=== PATIENT | female | born 1945 | race Caucasian/White ===

== ENCOUNTER 2019-02-08 19:50 | Emergency (ER) | payer OTHER ==
--- OUTSIDE RECORDS SUMMARY | 2019-02-08 19:53 | XMS REPORT | Clinical Summary ---
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 1 Active 1 MG tablet 8 tretinoin SHANAE EXT TO FACE 0 Active (ALTRALIN) 0.05 % QHS 8 gel amlodipine-benazepr Take 1 capsule 0 Active il (LOTREL) 10-40 by mouth daily. mg per capsule buPROPion XL Take 300 mg by 0 Active (WELLBUTRIN XL) 300 mouth daily. MG 24 hr tablet furosemide (LASIX) Take 20 mg by 0 Active 20 mg tablet mouth daily. metoprolol tartrate Take 100 mg by 0 Active (LOPRESSOR) 100 mg mouth 2 (two) tablet times a day. topiramate Take 25 mg by 0 Active (TOPAMAX) 25 MG mouth 2 (two) tablet times a day. esomeprazole Take 40 mg by 0 Active (NexIUM) 40 MG mouth daily capsule before breakfast. atorvastatin Take 40 mg by 0 Active (LIPITOR) 40 MG mouth daily. tablet aspirin (ECOTRIN) Take 81 mg by 0 Active 81 MG enteric mouth daily. coated tablet nitrofurantoin, Take 100 mg by 0 Active macrocrystal-monohy mouth 2 (two) drate, (MACROBID) times a day. 100 MG capsule folic Take by mouth. 0 Active acid/multivit-min/l utein (CENTRUM SILVER ORAL) cranberry fruit Take by mouth. 0 Active extract (THERACRAN ORAL) docusate sodium Take by mouth. 0 Active (STOOL SOFTENER ORAL) Lactobacillus Take by mouth. 0 Active acidophilus (PROBIOTIC ORAL) biotin 5 mg capsule Take 5 mg by 0 Active mouth daily. conjugated Insert into the 0 Active estrogens vagina daily. (PREMARIN) 0.625 mg/gram vaginal cream promethazine HCl Take by mouth. 0 Active (PROMETHAZINE ORAL) gabapentin Take 1 capsule 270 capsule 0 05/22/20 Active (NEURONTIN) 300 mg (300 mg total) 8 19 capsule by mouth 3 (three) times a day. meloxicam (MOBIC) TK 1 T PO QD 0 03/28/20 Discontinued 15 mg tablet 8 18 metoclopramide TK 3 TS PO UTD 0 03/28/20 Discontinued (REGLAN) 10 MG PER YOUR 8 18 tablet COLONOSCOPY PREP PACKET Active Problems Problem Noted Date Cervicalgia 07/18/2018 Fixation hardware in spine 05/20/2018 S/P cervical spinal fusion 04/17/2018 Spondylolisthesis of cervical region 03/28/2018 Resolved Problems Problem Noted Date Resolved Date Ankylosing hyperostosis (forestier), cervical region 03/28/2018 07/18/2018 Cervical radiculopathy at C6 03/28/2018 05/20/2018 Encounters Date Type Specialty Care Team Description 07/18/2018 Office Visit Neurosurgery Michael Muller S/P cervical spinal fusion (Primary Dx); MD Eliel Fixation hardware in spine; Cervicalgia 07/18/2018 Hospital Encounter Radiology Michael Muller Cervical radiculopathy MD Eliel 07/18/2018 Orders Only Neurosurgery Michael Muller Cervical radiculoabida Julian MD (Primary Dx) 06/19/2018 Telephone Neurosurgery Swati Fonseca LVN 05/22/2018 Orders Only Neurosurgery Swati Fonseca MAINTENANCE SERVICE SUPERVISOR 05/21/2018 Telephone Neurosurgery FonsecaSwati, MAINTENANCE SERVICE SUPERVISOR 05/20/2018 Office Visit Neurosurgery Michael Muller Ankylosing hyperostosis ( forestier), cervical region (Primary Dx); MD Eliel Spondylolisthesis of cervical region; S/P cervical spinal fusion; Fixation hardware in spine 05/20/2018 Hospital Encounter Radiology Michael Muller Cervical vertebral MD Eliel fusion 05/08/2018 Orders Only Neurosurgery Swati Fonseca, Cervical vertebral MAINTENANCE SERVICE SUPERVISOR fusion (Primary Dx) 04/26/2018 Telephone Neurosurgery Fonseca Swati, MAINTENANCE SERVICE SUPERVISOR 04/17/2018 [facility] [place] OUTSOLE PARA[facility] 04/17/2018 Surgery General Surgery Michael Muller ANTERIOR CERVICAL MD Eliel DISCECTOMY WITH FUSION C4-C7 04/17/2018 Hospital Encounter General Internal Michael Muller S/P cervical spinal fusion; - Medicine MD Eliel Spondylolisthesis of cervical region; 04/18/2018 Ankylosing hyperostosis (foresthiwot), cervical region; Cervical radiculopathy 04/05/2018 Hospital Encounter Radiology Michael Muller Disorder of bone ; MD Eliel Radiculopathy of cervical spine 04/05/2018 Hospital Encounter Radiology Michael Muller Disorder of bone ; MD Eliel Radiculopathy of cervical spine 04/05/2018 Orders Only Cardiology Jayy Navarrete MD 04/02/2018 Orders Only Neurosurgery Swati Fonseca, Radiculopathy of cervical spine (Primary Dx); MAINTENANCE SERVICE SUPERVISOR Disorder of bone 03/28/2018 Hospital Encounter Michael Celaya MD 03/28/2018 Hospital Encounter Radiology Michael Muller MD 03/28/2018 Pre-Admit Testing Pre-Admission Michael Muller Preoperative testing Appointment Testing MD Eliel (Primary Dx) 03/28/2018 Office Visit Neurosurgery Michael Muller Ankylosing hyperostosis ( forestier), cervical region (Primary Dx); MD Eliel Cervical radiculopathy at C6; Spondylolisthesis of cervical region 03/28/2018 Hospital Encounter Michael Celaya Cervical radiculopathy MD Eliel 03/28/2018 Hospital Encounter Radiology Michael Muller Cervical radiculopathy MD Eliel 03/27/2018 Abstract Neurosurgery Raymundo SwatiJOSHUA 03/12/2018 Orders Only Neurosurgery Rossy Richard Cervical radiculopathy (Primary Dx) after 02/07/2018 Family History Medical History Relation Name Comments Cancer Mother Relation Name Status Comments Mother Social History Tobacco Use Types Packs/Day Years Used Date Former Smoker Cigarettes 1 Quit: 1991 Smokeless Tobacco: Never Used Alcohol Use Drinks/Week oz/Week Comments Yes 1-2 drinks /week Sex Assigned at Date Recorded Not on file Job Start Date Occupation Industry Not on file Not on file Not on file Travel History Travel Start Travel End No recent travel history available. Last Filed Vital Signs Vital Sign Reading Time Taken Blood Pressure 111/56 04/18/2018 7:43 AM CDT Pulse 74 04/18/2018 7:43 AM CDT Temperature 36.8 C (98.3 F) 04/18/2018 7:43 AM CDT Respiratory Rate 17 04/18/2018 7:43 AM CDT Oxygen Saturation 95% 04/18/2018 7:43 AM CDT Inhaled Oxygen Concentration - - Weight 67.1 kg (148 lb) 04/17/2018 8:57 AM CDT Height 162.6 cm (5' 4") 04/17/2018 8:57 AM CDT Body Mass Index 25.4 04/17/2018 8:57 AM CDT Plan of Treatment Health Maintenance Due Date Last Done Comments BREAST CANCER SCREENING 01/12/1996 COLON CANCER SCREENING 01/12/1996 SHINGLES VACCINES (#1) 01/12/1996 65+ PNEUMOCOCCAL VACCINE (1 of 2 - PCV13) 2011 PNEUMOCOCCAL POLYSACCHARIDE VACCINE AGE 65 AND OVER 2011 INFLUENZA VACCINE 05/22/2019 Implants Implanted Type Area Awning Maker Device Shelf Model / Identifier Expiration Serial / Date Lot Karina [employer] Mastergraft 3cc - [id number] Human N/A: [employer] 2020 [id number] / Implanted: Qty: 1 on 04/17/2018 by Michael Muller MD Tissue N/A SPINAL AND / Implants BIOLOGICS [id number] Cage [id number] Anatomic Ptc [id number] - [id number] IMPLANT N/A: [employer] 01/15/2026 [id number] / Implanted: 04/17/2018 (Quantity not on file) DEVICES N/A SOFAMOR DANEK / 62FD Cage [id number] Anatomic Ptc [id number] - [id number] IMPLANT N/A: [employer] 01/15/2026 [id number] / Implanted: 04/17/2018 (Quantity not on file) DEVICES N/A SOFAMOR DANEK / 90GA Cage [id number] Anatomic Ptc [id number] - [id number] [id number] IMPLANT N/A: [employer] 01/15/2026 [id number] / Implanted: 04/17/2018 (Quantity not on file) DEVICES N/A SOFAMOR DANEK / 90GA Screw Spinal Slf-Drl V-Ang 4x14mm - [id number] Spinal N/A: [employer] [id number] / Implanted: 04/17/2018 (Quantity not on file) Implants N/A SPINAL AND / BIOLOGICS Plate Cerv 57.5mm [place] Elite - [id number] Spinal N/A: [employer] [id number] / Implanted: 04/17/2018 (Quantity not on file) Implants N/A SPINAL AND / BIOLOGICS Screw Spinal Slf-Drl V-Ang 4.5x13mm - [id number] Spinal N/A: [employer] [id number] / Implanted: 04/17/2018 (Quantity not on file) Implants N/A SPINAL AND / BIOLOGICS Pin Distrctn [place] 12mm Strl - [id number] Surgical N/A: AESCULAP SPINE 10/21/2022 [id number] / Implanted: 04/17/2018 (Quantity not on file) Implants; N/A / Expanders; [id number] Extenders; Surgical Wires Pin Distrctn [place] 12mm Strl - [id number] Surgical N/A: AESCULAP SPINE 10/21/2022 [id number] / Implanted: 04/17/2018 (Quantity not on file) Implants; N/A / Expanders; [id number] Extenders; Surgical Wires Procedures Procedure Name Priority Date/Time Associated Diagnosis Comments XR CERVICAL SPINE Routine 07/18/2018 2:26 Cervical radiculopathy Results for this COMPLETE W FLEX PM CDT procedure are in EXT the results section. XR CERVICAL SPINE Routine 05/20/2018 1:36 Cervical vertebral Results for this 2 OR 3 VW PM CDT fusion procedure are in the results section. SURGICAL PATHOLOGY Routine 04/17/2018 3:25 Results for this REQUEST PM CDT procedure are in the results section. XR CERVICAL SPINE Routine 04/17/2018 1:58 S/P cervical spinal Results for this 1 VW PM CDT fusion procedure are in the results section. XR CERVICAL SPINE Routine 04/17/2018 12:40 S/P cervical spinal Results for this 1 VW PM CDT fusion procedure are in the results section. XR CERVICAL SPINE Routine 04/17/2018 12:25 S/P cervical spinal Results for this 1 VW PM CDT fusion procedure are in the results section. ARTERIAL LINE Routine 04/17/2018 12:19 PM CDT Procedure Note - Salinas Calero MD - 04/17/2018 12:19 PM CDT Arterial line Performed by: SALINAS CALERO Authorized by: SALINAS CALERO Patient Location: OR Staff: Anesthesiologist: SALINAS CALERO Pre-procedure: patient identified, IV checked, site and side verified, risks and benefits discussed, procedure verified, surgical consent complete, patient position confirmed, monitors and equipment checked and pre-op evaluation complete MSBT: antiseptic used, all elements of maximal sterile barrier technique followed and hand hygiene performed Indications: Indications: hemodynamic monitoring Anesthesia: Anesthesia: General Procedure Details: Arterial Line placement: Placed post induction Line placement site: Radial Line placement side: Left Arterial line gauge: 20 G Number of attempts: 1 Ultrasound guidance used: No Post-procedure: Post-procedure: Sterile dressing applied Post procedure circulation, sensation, movement: Normal and unchanged Patient tolerance: Patient tolerated the procedure well with no immediate complications NH AN ELECTIVE ENDOTRACHEAL AIRWAY Routine 04/17/2018 12:18 PM CDT Procedure Note - Salinas Calero MD - 04/17/2018 12:18 PM CDT Airway Date/Time: 04/17/2018 12:18 PM Performed by: SALINAS CALERO Authorized by: SALINAS CALERO Location: OR Urgency: Elective Difficult Airway: Yes (known, planned FOI) Anesthesiologist: SALINAS CALERO Preoxygenated with 100% O2: Yes C-spine Precautions Maintained Throughout: Yes Mask Ventilation: Easy mask Final Airway Type: Endotracheal airway Final Endotracheal Airway: ETT Cuffed: Yes Technique Used: Fiberoptic Insertion Site: Oral ETT Size (mm): 7.0 Cuff at minimum occlusion pressure: Yes Measured from: Teeth ETT to Teeth (cm): 21 Placement Verified by: CO2 detection and fiber optic visualization Rapid Sequence Induction (RSI): No Number of Attempts at Approach: 1 DISCECTOMY, CERVICAL, 04/17/2018 11:00 AM CDT Spondylolisthesis of cervical WITH FUSION, ANTERIOR region APPROACH Ankylosing hyperostosis (forestier), cervical region Cervical radiculopathy Case Notes MICROSCOPE [employer] POSSIBLE EXTENDED STAY Special Needs MICROSCOPE [employer] POSSIBLE EXTENDED STAY BONE DENSITY Routine 04/05/2018 3:02 Disorder of bone Results for this PM CDT Radiculopathy of procedure are in cervical spine the results section. BONE DENSITY Routine 04/05/2018 3:01 Disorder of bone Results for this PERIPHERAL PM CDT Radiculopathy of procedure are in cervical spine the results section. ECG 12-LEAD Routine 03/28/2018 3:26 Preoperative testing Results for this PM CDT procedure are in the results section. ZZESTIMATED GFR Routine 03/28/2018 3:10 Results for this PM CDT procedure are in the results section. BASIC METABOLIC Routine 03/28/2018 3:10 Preoperative testing Results for this PANEL PM CDT procedure are in the results section. HC COMPLETE BLD Routine 03/28/2018 3:10 Preoperative testing Results for this COUNT W/AUTO DIFF PM CDT procedure are in the results section. XR SPINE SCOLIOSIS Routine 03/28/2018 11:41 Cervical radiculopathy Results for this 2-3 VIEWS AM CDT procedure are in the results section. XR CERVICAL SPINE Routine 03/28/2018 11:40 Cervical radiculopathy Results for this COMPLETE W FLEX EXT AM CDT procedure are in the results section. after 02/07/2018 Results XR Cervical Spine Complete w flex/ext (07/18/2018 2:26 PM CDT)Only the most recent of2 resultswithin the time period is included. Narrative Performed At EXAMINATION: XR CERVICAL SPINE COMPLETE W FLEX EXT [facility] CLINICAL HISTORY: M54.12 Radiculopathycervical region, radiculopathy COMPARISON:Cervical spine radiograph 05/20/2018 IMPRESSION: No displaced fracture. Status post ACDF with anterior plates and screws and anterior interbody grafts C4-C7. Hardware appears intact and well positioned, with evidence of solid interbody osseous fusion at these levels. There is 1 to 2 mm anterolisthesis of C2 on C3 on flexion, which reduces to 0 mm on neutral and extension views. No other subluxation. Mild disc height loss at C3-4 with mild degenerative endplate changes at this level. Anterior osseous neural foraminal stenosis left C6-7, with at least mild to moderate osseous neural foraminal stenosis left C3-4 and C4-5, and right C5-6 and C6-7 secondary to uncovertebral and facet arthropathy. Prevertebral soft tissue thickness is within normal limits. [id number] Procedure Note Hm Interface, Radiology Results - 07/18/2018 3:30 PM CDT EXAMINATION: XR CERVICAL SPINE COMPLETE W FLEX EXT CLINICAL HISTORY: M54.12 Radiculopathy cervical region, radiculopathy COMPARISON: Cervical spine radiograph 05/20/2018 IMPRESSION: No displaced fracture. Status post ACDF with anterior plates and screws and anterior interbody grafts C4-C7. Hardware appears intact and well positioned, with evidence of solid interbody osseous fusion at these levels. There is 1 to 2 mm anterolisthesis of C2 on C3 on flexion, which reduces to 0 mm on neutral and extension views. No other subluxation. Mild disc height loss at C3-4 with mild degenerative endplate changes at this level. Anterior osseous neural foraminal stenosis left C6-7, with at least mild to moderate osseous neural foraminal stenosis left C3-4 and C4-5, and right C5-6 and C6-7 secondary to uncovertebral and facet arthropathy. Prevertebral soft tissue thickness is within normal limits. [id number] Performing Organization Address City/State/Zipcode Phone Number [facility] [address] [place] [address] XR Cervical Spine 2 Or 3 Vw (05/20/2018 1:36 PM CDT) Narrative Performed At EXAMINATION: XR CERVICAL SPINE 2 OR 3 VW [facility] CLINICAL HISTORY: M43.22 Fusion of spinecervical region, post fusion check COMPARISON:Intraoperative cervical spine x-rays from March. FINDINGS: There is relatively stable anterior fusion from C4 to C7 with prevertebral plate and screws and graft material within the disc spaces. No acute abnormality is seen in the region of surgery. There are surgical clips in the right prevertebral soft tissues at the C5 level. There is 1.5 mm anterolisthesis at C2-3 and C3-4 which is relatively stable. There is mild disc space narrowing at C3-4. Overlying structures obscure detail below the C7 level limiting evaluation of the C7-T1 alignment. There is relatively stable dorsal spondylosis and mild narrowing of the anterior canal from C3-4 to C6-7. There are facet and uncovertebral joint hypertrophic changes more prominent in the mid to lower cervical region. The cervical curvature is slightly convex towards the right and there is reversal of the upper cervical lordosis with straightening of the mid to lower cervical lordosis. There are degenerative changes of the atlantoaxial joint space. IMPRESSION: No acute findings. Postoperative changes. Degenerative changes in the cervical spine. [facility]-[id number] Procedure Note Hm Interface, Radiology Results - 05/20/2018 3:24 PM CDT EXAMINATION: XR CERVICAL SPINE 2 OR 3 VW CLINICAL HISTORY: M43.22 Fusion of spine cervical region, post fusion check COMPARISON: Intraoperative cervical spine x-rays from April 17, 2018. FINDINGS: There is relatively stable anterior fusion from C4 to C7 with prevertebral plate and screws and graft material within the disc spaces. No acute abnormality is seen in the region of surgery. There are surgical clips in the right prevertebral soft tissues at the C5 level. There is 1.5 mm anterolisthesis at C2-3 and C3-4 which is relatively stable. There is mild disc space narrowing at C3-4. Overlying structures obscure detail below the C7 level limiting evaluation of the C7-T1 alignment. There is relatively stable dorsal spondylosis and mild narrowing of the anterior canal from C3-4 to C6-7. There are facet and uncovertebral joint hypertrophic changes more prominent in the mid to lower cervical region. The cervical curvature is slightly convex towards the right and there is reversal of the upper cervical lordosis with straightening of the mid to lower cervical lordosis. There are degenerative changes of the atlantoaxial joint space. IMPRESSION: No acute findings. Postoperative changes. Degenerative changes in the cervical spine. [facility]-[id number] Performing Organization Address City/State/Zipcode Phone Number [facility] [address] [place] [address] Surgical pathology request (04/17/2018 3:25 PM CDT) [facility] DEPARTMENT OF PATHOLOGY AND GENOMIC MEDICINE Surgical pathology report See link below for PDF [facility] DEPARTMENT OF Lab Report PATHOLOGY AND GENOMIC MEDICINE Result status This is Final Report to [facility] DEPARTMENT OF [id number] PATHOLOGY AND GENOMIC MEDICINE Performing Organization Address City/[facility]/Zipcode Phone Number [facility] DEPARTMENT OF PATHOLOGY AND [address] [place] [address] GENOMIC MEDICINE XR Cervical Spine 1 Vw (04/17/2018 1:58 PM CDT)Only the most recent of3 resultswithin the time period is included. Narrative Performed At EXAMINATION: XR CERVICAL SPINE 1 VW [facility] CLINICAL HISTORY: Z98.1 Arthrodesis status COMPARISON:Intraoperative exam from earlier today. FINDINGS: There is anterior fusion from C4 down to C7. There is good alignment. There are degenerative changes in the cervical spine. There are tubes within the oropharynx extending downwards. There are radiopaque wires and leads. IMPRESSION: Lateral intraoperative radiograph of the cervical spine for localization during cervical spine surgery. [facility]-[id number] Procedure Note Interface, Radiology Results Incoming - 04/17/2018 2:59 PM CDT EXAMINATION: XR CERVICAL SPINE 1 VW CLINICAL HISTORY: Z98.1 Arthrodesis status COMPARISON: Intraoperative exam from earlier today. FINDINGS: There is anterior fusion from C4 down to C7. There is good alignment. There are degenerative changes in the cervical spine. There are tubes within the oropharynx extending downwards. There are radiopaque wires and leads. IMPRESSION: Lateral intraoperative radiograph of the cervical spine for localization during cervical spine surgery. [id number] Performing Organization Address [facility]/Zipcode Phone Number [facility] [address] [place] [address] Bone Density (04/05/2018 3:02 PM CDT) Narrative Performed At EXAMINATION:BONE DENSITY [facility] CLINICAL HISTORY: 73 years Female M89.9 Disorder of boneunspecified, M54.12 Radiculopathycervical region, NECK PAINABN NEURO EXAMXRAY SPONDYLOSIS, scheduled for cervical spine fusion COMPARISON:None. The results of this study expressed as bone mineral density (BMD) were as follows: AP spine (L1-L4) BMD: 1.380 g/cm2 T-Score: 1.7 Z-Score: 3.4 Dual Femur (Total Mean): BMD: 0.927 g/cm2 T-Score: -0.6 Z-Score:1.0 Left Forearm (Radius 33%): BMD: 0.782 g/cm2 T-Score: -1.1 Z-Score: 0.9 Trabecular Bone Score (TBS): TBS L1-L4: 1.448,(>1.350 normal, 1.200-1.350 partially degraded microarchitecture, <1.200 degraded microarchitecture) The 10 year probability of fracture, adjusted for FRAX: Major Osteoporotic Fracture: 18.5% Hip Fracture:5% Femur FRAX: Risk factors: Family history parent fracture, adult fracture 10 year probability of fracture: 1.Major osteoporotic: 23.3% 2.Hip: 6.2% 3.Based on femur left neck BMD Impression: 1.WHO classification consistent with osteopenia based on T score left forearm. Notes: *The world health organization (WHO) has classified the patient's T-score as follows: At or above (-1) as normal (-1) to (-2.5) as low (osteopenia) At or below (-2.5) as abnormally low (osteoporosis, increased fracture risk) For premenopausal women, men under the age 50 years, and children the WHO classification does not apply. In these individuals please assess bone mineral density with Z scores for each skeletal site examined. Z scores above -2.0: Within expected range for age. Z scores lower than -2.0:Low bone density for age. The TBS is derived from the texture of the DEXA image and has been shown to be related to bone microarchitecture and fracture risk. This data provides information independent of BMD value; is used as a complement to the data obtained from the DEXA analysis and the clinical examination. The TBS can assist the healthcare professional in assessment of fracture risk and in monitoring the effect of treatments on patient over time. [facility]-[id number] Procedure Note [facility], Radiology Results Incoming - 04/05/2018 3:38 PM CDT EXAMINATION: BONE DENSITY CLINICAL HISTORY: 73 years Female M89.9 Disorder of bone unspecified, M54.12 Radiculopathy cervical region, NECK PAIN ABN NEURO EXAM XRAY SPONDYLOSIS, scheduled for cervical spine fusion COMPARISON: None. The results of this study expressed as bone mineral density (BMD) were as follows: AP spine (L1-L4) BMD: 1.380 g/cm2 T-Score: 1.7 Z-Score: 3.4 Dual Femur (Total Mean): BMD: 0.927 g/cm2 T-Score: -0.6 Z-Score: 1.0 Left Forearm (Radius 33%): BMD: 0.782 g/cm2 T-Score: -1.1 Z-Score: 0.9 Trabecular Bone Score (TBS): TBS L1-L4: 1.448, (>1.350 normal, 1.200-1.350 partially degraded microarchitecture, <1.200 degraded microarchitecture) The 10 year probability of fracture, adjusted for FRAX: Major Osteoporotic Fracture: 18.5% Hip Fracture: 5% Femur FRAX: Risk factors: Family history parent fracture, adult fracture 10 year probability of fracture: 1. Major osteoporotic: 23.3% 2. Hip: 6.2% 3. Based on femur left neck BMD Impression: 1. WHO classification consistent with osteopenia based on T score left forearm. Notes: *The world health organization (WHO) has classified the patient's T-score as follows: At or above (-1) as normal (-1) to (-2.5) as low (osteopenia) At or below (-2.5) as abnormally low (osteoporosis, increased fracture risk) For premenopausal women, men under the age 50 years, and children the WHO classification does not apply. In these individuals please assess bone mineral density with Z scores for each skeletal site examined. Z scores above -2.0: Within expected range for age. Z scores lower than -2.0: Low bone density for age. The TBS is derived from the texture of the DEXA image and has been shown to be related to bone microarchitecture and fracture risk. This data provides information independent of BMD value; is used as a complement to the data obtained from the DEXA analysis and the clinical examination. The TBS can assist the healthcare professional in assessment of fracture risk and in monitoring the effect of treatments on patient over time. [facility]-[id number] [facility] Organization Address City/State/Zipcode Phone Number [facility] [address] [place] [address] Bone Density Peripheral (04/05/2018 3:01 PM CDT) Narrative Performed At EXAMINATION:BONE DENSITY PERIPHERAL [facility] CLINICAL HISTORY:M89.9 Disorder of boneunspecified, M54.12 Radiculopathycervical region, NECK PAINABN NEURO EXAMXRAY SPONDYLOSIS, scheduled for cervical spine fusion COMPARISON:None. Impression: 1.See accession #IM [id number]. [facility]-[id number] Procedure Note Hm Interface, Radiology Results Incoming - 04/05/2018 3:39 PM CDT EXAMINATION: BONE DENSITY PERIPHERAL CLINICAL HISTORY: M89.9 Disorder of bone unspecified, M54.12 Radiculopathy cervical region, NECK PAIN ABN NEURO EXAM XRAY SPONDYLOSIS, scheduled for cervical spine fusion COMPARISON: None. Impression: 1. See accession #IM [id number]. [facility]-[id number] Performing Organization Address City/[facility] Phone Number [facility] [address] [place] [address] ECG 12 lead (03/28/2018 3:26 PM CDT) Ventricular rate 64 [facility] MUSE Atrial rate 64 [facility] MUSE NH interval 206 [facility] MUSE QRSD interval 84 [facility] MUSE QT interval 432 [facility] M[facility] QTC interval 445 [facility] M[facility] P axis 1 39 [facility] M[facility] QRS axis 1 50 [facility] M[facility] T wave axis 28 [facility] EKG impression Normal sinus rhythm-Normal ECG-No previous [facility] ECGs available- Performing Organization Address [facility] Phone Number [facility] [address] [place] [address] Estimated GFR (03/28/2018 3:10 PM CDT) GFR Non Af Amer 54 (A) mL/min/1.73 m2 [facility] DEPARTMENT OF PATHOLOGY AND GENOMIC MEDICINE GFR Af Amer 66 mL/min/1.73 m2 [facility] DEPARTMENT OF Comment: PATHOLOGY AND GENOMIC Chronic kidney disease: <60 mL/min/1.73m2 MEDICINE Kidney failure: <15 mL/min/1.73m2 The estimated GFR is calculated from the IDMS-traceable Modification of Diet in Renal Disease Equation. The accuracy of the calculation is poor when the creatinine is normal. Calculated values >90 mL/min/1.73m2 are not reported. This equation has not been validated in children (<18 years), women, the elderly (>70 years), or ethnic groups other than Caucasians and Americans. Specimen Plasma specimen Performing Organization Address City/[facility] Phone Number [facility] DEPARTMENT OF PATHOLOGY AND [address] [place] [address] [employer] MEDICINE CBC with platelet and differential (03/28/2018 3:10 PM CDT) WBC 5.87 4.50 - 11.00 k/uL [facility] DEPARTMENT OF PATHOLOGY AND GENOMIC MEDICINE RBC 4.22 4.20 - 5.50 m/uL [facility] DEPARTMENT OF PATHOLOGY AND GENOMIC MEDICINE HGB 12.2 12.0 - 16.0 g/dL [facility] DEPARTMENT OF PATHOLOGY AND GENOMIC MEDICINE HCT 37.5 37.0 - 47.0 % [facility] DEPARTMENT OF PATHOLOGY AND GENOMIC MEDICINE MCV 88.9 82.0 - 100.0 fL [facility] DEPARTMENT OF PATHOLOGY AND GENOMIC MEDICINE MCH 28.9 27.0 - 34.0 pg [facility] DEPARTMENT OF PATHOLOGY AND GENOMIC MEDICINE MCHC 32.5 31.0 - 37.0 g/dL [facility] DEPARTMENT OF PATHOLOGY AND GENOMIC MEDICINE RDW - SD 43.3 37.0 - 55.0 fL [facility] DEPARTMENT OF PATHOLOGY AND GENOMIC MEDICINE MPV 10.0 8.8 - 13.2 fL [facility] DEPARTMENT OF PATHOLOGY AND GENOMIC MEDICINE Platelet count 366 150 - 400 k/uL [facility] DEPARTMENT OF PATHOLOGY AND GENOMIC MEDICINE Nucleated RBC 0.00 /100 WBC [facility] DEPARTMENT OF PATHOLOGY AND GENOMIC MEDICINE Neutrophils 67.1 39.0 - 69.0 % [facility] DEPARTMENT OF PATHOLOGY AND GENOMIC MEDICINE Lymphocytes 17.9 (L) 25.0 - 45.0 % [facility] DEPARTMENT OF PATHOLOGY AND GENOMIC MEDICINE Monocytes 9.7 0.0 - 10.0 % [facility] DEPARTMENT OF PATHOLOGY AND GENOMIC MEDICINE Eosinophils 4.1 0.0 - 5.0 % [facility] DEPARTMENT OF PATHOLOGY AND GENOMIC MEDICINE Basophils 0.7 0.0 - 1.0 % [facility] DEPARTMENT OF PATHOLOGY AND GENOMIC MEDICINE Immature granulocytes 0.5Comment: 0.0 - 1.0 % [facility] DEPARTMENT OF "Immature PATHOLOGY AND GENOMIC granulocytes" MEDICINE (promyelocytes, myelocytes, metamyelocytes) Specimen Blood Performing Organization Address City/State/Zipcode Phone Number [facility] DEPARTMENT OF PATHOLOGY AND [address] [place] [address] [employer] MEDICINE Basic metabolic panel (03/28/2018 3:10 PM CDT) Sodium 144 135 - 148 mEq/L [facility] DEPARTMENT OF PATHOLOGY AND GENOMIC MEDICINE Potassium 4.6 3.5 - 5.0 mEq/L [facility] DEPARTMENT OF PATHOLOGY AND GENOMIC MEDICINE Chloride 106 98 - 112 mEq/L [facility] DEPARTMENT OF PATHOLOGY AND GENOMIC MEDICINE CO2 24 24 - 31 mEq/L [facility] DEPARTMENT OF PATHOLOGY AND GENOMIC MEDICINE Anion gap 14@ANIO 7 - 15 mEq/L [facility] DEPARTMENT OF PATHOLOGY AND GENOMIC MEDICINE BUN 16 8 - 23 mg/dL [facility] DEPARTMENT OF PATHOLOGY AND GENOMIC MEDICINE Creatinine 1.0 (H) 0.5 - 0.9 mg/dL [facility] DEPARTMENT OF PATHOLOGY AND GENOMIC MEDICINE Glucose 107 (H) 65 - 99 mg/dL [facility] DEPARTMENT OF PATHOLOGY AND GENOMIC MEDICINE Calcium 9.9 8.8 - 10.2 mg/dL [facility] DEPARTMENT OF PATHOLOGY AND GENOMIC MEDICINE Specimen Plasma specimen Performing Organization Address City/State/Zipcode Phone Number [facility] DEPARTMENT OF PATHOLOGY AND [address] [place] [address] [facility] XR Spine Scoliosos 2-3 Views (03/28/2018 11:41 AM CDT) Narrative Performed At EXAMINATION:XR SPINE SCOLIOSIS 2-3 VIEWS [facility] CLINICAL HISTORY:M54.12 Radiculopathycervical region, BACK PAINUNSPECIFIED COMPARISON:None. IMPRESSION: 7 views of the whole spine are obtained. On the whole spine frontal view, there is mild displacement of the So line to the left of the mid S1 vertebral body by 1.5 cm. On the whole spine lateral view, there is some anterior displacement of the So line from the posterior S1 endplate by 3.9 cm. Levoscoliosis of the lumbar spine with apex at L2 and Alfred angle of 9. Grade 1 anterolisthesis at L4-5. Multilevel disc space narrowing and endplate degenerative changes worst at L2-3. No compression fractures or aggressive bony lesions. [facility]-[id number] Procedure Note Interface, Radiology Results Incoming - 03/28/2018 4:19 PM CDT EXAMINATION: XR SPINE SCOLIOSIS 2-3 VIEWS CLINICAL HISTORY: M54.12 Radiculopathy cervical region, BACK PAIN UNSPECIFIED COMPARISON: None. IMPRESSION: 7 views of the whole spine are obtained. On the whole spine frontal view, there is mild displacement of the So line to the left of the mid S1 vertebral body by 1.5 cm. On the whole spine lateral view, there is some anterior displacement of the So line from the posterior S1 endplate by 3.9 cm. Levoscoliosis of the lumbar spine with apex at L2 and Alfred angle of 9. Grade 1 anterolisthesis at L4-5. Multilevel disc space narrowing and endplate degenerative changes worst at L2- 3. No compression fractures or aggressive bony lesions. [facility]-[id number] Performing Organization Address City/State/Zipcode Phone Number [facility] [address] [place] [address] after 02/07/2018 Insurance Payer Benefit Plan / Group Subscriber ID Type Phone Address MEDICARE MEDICARE PART A AND B xxxxxxxxxx Medicare [place], [place] xxxxxxxxx Advance Directives Patient has advance care planning documents, and code status on file. For more information, please contact:Devin Regalado[address] [place] [address] Code Status Date Activated Date Inactivated Comments Full Code 04/17/2018 3:38 PM 04/18/2018 2:23 PM Code Status decision reached by: Patient
[2019-02-08] MEDS ORDERED: TETANUS & DIPHTHERIA TOX,ADULT 0.5 ML VIAL ONE (21:11)
[2019-02-08] MEDS ORDERED: CEFTRIAXONE/SWI 1gm 1 GM/10 ML SYR ONE (21:11)
[2019-02-08] MEDS ORDERED: NA CHLORIDE 0.9% 100 ML IV ONE (21:14)
--- NOTE | 2019-02-08 21:49 | EDPHYS ---
Physician Documentation [facility] Name: Kailey Myles Age: 74 yrs Sex: Female : 1945 Arrival Date: 02/08/2019 Time: 19:53 Bed 23 Private MD: Everardo Valerio ED Physician Naveed Lara HPI: 02/08 21:44 This 74 yrs old Female presents to ER via Ambulatory with complaints of DUCK gs CLAWED HER. 21:44 The laceration(s) is(are) located on the left wrist. Onset: The symptoms/episode gs began/occurred acutely, 2 hour(s) ago. Associated signs and symptoms: Pertinent negatives: deformity. The patient has not experienced similar symptoms in the past. was clawed by duck puncture to left wrist mild swelling. Historical: - Allergies: 19:58 BACITRACIN; la1 19:58 Bacitracin Zinc; la1 19:58 benzalkonium chloride; la1 19:58 Codeine; la1 19:58 Levofloxacin; la1 19:58 Neomycin Sulfate; la1 19:58 PENICILLINS; la1 19:58 polymyxin B; la1 19:58 pramoxine HCl; la1 - PMHx: 19:58 Anxiety; GERD; Hyperlipidemia; Hypertension; la1 - Immunization history:: Adult Immunizations up to date. - Social history:: Smoking status: Patient/guardian denies using tobacco. - Ebola Screening: : No symptoms or risks identified at this time. ROS: 21:44 All other systems are negative. gs Exam: 21:44 Head/Face: Normocephalic, atraumatic. Neck: Trachea midline, no thyromegaly or masses gs palpated, and no cervical lymphadenopathy. Supple, full range of motion without nuchal rigidity, or vertebral point tenderness. No Meningismus. Cardiovascular: Regular rate and rhythm with a normal S1 and S2. No gallops, murmurs, or rubs. Normal PMI, no JVD. No pulse deficits. Respiratory: Lungs have equal breath sounds bilaterally, clear to auscultation and percussion. No rales, rhonchi or wheezes noted. No increased work of breathing, no retractions or nasal flaring. Abdomen/GI: Soft, non-tender, with normal bowel sounds. No distension or tympany. No guarding or rebound. No evidence of tenderness throughout. Neuro: Awake and alert, GCS 15, oriented to person, place, time, and situation. Cranial nerves II-XII grossly intact. Motor strength 5/5 in all extremities. Sensory grossly intact. Cerebellar exam normal. Normal gait. 21:44 Constitutional: The patient appears alert, awake. 21:44 Musculoskeletal/extremity: Extremities: noted in the left wrist: swelling, mild, Pulses: are normal with no appreciated deficits, Sensation intact. 21:44 Skin: injury, puncture(s), that are superficial, of the left wrist. Vital Signs: 19:58 BP 158 / 68; Pulse 89; Resp 16; Temp 98.4; Pulse Ox 98% on R/A; Weight 66.68 kg; Height la1 5 ft. 4 in. (162.56 cm); 21:54 BP 136 / 71 RA Supine; Pulse 88; Resp 18 S; Pulse Ox 98% on R/A; rv 19:58 Body Mass Index 25.23 (66.68 kg, 162.56 cm) la1 MDM: 20:06 Patient medically screened. gs 21:44 Data reviewed: vital signs, nurses notes. Response to treatment: the patient's symptoms gs have markedly improved after treatment, and as a result, I will discharge patient. 02/08 20:27 Order name: Wrist Left (3 View) XRAY gs Administered Medications: 21:11 Drug: Tetanus-Diphtheria Toxoid Adult 0.5 ml {Licensed Clinical Psychologist: [employer]. Exp: rv 12/05/2020. Lot #: [id number]. } Route: IM; Site: left deltoid; 21:53 Follow up: Response: No adverse reaction rv 21:11 Drug: Rocephin - (cefTRIAXone) 1 grams Route: IVPB; Infused Over: 30 mins; Site: right rv antecubital; 21:53 Follow up: IV Status: Completed infusion; IV Intake: 100ml rv Disposition: 02/08/19 21:48 Discharged to Home. Impression: Puncture wound without foreign body of left wrist. - Condition is Stable. - Discharge Instructions: Puncture Wound. - Prescriptions for Ceftin 500 mg Oral Tablet - take 1 tablet by ORAL route every 12 hours for 7 days; 14 tablet. - Medication Reconciliation Form, Thank You Letter, Antibiotic Education, Prescription Opioid Use form. - Follow up: Private Physician; When: 2 - 3 days; Reason: Re-evaluation by your physician. Signatures: Dispatcher [employer] John Chung RN RN la1 Naveed Lara MD MD Ottoniel Lewis RN RN rv Corrections: (The following items were deleted from the chart) 21:55 21:48 02/08/2019 21:48 Discharged to Home. Impression: Puncture wound without foreign rv body of left wrist. Condition is Stable. Forms are Medication Reconciliation Form, Thank You Letter, Antibiotic Education, Prescription Opioid Use. Follow up: Private Physician; When: 2 - 3 days; Reason: Re-evaluation by your physician. gs
--- NOTE | 2019-02-08 21:49 | ER ---
Nurse's Notes [facility] Name: Kailey Myles Age: 74 yrs Sex: Female : 1945 Arrival Date: 02/08/2019 Time: 19:53 Bed 23 Private MD: Everardo Valerio Diagnosis: Puncture wound without foreign body of left wrist Presentation: 02/08 19:57 Presenting complaint: Patient states: I was trying to get out pet duck out of a kennel la1 and when I was getting it out it clawed me left wrist. Transition of care: patient was not received from another setting of care. Onset of symptoms was February 08, 2019. Risk Assessment: Do you want to hurt yourself or someone else? Patient reports no desire to harm self or others. Initial Sepsis Screen: Does the patient meet any 2 criteria? No. Patient's initial sepsis screen is negative. Does the patient have a suspected source of infection? No. Patient's initial sepsis screen is negative. Care prior to arrival: None. 19:57 Method Of Arrival: Ambulatory la1 19:57 Acuity: ARTHUR 4 la1 Historical: - Allergies: 19:58 BACITRACIN; la1 19:58 Bacitracin Zinc; la1 19:58 benzalkonium chloride; la1 19:58 Codeine; la1 19:58 Levofloxacin; la1 19:58 Neomycin Sulfate; la1 19:58 PENICILLINS; la1 19:58 polymyxin B; la1 19:58 pramoxine HCl; la1 - PMHx: 19:58 Anxiety; GERD; Hyperlipidemia; Hypertension; la1 - Immunization history:: Adult Immunizations up to date. - Social history:: Smoking status: Patient/guardian denies using tobacco. - Ebola Screening: : No symptoms or risks identified at this time. Screenin:02 Abuse screen: Denies threats or abuse. Denies injuries from another. Nutritional rv screening: No deficits noted. Tuberculosis screening: No symptoms or risk factors identified. Fall Risk None identified. Assessment: 20:01 General: Appears in no apparent distress. comfortable, Behavior is calm, cooperative. rv Pain: Denies pain. Neuro: Level of Consciousness is awake, alert, obeys commands, Oriented to person, place, time, situation. Cardiovascular: Capillary refill < 3 seconds. Respiratory: Airway is patent. GI: No signs and/or symptoms were reported involving the gastrointestinal system. : No signs and/or symptoms were reported regarding the genitourinary system. EENT: No signs and/or symptoms were reported regarding the EENT system. Derm: Skin is intact, Wound noted left wrist. Musculoskeletal: No signs and/or symptoms reported regarding the musculoskeletal system. Vital Signs: 19:58 BP 158 / 68; Pulse 89; Resp 16; Temp 98.4; Pulse Ox 98% on R/A; Weight 66.68 kg; Height la1 5 ft. 4 in. (162.56 cm); 21:54 BP 136 / 71 RA Supine; Pulse 88; Resp 18 S; Pulse Ox 98% on R/A; rv 19:58 Body Mass Index 25.23 (66.68 kg, 162.56 cm) la1 ED Course: 19:53 Patient arrived in ED. es 19:53 Everardo Valerio MD is Private Physician. es 19:58 Triage completed. la1 19:59 Ottoniel Lewis RN is Primary Nurse. rv 19:59 Arm band placed on left wrist. la1 20:00 Naveed Lara MD is Attending Physician. gs 20:02 Patient has correct armband on for positive identification. Bed in low position. Call rv light in reach. Side rails up X 1. Adult w/ patient. Pulse ox on. NIBP on. 21:03 Wrist Left (3 View) XRAY In Process Unspecified. EDMS 21:54 No provider procedures requiring assistance completed. IV discontinued, intact, rv bleeding controlled, No redness/swelling at site. Pressure dressing applied. Administered Medications: 21:11 Drug: Tetanus-Diphtheria Toxoid Adult 0.5 ml {It Technical Support Specialist: [employer]. Exp: rv 12/05/2020. Lot #: [id number]. } Route: IM; Site: left deltoid; 21:53 Follow up: Response: No adverse reaction rv 21:11 Drug: Rocephin - (cefTRIAXone) 1 grams Route: IVPB; Infused Over: 30 mins; Site: right rv antecubital; 21:53 Follow up: IV Status: Completed infusion; IV Intake: 100ml rv Intake: 21:53 IV: 100ml; Total: 100ml. rv Outcome: 21:48 Discharge ordered by . gs 21:54 Discharged to home ambulatory. rv 21:54 Condition: good 21:54 Discharge instructions given to patient, family, Instructed on discharge instructions, follow up and referral plans. medication usage, wound care, Demonstrated understanding of instructions, follow-up care, medications, Prescriptions given X 1. 21:55 Patient left the ED. rv Signatures: Dispatcher [employer] Fadumo Mccann Lee, RN RN la1 Naveed Lara MD MD Ottoniel Lewis RN RN rv
[2019-02-08 22:00] VITALS: TEMP 98.4; O2SAT 98
[2019-02-08 22:02] VITALS: BP 136/71
--- NOTE | 2019-02-09 09:26 | RAD REPORT ---
EXAM DESCRIPTION: RAD - Wrist Left 3 View - 02/08/2019 9:03 pm CLINICAL HISTORY: Left wrist pain status post injury FINDINGS: No fracture or dislocation is seen. No bone or joint abnormality
== END 2019-02-08 21:55 | disposition home or self-care (01) ==
LOC: ER 19:50
DX: S61.532A Puncture wound without foreign body of left wrist, initial encounter (principal); W45.8XXA Other foreign body or object entering through skin, initial encounter; F41.9 Anxiety disorder, unspecified; K21.9 Gastro-esophageal reflux disease without esophagitis; E78.5 Hyperlipidemia, unspecified; I10 Essential (primary) hypertension; Z88.1 Allergy status to other antibiotic agents; Z88.5 Allergy status to narcotic agent; Z88.0 Allergy status to penicillin; Z23 Encounter for immunization
CPT/HCPCS: 96365; 73110; 90714; 99284; J0696

== ENCOUNTER 2019-04-19 07:32 | Emergency (ER) | payer OTHER ==
--- OUTSIDE RECORDS SUMMARY | 2019-04-19 07:39 | XMS REPORT | Clinical Summary ---
:1945 Author Organization [facility] Address [address] [place] [address] Care Team Providers Name Role Phone Everardo Valerio MD Primary Care Provider Allergies Active Allergy Reactions Severity Noted Date Comments Codeine GI Intolerance 03/28/2018 Levofloxacin Anaphylaxis High 05/07/2013 Other 03/28/2018 Fluoroquinolones- attacks connective tissue Penicillins 03/28/2018 Quinolones 03/28/2018 Attacks connective tissue Thiazides 03/28/2018 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 Medications Medication Sig Dispensed Refills Start Date End Date Status HYDROcodone-acetamino TK 1 T PO BID 0 02/26/2018 Active phen (NORCO) 7.5-325 mg per tablet LORAZepam (ATIVAN) 1 TK 1 T PO BID. 1 01/10/2018 Active MG tablet tretinoin (ALTRALIN) SHANAE EXT TO FACE 0 01/09/2018 Active 0.05 % gel QHS amlodipine-benazepril Take 1 capsule 0 Active (LOTREL) 10-40 mg per by mouth daily. capsule buPROPion XL Take 300 mg by 0 Active (WELLBUTRIN XL) 300 mouth daily. MG 24 hr tablet furosemide (LASIX) 20 Take 20 mg by 0 Active mg tablet mouth daily. metoprolol tartrate Take 100 mg by 0 Active (LOPRESSOR) 100 mg mouth 2 (two) tablet times a day. topiramate (TOPAMAX) Take 25 mg by 0 Active 25 MG tablet mouth 2 (two) times a day. esomeprazole (NexIUM) Take 40 mg by 0 Active 40 MG capsule mouth daily before breakfast. atorvastatin Take 40 mg by 0 Active (LIPITOR) 40 MG mouth daily. tablet aspirin (ECOTRIN) 81 Take 81 mg by 0 Active MG enteric coated mouth daily. tablet nitrofurantoin, Take 100 mg by 0 Active macrocrystal-monohydr mouth 2 (two) ate, (MACROBID) 100 times a day. MG capsule folic Take by mouth. 0 Active acid/multivit-min/lut ein (CENTRUM SILVER ORAL) cranberry fruit Take by mouth. 0 Active extract (THERACRAN ORAL) docusate sodium Take by mouth. 0 Active (STOOL SOFTENER ORAL) Lactobacillus Take by mouth. 0 Active acidophilus (PROBIOTIC ORAL) biotin 5 mg capsule Take 5 mg by 0 Active mouth daily. conjugated estrogens Insert into the 0 Active (PREMARIN) 0.625 vagina daily. mg/gram vaginal cream promethazine HCl Take by mouth. 0 Active (PROMETHAZINE ORAL) gabapentin Take 1 capsule 270 capsule 0 05/22/2018 05/22/2019 Active (NEURONTIN) 300 mg (300 mg total) capsule by mouth 3 (three) times a day. Active Problems Problem Noted Date Cervicalgia 07/18/2018 [...] Fixation hardware in spine; Cervicalgia 07/18/2018 Hospital Radiology Michael Muller Cervical radiculopathy Encounter MD Eliel 07/18/2018 Orders Only Neurosurgery Michael Muller Cervical radiculopathy MD Eliel (Primary Dx) 06/19/2018 Telephone Neurosurgery Swati Fonseca LVN 05/22/2018 Orders Only Neurosurgery Swati Fonseca LVN 05/21/2018 Telephone Neurosurgery Swati Fonseca LVN 05/20/2018 Office Visit Neurosurgery Michael Muller Ankylosing hyperostosis ( forestier), cervical region (Primary Dx); MD Eliel Spondylolisthesis of cervical region; S/P cervical spinal fusion; Fixation hardware in spine 05/20/2018 Hospital Radiology Michael Muller Cervical vertebral Encounter MD Eliel fusion 05/08/2018 Orders Only Neurosurgery Swati Fonseca, Cervical vertebral CHARGING BOARD OPERATOR fusion (Primary Dx) 04/26/2018 Telephone Neurosurgery Swati Fonseca CHARGING BOARD OPERATOR 04/17/2018 - [facility] General Internal Michael Muller S/P cervical spinal fusion; 04/18/2018 Encounter Medicine MD Eliel Spondylolisthesis of cervical region; Ankylosing hyperostosis (forestier), cervical region; Cervical radiculopathy after 04/18/2018 Family History Medical History Relation Name Comments Cancer Mother Relation Name Status Comments Mother Social History Tobacco Use Types Packs/Day Years Used Date Former Smoker Cigarettes 11 07 Quit: 1991 Smokeless Tobacco: Never Used Alcohol [...] CDT Inhaled Oxygen Concentration - - Weight - - Height - - Body Mass Index - - Plan of Treatment Health Maintenance Due Date Last Done Comments BREAST CANCER SCREENING 01/12/1996 COLONOSCOPY SCREENING 01/12/1996 SHINGLES VACCINES (#1) 01/12/1996 65+ PNEUMOCOCCAL VACCINE (1 of 2 - PCV13) 2011 INFLUENZA VACCINE 05/22/2019 Implants Implanted Type Area Cosmetics Presser Device Shelf Model / Identifier Expiration Serial / Date Lot Karina Biolgc Mastergraft 3cc - [id number] Human N/A: [employer] 2020 [id number] / Implanted: Qty: 1 on 04/17/2018 by Michael Muller MD Tissue N/A SPINAL AND / Implants BIOLOGICS [id number] Cage [id number] Anatomic Ptc [id number] - [id number] [id number] IMPLANT N/A: [employer] 01/15/2026 [id number] / Implanted: 04/17/2018 (Quantity not on file) DEVICES N/A SOFAMOR DANEK / 62FD Cage [id number] Anatomic Ptc [id number] - [id number] [id number] IMPLANT N/A: [employer] 01/15/2026 [id number] / Implanted: 04/17/2018 (Quantity not on file) DEVICES N/A SOFAMOR DANEK / 90GA Cage [id number] Anatomic Ptc [id number] - [id number] IPM IMPLANT N/A: [employer] 01/15/2026 [id number] / Implanted: 04/17/2018 (Quantity not on file) DEVICES N/A SOFAMOR DANEK / 90GA Screw Spinal Slf-Drl V-Ang 4x14mm - [id number] Spinal N/A: [employer] [id number] / Implanted: 04/17/2018 (Quantity not on file) Implants N/A SPINAL AND / BIOLOGICS Plate Cerv 57.5mm [place] Elite - [id number] Spinal N/A: [employer] [id number] / Implanted: 04/17/2018 (Quantity not on file) Implants N/A SPINAL AND / BIOLOGICS Screw Spinal Slf-Drl V-Ang 4.5x13mm - [id number] Spinal N/A: [employer] [id number] / Implanted: 04/17/2018 (Quantity not on file) Implants N/A SPINAL AND / BIOLOGICS Pin Distrctn Thornton 12mm Strl - [id number] Surgical N/A: AESCULAP SPINE 10/21/2022 [id number] / Implanted: 04/17/2018 (Quantity not on file) Implants; N/A / Expanders; [id number] Extenders; Surgical Wires Pin Distrctn Thornton 12mm Strl - [id number] Surgical N/A: AESCULAP SPINE 10/21/2022 [id number] / Implanted: 04/17/2018 (Quantity not on file) Implants; N/A / Expanders; [id number] Extenders; Surgical Wires Procedures Procedure Name Priority Date/Time Associated Diagnosis Comments XR CERVICAL SPINE Routine 07/18/2018 2:26 Cervical radiculopathy Results for this COMPLETE W FLEX PM CDT procedure are in EXT the results section. XR CERVICAL SPINE Routine 05/20/2018 1:36 Cervical vertebral Results for this 2 OR 3 VW PM CDT fusion procedure are in the results section. after 04/18/2018 Results XR Cervical Spine Complete w flex/ext (07/18/2018 2:26 PM CDT) Specimen Narrative Performed At EXAMINATION: XR CERVICAL SPINE COMPLETE W FLEX EXT [facility] CLINICAL HISTORY: M54.12 Radiculopathycervical region, radiculopathy [...] soft tissue thickness is within normal limits. [id number] Procedure Note Interface, Radiology Results Incoming - 07/18/2018 3:30 PM CDT EXAMINATION: XR [...] soft tissue thickness is within normal limits. [id number] Performing Organization Address City/State/Zipcode Phone Number [facility] [address] [place] [address] XR Cervical Spine 2 Or 3 Vw (05/20/2018 1:36 PM CDT) Specimen Narrative Performed At EXAMINATION: XR CERVICAL SPINE [...] changes. Degenerative changes in the cervical spine. [facility] [id number] Procedure Note Hm Interface, Radiology Results Incoming - 05/20/2018 3:24 PM CDT EXAMINATION: XR [...] changes. Degenerative changes in the cervical spine. [facility] [id number] Performing Organization Address City/State/Zipcode Phone Number [facility] [address] [place] [address] after 04/18/2018 Insurance Payer Benefit Plan / Subscriber ID Effective Dates Phone Address Type Group MEDICARE MEDICARE PART A xxxxxxxxxx 2010-Present [place], [place] Medicare AND B xxxxxxxxx 2016-Present Advance Directives Patient has advance care planning documents, and code status on file. For more information, please contact:Devin Regalado[address] [place] [address] Code Status Date Activated Date Inactivated Comments Full Code 04/17/2018 3:38 PM 04/18/2018 2:23 PM Code Status decision reached by: Patient
--- OUTSIDE RECORDS SUMMARY | 2019-04-19 07:39 | XMS REPORT ---
:1945 Author Organization [facility] Address [address] [place] [address] Dr. Pineda [address] [place] [id number] Care Team Providers Name Role Phone Unavailable Unavailable Unavailable Problems This patient has no known problems. Allergies, Adverse Reactions, Alerts This patient has no known allergies or adverse reactions. Medications This patient has no known medications.
[2019-04-19] MEDS ORDERED: NA CHLORIDE 0.9% 1,000 ML ONE (08:05)
[2019-04-19] MEDS ORDERED: METOCLOPRAMIDE 10 MG/2mL INJ ONE (08:05)
[2019-04-19] MEDS ORDERED: DEXAMETHASONE 10 MG/ML VIAL ONE (08:05)
[2019-04-19] MEDS ORDERED: MEPERIDINE HCL 25 MG/0.5 ML ONE (08:05)
[2019-04-19] MEDS ORDERED: ONDANSETRON 4 MG/2 ML VIAL ONE (08:07)
--- NOTE | 2019-04-19 08:46 | RAD REPORT ---
EXAM DESCRIPTION: CT - Head Brain Wo Cont - 04/19/2019 8:15 am CLINICAL HISTORY: Headache COMPARISON: 2006 mri TECHNIQUE: Computed axial tomography of the head was obtained. IV contrast was not requested. All CT scans are performed using dose optimization technique as appropriate and may include automated exposure control or mA/KV adjustment according to patient size. FINDINGS: An intracranial bleed is not seen . The ventricles are normal in caliber. No extra-axial fluid collection is noted. Fluid within the sinuses/ mastoids is not seen. IMPRESSION: No acute intracranial abnormality is seen. If patient's symptoms persist MRI of the bra in would be recommended.
--- NOTE | 2019-04-19 09:31 | ER ---
Nurse's Notes [facility] Name: Kailey Myles Age: 74 yrs Sex: Female : 1945 Arrival Date: 04/19/2019 Time: 07:33 Bed 18 Private MD: Everardo Valerio Diagnosis: Headache Presentation: 04/19 07:40 Presenting complaint: Patient states: intermittent headaches that began 2 weeks ago. ss Headache that patient is here for today began four days ago and is reportedly worse than her typical headaches. Transition of care: patient was not received from another setting of care. Onset of symptoms was April 15, 2019. Risk Assessment: Do you want to hurt yourself or someone else? Patient reports no desire to harm self or others. Initial Sepsis Screen: Does the patient meet any 2 criteria? No. Patient's initial sepsis screen is negative. Does the patient have a suspected source of infection? No. Patient's initial sepsis screen is negative. Care prior to arrival: None. 07:40 Acuity: ARTHUR 3 ss 07:40 Method Of Arrival: Ambulatory ss Historical: - Allergies: 08:31 Codeine; em 08:31 BACITRACIN; em 08:31 Bacitracin Zinc; em 08:31 benzalkonium chloride; em 08:31 Levofloxacin; em 08:31 Neomycin Sulfate; em 08:31 PENICILLINS; em 08:31 QUINOLONES; em 08:31 THIAZIDES; em 08:31 Lyrica; em - Home Meds: 08:31 metoprolol tartrate 100 mg Oral tab 1 tab 2 times per day [Active]; topiramate 25 mg em oral tab 1 tabs 2 times per day [Active]; amlodipine-benazepril 10-40 mg oral cap [Active]; torsemide 20 mg oral tab 1 tab once daily [Active]; nitrofurantoin macrocrystal 100 mg Oral cap 1 cap once daily [Active]; esomeprazole magnesium 40 mg oral cpDR 1 cap once daily [Active]; lorazepam 1 mg Oral tab [Active]; aspirin 81 mg Oral chew 1 tab once daily [Active]; - PMHx: 08:31 Anxiety; GERD; Hyperlipidemia; Hypertension; em 08:36 bells palsy; em - Immunization history:: Adult Immunizations up to date. - Social history:: Smoking status: Patient/guardian denies using tobacco. - Family history:: not pertinent. - Ebola Screening: : Patient negative for fever greater than or equal to 101.5 degrees Fahrenheit, and additional compatible Ebola Virus Disease symptoms Patient denies exposure to infectious person Patient denies travel to an Ebola-affected area in the 21 days before illness onset No symptoms or risks identified at this time. - Hospitalizations: : No recent hospitalization is reported. Screenin:47 Abuse screen: Denies threats or abuse. Nutritional screening: No deficits noted. em Tuberculosis screening: No symptoms or risk factors identified. Fall Risk None identified. Assessment: 07:46 General: Appears in no apparent distress. uncomfortable, Behavior is calm, cooperative, em Denies fever. Pain: Complains of pain in forehead and top of head Pain currently is 10 out of 10 on a pain scale. Quality of pain is described as pressure. Neuro: Level of Consciousness is awake, alert, obeys commands, Oriented to person, place, time, situation, Scoreboard Operator are equal bilaterally Moves all extremities. Gait is steady, Speech is normal, Facial droop on left, prior hx of bells palsy . Pupils are PERRLA, Intact Reports headache Denies blurred vision dizziness. Cardiovascular: Capillary refill < 3 seconds Patient's skin is warm and dry. Respiratory: Airway is patent Respiratory effort is even, unlabored, Respiratory pattern is regular, symmetrical. GI: Reports nausea. Derm: Skin is intact, is healthy with good turgor, Skin is pink, warm \T\ dry. 08:00 General: The previous assessment is accurate, call light remains within reach. ss 08:36 Reassessment: Patient appears in no apparent distress at this time. Patient and/or em family updated on plan of care and expected duration. Pain level reassessed. Patient is alert, oriented x 3, equal unlabored respirations, skin warm/dry/pink. rates pain 3/10 Patient states feeling better. Patient states symptoms have improved. 09:33 Reassessment: Patient appears in no apparent distress at this time. Patient and/or em family updated on plan of care and expected duration. Pain level reassessed. Patient is alert, oriented x 3, equal unlabored respirations, skin warm/dry/pink. Patient states feeling better. Patient states symptoms have improved. Vital Signs: 07:46 BP 173 / 67; Pulse 66; Resp 18; Pulse Ox 98% on R/A; Pain 10/10; em 08:31 BP 127 / 62; Pulse 62; Resp 16; Temp 98.1; Pulse Ox 97% on R/A; Pain 3/10; em 09:43 BP 128 / 69; Pulse 63; Resp 18; Pulse Ox 97% on R/A; Pain 2/10; em Chaim Coma Score: 09:29 Eye Response: spontaneous(4). Verbal Response: oriented(5). Motor Response: obeys rn commands(6). Total: 15. ED Course: 07:33 Patient arrived in ED. as 07:34 Everardo Valerio MD is Private Physician. as 07:34 Cedric Burns MD is Attending Physician. rn 07:35 Alexander Martinez LVN is Primary Nurse. em 07:40 Arm band placed on right wrist. ss 07:44 Triage completed. ss 07:47 Patient has correct armband on for positive identification. Placed in gown. Bed in low em position. Call light in reach. Adult w/ patient. Pulse ox on. NIBP on. 08:00 Inserted saline lock: 20 gauge in right antecubital area, using aseptic technique. em 08:15 CT completed. Patient tolerated procedure well. Patient moved back from CT. mw3 08:15 CT Head Brain wo Cont In Process Unspecified. EDMS 09:42 No provider procedures requiring assistance completed. IV discontinued, intact, em bleeding controlled, No redness/swelling at site. Pressure dressing applied. Administered Medications: 08:00 Drug: NS 0.9% 1000 ml Route: IV; Rate: 1000 ml; Site: right antecubital; ss 09:18 Follow up: IV Status: Order to discontinue infusion; IV Intake: 500ml em 08:00 Drug: Reglan 10 mg Route: IVP; Site: right antecubital; ss 09:18 Follow up: Response: No adverse reaction; Pain is decreased em 08:02 Drug: Demerol 25 mg Route: IVP; Site: right antecubital; ss 09:18 Follow up: Response: No adverse reaction; Pain is decreased em 08:06 Drug: Decadron - Dexamethasone 10 mg Route: IVP; Site: right antecubital; ss 09:19 Follow up: Response: No adverse reaction; Pain is decreased em Intake: 09:18 IV: 500ml; Total: 500ml. em Outcome: 09:30 Discharge ordered by . rn 09:42 Discharged to home ambulatory, with family. em 09:42 Condition: good 09:42 Discharge instructions given to patient, family, Instructed on discharge instructions, follow up and referral plans. Demonstrated understanding of instructions, follow-up care. 09:46 Patient left the ED. em Signatures: Dispatcher [employer] EDMS Alexander Martinez, SENIOR IT ARCHITECT SENIOR IT ARCHITECT Evie Lua Roman, MD MD rn Smirch, Shelby, RN RN ss Willis, Michelle mw3
--- NOTE | 2019-04-19 09:31 | EDPHYS ---
Physician Documentation [facility] Name: Kailey Myles Age: 74 yrs Sex: Female : 1945 Arrival Date: 04/19/2019 Time: 07:33 Bed 18 Private MD: Everardo Valerio ED Physician Cedric Burns HPI: 04/19 08:14 This 74 yrs old Female presents to ER via Ambulatory with complaints of rn Headache. 08:14 The patient complains of pain to the top of head and forehead. The patient describes rn the headache as aching. Onset: The symptoms/episode began/occurred 2 day(s) ago. Severity of symptoms: At its worst the pain was moderate, in the emergency department the pain is unchanged. The symptoms are alleviated by nothing. the symptoms are aggravated by lights, noise, stress. The patient has experienced similar episodes in the past. 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 Walters, took sumatriptan this AM and did not help. Reports headaches on and off for 2 weeks, but worse this morning. No focal neurological complaints. . Historical: - Allergies: 08:31 Codeine; em 08:31 BACITRACIN; em 08:31 Bacitracin Zinc; em 08:31 benzalkonium chloride; em 08:31 Levofloxacin; em 08:31 Neomycin Sulfate; em 08:31 PENICILLINS; em 08:31 QUINOLONES; em 08:31 THIAZIDES; em 08:31 Lyrica; em - Home Meds: 08:31 metoprolol tartrate 100 mg Oral tab 1 tab 2 times per day [Active]; topiramate 25 mg em oral tab 1 tabs 2 times per day [Active]; amlodipine-benazepril 10-40 mg oral cap [Active]; torsemide 20 mg oral tab 1 tab once daily [Active]; nitrofurantoin macrocrystal 100 mg Oral cap 1 cap once daily [Active]; esomeprazole magnesium 40 mg oral cpDR 1 cap once daily [Active]; lorazepam 1 mg Oral tab [Active]; aspirin 81 mg Oral chew 1 tab once daily [Active]; - PMHx: 08:31 Anxiety; GERD; Hyperlipidemia; Hypertension; em 08:36 bells palsy; em - Immunization history:: Adult Immunizations up to date. - Social history:: Smoking status: Patient/guardian denies using tobacco. - Family history:: not pertinent. - Ebola Screening: : Patient negative for fever greater than or equal to 101.5 degrees Fahrenheit, and additional compatible Ebola Virus Disease symptoms Patient denies exposure to infectious person Patient denies travel to an Ebola-affected area in the 21 days before illness onset No symptoms or risks identified at this time. - Hospitalizations: : No recent hospitalization is reported. ROS: 08:14 Constitutional: Negative for fever, chills, and weight loss, Eyes: Negative for injury, rn pain, redness, and discharge, ENT: Negative for injury, pain, and discharge, Cardiovascular: Negative for chest pain, palpitations, and edema, Respiratory: Negative for shortness of breath, cough, wheezing, and pleuritic chest pain, Abdomen/GI: Negative for abdominal pain, nausea, vomiting, diarrhea, and constipation, MS/Extremity: Negative for injury and deformity, Skin: Negative for injury, rash, and discoloration, Neuro: Negative for weakness, numbness, and seizure. Exam: 08:14 Constitutional: This is a well developed, well nourished patient who is awake, alert, rn and in no acute distress. Head/Face: Normocephalic, atraumatic. Eyes: Pupils equal round and reactive to light, extra-ocular motions intact. Lids and lashes normal. Conjunctiva and sclera are non-icteric and not injected. Cornea within normal limits. Periorbital areas with no swelling, redness, or edema. ENT: dry MM Respiratory: No increased work of breathing, no retractions or nasal flaring. Skin: Warm, dry, no evidence of cellulitis. MS/ Extremity: Pulses equal, no cyanosis. Neurovascular intact. Full, normal range of motion. Equal circumference. Neuro: Awake and alert, GCS 15, oriented to person, place, time, and situation. + mild right upper and lower facial weakness (states known bells palsy). Motor strength 5/5 in all extremities. Sensory grossly intact. Cerebellar exam normal. Normal gait. Vital Signs: 07:46 BP 173 / 67; Pulse 66; Resp 18; Pulse Ox 98% on R/A; Pain 10/10; em 08:31 BP 127 / 62; Pulse 62; Resp 16; Temp 98.1; Pulse Ox 97% on R/A; Pain 3/10; em 09:43 BP 128 / 69; Pulse 63; Resp 18; Pulse Ox 97% on R/A; Pain 2/10; em Chaim Coma Score: 09:29 Eye Response: spontaneous(4). Verbal Response: oriented(5). Motor Response: obeys rn commands(6). Total: 15. MDM: 07:34 Patient medically screened. rn 09:29 Differential diagnosis: hypertensive headache, migraine, tension headache, vasomotor rn headache. Data reviewed: vital signs, nurses notes, radiologic studies, CT scan, and as a result, I will discharge patient. Counseling: I had a detailed discussion with the patient and/or guardian regarding: the historical points, exam findings, and any diagnostic results supporting the discharge/admit diagnosis, radiology results, the need for outpatient follow up, to return to the emergency department if symptoms worsen or persist or if there are any questions or concerns that arise at home. Response to treatment: the patient's symptoms have markedly improved after treatment, and as a result, I will discharge patient. Special discussion: I discussed with the patient/guardian in detail that at this point there is no indication for admission to the hospital. It is understood, however, that if the symptoms persist or worsen the patient needs to return immediately for re-evaluation. 04/19 07:44 Order name: CT Head Brain wo Cont; Complete Time: 08:47 rn 04/19 07:44 Order name: IV Start; Complete Time: 08:06 rn Administered Medications: 08:00 Drug: NS 0.9% 1000 ml Route: IV; Rate: 1000 ml; Site: right antecubital; ss 09:18 Follow up: IV Status: Order to discontinue infusion; IV Intake: 500ml em 08:00 Drug: Reglan 10 mg Route: IVP; Site: right antecubital; ss 09:18 Follow up: Response: No adverse reaction; Pain is decreased em 08:02 Drug: Demerol 25 mg Route: IVP; Site: right antecubital; ss 09:18 Follow up: Response: No adverse reaction; Pain is decreased em 08:06 Drug: Decadron - Dexamethasone 10 mg Route: IVP; Site: right antecubital; ss 09:19 Follow up: Response: No adverse reaction; Pain is decreased em Disposition: 04/19/19 09:30 Discharged to Home. Impression: Headache. - Condition is Stable. - Discharge Instructions: Migraine Headache. - Medication Reconciliation Form, Thank You Letter, Antibiotic Education, Prescription Opioid Use form. - Follow up: Private Physician; When: As needed; Reason: Recheck today's complaints, Re-evaluation by your physician. - Problem is new. - Symptoms have improved. Signatures: Dispatcher [employer] EDWV Alexander Martinez, APPRENTICE APPRENTICE Cedric Bermudez MD MD rn Smirch, Shelby, RN RN ss Corrections: (The following items were deleted from the chart) 09:46 09:30 04/19/2019 09:30 Discharged to Home. Impression: Headache. Condition is Stable. em Forms are Medication Reconciliation Form, Thank You Letter, Antibiotic Education, Prescription Opioid Use. Follow up: Private Physician; When: As needed; Reason: Recheck today's complaints, Re-evaluation by your physician. Problem is new. Symptoms have improved. rn
[2019-04-19 10:17] VITALS: TEMP 98.1; O2SAT 97
[2019-04-19 10:19] VITALS: BP 128/69
== END 2019-04-19 09:46 | disposition home or self-care (01) ==
LOC: ER 07:32
DX: R51 Headache (principal); F41.9 Anxiety disorder, unspecified; K21.9 Gastro-esophageal reflux disease without esophagitis; E78.5 Hyperlipidemia, unspecified; I10 Essential (primary) hypertension; Z88.1 Allergy status to other antibiotic agents; Z88.5 Allergy status to narcotic agent; Z88.0 Allergy status to penicillin; Z88.8 Allergy status to other drugs, medicaments and biological substances
CPT/HCPCS: 70450; J2765; J1100; J2175; J7030; J2405; 96361; 96374; 96375; 99284

== ENCOUNTER 2019-12-13 16:32 | Emergency (ER) | payer OTHER ==
--- OUTSIDE RECORDS SUMMARY | 2019-12-13 16:34 | XMS REPORT ---
:1945 [facility] Address [address] [place] [address] Dr. Pined[address] [place] [address] Care Team Providers Name Role Phone Unavailable Unavailable Unavailable Problems This patient has no known problems. Allergies, Adverse Reactions, Alerts This patient has no known allergies or adverse reactions. Medications This patient has no known medications.
--- OUTSIDE RECORDS SUMMARY | 2019-12-13 16:39 | XMS REPORT | Summary of Care ---
:[address] [facility] - [facility] Address [address] [place] [address] Care Team Providers Name Role Phone Olivia Box MD Primary Care Provider Reason for Visit Reason Comments Rx Concern/Question Notification Encounter Details Date Type Department Care Team Description 06/02/2019 Telephone [facility] Surgery Nabila Lewis MD Rx Concern/Question; and Cancer [address] [place] [address] Center[facility] [address], [address] [address]Formerly [facility] [phone] [place] [address] Allergies Active Allergy Reactions Severity Noted Date Comments Zolpidem Other - See comments 05/30/2019 "caused me to do things throughout the night that I didn't know I was doing" Codeine Nausea and/or Vomiting Medium 05/07/2013 Levofloxacin Anaphylaxis High 05/07/2013 Pregabalin Other - See comments 05/30/2019 "makes me crazy as a hoot owl" Penicillins Other - See comments 03/28/2018 Quinolones Other - See comments 03/28/2018 Attacks connective tissue Thiazides Other - See comments 03/28/2018 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 documented as of this encounter (statuses as of 06/10/2019) Medications Medication Sig Dispensed Refills Start Date End Date Status amlodipine-benazepri Take 1 capsule 0 Active l 10-40 mg per by mouth. capsule aspirin 81 mg EC Take 81 mg by 0 Active tablet mouth. Biotin 5 mg Cap Take 5 mg by 0 Active mouth. atorvastatin 40 mg Take 40 mg by 0 Active tablet mouth. conjugated estrogens Insert into 0 Active 0.625 mg/gram vagina. vaginal cream cranberry fruit Take by 0 Active extract (THERACRAN mouth. ORAL) docusate 100 mg Take by mouth 0 Active capsule daily. esomeprazole 40 mg Take 40 mg by 0 Active capsule mouth. folic Take by 0 Active acid/multivit-min/rosario mouth. tein (CENTRUM SILVER ORAL) furosemide 20 mg Take 20 mg by 0 Active tablet mouth. metoprolol tartrate Take 100 mg by 0 Active 100 mg tablet mouth. promethazine/dextrom Take 25 mg by 0 Active ethorphan mouth. (PROMETHAZINE-DM ORAL) tretinoin 0.05 % gel SHANEA EXT TO 0 01/09/2018 Active FACE QHS Nitrofurantoin&Nit. Take 100 mg by 0 Active Macrocryst 100 mg mouth. capsule topiramate 50 mg Take 1 tablet 60 tablet 3 05/09/2019 Active tabletIndications: by mouth 2 Migraine without (two) times aura and without daily. status migrainosus, not intractable diclofenac 50 mg Take 1 tablet 180 tablet 0 05/27/2019 Active tabletIndications: by mouth 3 Radiculopathy of (three) times cervical spine daily as needed for Pain (scale 4-6). diphenoxylate-atropi Take 1 tablet 56 tablet 0 05/30/2019 Active ne (LOMOTIL) by mouth every 9 2.5-0.025 mg per 6 (six) hours tabletIndications: as needed Diarrhea, (diarrhea) for unspecified type up to 14 days. calcium gluconate 45 Take 1 tablet 30 tablet 1 05/30/2019 Active mg (500 mg) Tab by mouth tabletIndications: daily. Lactose intolerance Ergocalciferol, Take 1 tablet 30 tablet 0 05/30/2019 Active Vitamin D2, 400 unit by mouth TabIndications: daily. Lactose intolerance Saccharomyces Take 1 capsule 60 capsule 3 05/30/2019 Active boulardii 250 mg by mouth 2 capsuleIndications: (two) times Diarrhea, daily. unspecified type celecoxib 100 mg Take 1 capsule 28 capsule 0 06/03/2019 Active capsuleIndications: by mouth 2 Malignant neoplasm (two) times of right female daily with breast, unspecified meals. estrogen receptor status, unspecified site of breast acetaminophen 500 mg Take 2 tablets 84 tablet 0 06/03/2019 Active tabletIndications: by mouth every Malignant neoplasm 8 (eight) of right female hours. OTC breast, unspecified estrogen receptor status, unspecified site of breast chlorhexidine 4 % Wash from the 1 Bottle 0 06/03/2019 Active external neck down the liquidIndications: night prior to Malignant neoplasm surgery of right female breast, unspecified estrogen receptor status, unspecified site of breast cyclobenzaprine 10 Take 1 tablet 63 tablet 0 06/03/2019 Active mg by mouth 3 tabletIndications: (three) times Malignant neoplasm daily. of right female breast, unspecified estrogen receptor status, unspecified site of breast doxycycline 100 mg Take 1 capsule 28 capsule 0 06/03/2019 Active capsuleIndications: by mouth every Malignant neoplasm 12 (twelve) of right female hours. breast, unspecified estrogen receptor status, unspecified site of breast traMADol 50 mg Take 1 tablet 15 tablet 0 06/03/2019 Active tabletIndications: by mouth every Malignant neoplasm 6 (six) hours of right female as needed for breast, unspecified Pain (scale estrogen receptor 7-10) status, unspecified (breakthrough site of breast pain postop. Do not take with Flexeril.). chlorhexidine 4 % Apply 2 1 Bottle 0 05/28/2019 Discontinued external Packets to 9 liquidIndications: area(s) once Malignant neoplasm daily as of right female needed for breast, unspecified Wound care estrogen receptor (Use night status, unspecified prior to site of breast surgery. Wash operative sites). celecoxib 100 mg Take 2 56 capsule 0 05/28/2019 Discontinued capsuleIndications: capsules by 9 Malignant neoplasm mouth 2 (two) of right female times daily breast, unspecified with meals for estrogen receptor 14 days. status, unspecified site of breast traMADol 50 mg Take 1 tablet 15 tablet 0 05/28/2019 Discontinued tabletIndications: by mouth every 9 Malignant neoplasm 6 (six) hours of right female as needed for breast, unspecified Pain (scale estrogen receptor 7-10) status, unspecified (breakthrough site of breast pain). acetaminophen 500 mg Take 2 tablets 84 tablet 0 05/28/2019 Discontinued tabletIndications: by mouth every 9 Malignant neoplasm 8 (eight) of right female hours for 14 breast, unspecified days. OTC estrogen receptor status, unspecified site of breast doxycycline 100 mg Take 1 capsule 28 capsule 0 05/28/2019 Discontinued capsuleIndications: by mouth every 9 Malignant neoplasm 12 (twelve) of right female hours for 14 breast, unspecified days. estrogen receptor status, unspecified site of breast cyclobenzaprine 10 Take 1 tablet 63 tablet 0 05/28/2019 Discontinued mg by mouth 3 9 tabletIndications: (three) times Malignant neoplasm daily for 21 of right female days. breast, unspecified estrogen receptor status, unspecified site of breast documented as of this encounter (statuses as of 06/10/2019) Active Problems Problem Noted Date Diarrhea, unspecified type 05/30/2019 Stomach cramps 05/30/2019 Lactose intolerance 05/30/2019 Encounter for long-term (current) use of antibiotics 05/30/2019 Malignant neoplasm of right female breast, unspecified estrogen receptor 05/29 status, unspecified site of breast Overview: Added automatically from request for surgery [id number] documented as of this encounter (statuses as of 06/10/2019) Immunizations Name Administration Dates Next Due Tetanus/Diptheria 03/05/2019 documented as of this encounter Social History Tobacco Use Types Packs/Day Years Used Date Former Smoker Smokeless Tobacco: Never Used Alcohol Use Drinks/Week oz/Week Comments Yes occasional Alcohol Habits Answer Date Recorded How often do you have a drink containing alcohol? 2-4 times a month 2018 How many drinks containing alcohol do you have on a Not asked typical day when you are drinking? How often do you have six or more drinks on one Not asked occasion? Sex Assigned at Date Recorded Not on file Job Start Date Occupation Industry Not on file Not on file Not on file Travel History Travel Start Travel End No recent travel history available. documented as of this encounter Last Filed Vital Signs Not on filedocumented in this encounter Plan of Treatment Date Type Specialty Care Team Description 06/13/2019 Office Visit Family Medicine Robert Tong MD [address] [place] [address] [place] [address] [phone] 06/16/2019 Hospital Encounter Surgery Nabila Lewis MD Malignant neoplasm of [facility] right female breast, Blvd unspecified estrogen RT724 receptor status, [place], [place] [address] breast [phone] 06/16/2019 Anesthesia Event Surgery Christina Quach, ROSA MARIA [address] [place] [address] 06/16/2019 Surgery Surgery Nabila Lewis MD [facility] [address] [place] RECONSTRUCTION OF [facility] BREAST PROSTHESIS [address] [place] [address] 06/20/2019 Office Visit Plastic Surgery Nabila Lewis MD 301 [facility] [address] [place] [address] 07/02/2019 Office Visit Surgery Sydni Levy MD [address] [place] [phone] Health Maintenance Due Date Last Done Comments HEPATITIS C (HCV) SCREEN 1945 DTaP,Tdap,and Td Vaccines (1 - Tdap) 1965 Zoster Recombinant Vaccine (SHINGRIX) (1 of 2) 01/12/1996 LUNG CANCER SCREEN: Recommended for age 55-80 with 30 2001 + pack year history Medicare Wellness Visit 2011 Osteoporosis Screening 2011 PNEUMOCOCCAL VACCINES 65+ (1 of 2 - PCV13) 2011 INFLUENZA VACCINE (#1) 2019 MAMMOGRAM 03/12/2020 03/12/2019 COLONOSCOPY 11/05/2027 11/05/2017 documented as of this encounter Results Not on filedocumented in this encounter Visit Diagnoses Diagnosis Malignant neoplasm of right female breast, unspecified estrogen receptor status , unspecified site of breast documented in this encounter Insurance Payer Benefit Plan / Subscriber ID Effective Dates Phone Address Type Group MEDICARE MEDICARE PART xxxxxxxxxxx 2010-Areli [phone] [address] t [address] [id number] [place] [id number] 2016- ent documented as of this encounter
--- OUTSIDE RECORDS SUMMARY | 2019-12-13 16:39 | XMS REPORT | Summary of Care ---
:1945 Author Organization [facility] - Health Address [address] [place] [address] Care Team Providers Name Role Phone Olivia Box MD Primary Care Provider Encounter Details Date Type Department Care Team Description 04/07/2019 Orders Only [facility] Doctor Unassigned, No [address] [facility] [place] [address] [address] [place] [address] Allergies Active Allergy Reactions Severity Noted Date Comments Zolpidem Other - See comments 05/30/2019 "caused me to do things throughout the night that I didn't know I was doing" Bacitracin Unknown - See comments 06/11/2019 Codeine Nausea and/or Vomiting Medium 05/07/2013 Levofloxacin Anaphylaxis High 05/07/2013 Pregabalin Other - See comments 05/30/2019 "makes me crazy as a hoot owl" Penicillins Other - See comments 03/28/2018 Quinolones Other - See comments 03/28/2018 Attacks connective tissue Thiazides Other - See comments 03/28/2018 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 aspirin 81 mg EC tablet Take 81 mg by 0 Active mouth. Biotin 5 mg Cap Take 5 mg by 0 Active mouth. atorvastatin 40 mg Take 40 mg by 0 Active tablet mouth. conjugated estrogens Insert into 0 Active 0.625 mg/gram vaginal vagina. cream cranberry fruit extract Take by mouth. 0 Active (THERACRAN ORAL) docusate 100 mg capsule Take by mouth 0 Active daily. esomeprazole 40 mg Take 40 mg by 0 Active capsule mouth. folic Take by mouth. 0 Active acid/multivit-min/lutei n (CENTRUM SILVER ORAL) furosemide 20 mg tablet Take 20 mg by 0 Active mouth. metoprolol tartrate 100 Take 100 mg by 0 Active mg tablet mouth. promethazine/dextrometh Take 25 mg by 0 Active orphan (PROMETHAZINE-DM mouth. ORAL) tretinoin 0.05 % gel SHANAE EXT TO FACE 0 01/09/2018 Active QHS Nitrofurantoin&Nit. Take 100 mg by 0 Active Macrocryst 100 mg mouth. capsule documented as of this encounter (statuses as of 06/11/2019) Active Problems Problem Noted Date Diarrhea, unspecified type 05/30/2019 Stomach cramps 05/30/2019 Lactose intolerance 05/30/2019 Encounter for long-term (current) use of antibiotics 05/30/2019 Malignant neoplasm of right female breast, unspecified estrogen receptor 05/29 status, unspecified site of breast Overview: Added automatically from request for surgery [id number] documented as of this encounter (statuses as of 06/11/2019) Immunizations Name Administration Dates Next Due Tetanus/Diptheria 03/05/2019 documented as of this encounter Social History Tobacco Use Types Packs/Day Years Used Date Former Smoker Smokeless Tobacco: Never Used Alcohol Use Drinks/Week oz/Week Comments Yes occaisonal Sex Assigned at Date Recorded Not on [...] Office Visit Family Medicine Robert Tong MD [address] [place] [address] [place] [address] [phone] 06/16/2019 Hospital Encounter Surgery Nabila Lewis MD Malignant neoplasm of [facility] right female breast, Blvd unspecified estrogen RT724 receptor status, [place] [address] breast [phone] 06/16/2019 Anesthesia Event Surgery Christina Quach, ROSA MARIA [address] [place] [address] 06/16/2019 Surgery Surgery Nabila Lewis MD [facility] [address] [place] RECONSTRUCTION [facility] BREAST PROSTHESIS [address]24 [place] [phone] 06/20/2019 Office Visit Plastic Surgery Nabila Lewis MD [address] [place] [address] RT[address]24 [place] [address] 07/02/2019 Office Visit Surgery Sydni Levy MD [address] [place] [address] Health Maintenance Due Date Last Done Comments [...] 11/05/2027 11/05/2017 documented as of this encounter Procedures Procedure Name Priority Date/Time Associated Diagnosis Comments EXTERNAL PROVIDER Routine 04/07/2019 12:01 AM CDT RECORDS documented in this encounter Results Not on filedocumented in this encounter Insurance Payer Benefit Plan / Subscriber ID Effective Dates Phone Address Type Group MEDICARE MEDICARE PART xxxxxxxxxxx 2010-Areli [phone] [address] Medicare A & B t 2 [id number] [place] [address] EULA WATSON [id number] 2016-Pres Eula dunham documented as of this encounter
--- OUTSIDE RECORDS SUMMARY | 2019-12-13 16:39 | XMS REPORT | Summary of Care ---
:1945 Author Organization [facility] Address [address] [place] [address] Care Team Providers Name Role Phone Olivia Box MD Primary Care Provider Reason for Visit Reason Comments Rx Concern/Question Encounter Details Date Type Department Care Team Description 05/30/2019 Telephone [facility] Pediatric Robert Tong MD Rx Concern/Question and Adult Primary Care- [address] [place] [address] Dr [facility] [address] [place] [address] [place] [address] [address] [place] [address] [phone] Allergies Active Allergy Reactions Severity Noted Date [...] mouth. (PROMETHAZINE-DM ORAL) tretinoin 0.05 % gel SHANAE EXT TO 0 01/09/2018 Active FACE QHS [...] daily as needed for Pain (scale 4-6). Saccharomyces Take 1 capsule 60 capsule 3 06/11/2019 Active boulardii 250 mg by mouth 2 capsuleIndications: (two) times Diarrhea, daily. unspecified type Ergocalciferol, Take 1 tablet 30 tablet 0 06/11/2019 Active Vitamin D2, 400 unit by mouth TabIndications: daily. Lactose intolerance calcium gluconate 45 Take 1 tablet 30 tablet 1 06/11/2019 Active mg (500 mg) Tab by mouth tabletIndications: daily. Lactose intolerance diphenoxylate-atropi Take 1 tablet 56 tablet 0 06/11/2019 Active ne (LOMOTIL) by mouth every 2.5-0.025 mg per 6 (six) hours tabletIndications: as needed Diarrhea, (diarrhea). unspecified type chlorhexidine 4 % Apply 2 1 Bottle [...] estrogen receptor status, unspecified site of breast diphenoxylate-atropi Take 1 tablet 56 tablet 0 05/30/2019 Discontinued ne (LOMOTIL) by mouth every 9 2.5-0.025 mg per 6 (six) hours tabletIndications: as needed Diarrhea, (diarrhea) for unspecified type up to 14 days. calcium gluconate 45 Take 1 tablet 30 tablet 1 05/30/2019 Discontinued mg (500 mg) Tab by mouth 9 tabletIndications: daily. Lactose intolerance Ergocalciferol, Take 1 tablet 30 tablet 0 05/30/2019 Discontinued Vitamin D2, 400 unit by mouth 9 TabIndications: daily. Lactose intolerance Saccharomyces Take 1 capsule 60 capsule 3 05/30/2019 Discontinued boulardii 250 mg by mouth 2 9 capsuleIndications: (two) times Diarrhea, daily. unspecified type documented as of this encounter (statuses as of 06/11/2019) Active Problems Problem Noted Date Diarrhea, unspecified type 05/30/2019 Stomach cramps 05/30/2019 Lactose intolerance 05/30/2019 Encounter for long-term (current) use of antibiotics 05/30/2019 Malignant neoplasm of right female breast, unspecified estrogen receptor 05/29 status, unspecified site of breast Overview: Added automatically from request for surgery [id number] documented as of this encounter (statuses as [...] Office Visit Family Medicine Robert Tong MD [address] [place] [address] [place] [address] [phone] 06/16/2019 Hospital Encounter Surgery Nabila Lewis MD Malignant neoplasm of [address] [place] [address] right female breast, Blvd unspecified estrogen RT724 receptor status, [place], [place] [address] breast [phone] 06/16/2019 Anesthesia Event Surgery Christina Quach, ROSA MARIA [address] [place] [address] 06/16/2019 Surgery Surgery Nabila Lewis MD [address] RECONSTRUCTION OF [place] BREAST PROSTHESIS [address] [place] [phone] 06/20/2019 Office Visit Plastic Surgery Nabila Lewis MD [address] [place] [address] [address]24 [place] [address] 07/02/2019 Office Visit Surgery Sydni Levy MD [address] [place] [address] Health Maintenance Due Date Last Done [...] filedocumented in this encounter Visit Diagnoses Diagnosis Diarrhea, unspecified type Lactose intolerance Intestinal disaccharidase deficiencies and disaccharide malabsorption documented in this encounter Insurance Payer Benefit Plan / Subscriber ID Effective Dates Phone Address Type Group MEDICARE MEDICARE PART xxxxxxxxxxx 2010-Areli [phone] [address] [address] Medicare A & B t 2 [id number] [place] [id number] EULA WATSON [id number] 2016-Pres [place] ent documented as of this encounter
--- OUTSIDE RECORDS SUMMARY | 2019-12-13 16:40 | XMS REPORT | Summary of Care ---
:1945 Author Organization [facility] Address [address] [place] [address] Care Team Providers Name Role Phone Olivia Box MD Primary Care Provider Reason for Referral Radiology Services (Routine) Status Reason Specialty Diagnoses / Referred By Referred To Procedures Contact Contact New Request Diagnostic Diagnoses Malignant neoplasm of female breast, unspecified estrogen receptor status, unspecified laterality, unspecified site of breast Shirlene Ricci Radiology Procedures NM INJECTION SENTINEL NODE A, STUDIO OPERATIONS ENGINEER IN CHARGE [address] [place] [address]. [place] [address] Encounter Details Date Type Department Care Team Description 06/13/2019 Prep For Surgery [facility] Shirlene Ricci Malignant neoplasm Surgery-[facility], STUDIO OPERATIONS ENGINEER IN CHARGE of female breast, [address] unspecified estrogen [address] [facility]. receptor status, [address] [place], [place] [address] laterality, [address] unspecified site of [phone] breast (Primary Dx) Allergies Active Allergy Reactions Severity Noted Date [...] as of this encounter (statuses as of 06/13/2019) Medications Medication Sig Dispensed Refills Start Date End Date Status amlodipine-benazepril Take 1 capsule 0 Active 10-40 mg per capsule by mouth. aspirin 81 mg EC tablet Take [...] capsule topiramate 50 mg Take 1 tablet by 60 tablet 3 05/09/2019 Active tabletIndications: mouth 2 (two) Migraine without aura times daily. and without status migrainosus, not intractable diclofenac 50 mg Take 1 tablet by 180 tablet 0 05/27/2019 Active tabletIndications: mouth 3 (three) Radiculopathy of times daily as cervical spine needed for Pain (scale 4-6). Saccharomyces boulardii Take 1 capsule 60 capsule 3 06/11/2019 Active 250 mg by mouth 2 (two) capsuleIndications: times daily. Diarrhea, unspecified type Ergocalciferol, Vitamin Take 1 tablet by 30 tablet 0 06/11/2019 Active D2, 400 unit mouth daily. TabIndications: Lactose intolerance calcium gluconate 45 mg Take 1 tablet by 30 tablet 1 06/11/2019 Active (500 mg) Tab mouth daily. tabletIndications: Lactose intolerance diphenoxylate-atropine Take 1 tablet by 56 tablet 0 06/11/2019 Active (LOMOTIL) 2.5-0.025 mg mouth every 6 per tabletIndications: (six) hours as Diarrhea, unspecified needed type (diarrhea). celecoxib 100 mg Take 1 capsule 28 capsule 0 06/03/2019 Active capsuleIndications: by mouth 2 (two) Malignant neoplasm of times daily with right female breast, meals. unspecified estrogen receptor status, unspecified site of breast acetaminophen 500 mg Take 2 tablets 84 tablet 0 06/03/2019 Active tabletIndications: by mouth every 8 Malignant neoplasm of (eight) hours. right female breast, OTC unspecified estrogen receptor status, unspecified site of breast chlorhexidine 4 % Wash from the 1 Bottle 0 06/03/2019 Active external neck down the liquidIndications: night prior to Malignant neoplasm of surgery right female breast, unspecified estrogen receptor status, unspecified site of breast cyclobenzaprine 10 mg Take 1 tablet by 63 tablet 0 06/03/2019 Active tabletIndications: mouth 3 (three) Malignant neoplasm of times daily. right female breast, unspecified estrogen receptor status, unspecified site of breast doxycycline 100 mg Take 1 capsule 28 capsule 0 06/03/2019 Active capsuleIndications: by mouth every Malignant neoplasm of 12 (twelve) right female breast, hours. unspecified estrogen receptor status, unspecified site of breast traMADol 50 mg Take 1 tablet by 15 tablet 0 06/03/2019 Active tabletIndications: mouth every 6 Malignant neoplasm of (six) hours as right female breast, needed for Pain unspecified estrogen (scale 7-10) receptor status, (breakthrough unspecified site of pain postop. Do breast not take with Flexeril.). LORazepam 1 mg Take 1 mg by 0 Active tabletIndications: For mouth. insomnia per patient Indications: For insomnia per patient documented as of this encounter (statuses as of 06/13/2019) Active Problems Problem Noted Date Diarrhea, unspecified type 05/30/2019 Stomach cramps 05/30/2019 Lactose intolerance 05/30/2019 Encounter for long-term (current) use of antibiotics 05/30/2019 Malignant neoplasm of right female breast, unspecified estrogen receptor 05/29 status, unspecified site of breast Overview: Added automatically from request for surgery [id number] documented as of this encounter (statuses as of 06/13/2019) Immunizations Name Administration Dates Next Due Tetanus/Diptheria [...] Treatment Date Type Specialty Care Team Description 06/16/2019 Hospital Encounter Surgery Nabila Lewis MD Malignant neoplasm of [address] [place] [address] right female breast, [facility] unspecified estrogen RT724 receptor status, [place] [address] breast [phone] 06/16/2019 Anesthesia Event Surgery Christina Quach, ROSA MARIA [address] [place] [address] 06/16/2019 Surgery Surgery Nabila Lewis MD [address] RECONSTRUCTION [facility] BREAST PROSTHESIS [address] [place] [phone] 06/20/2019 Office Visit Plastic Surgery Nabila Lewis MD [address] [place] [address] [address] [place] [phone] 07/02/2019 Office Visit Surgery Sydni Levy MD [address] [place] [phone] Name Type Priority Associated Diagnoses Order Schedule NM INJECTION SENTINEL IMAGING Routine Malignant neoplasm of Expected: 06/16, NODE female breast, Expires: 06/13/2020 unspecified estrogen receptor status, unspecified laterality, unspecified site of breast Health Maintenance Due Date Last Done Comments [...] encounter Visit Diagnoses Diagnosis Malignant neoplasm of female breast, unspecified estrogen receptor status, unspecified laterality, unspecified site of breast - Primary documented in this encounter Insurance Payer Benefit Plan / Subscriber ID Effective Dates Phone Address Type Group MEDICARE MEDICARE PART xxxxxxxxxxx 2010-Areli [phone] Medicare A & B t 2 [id number] FEDE DUMONT [id number] 2016-Pres Zora ent documented as of this encounter
--- OUTSIDE RECORDS SUMMARY | 2019-12-13 16:40 | XMS REPORT | Summary of Care ---
:1945 Author Organization [facility] - Health Address [address] [phone] Care Team Providers Name Role Phone Olivia Box MD Primary Care Provider Encounter Details Date Type Department Care Team Description 06/16/2019 Orders Only [facility] Doctor Unassigned, No [address] [facility] [place] [address] [address] [place] [address] Allergies Active Allergy Reactions Severity Noted Date [...] as of this encounter (statuses as of 06/16/2019) Medications Medication Sig Dispensed Refills Start Date [...] as of this encounter (statuses as of 06/16/2019) Active Problems Problem Noted Date Diarrhea, unspecified type 05/30/2019 Stomach cramps 05/30/2019 Lactose intolerance 05/30/2019 Encounter for long-term (current) use of antibiotics 05/30/2019 Malignant neoplasm of right female breast, unspecified estrogen receptor 05/29 status, unspecified site of breast Overview: Added automatically from request for surgery [id number] documented as of this encounter (statuses as of 06/16/2019) Immunizations Name Administration Dates Next Due Tetanus/Diptheria [...] Date Type Specialty Care Team Description 06/16/2019 Appointment Radiology Shirlene Ricci FNP [address] [place] [address]. [place] [address] 06/20/2019 Office Visit Plastic Surgery Nabila Lewis MD [address] [place] [address] [address]24 [place] [address] 07/02/2019 Office Visit Surgery Sydni Levy MD [address] [place] [phone] Health Maintenance Due Date Last Done [...] Procedure Name Priority Date/Time Associated Diagnosis Comments ASSIGNMENT OF BENEFITS Routine 06/16/2019 5:50 AM CDT documented in this encounter Results Not on filedocumented in this encounter Insurance Payer Benefit Plan / Subscriber ID Effective Dates Phone Address Type Group MEDICARE MEDICARE PART xxxxxxxxxxx 2010-Areli [phone] [address] Medicare A & B t 2 [id number] FEDE [place]UMONT [id number] 2016-Pres Zora ent documented as of this encounter
--- OUTSIDE RECORDS SUMMARY | 2019-12-13 16:40 | XMS REPORT | Summary of Care ---
:1945 Author Organization [facility] Address [address] [place] [address] Care Team Providers Name Role Phone Olivia Box MD Primary Care Provider Reason for Visit Reason Comments Assessment Encounter Details Date Type Department Care Team Description 06/11/2019 Telephone [facility] Nabila Lewis MD Assessment Surgery- [address] [place] [address], [address] [place], [place] [phone] Floor [phone] [place] [phone] Allergies Active Allergy Reactions Severity Noted Date [...] Overview: Added automatically from request for surgery [id number] documented as of this encounter (statuses as [...] Office Visit Family Medicine Robert Tong MD [address] [place] [address] [place] [address] [phone] 06/16/2019 Hospital Encounter Surgery Nabila Lewis MD Malignant neoplasm of [address] [place] [address] right female breast, [facility] unspecified estrogen RT724 receptor status, [place] [address] breast [phone] 06/16/2019 Anesthesia Event Surgery Christina Quach, RN [address] [place] [address] 06/16/2019 Surgery Surgery Nabila Lewis MD IMMEDIATE [address] [place] [address] RECONSTRUCTION OF [facility] BREAST PROSTHESIS [address] [place] [address] 06/20/2019 Office Visit Plastic Surgery Naibla Lewis MD [address] [place] [address] [address]24 [place] [address] 07/02/2019 Office Visit Surgery Sydni Levy MD [address] [place] [phone] Health Maintenance Due Date Last Done Comments [...] BOX Medicare A & B t 2 [id number] FEDE DUMONT [address] EULA WATSON [id number] 2016-Pres Eula dunham documented as of this encounter
--- OUTSIDE RECORDS SUMMARY | 2019-12-13 16:41 | XMS REPORT | Summary of Care ---
:1945 Author Organization [facility] Address [address] [place] [address] Care Team Providers Name Role Phone Olivia Box MD Primary Care Provider Reason for Referral Radiology Services (Routine) Status Reason Specialty Diagnoses / Referred By Referred To Procedures Contact Contact New Request Diagnostic Diagnoses Malignant neoplasm of female breast, unspecified estrogen receptor status, unspecified laterality, unspecified site of breast Shirlene Ricci Radiology Procedures NM INJECTION SENTINEL NODE A, TRANSPORTATION ASSOCIATE [address] [place] [phone] Radiology Services (Routine) Status Reason Specialty Diagnoses / Referred By Referred To Procedures Contact Contact New Request Diagnostic Diagnoses Malignant neoplasm of female breast, unspecified estrogen receptor status, unspecified laterality, unspecified site of breast Shirlene Ricci Radiology Procedures NM INJECTION SENTINEL NODE A, TRANSPORTATION ASSOCIATE [address] [place] [phone] Reason for Visit Auth/Cert Status Reason Specialty Diagnoses / Procedures Referred By Referred To Contact Contact Surgery Diagnoses Malignant neoplasm of right female breast, unspecified estrogen receptor status , unspecified site of breast [C50.911] Vl Preop Procedures [place] INSERT BREAST PROS IMMED AFTER EXCIS [facility] CODING HELP [place] MASTECTOMY, SIMPLE, COMPLETE [place] INTRAOPERATIVE SENTINEL LYMPH NODE ID W DYE INJECTION IMMEDIATE RECONSTRUCTION OF BREAST PROSTHESIS FOLLOWING MASTOPEXY MASTOPEXY [address] [facility] SIMPLE MASTECTOMY SENTINEL [place] [address] Encounter Details Date Type Department Care Team Description 06/16/2019 Hospital Encounter [facility] RadhamesShirlene, ALISON [address] [facility] [place] [address] [facility] Nabila Lewis MD [address] [facility] [address] [place] [address] [place] [phone] Allergies Active Allergy Reactions Severity Noted Date Comments Zolpidem Other - See comments 05/30/2019 "caused me to do things throughout the night that I didn't know I was doing" Bacitracin Unknown - See comments 06/11/2019 Codeine Nausea and/or Vomiting Medium 05/07/2013 Levofloxacin Anaphylaxis High 05/07/2013 Pregabalin Other - See comments 05/30/2019 "makes me crazy as a hoot owl" Mgewkkow-Gxumlffmtz-Ery Swelling High 06/16/2019 ymyxin Penicillins Other - See comments 03/28/2018 Quinolones Other - See comments 03/28/2018 Attacks connective tissue Thiazides Other - See comments 03/28/2018 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 aspirin 81 mg EC Take 81 mg by 0 Suspended tablet mouth. Biotin 5 mg Cap Take 5 mg by 0 Suspended mouth. atorvastatin 40 mg Take 40 mg by 0 Suspended tablet mouth. conjugated estrogens Insert into 0 Suspended 0.625 mg/gram vaginal vagina. cream cranberry fruit Take by 0 Suspended extract (THERACRAN mouth. ORAL) docusate 100 mg Take by mouth 0 Suspended capsule daily. esomeprazole 40 mg Take 40 mg by 0 Suspended capsule mouth. folic Take by 0 Suspended acid/multivit-min/lute mouth. in (CENTRUM SILVER ORAL) furosemide 20 mg Take 20 mg by 0 Suspended tablet mouth. metoprolol tartrate Take 100 mg by 0 Suspended 100 mg tablet mouth. promethazine/dextromet Take 25 mg by 0 Suspended horphan mouth. (PROMETHAZINE-DM ORAL) tretinoin 0.05 % gel SHANAE EXT TO 0 01/09/2018 Suspended FACE QHS Nitrofurantoin&Nit. Take 100 mg by 0 Suspended Macrocryst 100 mg mouth. capsule topiramate 50 mg Take 1 tablet 60 tablet 3 05/09/2019 Suspended tabletIndications: by mouth 2 Migraine without aura (two) times and without status daily. migrainosus, not intractable diclofenac 50 mg Take 1 tablet 180 tablet 0 05/27/2019 Suspended tabletIndications: by mouth 3 Radiculopathy of (three) times cervical spine daily as needed for Pain (scale 4-6). Saccharomyces Take 1 capsule 60 capsule 3 06/11/2019 Suspended boulardii 250 mg by mouth 2 capsuleIndications: (two) times Diarrhea, unspecified daily. type Ergocalciferol, Take 1 tablet 30 tablet 0 06/11/2019 Suspended Vitamin D2, 400 unit by mouth TabIndications: daily. Lactose intolerance calcium gluconate 45 Take 1 tablet 30 tablet 1 06/11/2019 Suspended mg (500 mg) Tab by mouth tabletIndications: daily. Lactose intolerance diphenoxylate-atropine Take 1 tablet 56 tablet 0 06/11/2019 Suspended (LOMOTIL) 2.5-0.025 mg by mouth every per tabletIndications: 6 (six) hours Diarrhea, unspecified as needed type (diarrhea). celecoxib 100 mg Take 1 capsule 28 capsule 0 06/03/2019 Suspended capsuleIndications: by mouth 2 Malignant neoplasm of (two) times right female breast, daily with unspecified estrogen meals. receptor status, unspecified site of breast acetaminophen 500 mg Take 2 tablets 84 tablet 0 06/03/2019 Suspended tabletIndications: by mouth every Malignant neoplasm of 8 (eight) right female breast, hours. OTC unspecified estrogen receptor status, unspecified site of breast chlorhexidine 4 % Wash from the 1 Bottle 0 06/03/2019 Suspended external neck down the liquidIndications: night prior to Malignant neoplasm of surgery right female breast, unspecified estrogen receptor status, unspecified site of breast cyclobenzaprine 10 mg Take 1 tablet 63 tablet 0 06/03/2019 Suspended tabletIndications: by mouth 3 Malignant neoplasm of (three) times right female breast, daily. unspecified estrogen receptor status, unspecified site of breast doxycycline 100 mg Take 1 capsule 28 capsule 0 06/03/2019 Suspended capsuleIndications: by mouth every Malignant neoplasm of 12 (twelve) right female breast, hours. unspecified estrogen receptor status, unspecified site of breast traMADol 50 mg Take 1 tablet 15 tablet 0 06/03/2019 Suspended tabletIndications: by mouth every Malignant neoplasm of 6 (six) hours right female breast, as needed for unspecified estrogen Pain (scale receptor status, 7-10) unspecified site of (breakthrough breast pain postop. Do not take with Flexeril.). LORazepam 1 mg Take 1 mg by 0 Suspended tabletIndications: For mouth. insomnia per patient Indications: For insomnia per patient documented as of this encounter (statuses as of 06/17/2019) Active Problems Problem Noted Date Diarrhea, unspecified type 05/30/2019 Stomach cramps 05/30/2019 Lactose intolerance 05/30/2019 Encounter for long-term (current) use of antibiotics 05/30/2019 Malignant neoplasm of right female breast, unspecified estrogen receptor 05/29 status, unspecified site of breast Overview: Added automatically from request for surgery [id number] documented as of this encounter (statuses as of 06/17/2019) Immunizations Name Administration Dates Next Due Tetanus/Diptheria [...] Treatment Date Type Specialty Care Team Description 06/20/2019 Office Visit Plastic Surgery Nabila Lewis MD [address] [place] [address] [address] [place] [phone] 07/02/2019 Office Visit Surgery Sydni Levy MD [address] [place] [phone] Health Maintenance Due Date Last Done Comments [...] 11/05/2027 11/05/2017 documented as of this encounter Implants Implanted Type Area Music Researcher Device Shelf Model / Identifier Expiration Serial / Date Lot Tissue Roller Engraver Breast, Artoura Ultra High Profile 700cc [employer] #[id number] - [id number] BREAST Right: [employer] 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 05/09/2022 [id number] / Implanted: Qty: 1 on 06/16/2019 by Nabila Lewis MD at [facility] [place] AT [facility] [id number] / [id number] Alloderm Select Tissue Matrix Rtucontour Large Perforated 164cm [employer] Ref# [id number] - [id number] TISSUE Right: [employer] 02/18/2021 [id number] / Implanted: Qty: 1 on 06/16/2019 by Nabila Lewis MD at [facility] AT [facility] [id number] / [id number] Alloderm Select Tissue Matrix Rtu, 8x16 Right: Life Cell 04/20/2021 [id number] / Implanted: Qty: 1 on 06/16/2019 by Nabila Lewis MD at [facility] [id number] / [id number] documented as of this encounter Procedures Procedure Name Priority Date/Time Associated Diagnosis Comments NM INJECTION Routine 06/16/2019 7:35 AM Malignant neoplasm Results for this SENTINEL NODE CDT of female breast, procedure are in unspecified estrogen the results receptor status, section. unspecified laterality, unspecified site of breast documented in this encounter Results NM INJECTION SENTINEL NODE (06/16/2019 7:35 AM CDT) Specimen Impressions Performed At PACS/VR/DOSE Status post right breast injection for axillary sentinel node mapping. Narrative Performed At * * * * * * * * ORIGINAL REPORT * * * * * * * * PACS/VR/DOSE SENTINEL NODE INJECTION CLINICAL INDICATION: 74-year-old female with right breast cancer TECHNIQUE AND FINDINGS: With aseptic technique 1 mCi of technetium 99m ultra filtrated sulfur colloid was injected intradermally in 4 doses around right periareolar region. No images were obtained. The patient will follow-up with intraoperative sentinel node localization. Procedure Note [facility], Radiant Results Inft User - 06/16/2019 9:51 AM CDT * * * * * * * * ORIGINAL REPORT * * * * * * * * SENTINEL NODE INJECTION CLINICAL INDICATION: 74-year-old female with right breast cancer TECHNIQUE AND FINDINGS: With aseptic technique 1 mCi of technetium 99m ultra filtrated sulfur colloid was injected intradermally in 4 doses around right periareolar region. No images were obtained. The patient will follow-up with intraoperative sentinel node localization. IMPRESSION Status post right breast injection for axillary sentinel node mapping. Performing Organization Address City/State/Zipcode Phone Number PACS/VR/DOSE documented in this encounter Visit Diagnoses Diagnosis Malignant neoplasm of female breast, unspecified estrogen receptor status, unspecified laterality, unspecified site of breast documented in this encounter Administered Medications Medication Order MAR Action Action Date Dose Rate Site Tc 99m-patrica. sulfur Given 06/16/2019 7:35 AM 1 millicurie Right Breast colloid injection 1 CDT millicurie 1 millicurie, Intradermal, ONCE, 1 dose, 06/16/19 at 0800, Routine documented in this encounter Insurance Payer Benefit Plan / Subscriber ID Effective Dates Phone Address Type Group MEDICARE MEDICARE PART xxxxxxxxxxx 2010-Areli [phone] [address] Medicare A & B t 2 [id number] FEDE [place] [id number] EULA WATSON [id number] 2016-Pres [place] ent documented as of this encounter
--- OUTSIDE RECORDS SUMMARY | 2019-12-13 16:41 | XMS REPORT | Summary of Care ---
:1945 Author Organization [facility] Address [address] [place] [id number] Care Team Providers Name Role Phone Olivia Box MD Primary Care Provider Reason for Referral Other (Routine) Status Reason Specialty Diagnoses / Referred By Contact Referred To Procedures Contact New Request Diagnoses Malignant neoplasm of right female breast, unspecified estrogen receptor status , unspecified site of breast Scot Seth MD Klimberg, Vicki Procedures Discharge Follow-up: Specialty Provider SYDNI MAXWELL S; Other - See Comment ( on 07/02/19) [address] [place] [address] MD Jacinto [address] [place] [phone] Phone: Other (Routine) Status Reason Specialty Diagnoses / Referred By Referred To Procedures Contact Contact New Request Diagnoses Malignant neoplasm of right female breast, unspecified estrogen receptor status , unspecified site of breast Scot Seth MD Park, Julie E, MD Procedures Discharge Follow-up: Specialty Provider SCOT SETH; Other - See Comment ( Wednesday 06/20) [address] [place] [address] [place] [phone] Phone: Reason for Visit Auth/Cert Status Reason Specialty Diagnoses / Procedures Referred By Referred To Contact Contact Surgery Diagnoses Malignant neoplasm of right female breast, unspecified estrogen receptor status , unspecified site of breast [C50.911] Vl Preop Procedures [place] INSERT BREAST PROS IMMED AFTER EXCIS [facility] CODING HELP [place] MASTECTOMY, SIMPLE, COMPLETE [place] INTRAOPERATIVE SENTINEL LYMPH NODE ID W DYE INJECTION IMMEDIATE RECONSTRUCTION OF BREAST PROSTHESIS FOLLOWING MASTOPEXY MASTOPEXY [address] [facility] SIMPLE MASTECTOMY S[place]IN[place] [address] Encounter Details Date Type Department Care Team Description [facility] Malignant [facility]oplasm 06/17/[address] breast, unspecified Unit [address] estrogen receptor [address] [place], [place] status, unspecified [facility] [address] site of breast [place], [place] [phone] Allergies Active Allergy Reactions Severity Noted Date Comments Zolpidem Other - See comments 05/30/2019 "caused me to do things throughout the night that I didn't know I was doing" Bacitracin Unknown - See comments 06/11/2019 Codeine Nausea and/or Vomiting Medium 05/07/2013 Levofloxacin Anaphylaxis High 05/07/2013 Pregabalin Other - See comments 05/30/2019 "makes me crazy as a hoot owl" Rclpqaza-Hcnoejwlpj-Wfm Swelling High 06/16/2019 ymyxin Penicillins Other - See comments 03/28/2018 Quinolones Other - See comments 03/28/2018 Attacks connective tissue Thiazides Other - See comments 03/28/2018 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 aspirin 81 mg EC Take 81 mg by 0 Active tablet mouth. Biotin 5 mg Cap Take 5 mg by 0 Active mouth. atorvastatin 40 mg Take 40 mg by 0 Active tablet mouth. conjugated estrogens Insert into 0 Active 0.625 mg/gram vaginal vagina. cream cranberry fruit Take by 0 Active extract (THERACRAN mouth. ORAL) esomeprazole 40 mg Take 40 mg by 0 Active capsule mouth. folic Take by 0 Active acid/multivit-min/lut mouth. ein (CENTRUM SILVER ORAL) furosemide 20 mg Take 20 mg by 0 Active tablet mouth. metoprolol tartrate Take 100 mg 0 Active 100 mg tablet by mouth. promethazine/dextrome Take 25 mg by 0 Active thorphan mouth. (PROMETHAZINE-DM ORAL) tretinoin 0.05 % gel SHANAE EXT TO 0 01/09/2018 Active FACE QHS Nitrofurantoin&Nit. Take 100 mg 0 Active Macrocryst 100 mg by mouth. capsule topiramate 50 mg Take 1 tablet 60 tablet 3 05/09/2019 Active tabletIndications: by mouth 2 Migraine without aura (two) times and without status daily. migrainosus, not intractable diclofenac 50 mg Take 1 tablet 180 tablet 0 05/27/2019 Active tabletIndications: by mouth 3 Radiculopathy of (three) times cervical spine daily as needed for Pain (scale 4-6). 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 OTC receptor status, unspecified site of breast chlorhexidine 4 % Wash from the 1 Bottle 0 06/03/2019 Active external neck down the liquidIndications: night prior Malignant neoplasm of to surgery right female breast, unspecified estrogen receptor status, unspecified site of breast cyclobenzaprine 10 mg Take 1 tablet 63 tablet 0 06/03/2019 Active tabletIndications: by mouth 3 Malignant neoplasm of (three) times right female breast, daily. unspecified estrogen receptor status, unspecified site of breast traMADol 50 mg Take 1 tablet 15 tablet 0 06/03/2019 Active tabletIndications: by mouth Malignant neoplasm of every 6 (six) right female breast, hours as unspecified estrogen needed for receptor status, Pain (scale unspecified site of 7-10) breast (breakthrough pain postop. Do not take with Flexeril.). LORazepam 1 mg Take 1 mg by 0 Active tabletIndications: mouth. 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 receptor status, unspecified site of breast docusate 100 mg Take by 0 Discontinued capsule mouth daily. 9 diphenoxylate-atropin Take 1 tablet 56 tablet 0 05/30/2019 Discontinued e (LOMOTIL) 2.5-0.025 by mouth 9 mg per every 6 (six) tabletIndications: hours as Diarrhea, unspecified needed type (diarrhea) for up to 14 days. documented as of this encounter (statuses as of 06/17/2019) Active Problems Problem Noted Date Diarrhea, unspecified type 05/30/2019 Stomach cramps 05/30/2019 Lactose intolerance 05/30/2019 Encounter for long-term (current) use of antibiotics 05/30/2019 Malignant neoplasm of right female breast, unspecified estrogen receptor 05/29 status, unspecified site of breast Overview: Added automatically from request for surgery [id number] documented as of this encounter (statuses as of 06/17/2019) Immunizations Name Administration Dates Next Due Tetanus/Diptheria 03/05/2019 documented as of this encounter Social History Tobacco Use Types Packs/Day Years Used Date Former Smoker Smokeless Tobacco: Never Used Tobacco Cessation: Counseling Given: Yes Alcohol Use Drinks/Week oz/Week Comments Yes occasional [...] of this encounter Last Filed Vital Signs Vital Sign Reading Time Taken Comments Blood Pressure 122/47 06/17/2019 11:36 AM CDT Pulse 94 06/17/2019 11:36 AM CDT Temperature 37.1 C (98.7 F) 06/17/2019 11:36 AM CDT Respiratory Rate 18 06/17/2019 11:36 AM CDT Oxygen Saturation 98% 06/17/2019 11:36 AM CDT Inhaled Oxygen Concentration - - Weight 62.6 kg (138 lb) 06/16/2019 1:42 PM CDT Height 162.6 cm (5' 4") 06/16/2019 1:42 PM CDT Body Mass Index 23.69 06/16/2019 1:42 PM CDT documented in this encounter Discharge Instructions Ariana Madison RN - 06/17/2019 Patient Discharge Instructions Discharge date: 06/17/2019 Procedure(s): Procedure(s): MASTOPEXY SIMPLE MASTECTOMY SENTINEL LYMPH NODE MAPPING 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 Texture Regular. Diabetic: No Discharge Follow-up: Specialty Provider SCOT SETH; Other - See Comment ( Wednesday 06/20) To Provider: SCOT SETH [[id number]] Patient's Preferred Location: Unknown Discharge Disposition: Home, ([facility]) When (Patients with risk for unplanned readmission score over 16 or those noted as Hospital Dependent should follow up within 7 days with PCP or primary DX specialist): Other - See Comment Wednesday 06/20 Risk of Unplanned Readmission:( Score greater than 16 indicates high risk) 6 Discharge Condition - Discharge Condition: GOOD Discharge Activity Order Comments: No heavy lifting or strenuous activity until further instructed at follow-up visit. Discharge Activity: Other-See Comments Discharge Follow-up: Specialty Provider SYDNI MAXWELL; Other - See Comment ( on 07/02/19) To Provider: SYDNI MAXWELL [[id number]] Patient's Preferred Location: Unknown Discharge Disposition: HOME, ([facility]) When (Patients with risk for unplanned readmission score over 16 or those noted as Hospital Dependent should follow up within 7 days with PCP or primary DX specialist): Other - See Comment on 07/02/19 Risk of Unplanned Readmission:( Score greater than 16 indicates high risk) 6 VTE Propylaxis- Was ordered during hospitalization DISCHARGE INSTRUCTIONS Order Comments: WOUND CARE - Right breast: leave Tegaderm (clear plastic) dressing in place until further instruction at your follow up appointment. - Left breast: mesh dressing over incisions is held in place with surgical glue. This will stay in place for a week or two then eventually fall off on its own. Do not pick at the surgical glue. If edges of the mesh come loose, it is OK to trim the loose ends. - Leave Tegaderm dressings over drain sites in place until follow up appointment , as well. - Be sure to record drain output daily. Record separately for each drain. - OK to shower starting day of discharge, but do not submerge the incisions in water until completely healed. - Avoid lifting anything greater than 10 lbs (a gallon of milk) until further instruction at your follow-up appointment. - Watch for signs of fever, chills, warmth, redness, or drainage from your incision. A slight amountis normal for a day or two following surgery. Seek medical attention for: fever >101.5 F, increasing warmth, reddness, swelling , drainage at incision site, or anything that may concern you. FOR PAIN Regarding the post-operative pain medications you have at home: -Take 100 mg of celecoxib (Celebrex) twice a day with meals -Take 1000 mg of acetaminophen (Tylenol) every 8 hours -Take the above medications scheduled, regardless of whether or not you are having pain. This will help prevent pain. -If you are still having pain with the above regimen, take one 50mg tablet of tramadol (Ultram). Youmay take a maximum of one tablet every 6 hours. We recommend you only take the Tramadol as needed. -Tramadol can cause constipation. Be sure to drink plenty of water and take over the counter stool softeners if needed. Wear either a snug sports bra or an SANA bandage at all times until your follow- up appointment with Dr. Seth. ANTIBIOTICS -You have been prescribed one or more antibiotics. Take all pills as directed, even if you are feeling better. If the entire antibiotic course is not completed , infections may return and be more difficult to treat. If antibiotics cause significant side effects, call the clinic so we can change medications. Follow instructions as indicated below: 1. The medication that was used will be acting in your system for the next 24 hours, so you might feel a little drowsy, with impaired judgment and or motor function. This feeling should go wear off. Because the medication is still in your system for the next 24 hours you SHOULD NOT: Drive a car, operate machinery or power tool. Drink any alcohol beverages (including beer or wine). Make any important decisions or sign any legal documents. 2. You should rest the remainder of the day and not engage in any physical activity. Move slowly today. After lying down, sit on the edge of the bed for a moment before standing. YOU ARE RESPONSIBLEFOR HAVING SOMEONE AT HOME WITH YOU DURING THE AFTERNOON AND NIGHT IMMEDIATELY FOLLOWING YOUR SURGERY. Patient should cough and deep breathe every 2-4 hours while awake to avoid respiratory complications. 4. Lifting: {IP DISCHARGE INSTRUCTIONS LIFTIN::"No medical restrictions"} 5. Weight: In general, sudden weight gains or losses should be reported to your provider. Cardiac patients should weigh daily and notify their provider for a weight gain of 3 pounds per day or 5 pounds per week. 6. Tobacco Avoidance: Follow recommendations below 7. Because the medications used could procedure some residual nausea and vomiting after you go home,you should eat lightly today, starting with clear liquids (broth, soft drinks, apple juice, jello) and toast or crackers, progressing to bland solid foods and then to your normal diet as tolerated, unless otherwise stated by your surgeon. If you get sick, wait a couple of hours and then begin to eat. After 24 hours the nausea should be gone. 8. You may experience some pain and your physician will advise you on what to take for discomfort. This should be taken as directed. If the pain is not relieved, contact your physician. You may alsohave a sore throat from the airway that was in place. You may uses lozenges, throat spray (such as Chloraseptic), or warm salt water gargles for symptomatic relief. 9. If you feel warm, take your temperature. If it is 101 degrees or above call your physician. 10. If you are unable to urinate within five hours after your procedure, call your physician. 11. The type of surgery performed will determine how much bleeding (if any) to expect. Normally, some spotting might occur. If your dressing pad becomes saturated, notify your physician. Elevate surgical site, if applicable, to reduced swelling and pain. 12. Wound/dressing care: Tips on preventing a surgical site infection.. Dont smoke. It is best to quit at least 30 days before surgery, but quitting after surgery is also helpful. If you are diabetic, keep your blood sugar well controlled. WASH YOUR HANDS. Keep your wound clean and remember to wash your hands before and after contact with the area. All health care workers should also wash their hands or use an alcohol based hand rub prior to examining you. If antibiotics are prescribed, take them as directed. Finish the entire course of antibiotics. Call your doctor if you have signs of infection: ? Increased tenderness at the surgical site ? Red streaks or increased redness of the area ? Bad-smelling discharge from the incision ? Fever of 101F or higher ? General tired feeling that doesnt improve 13. Other discharge instructions: {DC IP DISCHARGE INSTRUCTIONS OTHER:28968} 14. Special Instructions: Take Home Medications These are medications ordered for you by your healthcare provider. Do not take any other medications or supplements unless advised by your healthcare provider. Current Discharge Medication List CONTINUE these medications which have CHANGED Details doxycycline 100 mg capsule Take 1 capsule by mouth every 12 (twelve) hours. Qty: 28 capsule, Refills: 0 Associated Diagnoses: Malignant neoplasm of right female breast, unspecified estrogen receptor status, unspecified site of breast CONTINUE these medications which have NOT CHANGED Details LORazepam 1 mg tablet Take 1 mg by mouth. Indications: For insomnia per patient acetaminophen 500 mg tablet Take 2 tablets by mouth every 8 (eight) hours. OTC Qty: 84 tablet, Refills: 0 Associated Diagnoses: Malignant neoplasm of right female breast, unspecified estrogen receptor status, unspecified site of breast chlorhexidine 4 % external liquid Wash from the neck down the night prior to surgery Qty: 1 Bottle, Refills: 0 Associated Diagnoses: Malignant neoplasm of right female breast, unspecified estrogen receptor status, unspecified site of breast cyclobenzaprine 10 mg tablet Take 1 tablet by mouth 3 (three) times daily. Qty: 63 tablet, Refills: 0 Associated Diagnoses: Malignant neoplasm of right female breast, unspecified estrogen receptor status, unspecified site of breast traMADol 50 mg tablet Take 1 tablet by mouth every 6 (six) hours as needed for Pain (scale 7-10) (breakthrough pain postop. Do not take with Flexeril.). Qty: 15 tablet, Refills: 0 Associated Diagnoses: Malignant neoplasm of right female breast, unspecified estrogen receptor status, unspecified site of breast diclofenac 50 mg tablet Take 1 tablet by mouth 3 (three) times daily as needed for Pain (scale 4-6). Qty: 180 tablet, Refills: 0 Associated Diagnoses: Radiculopathy of cervical spine topiramate 50 mg tablet Take 1 tablet by mouth 2 (two) times daily. Qty: 60 tablet, Refills: 3 Associated Diagnoses: Migraine without aura and without status migrainosus, not intractable amlodipine-benazepril 10-40 mg per capsule Take 1 capsule by mouth. aspirin 81 mg EC tablet Take 81 mg by mouth. atorvastatin 40 mg tablet Take 40 mg by mouth. Biotin 5 mg Cap Take 5 mg by mouth. conjugated estrogens 0.625 mg/gram vaginal cream Insert into vagina. cranberry fruit extract (THERACRAN ORAL) Take by mouth. esomeprazole 40 mg capsule Take 40 mg by mouth. folic acid/multivit-min/lutein (CENTRUM SILVER ORAL) Take by mouth. furosemide 20 mg tablet Take 20 mg by mouth. metoprolol tartrate 100 mg tablet Take 100 mg by mouth. Nitrofurantoin&Nit. Macrocryst 100 mg capsule Take 100 mg by mouth. promethazine/dextromethorphan (PROMETHAZINE-DM ORAL) Take 25 mg by mouth. tretinoin 0.05 % gel SHANAE EXT TO FACE QHS calcium gluconate 45 mg (500 mg) Tab tablet Take 1 tablet by mouth daily. Qty: 30 tablet, Refills: 1 Associated Diagnoses: Lactose intolerance diphenoxylate-atropine (LOMOTIL) 2.5-0.025 mg per tablet Take 1 tablet by mouth every 6 (six) hours as needed (diarrhea). Qty: 56 tablet, Refills: 0 Associated Diagnoses: Diarrhea, unspecified type Ergocalciferol, Vitamin D2, 400 unit Tab Take 1 tablet by mouth daily. Qty: 30 tablet, Refills: 0 Associated Diagnoses: Lactose intolerance Saccharomyces boulardii 250 mg capsule Take 1 capsule by mouth 2 (two) times daily. Qty: 60 capsule, Refills: 3 Associated Diagnoses: Diarrhea, unspecified type celecoxib 100 mg capsule Take 1 capsule by mouth 2 (two) times daily with meals. Qty: 28 capsule, Refills: 0 Associated Diagnoses: Malignant neoplasm of right female breast, unspecified estrogen receptor status, unspecified site of breast STOP taking these medications docusate 100 mg capsule Comments: Reason for Stopping: Follow-up appointments: Your follow up appointment with your surgeon has been made. Appointment Date: , Appointment Time . For questions regarding follow-up instructions call the [facility] Hotline at or If you experience any of the following symptoms , please follow up with . For worsening symptoms/changing condition/problems or questions: Non-emergency/urgent: Call the Healthcare Hotline at or or Emergency: Go to the closest emergency room or call 911 Translated by Date Time If you receive the patient satisfaction survey by mail please complete and return and let us know how we are doing. TOBACCO AVOIDANCE Exposure to tobacco either from smoking or from second hand (environmental) smoke or smokeless tobacco (snuff) is damaging to your health. This information is to encourage everyone to avoid tobacco exposure. It is recommended that you: ? If you smoke or use smokeless tobacco, we encourage you to quit. ? If you have already quit smoking, continue your good work! ? If you do not smoke or use smokeless tobacco, do not start. ? Avoid secondhand smoke. Additional Resources You may want to contact these organizations for further information on smoking and how to quit. [place] [employer], http://www.lungusa.org/stop-smoking/ [place] [employer], http://www.cancer.org/Healthy/StayAwayfromTobacco/index [place] [employer], http://www.heart.org/HEARTORG/GettingHealthy/ QuitSmoking/Quit-Smoking_[facility]_001085_SubHomePage.jsp documented in this encounter Progress Notes Kylah Falcon, PRESS MAINTAINER - 06/17/2019 12:22 PM CDTCare Management Social Functional Assessment Patient Name: Kailey Myles Age: [age] year old Sex: female Previous admit date: N/A Current diagnosis and co-morbidities: Malignant neoplasm of right female breast, unspecified estrogen receptor status , unspecified site ofbreast [C50.911] Readmission Questions: Was patient discharged from any acute care hospital within the last 30 days: No Social Functional Assessment: Primary language spoken/preferred: Czech Mental Status: Alert & Oriented to Person,Place & Time Information given by: Self Patient's support system: None Primary Gardening 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: Self MPOA: No Living Arrangement: Home Address of living arrangement : [address] [place] [address], [place] [address] Persons living in home: Self Barriers to returning home: None Baseline functional status- ambulation: Independent Functional status-baseline personal care: Independent Baseline functional status- driving: Independent Baseline functional status- grocery shopping: Independent Functional status-baseline housekeeping: Independent Functional status-baseline meal prep: Independent Current functional status same as prior: Yes Do you have a PCP?: Yes Name of PCP: Olivia oBx,* Home Health Care Agency: No Provider Services: No DME Company: No Equipment: None Community resources utilized: None Funding Resources: Medicare A & B Pharmacy where meds are filled: Other Other pharmacy: [id number] [place], [place] - [address] [facility] [address] Anticipated services prior to disharge: Reassess prior to discharge Expected mode of discharge transportation: Family Additional info required for discharge planning: Pending medical evaluation Recommended discharge plan: Home SFA Complete: Social Functional Assessment complete: Yes Alcohol Use Screening (AUDIT-C) How often do you have a drink containing alcohol?: Never SCORE: 0 Role of Care Management explained. No needs at this time. Kylah Falcon LMSW Social Work/Care Management Office.[phone]. Cell. [phone] Email. [email or web address] in this encounter Plan of Treatment Date Type Specialty Care Team Description 06/20/2019 Office Visit Plastic Surgery Scot Seth MD [address] [place] [address] [place] [phone] 07/02/2019 Office Visit Surgery Sydni Maxwell MD [address] [place] [phone] Name Type Priority Associated Diagnoses Date/Time SURGICAL PATHOLOGY EXAM LAB STAT 06/16/2019 8:24 AM CDT SURGICAL PATHOLOGY EXAM LAB STAT 06/16/2019 10:12 AM CDT Health Maintenance Due Date Last Done Comments [...] of this encounter Implants Implanted Type Area Carpenter Foreman Device Shelf Model / Identifier Expiration Serial / Date Lot Tissue Aoc Operations Intelligence Chief Breast, Artjefa Ultra High Profile 700cc [employer] #[id number] - [id number] BREAST Right: [employer] 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 [place] AT [facility] [id number] / [id number] Alloderm Select Tissue Matrix Rtucontour Large Perforated 164cm Lifecell Ref# [id number] - [id number] TISSUE Right: Life Cell 02/18/2021 [id number] / Implanted: Qty: 1 on 06/16/2019 by Scot Seth MD at [facility] [id number] / [id number] Alloderm Select Tissue Matrix Rtu, 8x16 Right: Life Cell 04/20/2021 [id number] / Implanted: Qty: 1 on 06/16/2019 by Scot Seth MD at [facility] [id number] / [id number] documented as of this encounter Results Not on filedocumented in this encounter Visit Diagnoses Diagnosis Malignant neoplasm of right female breast, unspecified estrogen receptor status , unspecified site of breast - Primary documented in this encounter Administered Medications Medication Order MAR Action Action Date Dose Rate Site acetaminophen (TYLENOL) tablet Given 06/17/2019 5:23 AM CDT 1,000 mg 1,000 mg 1,000 mg, Oral, Q8H, 6 doses, First dose on 06/16/19 at 1400, Last dose on Sun06/18/19 at 0600, Routine Given 06/16/2019 9:35 PM CDT 1,000 mg Given 06/16/2019 2:08 PM CDT 1,000 mg celecoxib (CELEBREX) capsule 100 mg Given 06/17/2019 2:52 PM CDT 100 mg 100 mg, Oral, BID MEALS, 4 doses, First dose on Sun06/16/19 at 1700, Last dose on Sun06/18/19 at 0800, Routine Given 06/17/2019 2:32 AM CDT 100 mg Given 06/16/2019 5:55 PM CDT 100 mg docusate (COLACE) capsule 100 mg Given 06/16/2019 7:44 PM CDT 100 mg 100 mg, Oral, BID, First dose on Sun06/16/19 at 2000, Until Discontinued, Routine doxycycline (VIBRAMYCIN) 100 mg in NaCl 0.9% Given 06/17/2019 2:21 AM CDT 100 mg (NS) 100 mL MINI-BAG 100 mg, IV Piggyback, Q12H ABX, First dose on Sun06/16/19 at 1400, Until Discontinued, 100 mL, Reason for Anti-Infective: Surgical Prophylaxis, Surgical Prophylaxis: Other (see Comments), Duration of therapy: within 24 hours of surgery Given 06/16/2019 3:21 PM CDT 100 mg lactated ringers IV infusion New Bag 06/17/2019 5:26 AM CDT 1,000 mL 42 mL /hr 1,000 mL at 42 mL/hr, 1,000 mL, IV Infusion, CONTINUOUS, Starting Sun06/16/19 at 1115, Until Discontinued, Routine lactated ringers IV infusion 500 mL New Bag 06/16/2019 4:45 PM CDT 500 mL 75 mL/hr at 75 mL/hr, 500 mL, IV Infusion, CONTINUOUS, Starting Sun06/16/19 at 1215, Until Discontinued, Routine, PACU Dose/Rate Verify 06/16/2019 1:39 PM CDT 75 mL/hr ondansetron (ZOFRAN) 4 mg in NaCl 0.9% (NS) piggyback 4 mg, IV Piggyback, Q6HPRN, Starting Sun06/16/19 at 1054, Until Discontinued, 50 mL traMADol (ULTRAM) tablet 50 mg Given 06/17/2019 2:44 PM CDT 50 mg 50 mg, Oral, Q6HPRN, Starting Sun06/17/19 at 0331, Until Discontinued, Routine, Pain (scale 7-10) Given 06/17/2019 3:49 AM CDT 50 mg Medication Order MAR Action Action Date Dose Rate Site lactated ringers IV infusion New Bag 06/16/2019 6:25 AM CDT 1,000 mL 20 mL /hr 1,000 mL at 20 mL/hr, 1,000 mL, IV Infusion, ONCE, 1 dose, 06/16/19 at 0600, Routine, DSU Pre-op documented in this encounter Insurance Payer Benefit Plan / Subscriber ID Effective Dates Phone Address Type Group MEDICARE MEDICARE PART xxxxxxxxxxx 2010-Areli [phone] Medicare A & B t 2 [id number] FEDE [place]UMONT [address] EULA WATSON [id number] 2016-Pres Blakely ent documented as of this encounter
--- OUTSIDE RECORDS SUMMARY | 2019-12-13 16:41 | XMS REPORT | Summary of Care ---
:1945 Author Organization [facility] - Health Address [address] [id number] Care Team Providers Name Role Phone Olivia Box MD Primary Care Provider Encounter Details Date Type Department Care Team Description 06/20/2019 Orders Only [facility] Doctor Unassigned, No [address] [facility] [place] [address] [address] [place] [address] Allergies Active Allergy Reactions Severity Noted Date Comments Zolpidem Other - See comments 05/30/2019 "caused me to do things throughout the night that I didn't know I was doing" Bacitracin Unknown - See comments 06/11/2019 Codeine Nausea and/or Vomiting Medium 05/07/2013 Levofloxacin Anaphylaxis High 05/07/2013 Pregabalin Other - See comments 05/30/2019 "makes me crazy as a hoot owl" Lsnbkeno-Heejrwflbn-Dqa Swelling High 06/16/2019 ymyxin Penicillins Other - See comments 03/28/2018 Quinolones Other - See comments 03/28/2018 Attacks connective tissue Thiazides Other - See comments 03/28/2018 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 0 Active (THERACRAN ORAL) esomeprazole 40 mg Take 40 mg [...] per patient Indications: For insomnia per patient doxycycline 100 mg Take 1 capsule 28 capsule 0 06/17/2019 Active capsuleIndications: by mouth every Malignant neoplasm of 12 (twelve) right female breast, hours. unspecified estrogen receptor status, unspecified site of breast documented as of this encounter (statuses as of 06/20/2019) Active Problems Problem Noted Date Diarrhea, unspecified type 05/30/2019 Stomach cramps 05/30/2019 Lactose intolerance 05/30/2019 Encounter for long-term (current) use of antibiotics 05/30/2019 Malignant neoplasm of right female breast, unspecified estrogen receptor 05/29 status, unspecified site of breast Overview: Added automatically from request for surgery [id number] documented as of this encounter (statuses as of 06/20/2019) Immunizations Name Administration Dates Next Due Tetanus/Diptheria [...] Office Visit Plastic Surgery Nabila Lewis MD Arrived [address] [place] [address] [address] [place] [address] 07/02/2019 Office Visit Surgery Sydni Levy MD [address] [place] [phone] Health Maintenance Due Date Last Done Comments HEPATITIS C (HCV) SCREEN 1945 DTaP,Tdap,and Td Vaccines (1 - 1965 Tdap) Zoster Recombinant Vaccine 01/12/1996 (SHINGRIX) (1 of 2) LUNG CANCER SCREEN: Recommended 2001 for age 55-80 with 30 + pack year history Osteoporosis Screening 2011 PNEUMOCOCCAL VACCINES 65+ (1 of 2 2011 - PCV13) INFLUENZA VACCINE (#1) 2019 MAMMOGRAM 03/12/2020 03/12/2019 Medicare Wellness Visit 06/19/2020 Postponed from 2011 (Patient Does Not Have Time) COLONOSCOPY 11/05/2027 11/05/2017 documented as of this encounter Implants Implanted Type Area Piping Designer Device Shelf Model / Identifier Expiration Serial / Date Lot Tissue Switch Repairer Breast, Artoura Ultra High Profile 700cc [place] #[id number] - [id number] BREAST Right: [place] [employer] MASCARA MOLDER 05/09/2022 [id number] / Implanted: Qty: 1 on 06/16/2019 by Nabila Lewis MD at [facility] [id number] / [id number] Alloderm Select Tissue Matrix Rtucontour Large Perforated 164cm Lifecell Ref# [id number] - [id number] TISSUE Right: Life Cell 02/18/2021 [id number] / Implanted: Qty: 1 on 06/16/2019 by Nabila Lewis MD at [facility] [place] AT [facility] [id number] / 0 Alloderm Select Tissue Matrix Rtu, 8x16 Right: Life Cell 04/20/2021 [id number] / Implanted: Qty: 1 on 06/16/2019 by Nabila Lewis MD at [facility] [place] Breast [id number] / 0 documented as of this encounter Procedures Procedure Name Priority Date/Time Associated Diagnosis Comments NOTICE OF BILLING Routine 06/20/2019 9:44 AM CDT PRACTICES FOR MEDICARE PATIENTS documented in this encounter Results Not on filedocumented in this encounter Insurance Payer Benefit Plan / Subscriber ID Effective Dates Phone Address Type Group MEDICARE MEDICARE PART xxxxxxxxxxx 2010-Areli [phone] [address] Medicare A & B t 2 [id number] FEDE [place]UMONT [id number] 2016-Pres Blakely ent documented as of this encounter
--- OUTSIDE RECORDS SUMMARY | 2019-12-13 16:42 | XMS REPORT | Summary of Care ---
:1945 Author Organization [facility] Address [address] [place] [address] Care Team Providers Name Role Phone Olivia Box MD Primary Care Provider Reason for Visit Reason Comments Follow-up Encounter Details Date Type Department Care Team Description 06/20/2019 Office Visit [facility] Surgery Nabila Lewis MD Malignant neoplasm of and Cancer [address] [place] [address] right female breast, Center-Plastic [address]24 unspecified estrogen Surgery [place], [place] receptor status, [address] [facility], [phone] unspecified site of [address] breast (Primary Dx) [place] [address] Allergies Active Allergy Reactions Severity Noted Date Comments Zolpidem Other - See comments 05/30/2019 "caused me to do things throughout the night that I didn't know I was doing" Bacitracin Unknown - See comments 06/11/2019 Codeine Nausea and/or Vomiting Medium 05/07/2013 Levofloxacin Anaphylaxis High 05/07/2013 Pregabalin Other - See comments 05/30/2019 "makes me crazy as a hoot owl" Fgxxbnsu-Otcrajtuha-Zfi Swelling High 06/16/2019 ymyxin Penicillins Other - [...] Overview: Added automatically from request for surgery [id number] documented as of this encounter (statuses as [...] Sign Reading Time Taken Comments Blood Pressure 102/58 06/20/2019 10:15 AM CDT Pulse 76 06/20/2019 10:15 AM CDT Temperature - - Respiratory Rate 18 06/20/2019 10:15 AM CDT Oxygen Saturation 96% 06/20/2019 10:15 AM CDT Inhaled Oxygen Concentration - - Weight 64.6 kg (142 lb 8 oz) 06/20/2019 10:15 AM CDT Height 162.6 cm (5' 4") 06/20/2019 10:15 AM CDT Body Mass Index 24.46 06/20/2019 10:15 AM CDT documented in this encounter Progress Notes Preet Doshi MD - 06/20/2019 10:00 AM CDT POST OPERATIVE CLINIC NOTE Date of Procedure: 06/16/2019 Surgical Procedure: Left breast mastopexy for symmetry Right breast tissue foundry molder placement with acellular dermal matrix HPI: Kailey Myles is a 74 year old female who presents to [facility] Plastic surgery clinic here for follow-up of the above procedures. She has been recovering well from surgery and is pleased with her results.Patient has had good control of pain with ERAS medications. She reports wearing her compression garment regularly. Patient's has maintained her drain log: Left: 12 cc, 10 cc, 5 cc; Right #1: 55 cc, 65 cc, 28 cc; Right #2 98 cc, 135 cc, 42 cc. She has been adhering to activity restrictions. Patient denies fever, chills, nausea, or vomiting. MEDICATIONS Current Outpatient Medications Medication Sig Dispense Refill doxycycline 100 mg capsule Take 1 capsule by mouth every 12 (twelve) hours. 28 capsule 0 calcium gluconate 45 mg (500 mg) Tab tablet Take 1 tablet by mouth daily. 30 tablet 1 diphenoxylate-atropine (LOMOTIL) 2.5-0.025 mg per tablet Take 1 tablet by mouth every 6 (six) hours as needed (diarrhea). 56 tablet 0 Ergocalciferol, Vitamin D2, 400 unit Tab Take 1 tablet by mouth daily. 30 tablet 0 Saccharomyces boulardii 250 mg capsule Take 1 capsule by mouth 2 (two) times daily. 60 capsule 3 LORazepam 1 mg tablet Take 1 mg by mouth. Indications: For insomnia per patient acetaminophen 500 mg tablet Take 2 tablets by mouth every 8 (eight) hours. OTC 84 tablet 0 celecoxib 100 mg capsule Take 1 capsule by mouth 2 (two) times daily with meals. 28 capsule 0 chlorhexidine 4 % external liquid Wash from the neck down the night prior to surgery 1 Bottle 0 cyclobenzaprine 10 mg tablet Take 1 tablet by mouth 3 (three) times daily. 63 tablet 0 traMADol 50 mg tablet Take 1 tablet by mouth every 6 (six) hours as needed for Pain (scale 7-10)(breakthrough pain postop. Do not take with Flexeril.). 15 tablet 0 diclofenac 50 mg tablet Take 1 tablet by mouth 3 (three) times daily as needed for Pain (scale 4-6). 180 tablet 0 topiramate 50 mg tablet Take 1 tablet by mouth 2 (two) times daily. ( Patient taking differently:Take 100 mg by mouth 2 (two) times daily.) 60 tablet 3 amlodipine-benazepril 10-40 mg per capsule Take 1 [...] % gel SHANAE EXT TO FACE QHS No current facility-administered medications for this visit. REVIEW OF SYSTEMS: Constitutional: negative HEENT: negative Cardiovascular: negative Respiratory: negative Gastrointestinal: negative Genitourinary: negative Musculoskeletal: negative Skin: negative Psych: negative Endocrine: negative Hem/Lymph: negative PHYSICAL EXAM BP 102/58 | Pulse 76 | Resp 18 | Ht 5' 4" (1.626 m) | Wt 142 lb 8 oz (64.6 kg) | SpO2 96% | BMI 24.46 kg/m General: alert and oriented, no apparent distress Psych: normal mood and affect, judgement intact Eyes: extraocular movements intact, no scleral icterus HENT: normocephalic, atraumatic, no rhinorrhea, no trauma to external meatus CV: regular rate Resp: unlabored, no increased work of breathing, equal bilateral chest rise Abdomen: soft, non-tender, non-distended Neuro: AAOx3 Extremities/Musculoskeletal: No gross bony or joint abnormalities; ROM WNL; no clubbing, cyanosis oredema Skin: bruising typical of the postoperative state; soft and warm; no rashes, lesions Drains: 3 drains present, two on right, one to left breast; all with serous output LABORATORY No new labs RADIOLOGY No new Radiology Procedure Note Drain Removal This is a patient of Dr. Lewis status post 4 days for left breast drain, output 10 cc in 24 hour period. Removed drain without incident. Applied bacitrin, 2X2 and tape. Wound care instructions given. She will return in 1 week. ASSESSMENT/PLAN Kailey Myles is a 74 year old female s/p Left breast mastopexy for symmetry and Right breast tissue foundry molder placement with ADM on 06/16/19. Patient is recovering well from surgery. One drain removedtoday in clinic. Still has two drains in. - Left drain removed, drain site dressed with bacitracin, 2x2 and bandage - two right drains to remain until <30 cc/24 hours - instructed patient to continue compression garment - continue activity restrictions - Advised patient to contact office with any questions or concerns - All findings and diagnosis was discussed with patient at the time of this visit. Patient states they understand and are in agreement with the treatment plan at the time of this visit. - RTC 1 week, Sunday Preet Doshi MD Plastic Surgery, PGY-1 06/20/2019 documented in this encounter Plan of Treatment Date Type Specialty Care Team Description 06/27/2019 Office Visit Plastic Surgery Nabila Lewis MD [address] [place] [address] [address] [place] [phone] 07/02/2019 Office Visit Surgery Sydni Levy MD [address] [place] [phone] Health Maintenance Due Date Last Done Comments [...] of this encounter Implants Implanted Type Area Cement Truck Driver Device Shelf Model / Identifier Expiration Serial / Date Lot Tissue Machines Technician Breast, Artoura Ultra High Profile 700cc [place] #[id number] - [id number] BREAST Right: [place] [employer] DIRECTOR OF PLAYER PERSONNEL 05/09/2022 [id number] / Implanted: Qty: 1 on 06/16/2019 by Nabila Lewis MD at [facility] Breast [id number] / [id number] Alloderm Select Tissue Matrix Rtucontour Large Perforated 164cm Lifecell Ref# [id number] - [id number] TISSUE Right: Life Cell 02/18/2021 [id number] / Implanted: Qty: 1 on 06/16/2019 by Nabila Lewis MD at [facility] Breast [id number] / 0 Alloderm Select Tissue Matrix Rtu, 8x16 Right: Life Cell 04/20/2021 [id number] / Implanted: Qty: 1 on 06/16/2019 by Nabila Lewis MD at [facility] Breast [id number] / 0 documented as of this encounter Results Not [...] BOX Medicare A & B t 2 [id number] FEDE [place] [phone] EULA WATSON [id number] 2016-Pres Blakely ent documented as of this encounter
--- OUTSIDE RECORDS SUMMARY | 2019-12-13 16:42 | XMS REPORT | Summary of Care ---
:1945 Author Organization [facility] Address [address] [place] [address] Care Team Providers Name Role Phone Olivia Box MD Primary Care Provider Reason for Visit Reason Comments Follow-up Encounter Details Date Type Department Care Team Description 06/20/2019 Office Visit [facility] Surgery Nabila Lewis MD Malignant neoplasm of and Cancer [address] [place] [address] right female breast, Center-Plastic RT724 unspecified estrogen Surgery [place], [place] receptor status, [address] [facility], [phone] unspecified site of [address] breast (Primary Dx) [place] [address] Allergies Active Allergy Reactions Severity Noted Date Comments Zolpidem Other - See comments 05/30/2019 "caused me to do things throughout the night that I didn't know I was doing" Bacitracin Unknown - See comments 06/11/2019 Codeine Nausea and/or Vomiting Medium 05/07/2013 Levofloxacin Anaphylaxis High 05/07/2013 Pregabalin Other - See comments 05/30/2019 "makes me crazy as a hoot owl" Iqqfjkvh-Xpsnvrdrpn-Lmy Swelling High 06/16/2019 ymyxin Penicillins Other - [...] Overview: Added automatically from request for surgery [id number] documented as of this encounter (statuses as [...] breast mastopexy for symmetry Right breast tissue rotary swaging machine operator placement with acellular dermal matrix HPI: Kailey Myles is a 74 year old female who presents to [facility] Plastic surgery clinic here for follow-up [...] mastopexy for symmetry and Right breast tissue rotary swaging machine operator placement with ADM on 06/16/19. Patient is [...] Office Visit Plastic Surgery Nabila Lewis MD [address] [place] [address] [address] [place] [phone] 07/02/2019 Office Visit Surgery Sydni Levy MD [address] [place] [phone] Health Maintenance Due Date Last Done Comments [...] of this encounter Implants Implanted Type Area Superannuation Clerk Device Shelf Model / Identifier Expiration Serial / Date Lot Tissue Slot Operations Director Breast, Artoura Ultra High Profile 700cc [place] #[id number] - [id number] BREAST Right: [place] [employer] MARKING CLERK 05/09/2022 [id number] / Implanted: Qty: 1 on 06/16/2019 by Nabila Lewis MD at [facility] Breast [id number] / [id number] Alloderm Select Tissue Matrix Rtucontour Large Perforated 164cm Lifecell Ref# [id number] - [id number] TISSUE Right: Life Cell 02/18/2021 [id number] / Implanted: Qty: 1 on 06/16/2019 by Nabila Lewis MD at [facility] Breast [id number] / 0 Alloderm Select Tissue Matrix Rtu, 8x16 Right: Life Cell 04/20/2021 [id number] / Implanted: Qty: 1 on 06/16/2019 by Nabila Lewis MD at [facility] Breast [id number] / 0 documented as of this encounter [...] BOX Medicare A & B t 2 [id number] FED[place] [phone] EULA WATSON [id number] 2016-Pres Blakely ent documented as of this encounter
--- OUTSIDE RECORDS SUMMARY | 2019-12-13 16:42 | XMS REPORT | Summary of Care ---
:1945 Author Organization [facility] Address [address] [place] [address] Care Team Providers Name Role Phone Olivia Box MD Primary Care Provider Reason for Visit Reason Comments Follow-up Encounter Details Date Type Department Care Team Description 06/20/2019 Office Visit [facility] Surgery Nabila Lewis MD Malignant neoplasm of and Cancer [address] [place] [address] right female breast, Center-Plastic RT724 unspecified estrogen Surgery [place], [place] receptor status, [address] [facility], [phone] unspecified site of [address] breast (Primary Dx) [place] [address] Allergies Active Allergy Reactions Severity Noted Date Comments Zolpidem Other - See comments 05/30/2019 "caused me to do things throughout the night that I didn't know I was doing" Bacitracin Unknown - See comments 06/11/2019 Codeine Nausea and/or Vomiting Medium 05/07/2013 Levofloxacin Anaphylaxis High 05/07/2013 Pregabalin Other - See comments 05/30/2019 "makes me crazy as a hoot owl" Bujayfrj-Nyaalmywno-Nzc Swelling High 06/16/2019 ymyxin Penicillins Other - See comments 03/28/2018 Quinolones Other - See comments 03/28/2018 Attacks connective tissue Thiazides Other - See comments 03/28/2018 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 documented as of this encounter (statuses as of 06/25/2019) Medications Medication Sig Dispensed Refills Start Date [...] as of this encounter (statuses as of 06/25/2019) Active Problems Problem Noted Date Diarrhea, unspecified type 05/30/2019 Stomach cramps 05/30/2019 Lactose intolerance 05/30/2019 Encounter for long-term (current) use of antibiotics 05/30/2019 Malignant neoplasm of right female breast, unspecified estrogen receptor 05/29 status, unspecified site of breast Overview: Added automatically from request for surgery [id number] documented as of this encounter (statuses as of 06/25/2019) Immunizations Name Administration Dates Next Due Tetanus/Diptheria [...] breast mastopexy for symmetry Right breast tissue dental hygienist mobile coordinator placement with acellular dermal matrix HPI: Kailey Myles is a 74 year old female who presents to [facility] Plastic surgery clinic here for follow-up [...] Removal This is a patient of Dr. Leiws status post 4 days for left breast drain, output 10 cc in 24 hour period. Removed drain without incident. Applied bacitrin, 2X2 and tape. Wound care instructions given. She will return in 1 week. ASSESSMENT/PLAN Kailey Myels is a 74 year old female s/p Left breast mastopexy for symmetry and Right breast tissue dental hygienist mobile coordinator placement with ADM on 06/16/19. Patient is [...] Preet Doshi MD Plastic Surgery, PGY-1 06/20/2019 Attending Attestation: INabila MD, personally examined and performed the decision making of this patient on June 20, 2019. I agree with Dr. Doshi's note with any edits made directly in the note above. documented in this encounter Plan of Treatment Date Type Specialty Care Team Description 06/27/2019 Office Visit Plastic Surgery Nabila Lewis MD [address] [place] [address] [address] [place] [phone] 07/02/2019 Office Visit Surgery Sydni Levy MD [address] [place] [phone] Health Maintenance Due Date Last Done Comments [...] of this encounter Implants Implanted Type Area Director Medical Surgical Device Shelf Model / Identifier Expiration Serial / Date Lot Tissue Stone Hand Breast, Artoura Ultra High Profile 700cc [place] #[id number] - [id number] BREAST Right: [place] [employer] COMPLIANCE REVIEWER 05/09/2022 [id number] / Implanted: Qty: 1 on 06/16/2019 by Nabila Lewis MD at [facility] [place] AT [facility] [id number] / [id number] Alloderm Select Tissue Matrix Rtucontour Large Perforated 164cm Lifecell Ref# [id number] - [id number] TISSUE Right: Life Cell 02/18/2021 [id number] / Implanted: Qty: 1 on 06/16/2019 by Nabila Lewis MD at [facility] [place] AT [facility] [id number] / 0 Alloderm Select Tissue Matrix Rtu, 8x16 Right: Life Cell 04/20/2021 [id number] / Implanted: Qty: 1 on 06/16/2019 by Nabila Lewis MD at [facility] Breast [id number] / 0 documented as of this encounter [...] BOX Medicare A & B t 2 [id number] FEDE [place]UMONT [phone] EULA WATSON [id number] 2016-Pres Blakely ent documented as of this encounter
--- OUTSIDE RECORDS SUMMARY | 2019-12-13 16:43 | XMS REPORT | Summary of Care ---
:1945 Author Organization [facility] - [facility] Address [address] [place] [id number] Care Team Providers Name Role Phone Olivia Box MD Primary Care Provider Reason for Referral (Routine) Status Reason Specialty Diagnoses / Referred By Referred To Procedures Contact Contact New Request Oncology Diagnoses Malignant neoplasm of female breast, unspecified estrogen receptor status, unspecified laterality, unspecified site of breast Sydni Maxwell, Procedures CONSULT/REFERRAL MEDICAL ONCOLOGY [address] [place] [phone] Radiology Services (Routine) Status Reason Specialty Diagnoses / Referred By Referred To Procedures Contact Contact New Request Diagnostic Diagnoses Encounter for screening mammogram for malignant neoplasm of breast Malignant neoplasm of female breast, unspecified estrogen receptor status, unspecified laterality, unspecified site of breast Sydni Maxwell Radiology Procedures BI SCREENING MAMMOGRAM NANI Casey MD [address] [place] [phone] Reason for Visit Reason Comments Follow-up Other (Routine) Status Reason Specialty Diagnoses / Referred By Referred To Procedures Contact Contact Closed CARRI-SURGICAL Diagnoses Malignant neoplasm of right female breast, unspecified estrogen receptor status , unspecified site of breast Nabila Lewis MD Klimberg, Vicki ONCOLOGY / Surgery Procedures Discharge Follow-up: Specialty Provider SYDNI MAXWELL; Other - See Comment ( on 07/02/19) [address] [place] [address] MD Jacinto [address] [place] [phone] Phone: Fax: Encounter Details Date Type Department Care Team Description 07/01/2019 Office Visit [facility] Surgical Sydni Maxwell Malignant neoplasm of female breast, unspecified estrogen receptor status, unspecified laterality, unspecified site of breast (Primary Dx); Specialties - Te Casey MD Encounter for screening mammogram for malignant neoplasm of breast [address], [address] [place] [address] [address] [place] [phone] Allergies Active Allergy Reactions Severity Noted Date Comments Zolpidem Other - See comments 05/30/2019 "caused me to do things throughout the night that I didn't know I was doing" Bacitracin Unknown - See comments 06/11/2019 Codeine Nausea and/or Vomiting Medium 05/07/2013 Levofloxacin Anaphylaxis High 05/07/2013 Pregabalin Other - See comments 05/30/2019 "makes me crazy as a hoot owl" Qegvrxyu-Eavglnwqwp-Idu Swelling High 06/16/2019 ymyxin Penicillins Other - See comments 03/28/2018 Quinolones Other - See comments 03/28/2018 Attacks connective tissue Thiazides Other - See comments 03/28/2018 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 documented as of this encounter (statuses as of 07/01/2019) Medications Medication Sig Dispensed Refills Start Date [...] as of this encounter (statuses as of 07/01/2019) Active Problems Problem Noted Date Diarrhea, unspecified type 05/30/2019 Stomach cramps 05/30/2019 Lactose intolerance 05/30/2019 Encounter for long-term (current) use of antibiotics 05/30/2019 Malignant neoplasm of right female breast, unspecified estrogen receptor 05/29 status, unspecified site of breast Overview: Added automatically from request for surgery [id number] documented as of this encounter (statuses as of 07/01/2019) Immunizations Name Administration Dates Next Due Tetanus/Diptheria [...] Sign Reading Time Taken Comments Blood Pressure 111/65 07/01/2019 3:58 PM CDT Pulse 80 07/01/2019 3:58 PM CDT Temperature 36.8 C (98.3 F) 07/01/2019 3:58 PM CDT Respiratory Rate 18 07/01/2019 3:58 PM CDT Oxygen Saturation - - Inhaled Oxygen Concentration - - Weight 63.8 kg (140 lb 9.6 oz) 07/01/2019 3:58 PM CDT Height 167.6 cm (5' 6") 07/01/2019 3:58 PM CDT Body Mass Index 22.69 07/01/2019 3:58 PM CDT documented in this encounter Progress Notes Ariana Wood MD - 07/01/2019 3:30 PM CDT POST OPERATIVE CLINIC NOTE Surgery Date: 06/16/2019 Type of Surgical Procedure Performed: Right breast TE placement with ADM Left breast mastopexy for symmetry General status: good Patient reports pain is controlled with Tylenol and she is feeling generally well, actually much better than she expected. She has not had fever. She reports there is drainage. She reports 45 ml from the drain for the past 24 hours in the Rt side. Medications I have reviewed the patient's medications; see Medication Reconciliation. Review of Systems (-)=Negative,(+)=Positive Constitutional: (-) fever, (-) chills, (-) weight change, (-) dizziness Cardio: (-) chest pain, (-) palpitations, (-) syncope Resp: (-) cough, (-) shortness of breath, (-) dyspnea on exertion, (-) orthopnea GI: (-) abdominal pain, (-) nausea, (-) vomiting, (-) diarrhea : (-) dysuria, (-) hematuria, (-) increased frequency Physical Exam (-)=Negative,(+)=Positive BP 111/65 (BP Location: Right arm, Patient Position: Sitting, BP CUFF SIZE: Adult Large) | Pulse 80 | Temp 36.8 C (98.3 F) (Oral) | Resp 18 | Ht 1.676 m (5' 6") | Wt 63.8 kg (140 lb 9.6 oz) |BMI 22.69 kg/m General: alert and oriented in no apparent distress CV: hemodynamically stable Resp: unlabored, no increased work of breathing, equal bilateral chest rise Extremities/Musculoskeletal: moves extremities well, no edema or cyanosis Breasts: left breast with periareolar and vertical mastopexy incision, covered in prineo and withoutsurrounding erythema or drainage. Left breast with some swelling but soft. Right breast with TE in place. Incision edges well approximated. No areas of dehiscence, no erythema. Mastectomy flap is pink and viable.Rt drain in place, clear drainage. Laboratory No new labs Radiology No new Radiology Pathology Collected: 06/16/2019 10:12 Status: Final result Component Resulting Agency Final Diagnosis A. LYMPH NODE, RIGHT, SENTINEL # 1, EXCISION: - ONE LYMPH NODE NEGATIVE FOR METASTATIC CARCINOMA (0/1) B. BREAST, RIGHT, NIPPLE CORE, BIOPSY: - DUCTAL CARCINOMA IN SITU (DCIS), INTERMEDIATE GRADE, CRIBRIFORM TYPE C. SKIN, LEFT, BREAST SCAR, EXCISION: - CELLULAR DERMATOFIBROMA, INVOLVING THE DEEP MARGIN - NO CARCINOMA IDENTIFIED D. NIPPLE, RIGHT, AREOLAR COMPLEX, RESECTION: - NIPPLE TISSUE WITH NO MALIGNANCY IDENTIFIED E. BREAST, RIGHT, SKIN-SPARING MASTECTOMY: - MULTIFOCAL INVASIVE DUCTAL CARCINOMA, POORLY DIFFERENTIATED, LOO- KWONG GRADE 3(TUBULES - 3, PLEOMORPHISM - 3, MITOSES - 2) - LESION 1: 8 O'CLOCK, 2 CM FROM NIPPLE, MEASURING 7 MM IN GREATEST DIMENSION - LESION 2: 9 O'CLOCK, 6 CM FROM NIPPLE, MEASURING 9 MM IN GREATEST DIMENSION - RESECTION MARGINS NEGATIVE FOR INVASIVE CARCINOMA: POSTERIOR - 12 MM, ANTERIOR SUPERIOR - 12 MM, ANTERIOR INFERIOR - 18 MM, LATERAL - 21 MM, MEDIAL - 23 MM - DUCTAL CARCINOMA IN SITU (DCIS), EXTENSIVE, HIGH GRADE, SOLID AND CRIBRIFORM TYPE,WITH COMEDO NECROSIS - DCIS INVOLVES 11 OUT OF 24 BLOCKS (11/24) - RESECTION MARGINS NEGATIVE FOR DCIS: POSTERIOR - 2.5 MM, ANTERIOR INFERIOR - 7 MM, ANTERIOR SUPERIOR - 12 MM, LATERAL - 16 MM, MEDIAL - 23 MM - THREE BIOPSY SITES IDENTIFIED - NO LYMPHOVASCULAR INVASION OR PERINEURAL INVASION IDENTIFIED - TUMOR PATHOLOGIC STAGE (AJ[facility] 8TH ED): pT1b snpN0 pMNA - SEE SYNOPTIC REPORT F. BREAST, RIGHT, SUPERIOR/ANTERIOR MARGIN, EXCISION: - BREAST TISSUE WITH NO MALIGNANCY IDENTIFIED G. BREAST, RIGHT, INFERIOR LATERAL MARGIN, EXCISION: - BREAST TISSUE WITH NO MALIGNANCY IDENTIFIED H. BREAST, RIGHT, LATERAL MARGIN, EXCISION: - BREAST TISSUE WITH NO MALIGNANCY IDENTIFIED I. SKIN, RIGHT MASTECTOMY INCISION, RESECTION: - SKIN WITH NO MALIGNANCY IDENTIFIED I have personally reviewed all specimens/slides and agree with all statements made by residents, fellows or pathologist assistants whose name(s) may appear on this report. at 1525 Preliminary result electronically signed by Britt Fong MD on 06/24/2019 at 1405 Procedure Note PROCEDURE: Bilateral periscapular area were cleansed and prep, 10cc containing a mixture of lidocaine, marcaineand 80mg of methylprednisolone was injected into the RT and LT scapulothoracic bursa with complete pain relief after 15 minutes. Post injection the patient was instructed to use heat on the bursa at least an hour a day for a month and use Aleve 1-2 po BID. Assessment/Diagnosis Mrs. Myles is s/p Rt skin sparing mastectomy and reconstruction with TE and Lt mastopexy 2 weeks. Patient is having an uneventfully recovery. We discussed her pathology in detail, the possible need of adjuvant chemotherapy and the need and rationale of ordering Oncotype. Instructions given not to goto the Gym yet, patient verbalized understanding. Plan Oncotype Med Onc Referral Lt side mammogram February 2020. Seen with Dr Maxwell Patient seen and examined, agree with H&P, and have discussed pathology and made this plan with the patient. Surgeon: Sydni Maxwell MD Date: 07/01/2019 Lizzie Arango RN - 07/01/2019 3:30 PM CDArlenhernandez Myles is a 74 year old female comes to clinic independent in ambulation for follow up. Pt comes accompanied by . Pt in NAD w/ pain reported 0/10. Pt preferred language is Polish. Pt. denies fall in last 12 months. Allergies and medications reviewed and updated. documented in this encounter Plan of Treatment Date Type Specialty Care Team Description 07/04/2019 Office Visit Plastic Surgery Nabila Lewis MD [address] [place] [address] [address] [place] [phone] 07/06/2020 Office Visit Surgery Sydni Maxwell MD [address] [place] [phone] Name Type Priority Associated Diagnoses Order Schedule BI SCREENING MAMMOGRAM IMAGING Routine Encounter for screening Expected: , LEFT mammogram for malignant Expires: 12/29/2020 neoplasm of breast Malignant neoplasm of female breast, unspecified estrogen [...] of this encounter Implants Implanted Type Area Trackmobile Operator Device Shelf Model / Identifier Expiration Serial / Date Lot Tissue Housekeeping Supervisor Hotel Breast, Artoura Ultra High Profile 700cc [place] #[id number] - [id number] BREAST Right: [place] [employer] 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 Breast [id number] / [id number] Alloderm Select Tissue Matrix Rtucontour Large Perforated 164cm Lifecell Ref# [id number] - [id number] TISSUE Right: Life Cell 02/18/2021 [id number] / Implanted: Qty: 1 on 06/16/2019 by Nabila Lewis MD at [facility] [id number] / 0 Alloderm Select Tissue Matrix Rtu, 8x16 Right: Life Cell 04/20/2021 [id number] / Implanted: Qty: 1 on 06/16/2019 by Nabila Lewis MD at [facility] [id number] / 0 documented as of this encounter Results Not on filedocumented in this encounter Visit Diagnoses Diagnosis Malignant neoplasm of female breast, unspecified estrogen receptor status, unspecified laterality, unspecified site of breast - Primary Encounter for screening mammogram for malignant neoplasm of breast Other screening mammogram documented in this encounter Insurance Payer Benefit Plan / Subscriber ID Effective Dates Phone Address Type Group MEDICARE MEDICARE PART xxxxxxxxxxx 2010-Areli [phone] Medicare A & B t 2 [id number] FEDE [place] [address] EULA WATSON [id number] 2016-Pres Blakely ent documented as of this encounter
--- OUTSIDE RECORDS SUMMARY | 2019-12-13 16:43 | XMS REPORT | Summary of Care ---
:1945 Author Organization [facility] - [facility] Address [address] [place] [address] Care Team Providers Name Role Phone Olivia Box MD Primary Care Provider Reason for Referral (Routine) Status Reason Specialty Diagnoses / Referred By Referred To Procedures Contact Contact New Request Oncology Diagnoses Malignant neoplasm of female breast, unspecified estrogen receptor status, unspecified laterality, unspecified site of breast Sydni Maxwell, Procedures CONSULT/REFERRAL MEDICAL ONCOLOGY [address] [place] [phone] Radiology Services (Routine) Status Reason Specialty Diagnoses / Referred By Referred To Procedures Contact Contact New Request Diagnostic Diagnoses Encounter for screening mammogram for malignant neoplasm of breast Malignant neoplasm of female breast, unspecified estrogen receptor status, unspecified laterality, unspecified site of breast Sydni Maxwell Radiology Procedures BI SCREENING MAMMOGRAM NANI Casey MD [address] [place] [phone] Reason for Visit Reason Comments Follow-up Other (Routine) Status Reason Specialty Diagnoses / Referred By Referred To Procedures Contact Contact Closed CARRI-SURGICAL Diagnoses Malignant neoplasm of right female breast, unspecified estrogen receptor status , unspecified site of breast Nabila Lewis MD Klimberg, Vicki ONCOLOGY / Surgery Procedures Discharge Follow-up: Specialty Provider SYDNI MAXWELL; Other - See Comment ( on 07/02/19) [address] [place] [address] MD Jacinto [address] [place] [phone] Phone: Fax: Encounter Details Date Type Department Care Team Description 07/01/2019 Office Visit [facility] Surgical Sydni Maxwell Malignant neoplasm of female breast, unspecified estrogen receptor status, unspecified laterality, unspecified site of breast (Primary Dx); Specialties - Te Casey MD Encounter for screening mammogram for malignant neoplasm of breast [address], [address] [place] [address] [address] [place] [phone] Allergies Active Allergy Reactions Severity Noted Date Comments Zolpidem Other - See comments 05/30/2019 "caused me to do things throughout the night that I didn't know I was doing" Bacitracin Unknown - See comments 06/11/2019 Codeine Nausea and/or Vomiting Medium 05/07/2013 Levofloxacin Anaphylaxis High 05/07/2013 Pregabalin Other - See comments 05/30/2019 "makes me crazy as a hoot owl" Hlkzoids-Qgnynsfars-Pty Swelling High 06/16/2019 ymyxin Penicillins Other - [...] Overview: Added automatically from request for surgery [id number] documented as of this encounter (statuses as [...] pain reported 0/10. Pt preferred language is Azerbaijani. Pt. denies fall in last 12 months. Allergies and medications reviewed and updated. documented in this encounter Plan of Treatment Date Type Specialty Care Team Description 07/04/2019 Office Visit Plastic Surgery Nabila Lewis MD [address] [place] [address] [address] [place] [phone] 07/06/2020 Office Visit Surgery Sydni Maxwell MD [address] [place] [phone] Name Type Priority Associated Diagnoses Order Schedule [...] of this encounter Implants Implanted Type Area Cardiac Tech Device Shelf Model / Identifier Expiration Serial / Date Lot Tissue Starbucks Clerk Breast, Artoura Ultra High Profile 700cc [place] #[id number] - [id number] BREAST Right: [place] [employer] 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 Breast [id number] / [id number] Alloderm Select Tissue Matrix Rtucontour Large Perforated 164cm Lifecell Ref# [id number] - [id number] TISSUE Right: Life Cell 02/18/2021 [id number] / Implanted: Qty: 1 on 06/16/2019 by Nabila Lewis MD at [facility] [id number] / 0 Alloderm Select Tissue Matrix Rtu, 8x16 Right: Life Cell 04/20/2021 [id number] / Implanted: Qty: 1 on 06/16/2019 by Nabila Lewis MD at [facility] [id number] / 0 documented as of this encounter [...] BOX Medicare A & B t 2 [id number] FED[place] [address] EULA WATSON [id number] 2016-Pres Blakely ent documented as of this encounter
--- OUTSIDE RECORDS SUMMARY | 2019-12-13 16:43 | XMS REPORT | Summary of Care ---
:1945 Author Organization [facility] Address [address] [place] [address] Care Team Providers Name Role Phone Olivia Box MD Primary Care Provider Reason for Visit Reason Comments Follow-up z 2 wks post-op Other (Routine) Status Reason Specialty Diagnoses / Referred By Referred To Procedures Contact Contact Closed Plastic Surgery Diagnoses Malignant neoplasm of right female breast, unspecified estrogen receptor status , unspecified site of breast Scot Seth MD Park, Julie E, MD Procedures Discharge Follow-up: Specialty Provider SCOT SETH; Other - See Comment ( Wednesday 06/20) [address] [place] [address] [address] [place] [phone] Phone: Encounter Details Date Type Department Care Team Description 06/27/2019 Office Visit [facility] Surgery Scot Seth MD Malignant neoplasm of and Cancer [address] [place] [address] right female breast, [facility] [address] unspecified estrogen Surgery [place], [place] receptor status, [address] [facility], [phone] unspecified site of [address] breast (Primary Dx) [place] [address] Allergies Active Allergy Reactions Severity Noted Date Comments Zolpidem Other - See comments 05/30/2019 "caused me to do things throughout the night that I didn't know I was doing" Bacitracin Unknown - See comments 06/11/2019 Codeine Nausea and/or Vomiting Medium 05/07/2013 Levofloxacin Anaphylaxis High 05/07/2013 Pregabalin Other - See comments 05/30/2019 "makes me crazy as a hoot owl" Ynnjrtwb-Usvztdtymp-Nwx Swelling High 06/16/2019 ymyxin Penicillins Other - See comments 03/28/2018 Quinolones Other - See comments 03/28/2018 Attacks connective tissue Thiazides Other - See comments 03/28/2018 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 documented as of this encounter (statuses as of 06/28/2019) Medications Medication Sig Dispensed Refills Start Date [...] as of this encounter (statuses as of 06/28/2019) Active Problems Problem Noted Date Diarrhea, unspecified type 05/30/2019 Stomach cramps 05/30/2019 Lactose intolerance 05/30/2019 Encounter for long-term (current) use of antibiotics 05/30/2019 Malignant neoplasm of right female breast, unspecified estrogen receptor 05/29 status, unspecified site of breast Overview: Added automatically from request for surgery [id number] documented as of this encounter (statuses as of 06/28/2019) Immunizations Name Administration Dates Next Due Tetanus/Diptheria [...] Sign Reading Time Taken Comments Blood Pressure 137/88 06/27/2019 10:44 AM CDT Pulse 66 06/27/2019 10:44 AM CDT Temperature 36.6 C (97.9 F) 06/27/2019 10:44 AM CDT Respiratory Rate 16 06/27/2019 10:44 AM CDT Oxygen Saturation 97% 06/27/2019 10:44 AM CDT Inhaled Oxygen Concentration - - Weight 63 kg (138 lb 14.4 oz) 06/27/2019 10:44 AM CDT Height 162.6 cm (5' 4") 06/27/2019 10:44 AM CDT Body Mass Index 23.84 06/27/2019 10:44 AM CDT documented in this encounter Progress Notes Kira Livingston MD - 06/27/2019 11:15 AM CDT POST OPERATIVE CLINIC NOTE 06/27/2019 Surgical Procedure: 06/16/19 Right breast TE placement with ADM Left breast mastopexy for symmetry HPI: Kailey Myles is a 74 year old female here for follow-up of the above procedures. She is doing well post-operatively. Pain has been well-controlled. Denies any fever/chills. Drain output in one of her drain has been low. Other still exceeds 30cc/day but is declining. No complaints. MEDICATIONS Current Outpatient Medications Medication Sig Dispense Refill doxycycline 100 mg capsule Take 1 capsule by mouth every 12 (twelve) hours. 28 capsule 0 calcium gluconate 45 mg (500 mg) Tab tablet Take 1 tablet by mouth daily. 30 tablet 1 Saccharomyces boulardii 250 mg capsule Take 1 capsule by mouth 2 (two) times daily. 60 capsule 3 celecoxib 100 mg capsule Take 1 capsule by mouth 2 (two) times daily with meals. 28 capsule 0 topiramate 50 mg tablet Take 1 tablet by mouth 2 (two) times daily. ( Patient taking differently:Take 100 mg by mouth 2 (two) times daily.) 60 tablet 3 aspirin 81 mg EC tablet Take 81 mg by mouth. Biotin 5 mg Cap Take 5 mg by mouth. conjugated estrogens 0.625 mg/gram vaginal cream Insert into vagina. cranberry fruit extract (THERACRAN ORAL) Take by mouth. folic acid/multivit-min/lutein (CENTRUM SILVER ORAL) Take by mouth. furosemide 20 mg tablet Take 20 mg by mouth. metoprolol tartrate 100 mg tablet Take 100 mg by mouth. Nitrofurantoin&Nit. Macrocryst 100 mg capsule Take 100 mg by mouth. promethazine/dextromethorphan (PROMETHAZINE-DM ORAL) Take 25 mg by mouth. diphenoxylate-atropine (LOMOTIL) 2.5-0.025 mg per tablet Take 1 tablet by mouth every 6 (six) hours as needed (diarrhea). 56 tablet 0 Ergocalciferol, Vitamin D2, 400 unit Tab Take 1 tablet by mouth daily. 30 tablet 0 LORazepam 1 mg tablet Take 1 mg by mouth. Indications: For insomnia per patient acetaminophen 500 mg tablet Take 2 tablets by mouth every 8 (eight) hours. OTC 84 tablet 0 chlorhexidine 4 % external liquid Wash [...] for Pain (scale 4-6). 180 tablet 0 amlodipine-benazepril 10-40 mg per capsule Take 1 capsule by mouth. atorvastatin 40 mg tablet Take 40 mg by mouth. esomeprazole 40 mg capsule Take 40 mg by mouth. tretinoin 0.05 % gel SHANAE EXT TO FACE QHS No current facility-administered medications for this visit. PHYSICAL EXAM BP 137/88 | Pulse 66 | Temp 36.6 C (97.9 F) (Oral) | Resp 16 | Ht 5' 4" (1.626 m) | Wt 138 lb 14.4 oz (63 kg) | SpO2 97% | BMI 23.84 kg/m General: alert and oriented in no [...] no erythema. Mastectomy flap is pink and viable. Procedure Note Magnet was used to identify port of tissue marine equipment research engineer in right breast. Location was marked and cleanedwith alcohol swab. 25cc of sterile saline was injected into tissue marine equipment research engineer through the skin. No bleeding. No complications. Patient tolerated procedure well. Right breast drain was removed without complication. Patient tolerated procedure well. ASSESSMENT/PLAN Kailey Myles is a 74 year old female s/p right breast TE placement and left breast mastopexy for symmetry. Progressing as expected, still with one drain in place. Expansion begun today. -Continue antibiotics -OK to shower -February schedule nurse visit if drain output decreases to <30cc/day -Plan for further expansion at next visit RTC 1 week Kira Livingston, PGY-2 Pager [phone] 06/28/2019 documented in this encounter Plan of Treatment Date Type Specialty Care Team Description 07/01/2019 Office Visit Surgery Sydni Levy MD [address] [place] [phone] 07/04/2019 Office Visit Plastic Surgery Scot Seth MD [address] [place] [address] [address] [place] [address] Health Maintenance Due Date Last Done [...] of this encounter Implants Implanted Type Area Fur Tinter Device Shelf Model / Identifier Expiration Serial / Date Lot Tissue Training Development Director Breast, Artoura Ultra High Profile 700cc [place] #[id number] - [id number] BREAST Right: [place] [employer]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 [id number] / Implanted: Qty: 1 on 06/16/2019 by Scot Seth MD at [facility] [place] AT [facility] [id number] / [id number] Alloderm Select Tissue Matrix Rtucontour Large Perforated 164cm Lifecell Ref# [id number] - [id number] TISSUE Right: Life Cell 02/18/2021 [id number] / Implanted: Qty: 1 on 06/16/2019 by Scot Seth MD at [facility] AT [facility] [id number] / 0 Alloderm Select Tissue Matrix Rtu, 8x16 Right: Life Cell 04/20/2021 [id number] / Implanted: Qty: 1 on 06/16/2019 by Scot Seth MD at [facility] AT [facility] [id number] / 0 documented as of this encounter [...] BOX Medicare A & B t 2 [id number] FEDE [place] [address] EULA WATSON [id number] 2016-Pres Blakely ent documented as of this encounter
--- OUTSIDE RECORDS SUMMARY | 2019-12-13 16:44 | XMS REPORT | Summary of Care ---
:1945 Author Organization [facility] Address [address] [place] [address] Care Team Providers Name Role Phone Olivia Box MD Primary Care Provider Reason for Visit Reason Comments LAB Encounter Details Date Type Department Care Team Description 07/02/2019 Telephone [facility] Cancer Shirlene Ricci, ALISON LAB Center-Surgical Oncology [address] [place] [address]. [address] [place] [phone] 2.1600 [place] [address] [phone] Allergies Active Allergy Reactions Severity Noted Date Comments Zolpidem Other - See comments 05/30/2019 "caused me to do things throughout the night that I didn't know I was doing" Bacitracin Unknown - See comments 06/11/2019 Codeine Nausea and/or Vomiting Medium 05/07/2013 Levofloxacin Anaphylaxis High 05/07/2013 Pregabalin Other - See comments 05/30/2019 "makes me crazy as a hoot owl" Qfmcyhkl-Uwzuvoifeu-Bev Swelling High 06/16/2019 ymyxin Penicillins Other - See comments 03/28/2018 Quinolones Other - See comments 03/28/2018 Attacks connective tissue Thiazides Other - See comments 03/28/2018 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 documented as of this encounter (statuses as of 07/02/2019) Medications Medication Sig Dispensed Refills Start Date [...] as of this encounter (statuses as of 07/02/2019) Active Problems Problem Noted Date Diarrhea, unspecified type 05/30/2019 Stomach cramps 05/30/2019 Lactose intolerance 05/30/2019 Encounter for long-term (current) use of antibiotics 05/30/2019 Malignant neoplasm of right female breast, unspecified estrogen receptor 05/29 status, unspecified site of breast Overview: Added automatically from request for surgery [id number] documented as of this encounter (statuses as of 07/02/2019) Immunizations Name Administration Dates Next Due Tetanus/Diptheria [...] Office Visit Plastic Surgery Nabila Lewis MD [address] [place] [address] [address] [place] [phone] 07/06/2020 Office Visit Surgery Sydni Levy MD [address] [place] [phone] Name Type Priority Associated Diagnoses Order Schedule Misc. 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 [id number] / Implanted: Qty: 1 on 06/16/2019 by Nabila Lewis MD at [facility] Breast [id number] / [id number] Alloderm Select Tissue Matrix Rtucontour Large Perforated 164cm Lifecell Ref# [id number] - [id number] TISSUE Right: Life Cell 02/18/2021 [id number] / Implanted: Qty: 1 on 06/16/2019 by Nabila Lewis MD at [facility] Breast [id number] / 0 Alloderm Select Tissue Matrix Rtu, 8x16 Right: Life Cell 04/20/2021 [id number] / Implanted: Qty: 1 on 06/16/2019 by Nabila Lewis MD at [facility] [id number] / 0 documented as of this encounter Results Not on filedocumented in this encounter Visit Diagnoses Diagnosis Malignant neoplasm of female breast, unspecified estrogen receptor status, unspecified laterality, unspecified site of breast - Primary documented in this encounter Insurance Payer Benefit Plan / Subscriber ID Effective Dates Phone Address Type Group MEDICARE MEDICARE PART xxxxxxxxxxx 2010-Areli [phone] [address] [facility] Medicare A & B t 2 [id number] FEDE DUMONT [id number] 2016-Pres Zora ent documented as of this encounter
--- OUTSIDE RECORDS SUMMARY | 2019-12-13 16:44 | XMS REPORT | Summary of Care ---
:1945 Author Organization [facility] Address [address] [place] [address] Care Team Providers Name Role Phone Olivia [...] Other - See Comment ( Wednesday 06/20) [address] [place] [address] [address] [place] [phone] Phone: Encounter Details Date Type Department Care Team Description 06/27/2019 Office Visit [facility] Surgery Scot Seth MD Malignant neoplasm of and Cancer [address] [place] [address] right female breast, Center-Plastic [address] unspecified estrogen Surgery [place], [place] receptor status, [address] [facility], [phone] unspecified site of [address] breast (Primary Dx) [place] [address] Allergies Active Allergy Reactions Severity Noted Date Comments Zolpidem Other - See comments 05/30/2019 "caused me to do things throughout the night that I didn't know I was doing" Bacitracin Unknown - See comments 06/11/2019 Codeine Nausea and/or Vomiting Medium 05/07/2013 Levofloxacin Anaphylaxis High 05/07/2013 Pregabalin Other - See comments 05/30/2019 "makes me crazy as a hoot owl" Mvfbtwxf-Nnalsyuwps-Wao Swelling High 06/16/2019 ymyxin Penicillins Other - [...] Overview: Added automatically from request for surgery [id number] documented as of this encounter (statuses as [...] was used to identify port of tissue rehab therapist in right breast. Location was marked and cleanedwith alcohol swab. 25cc of sterile saline was injected into tissue rehab therapist through the skin. No bleeding. No complications. Patient tolerated procedure well. Patient has a 700cc [place] Artoura Ultra High Profile TE. She now has 225 cc Right breast drain was removed without complication. Patient tolerated procedure well. ASSESSMENT/PLAN Kailey Myles is a 74 year old female s/p right breast TE placement and left breast mastopexy for symmetry. Progressing as expected, still with one drain in place. Expansion begun today. -Continue antibiotics -OK to shower -May schedule nurse visit if drain output decreases to <30cc/day -Plan for further expansion at next visit RTC 1 week Kira Livingston, PGY-2 Pager [phone] 06/28/2019 Attending Attestation: Scot Billy MD, personally examined and performed the decision making of this patient on June 27, 2019. I agree with Dr. Livingston's note with any edits made directly in the note above. 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 Breast, Artoura Ultra High Profile 700cc [place] #[id number] - [id number] BREAST Right: [place]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 05/09/2022 [id number] / Implanted: Qty: 1 on 06/16/2019 by Scot Seth MD at [facility] [place] [facility] Breast [id number] / [id number] Alloderm Select Tissue Matrix Rtucontour Large Perforated 164cm Lifecell Ref# [id number] - [id number] TISSUE Right: Life Cell 02/18/2021 [id number] / Implanted: Qty: 1 on 06/16/2019 by Scot Seth MD at [facility] [place] [facility] [id number] / 0 Alloderm Select Tissue Matrix Rtu, 8x16 Right: Life Cell 04/20/2021 [id number] / Implanted: Qty: 1 on 06/16/2019 by Scot Seth MD at [facility] Breast [id number] / 0 documented as of this encounter [...] BOX Medicare A & B t 2 [id number] FEDE [place]ONT [address] EULA WATSON [id number] 2016-Pres Blakely ent documented as of this encounter
--- OUTSIDE RECORDS SUMMARY | 2019-12-13 16:44 | XMS REPORT | Summary of Care ---
:1945 Author Organization [facility] Address [address] [place] [address] Care Team Providers Name Role Phone Olivia Box MD Primary Care Provider Reason for Referral (Routine) Status Reason Specialty Diagnoses / Referred By Referred To Procedures Contact Contact New Request Oncology Diagnoses Malignant neoplasm of female breast, unspecified estrogen receptor status, unspecified laterality, unspecified site of breast Sydni Maxwell, Procedures CONSULT/REFERRAL MEDICAL ONCOLOGY [address] [place] [phone] Radiology Services (Routine) Status Reason Specialty Diagnoses / Referred By Referred To Procedures Contact Contact New Request Diagnostic Diagnoses Encounter for screening mammogram for malignant neoplasm of breast Malignant neoplasm of female breast, unspecified estrogen receptor status, unspecified laterality, unspecified site of breast Sydni Maxwell Radiology Procedures BI SCREENING MAMMOGRAM NANI Casey MD [address] [place] [phone] Reason for Visit Reason Comments Follow-up Other (Routine) Status Reason Specialty Diagnoses / Referred By Referred To Procedures Contact Contact Closed CARRI-SURGICAL Diagnoses Malignant neoplasm of right female breast, unspecified estrogen receptor status , unspecified site of breast Nabila Lewis MD Klimberg, Vicki ONCOLOGY / Surgery Procedures Discharge Follow-up: Specialty Provider SYDNI MAXWELL; Other - See Comment ( on 07/02/19) [address] [place] [address] MD Jacinto [address] [place] [phone] Phone: Fax: Encounter Details Date Type Department Care Team Description 07/01/2019 Office Visit [facility] Surgical Sydni Maxwell Malignant neoplasm of female breast, unspecified estrogen receptor status, unspecified laterality, unspecified site of breast (Primary Dx); Specialties - Te Casey MD Encounter for screening mammogram for malignant neoplasm of breast ; [address], [address] [place] [address] Acute pain of both shoulders [address] [place], [place] [phone] Allergies Active Allergy Reactions Severity Noted Date Comments Zolpidem Other - See comments 05/30/2019 "caused me to do things throughout the night that I didn't know I was doing" Bacitracin Unknown - See comments 06/11/2019 Codeine Nausea and/or Vomiting Medium 05/07/2013 Levofloxacin Anaphylaxis High 05/07/2013 Pregabalin Other - See comments 05/30/2019 "makes me crazy as a hoot owl" Lqaohrjb-Atpwsfslrl-Qou Swelling High 06/16/2019 ymyxin Penicillins Other - See comments 03/28/2018 Quinolones Other - See comments 03/28/2018 Attacks connective tissue Thiazides Other - See comments 03/28/2018 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 documented as of this encounter (statuses as of 07/03/2019) Medications Medication Sig Dispensed Refills Start Date [...] estrogen receptor status, unspecified site of breast Hospital, Clinic, or Ordered Dose Route Frequency Start Date End Date Status Other Facility Administered Medication methylPREDNISolone 40 mg Intra-artic ONCE 07/01/2019 Ended acetate (DEPO-MEDROL) 80 u 9 mg/mL 40 mg, lidocaine 1% (PF) (XYLOCAINE) 3 mL, bupivacaine (preserv free) 0.5% (SENSORCAINE MPF) 0.5 % (5 mg/mL) 6 mL 9.5 mL injection documented as of this encounter (statuses as of 07/03/2019) Active Problems Problem Noted Date Diarrhea, unspecified type 05/30/2019 Stomach cramps 05/30/2019 Lactose intolerance 05/30/2019 Encounter for long-term (current) use of antibiotics 05/30/2019 Malignant neoplasm of right female breast, unspecified estrogen receptor 05/29 status, unspecified site of breast Overview: Added automatically from request for surgery [id number] documented as of this encounter (statuses as of 07/03/2019) Immunizations Name Administration Dates Next Due Tetanus/Diptheria [...] Lizzie Arango RN - 07/01/2019 3:30 PM KIAArlenhernandez Myles is a 74 year old female comes to clinic independent in ambulation for follow up. Pt comes accompanied by . Pt in NAD w/ pain reported 0/10. Pt preferred language is Burundian. Pt. denies fall in last 12 months. Allergies and medications reviewed and updated. documented in this encounter Plan of Treatment Date Type Specialty Care Team Description 07/04/2019 Office Visit Plastic Surgery Nabila Lewis MD [address] [place] [address] [address] [place] [phone] 07/06/2020 Office Visit Surgery Sydni Maxwell MD [address] [place] [phone] Name Type Priority Associated Diagnoses Order [...] of this encounter Implants Implanted Type Area Central Service Technician Device Shelf Model / Identifier Expiration Serial / Date Lot Tissue Flight/Transport Nurse Breast, Artoura Ultra High Profile 700cc [place] #[id number] - [id number] 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 [id number] / Implanted: Qty: 1 on 06/16/2019 by Nabila Lewis MD at [facility] Breast [id number] / [id number] Alloderm Select Tissue Matrix Rtucontour Large Perforated 164cm Lifecell Ref# [id number] - [id number] TISSUE Right: Life Cell 02/18/2021 [id number] / Implanted: Qty: 1 on 06/16/2019 by Nabila Lewis MD at [facility] Breast [id number] / 0 Alloderm Select Tissue Matrix Rtu, 8x16 Right: Life Cell 04/20/2021 [id number] / Implanted: Qty: 1 on 06/16/2019 by Nabila Lewis MD at [facility] AT [facility] [id number] / 0 documented as of this encounter Results Not on filedocumented in this encounter Visit Diagnoses Diagnosis Malignant neoplasm of female breast, unspecified estrogen receptor status, unspecified laterality, unspecified site of breast - Primary Encounter for screening mammogram for malignant neoplasm of breast Other screening mammogram Acute pain of both shoulders documented in this encounter Administered Medications Medication Order MAR Action Action Date Dose Rate Site methylPREDNISolone acetate Given 07/01/2019 3:30 40 mg Both Shoulders (DEPO-MEDROL) 80 mg/mL 40 mg, PM CDT lidocaine 1% (PF) (XYLOCAINE) 3 mL, bupivacaine (preserv free) 0.5% (SENSORCAINE MPF) 0.5 % (5 mg/mL) 6 mL 9.5 mL injection Intra-articular, ONCE, 1 dose, 07/01/19 at 1530, 9.5 mL documented in this encounter Insurance Payer Benefit Plan / Subscriber ID Effective Dates Phone Address Type Group MEDICARE MEDICARE PART xxxxxxxxxxx 2010-Areli [phone] [address] Medicare A & B t 2 [id number] FEDE [place]UM[place] [phone] EULA WATSON [id number] 2016- ent documented as of this encounter
--- OUTSIDE RECORDS SUMMARY | 2019-12-13 16:44 | XMS REPORT | Summary of Care ---
:1945 Author Organization [facility] Address [address] [place] [address] Care Team Providers Name Role Phone Olivia Box MD Primary Care Provider Reason for Referral (Routine) Status Reason Specialty Diagnoses / Referred By Referred To Procedures Contact Contact New Request Oncology Diagnoses Malignant neoplasm of female breast, unspecified estrogen receptor status, unspecified laterality, unspecified site of breast Sydni Maxwell, Procedures CONSULT/REFERRAL MEDICAL ONCOLOGY [address] [place] [phone] Radiology Services (Routine) Status Reason Specialty Diagnoses / Referred By Referred To Procedures Contact Contact New Request Diagnostic Diagnoses Encounter for screening mammogram for malignant neoplasm of breast Malignant neoplasm of female breast, unspecified estrogen receptor status, unspecified laterality, unspecified site of breast Sydni Maxwell Radiology Procedures BI SCREENING MAMMOGRAM NANI Casey MD [address] [place] [phone] Reason for Visit Reason Comments Follow-up Other (Routine) Status Reason Specialty Diagnoses / Referred By Referred To Procedures Contact Contact Closed [facility]RI-SURGICAL Diagnoses Malignant neoplasm of right female breast, unspecified estrogen receptor status , unspecified site of breast Nabila Lewis MD Klimberg, Vicki ONCOLOGY / Surgery Procedures Discharge Follow-up: Specialty Provider SYDNI MAXWELL; Other - See Comment ( on 07/02/19) [address] [place] [address] MD Jacinto [address] [place] [phone] Phone: Fax: Encounter Details Date Type Department Care Team Description 07/01/2019 Office Visit [facility] Surgical Sydni Maxwell Malignant neoplasm of female breast, unspecified estrogen receptor status, unspecified laterality, unspecified site of breast (Primary Dx); Specialties - Te Casey MD Encounter for screening mammogram for malignant neoplasm of breast ; [address], [address] [place] [address] Acute pain of both shoulders [address] [place] [phone] Allergies Active Allergy Reactions Severity Noted Date Comments Zolpidem Other - See comments 05/30/2019 "caused me to do things throughout the night that I didn't know I was doing" Bacitracin Unknown - See comments 06/11/2019 Codeine Nausea and/or Vomiting Medium 05/07/2013 Levofloxacin Anaphylaxis High 05/07/2013 Pregabalin Other - See comments 05/30/2019 "makes me crazy as a hoot owl" Apyjjyas-Wmdohmwnem-Hzb Swelling High 06/16/2019 ymyxin Penicillins Other - [...] Overview: Added automatically from request for surgery [id number] documented as of this encounter (statuses as [...] pain reported 0/10. Pt preferred language is Eritrean. Pt. denies fall in last 12 months. Allergies and medications reviewed and updated. 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 Breast, Artoura Ultra High Profile 700cc [place] #[id number] - [id number] BREAST 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/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 [id number] / Implanted: Qty: 1 on 06/16/2019 by Nabila Lewis MD at [facility] Breast [id number] / [id number] Alloderm Select Tissue Matrix Rtucontour Large Perforated 164cm [employer]ell Ref# [id number] - [id number] TISSUE Right: Life Cell 02/18/2021 [id number] / Implanted: Qty: 1 on 06/16/2019 by Nabila Lewis MD at [facility] Breast [id number] / 0 Alloderm Select Tissue Matrix Rtu, 8x16 Right: Life Cell 04/20/2021 [id number] / Implanted: Qty: 1 on 06/16/2019 by Nabila Lewis MD at [facility] Breast [id number] / 0 documented as of this encounter Results Not on filedocumented in this encounter Visit Diagnoses Diagnosis Malignant neoplasm of female breast, unspecified estrogen receptor status, unspecified laterality, unspecified site of breast - Primary Encounter for screening mammogram for malignant neoplasm of breast Other screening mammogram Acute pain of both shoulders documented in this encounter Insurance Payer Benefit Plan / Subscriber ID Effective Dates Phone Address Type Group MEDICARE MEDICARE PART xxxxxxxxxxx 2010-Areli [phone] [address] Medicare A & B t 2 [id number] FEDE [place]UMONT [id number] EULA WATSON [id number] 2016-Pres Blakely ent documented as of this encounter
--- OUTSIDE RECORDS SUMMARY | 2019-12-13 16:44 | XMS REPORT | Summary of Care ---
:1945 Author Organization [facility] Address [address] [place] [address] Care Team Providers Name Role Phone Olivia Box MD Primary Care Provider Reason for Visit Reason Comments BREAST CANCER Follow-up Encounter Details Date Type Department Care Team Description 07/04/2019 Office Visit [facility] Surgery Nabila Leiws MD Neck pain (Primary and Cancer 301 [facility] Dx) Center-Plastic RT7[address], [address] [address] [place] [address] Allergies Active Allergy Reactions Severity Noted Date Comments Zolpidem Other - See comments 05/30/2019 "caused me to do things throughout the night that I didn't know I was doing" Bacitracin Unknown - See comments 06/11/2019 Codeine Nausea and/or Vomiting Medium 05/07/2013 Levofloxacin Anaphylaxis High 05/07/2013 Pregabalin Other - See comments 05/30/2019 "makes me crazy as a hoot owl" Cenvcslh-Vxuanypsap-Osa Swelling High 06/16/2019 ymyxin Penicillins Other - See comments 03/28/2018 Quinolones Other - See comments 03/28/2018 Attacks connective tissue Thiazides Other - See comments 03/28/2018 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 documented as of this encounter (statuses as of 07/04/2019) Medications Medication Sig Dispensed Refills Start Date [...] vaginal vagina. cream cranberry fruit Take by mouth. 0 Active extract (THERACRAN ORAL) esomeprazole 40 mg Take 40 mg by 0 Active capsule mouth. folic Take by mouth. 0 Active acid/multivit-min/lute in (CENTRUM SILVER ORAL) furosemide 20 mg Take 20 mg by 0 Active tablet mouth. metoprolol tartrate Take 100 mg by 0 Active 100 mg tablet mouth. promethazine/dextromet Take 25 mg by 0 Active horphan mouth. (PROMETHAZINE-DM ORAL) tretinoin 0.05 % [...] Active Vitamin D2, 400 unit by mouth daily. TabIndications: Lactose intolerance calcium gluconate 45 Take 1 tablet 30 tablet 1 06/11/2019 Active mg (500 mg) Tab by mouth daily. tabletIndications: Lactose intolerance diphenoxylate-atropine Take 1 tablet 56 tablet 0 06/11/2019 Active (LOMOTIL) 2.5-0.025 mg by mouth every per tabletIndications: 6 (six) hours Diarrhea, unspecified as needed type (diarrhea). celecoxib 100 mg Take 1 capsule 28 capsule 0 06/03/2019 Active capsuleIndications: by mouth 2 Malignant neoplasm of (two) times right female breast, daily with unspecified estrogen meals. receptor status, unspecified site of breast acetaminophen 500 mg Take 2 tablets 84 tablet 0 06/03/2019 Active tabletIndications: by mouth every Malignant neoplasm of [...] Active tabletIndications: by mouth every Malignant neoplasm of [...] estrogen receptor status, unspecified site of breast meloxicam 15 mg Take 1 tablet 30 tablet 0 07/04/2019 08/03/2019 Active tabletIndications: by mouth daily Neck pain for 30 days. documented as of this encounter (statuses as of 07/04/2019) Active Problems Problem Noted Date Diarrhea, unspecified type 05/30/2019 Stomach cramps 05/30/2019 Lactose intolerance 05/30/2019 Encounter for long-term (current) use of antibiotics 05/30/2019 Malignant neoplasm of right female breast, unspecified estrogen receptor 05/29 status, unspecified site of breast Overview: Added automatically from request for surgery [id number] documented as of this encounter (statuses as of 07/04/2019) Immunizations Name Administration Dates Next Due Tetanus/Diptheria [...] Sign Reading Time Taken Comments Blood Pressure 126/72 07/04/2019 10:36 AM CDT Pulse 63 07/04/2019 10:36 AM CDT Temperature 36.6 C (97.8 F) 07/04/2019 10:36 AM CDT Respiratory Rate 18 07/04/2019 10:36 AM CDT Oxygen Saturation 96% 07/04/2019 10:36 AM CDT Inhaled Oxygen Concentration - - Weight 62.9 kg (138 lb 11.2 oz) 07/04/2019 10:36 AM CDT Height 162.6 cm (5' 4") 07/04/2019 10:36 AM CDT Body Mass Index 23.81 07/04/2019 10:36 AM CDT documented in this encounter Progress Notes Edgar Sandra MD - 07/04/2019 10:30 AM CDT POST OPERATIVE CLINIC NOTE Surgery Date: 06/16/2019 Type of Surgical Procedure Performed: Right breast TE placement with ADM Left breast mastopexy for symmetry General status: Good. Ms. Myles is a 74 year-old woman s/p the above procedure who returns for post- operative follow-up. Drain output has been < 30 CC / 24 hours x 2. She reports that her pain is controlled. She denies fever and chills. She denies concerns and complaints at this time. MEDICATIONS Current Outpatient Medications Medication Sig Dispense [...] medications for this visit. PHYSICAL EXAM BP 126/72 | Pulse 63 | Temp 36.6 C (97.8 F) | Resp 18 | Ht 5' 4" (1.626 m) | Wt 138 lb 11.2oz (62.9 kg) | SpO2 96% | BMI 23.81 kg/m Breasts: Incisions clean/dry/intact without erythema or signs of infection. Drain in place with minimal serosanguinous output in suction bulb. LABORATORY No new laboratory studies. RADIOLOGY No new imaging studies. Procedure Note Verbal consent obtained. Tissue sales facilitator port located with magnetic finder and marked with marking pen. Patient prepped with chloroprep. Tissue sales facilitator filled with 50 CC of normal saline using sterile technique. The injection site was dressed with a band-aid. The patient tolerated the procedure well. There were no complications. 225 + 19=600 total fill in a 700 CC Safer Minic[employer]a Ultra High Profile TE ASSESSMENT/PLAN Ms. Myles is a 74 year-old female s/p right immediate tissue sales facilitator/ADM reconstruction and left mastopexy for symmetry. Patient is doing well and healing appropriately. Drain removed today in clinic. Patient was counseled that we would like to potentially perform fat grafting during the 8-week tissue sales facilitator consolidation period. She was counseled that she may discontinue celebrex. I have sent a prescription for Meloxicam to her pharmacy for her chronic neck pain. We will reevaluate the patient on Sunday, 07/09 for repeat expansion. -Meloxicam ERX pharmacy -RTC 07/[address] Debbie Sandra MD 07/04/2019 11:28 AM Nakia Garcia RN - 07/04/2019 10:30 AM KIASAHRAtho Myles is a 74 year old female Arrived to exam room: Ambulatory. Alert and oriented. NAD noted at this time. Vital signs obtained and documented. Reason for visit: Follow up H/o: Breast cancer/mastectomy Referral source: Established Chief complaint: Right axilla discomfort, difficulty moving right arm. Patient has right GREER drain. Pain scale: 0/10. MD notifed. Medications and allergies reviewed with patient. To be reconciled by MD. Fall risk assessment completed. Pt reports zero falls in past year. documented in this encounter Plan of Treatment Date Type Specialty Care Team Description 07/09/2019 Office Visit Plastic Surgery Nabila Lewis MD [address] [place] [address] [address] [place] [phone] 07/06/2020 Office Visit Surgery Sydni Levy MD [address] [place] [phone] Health Maintenance Due Date Last Done Comments [...] of this encounter Implants Implanted Type Area Finance Business Manager Device Shelf Model / Identifier Expiration Serial / Date Lot Tissue Bench Jeweler Breast, Artoura Ultra High Profile 700cc [place] #[id number] - [id number] BREAST Right: [place] [employer] Inc SPORTS INTERN 05/09/2022 [id number] / Implanted: Qty: 1 on 06/16/2019 by Nabila Lewis MD at [facility] Breast [id number] / [id number] Alloderm Select Tissue Matrix Rtucontour Large Perforated 164cm Lifecell Ref# [id number] - [id number] TISSUE Right: Life Cell 02/18/2021 [id number] / Implanted: Qty: 1 on 06/16/2019 by Nabila Lewis MD at [facility] Breast [id number] / 0 Alloderm Select Tissue Matrix Rtu, 8x16 Right: Life Cell 04/20/2021 [id number] / Implanted: Qty: 1 on 06/16/2019 by Nabila Lewis MD at [facility] [id number] / 0 documented as of this encounter Results Not on filedocumented in this encounter Visit Diagnoses Diagnosis Neck pain - Primary Cervicalgia documented in this encounter Insurance Payer Benefit Plan / Subscriber ID Effective Dates Phone Address Type Group MEDICARE MEDICARE PART xxxxxxxxxxx 2010-Areli [phone] Medicare A & B t 2 [id number] [place] [address] EULA WATSON [id number] 2016-Pres Blakely ent documented as of this encounter
--- OUTSIDE RECORDS SUMMARY | 2019-12-13 16:45 | XMS REPORT | Summary of Care ---
:1945 Author Organization [facility] Address [address] [place] [address] Care Team Providers Name Role Phone Olivia Box MD Primary Care Provider Reason for Visit Reason Comments BREAST CANCER Follow-up Encounter Details Date Type Department Care Team Description 07/04/[address] [facility] Surgery Nabila Lewis MD Neck pain (Primary and Cancer 301 [facility] Dx) Center-Plastic [address], [address] [address] [place] [address] Allergies Active Allergy Reactions Severity Noted Date Comments Zolpidem Other - See comments 05/30/2019 "caused me to do things throughout the night that I didn't know I was doing" Bacitracin Unknown - See comments 06/11/2019 Codeine Nausea and/or Vomiting Medium 05/07/2013 Levofloxacin Anaphylaxis High 05/07/2013 Pregabalin Other - See comments 05/30/2019 "makes me crazy as a hoot owl" Igzhypqs-Xcovssdzdf-Raw Swelling High 06/16/2019 ymyxin Penicillins Other - [...] Overview: Added automatically from request for surgery [id number] documented as of this encounter (statuses as [...] studies. Procedure Note Verbal consent obtained. Tissue elementary school registrar port located with magnetic finder and marked with marking pen. Patient prepped with chloroprep. Tissue elementary school registrar filled with 50 CC of normal saline using sterile technique. The injection site was dressed with a band-aid. The patient tolerated the procedure well. There were no complications. 225 + 22=075 total fill in a 700 CC [employer]FS Technologiesa Ultra High Profile TE ASSESSMENT/PLAN Ms. Myles is a 74 year-old female s/p right immediate tissue elementary school registrar/ADM reconstruction and left mastopexy for symmetry. Patient is doing well and healing appropriately. Drain removed today in clinic. Patient was counseled that we would like to potentially perform fat grafting during the 8-week tissue elementary school registrar consolidation period. She was counseled that she may discontinue celebrex. I have sent a prescription for Meloxicam to her pharmacy for her chronic neck pain. We will reevaluate the patient on Sunday, 07/09 for repeat expansion. -consider Fat grafting to the envelope prior to implant exchange while waiting for capsule to mature -Meloxicam ERX pharmacy -RTC 07/[address] Lewis for another fill Edgar Sandra MD 07/04/2019 11:28 AM Nakia Garcia [...] Office Visit Plastic Surgery Nabila Lewis MD [address] [place] [address] [address] [place] [phone] 07/06/2020 Office Visit Surgery Sydni Levy MD [address] [place] [phone] Health Maintenance Due Date Last Done Comments [...] of this encounter Implants Implanted Type Area Water Truck Driver Device Shelf Model / Identifier Expiration Serial / Date Lot Tissue Jack Frame Tender Breast, Artoura Ultra High Profile 700cc [place] #[id number] - [id number] BREAST Right: [place] [employer] DRY HOUSE OPERATOR 05/09/2022 [id number] / Implanted: Qty: 1 on 06/16/2019 by Nabila Lewis MD at [facility] Breast [id number] / [id number] Alloderm Select Tissue Matrix Rtucontour Large Perforated 164cm Lifecell Ref# [id number] - [id number] TISSUE Right: Life Cell 02/18/2021 [id number] / Implanted: Qty: 1 on 06/16/2019 by Nabila Lewis MD at [facility] Breast [id number] / 0 Alloderm Select Tissue Matrix Rtu, 8x16 Right: Life Cell 04/20/2021 [id number] / Implanted: Qty: 1 on 06/16/2019 by Nabila Lewis MD at [facility] Breast [id number] / 0 documented as of this encounter Results Not on filedocumented in this encounter Visit Diagnoses Diagnosis Neck pain - Primary Cervicalgia documented in this encounter Insurance Payer Benefit Plan / Subscriber ID Effective Dates Phone Address Type Group MEDICARE MEDICARE PART xxxxxxxxxxx 2010-Areli [phone] [address] Medicare A & B t 2 [id number] [place] [id number] EULA WATSON [id number] 2016-Pres Blakely ent documented as of this encounter
--- OUTSIDE RECORDS SUMMARY | 2019-12-13 16:45 | XMS REPORT | Summary of Care ---
:1945 Author Organization [facility] Address [address] [place] [address] Care Team Providers Name Role Phone Olivia Box MD Primary Care Provider Reason for Visit Reason Comments BREAST CANCER Follow-up Encounter Details Date Type Department Care Team Description 07/04/2019 Office Visit [facility] Surgery Nabila Lewis MD Neck pain (Primary and Cancer 301 [facility] Dx) Center-Plastic RT7[address], [address] [address] [place] [address] Allergies Active Allergy Reactions Severity Noted Date Comments Zolpidem Other - See comments 05/30/2019 "caused me to do things throughout the night that I didn't know I was doing" Bacitracin Unknown - See comments 06/11/2019 Codeine Nausea and/or Vomiting Medium 05/07/2013 Levofloxacin Anaphylaxis High 05/07/2013 Pregabalin Other - See comments 05/30/2019 "makes me crazy as a hoot owl" Vkftskst-Vddgjffczh-Tja Swelling High 06/16/2019 ymyxin Penicillins Other - [...] Overview: Added automatically from request for surgery [id number] documented as of this encounter (statuses as [...] studies. Procedure Note Verbal consent obtained. Tissue multimedia services manager port located with magnetic finder and marked with marking pen. Patient prepped with chloroprep. Tissue multimedia services manager filled with 50 CC of normal saline using sterile technique. The injection site was dressed with a band-aid. The patient tolerated the procedure well. There were no complications. 225 + 42=008 total fill in a 700 CC SkyRecon Systemsa Ultra High Profile TE ASSESSMENT/PLAN Ms. Myles is a 74 year-old female s/p right immediate tissue multimedia services manager/ADM reconstruction and left mastopexy for symmetry. Patient is doing well and healing appropriately. Drain removed today in clinic. Patient was counseled that we would like to potentially perform fat grafting during the 8-week tissue multimedia services manager consolidation period. She was counseled that she [...] Office Visit Plastic Surgery Nabila Lewis MD [address] [place] [address] [address] [place] [phone] 07/06/2020 Office Visit Surgery Sydni Levy MD [address] [place] [phone] Health Maintenance Due Date Last Done Comments [...] of this encounter Implants Implanted Type Area Gliding Pilot Instructor Device Shelf Model / Identifier Expiration Serial / Date Lot Tissue Lung Splitter Breast, Artoura Ultra High Profile 700cc [place] #[id number] - [id number] BREAST Right: [place] [employer] TOOLMAN 05/09/2022 [id number] / Implanted: Qty: 1 on 06/16/2019 by Nabila Lewis MD at [facility] Breast [id number] / [id number] Alloderm Select Tissue Matrix Rtucontour Large Perforated 164cm Lifecell Ref# [id number] - [id number] TISSUE Right: Life Cell 02/18/2021 [id number] / Implanted: Qty: 1 on 06/16/2019 by Nabila Lewis MD at [facility] Breast [id number] / 0 Alloderm Select Tissue Matrix Rtu, 8x16 Right: Life Cell 04/20/2021 [id number] / Implanted: Qty: 1 on 06/16/2019 by Nabila Lewis MD at [facility] [id number] / 0 documented as of this encounter Results Not on filedocumented in this encounter Visit Diagnoses Diagnosis Neck pain - Primary Cervicalgia documented in this encounter Insurance Payer Benefit Plan / Subscriber ID Effective Dates Phone Address Type Group MEDICARE MEDICARE PART xxxxxxxxxxx 2010-Areli [phone] [address] Medicare A & B t 2 [id number] [place] [address] EULA WATSON [id number] 2016-Pres Blakely ent documented as of this encounter
--- OUTSIDE RECORDS SUMMARY | 2019-12-13 16:46 | XMS REPORT | Summary of Care ---
:1945 Author Organization [facility] Address [address] [place] [address] Care Team Providers Name Role Phone Olivia Box MD Primary Care Provider Reason for Visit Reason Comments Follow-up Encounter Details Date Type Department Care Team Description 07/09/[address] [facility] Surgery Nabila Lewis MD Malignant neoplasm of and Cancer [address] [place] [address] right female breast, Center-Plastic RT724 unspecified estrogen Surgery [place], [place] receptor status, [address] [facility], [phone] unspecified site of [address] breast (Primary Dx) [place] [address] Allergies Active Allergy Reactions Severity Noted Date Comments Zolpidem Other - See comments 05/30/2019 "caused me to do things throughout the night that I didn't know I was doing" Bacitracin Unknown - See comments 06/11/2019 Codeine Nausea and/or Vomiting Medium 05/07/2013 Levofloxacin Anaphylaxis High 05/07/2013 Pregabalin Other - See comments 05/30/2019 "makes me crazy as a hoot owl" Dyzvjwjq-Cwobdkfwcm-Vnx Swelling High 06/16/2019 ymyxin Penicillins Other - See comments 03/28/2018 Quinolones Other - See comments 03/28/2018 Attacks connective tissue Thiazides Other - See comments 03/28/2018 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 documented as of this encounter (statuses as of 07/09/2019) Medications Medication Sig Dispensed Refills Start Date [...] as of this encounter (statuses as of 07/09/2019) Active Problems Problem Noted Date Diarrhea, unspecified type 05/30/2019 Stomach cramps 05/30/2019 Lactose intolerance 05/30/2019 Encounter for long-term (current) use of antibiotics 05/30/2019 Malignant neoplasm of right female breast, unspecified estrogen receptor 05/29 status, unspecified site of breast Overview: Added automatically from request for surgery [id number] documented as of this encounter (statuses as of 07/09/2019) Immunizations Name Administration Dates Next Due Tetanus/Diptheria [...] Sign Reading Time Taken Comments Blood Pressure 108/56 07/09/2019 4:48 PM CDT Pulse 77 07/09/2019 4:48 PM CDT Temperature 36.4 C (97.6 F) 07/09/2019 4:48 PM CDT Respiratory Rate 18 07/09/2019 4:48 PM CDT Oxygen Saturation 95% 07/09/2019 4:48 PM CDT Inhaled Oxygen Concentration - - Weight 64 kg (141 lb 1.6 oz) 07/09/2019 4:48 PM CDT Height 162.6 cm (5' 4") 07/09/2019 4:48 PM CDT Body Mass Index 24.22 07/09/2019 4:48 PM CDT documented in this encounter Progress Notes Kira Livingston MD - 07/09/2019 4:45 PM CDT POST OPERATIVE CLINIC NOTE 07/09/2019 Surgical Procedure: 06/16/19 Right breast TE placement with ADM Left breast mastopexy for symmetry HPI: Kailey Myles is a 74 year old female here for follow-up of the above procedures. She is doing well post-operatively. Pain has been well-controlled. Last surgical drain was removed on 07/04/19. Ms. Myles has been applying bacitracin to the incision site but notes that it is itchy. She is allergic to Neosporin and wonders if she may be having a reaction to the bacitracin. Did well after last tissueexpansion. No complaints. MEDICATIONS Current Outpatient Medications Medication Sig Dispense Refill meloxicam 15 mg tablet Take 1 tablet by mouth daily for 30 days. 30 tablet 0 doxycycline 100 mg capsule Take 1 capsule [...] 0.05 % gel SHANAE EXT TO FACE HS No current facility-administered medications for this visit. PHYSICAL EXAM BP 108/56 | Pulse 77 | Temp 36.4 C (97.6 F) (Oral) | Resp 18 | Ht 5' 4" (1.626 m) | Wt 141 lb 1.6 oz (64 kg) | SpO2 95% | BMI 24.22 kg/m General: alert and oriented in no apparent distress CV: hemodynamically stable Resp: unlabored, no increased work of breathing, equal bilateral chest rise Extremities/Musculoskeletal: moves extremities well, no edema or cyanosis Breasts: left breast with periareolar and vertical mastopexy incision, covered in prineo and withoutdehiscence, surrounding erythema, or drainage. Breast is soft, swelling resolving. Right breast withTE in place. Incision edges well approximated. No areas of dehiscence, no erythema. Mastectomy flap is pink and viable. Drain site along lateral aspect of incision is nearly healed. Procedure Note Magnet was used to identify port of tissue technology strategist in right breast. Location was marked and cleanedwith alcohol swab. 50cc of sterile saline was injected into tissue technology strategist through the skin. No bleeding. No complications. Patient tolerated procedure well. Patient has a 700cc [place] Artoura Ultra High Profile TE. 06/16/19 200cc filled intraop 06/27/19 +25cc 07/04/19 +50cc 07/09/19 +50cc TOTAL 325cc ASSESSMENT/PLAN Kailey Myles is a 74 year old female s/p right breast TE placement and left breast mastopexy for symmetry. Healing as anticipated. Currently undergoing expansion. Plan for implant placement 8 weeks following expansion, may perform fat grafting to breast during this time. -Apply bactroban to drain site on right, discontinue bacitracin -Transition to acetaminophen alone for pain -Continue supportive bra RTC 07/18/19 Kira Livingston, PGY-2 Pager [phone] 07/09/2019 Vicky Bob RN - 07/09/2019 4:45 PM José Miguel Myles is a 74 year old female here for follow up. documented in this encounter Plan of Treatment Date Type Specialty Care Team Description 07/18/2019 Office Visit Plastic Surgery Nabila Lewis MD [address] [place] [address] [address] [place] [phone] 07/06/2020 Office Visit Surgery Sydni Levy MD [address] [place] [phone] Health Maintenance Due Date Last Done Comments [...] of this encounter Implants Implanted Type Area Engineer Design And Construction Device Shelf Model / Identifier Expiration Serial / Date Lot Tissue Press Offbearer Breast, Artoura Ultra High Profile 700cc [place] #[id number] - [id number] BREAST Right: [place] [employer] 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 Breast [id number] / [id number] Alloderm Select Tissue Matrix Rtucontour Large Perforated 164cm Lifecell Ref# [id number] - [id number] TISSUE Right: Life Cell 02/18/2021 [id number] / Implanted: Qty: 1 on 06/16/2019 by Nabila Lewis MD at [facility] Breast [id number] / 0 Alloderm Select Tissue Matrix Rtu, 8x16 Right: Life Cell 04/20/2021 [id number] / Implanted: Qty: 1 on 06/16/2019 by Nabila Lewis MD at [facility] Breast [id number] / 0 documented as of this encounter [...] BOX Medicare A & B t 2 [id number] [place] [phone] EULA WATSON [id number] 2016-Pres Blakely ent documented as of this encounter
--- OUTSIDE RECORDS SUMMARY | 2019-12-13 16:46 | XMS REPORT | Summary of Care ---
:1945 Author Organization [facility] - [facility] Address [address] [place] [id number] Care Team Providers Name Role Phone Olivia Box MD Primary Care Provider Reason for Referral (Routine) Status Reason Specialty Diagnoses / Referred By Referred To Procedures Contact Contact New Request Oncology Diagnoses Malignant neoplasm of female breast, unspecified estrogen receptor status, unspecified laterality, unspecified site of breast Sydni Maxwell, Procedures CONSULT/REFERRAL MEDICAL ONCOLOGY [address] [place] [phone] Radiology Services (Routine) Status Reason Specialty Diagnoses / Referred By Referred To Procedures Contact Contact New Request Diagnostic Diagnoses Encounter for screening mammogram for malignant neoplasm of breast Malignant neoplasm of female breast, unspecified estrogen receptor status, unspecified laterality, unspecified site of breast Sydni Maxwell Radiology Procedures BI SCREENING MAMMOGRAM NANI Casey MD [address] [place] [phone] Reason for Visit Reason Comments Follow-up Other (Routine) Status Reason Specialty Diagnoses / Referred By Referred To Procedures Contact Contact Closed CARRI-SURGICAL Diagnoses Malignant neoplasm of right female breast, unspecified estrogen receptor status , unspecified site of breast Nabila Lewis MD Klimberg, Vicki ONCOLOGY / Surgery Procedures Discharge Follow-up: Specialty Provider SYDNI MAXWELL; Other - See Comment ( on 07/02/19) [address] [place] [address] MD Jacinto [address] [place] [phone] Phone: Fax: Encounter Details Date Type Department Care Team Description 07/01/2019 Office Visit [facility] Surgical Sydni Maxwell Malignant neoplasm of female breast, unspecified estrogen receptor status, unspecified laterality, unspecified site of breast (Primary Dx); Specialties - Te Casey MD Encounter for screening mammogram for malignant neoplasm of breast ; [address], [address] [place] [address] Acute pain of both shoulders [address] [place] [phone] Allergies Active Allergy Reactions Severity Noted Date Comments Zolpidem Other - See comments 05/30/2019 "caused me to do things throughout the night that I didn't know I was doing" Bacitracin Unknown - See comments 06/11/2019 Codeine Nausea and/or Vomiting Medium 05/07/2013 Levofloxacin Anaphylaxis High 05/07/2013 Pregabalin Other - See comments 05/30/2019 "makes me crazy as a hoot owl" Ijbcgund-Djslkyppjq-Amv Swelling High 06/16/2019 ymyxin Penicillins Other - See comments 03/28/2018 Quinolones Other - See comments 03/28/2018 Attacks connective tissue Thiazides Other - See comments 03/28/2018 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 documented as of this encounter (statuses as of 07/07/2019) Medications Medication Sig Dispensed Refills Start Date [...] as of this encounter (statuses as of 07/07/2019) Active Problems Problem Noted Date Diarrhea, unspecified type 05/30/2019 Stomach cramps 05/30/2019 Lactose intolerance 05/30/2019 Encounter for long-term (current) use of antibiotics 05/30/2019 Malignant neoplasm of right female breast, unspecified estrogen receptor 05/29 status, unspecified site of breast Overview: Added automatically from request for surgery [id number] documented as of this encounter (statuses as of 07/07/2019) Immunizations Name Administration Dates Next Due Tetanus/Diptheria [...] pain reported 0/10. Pt preferred language is [place]. Pt. denies fall in last 12 months. Allergies and medications reviewed and updated. documented in this encounter Plan of Treatment Date Type Specialty Care Team Description 07/09/2019 Office Visit Plastic Surgery Nabila Lewis MD [address] [place] [address] [address] [place] [phone] 07/06/2020 Office Visit Surgery Sydni Maxwell MD [address] [place] [phone] Name Type Priority Associated Diagnoses Order Schedule BI SCREENING MAMMOGRAM IMAGING Routine Encounter for screening Expected: , LEFT mammogram for malignant Expires: 12/29/2020 neoplasm of breast Malignant neoplasm of female breast, unspecified estrogen receptor status, unspecified laterality, unspecified site of breast Misc. Sendout- Oncotype LAB Routine Malignant neoplasm of Ordered: 2018 DX female breast, unspecified estrogen receptor status, unspecified [...] of this encounter Implants Implanted Type Area Rip Sawyer Device Shelf Model / Identifier Expiration Serial / Date Lot Tissue Video Surveillance Technician Breast, Artoura Ultra High Profile 700cc [place] #[id number] - [id number] BREAST Right: [place] [employer] BOX TOE BUFFER 05/09/2022 [id number] / Implanted: Qty: 1 on 06/16/2019 by Nabila Lewis MD at [facility] Breast [id number] / [id number] Alloderm Select Tissue Matrix Rtucontour Large Perforated 164cm [employer] Ref# [id number] - [id number] TISSUE Right: Life Cell 02/18/2021 [id number] / Implanted: Qty: 1 on 06/16/2019 by Nabila Lewis MD at [facility] Breast [id number] / 0 Alloderm Select Tissue Matrix Rtu, 8x16 Right: Life Cell 04/20/2021 [id number] / Implanted: Qty: 1 on 06/16/2019 by Nabila Lewis MD at [facility] [id number] / 0 documented as of this encounter [...] BOX Medicare A & B t 2 [id number] FEDE [place]ONT [id number] EULA WATSON [id number] 2016-Pres Blakely ent documented as of this encounter
--- OUTSIDE RECORDS SUMMARY | 2019-12-13 16:46 | XMS REPORT | Summary of Care ---
:1945 Author Organization [facility] Address [address] [place] [address] Care Team Providers Name Role Phone Olivia Box MD Primary Care Provider Reason for Visit Reason Comments Follow-up Encounter Details Date Type Department Care Team Description 07/09/2019 Office Visit [facility] Surgery Nabila Lewis MD Malignant neoplasm of and Cancer [address] [place] [address] right female breast, [facility] [id number] unspecified estrogen Surgery [place], [place] receptor status, [address] [facility], [phone] unspecified site of [address] breast (Primary Dx) [place] [phone] Allergies Active Allergy Reactions Severity Noted Date Comments Zolpidem Other - See comments 05/30/2019 "caused me to do things throughout the night that I didn't know I was doing" Bacitracin Unknown - See comments 06/11/2019 Codeine Nausea and/or Vomiting Medium 05/07/2013 Levofloxacin Anaphylaxis High 05/07/2013 Pregabalin Other - See comments 05/30/2019 "makes me crazy as a hoot owl" Gwwsjlgj-Auoysqmsao-Wqt Swelling High 06/16/2019 ymyxin Penicillins Other - [...] Overview: Added automatically from request for surgery [id number] documented as of this encounter (statuses as [...] was used to identify port of tissue music educator in right breast. Location was marked and cleanedwith alcohol swab. 50cc of sterile saline was injected into tissue music educator through the skin. No bleeding. No complications. Patient tolerated procedure well. Patient has a 700cc [place] Artoura Ultra High Profile TE. 06/16/19 200cc [...] bra RTC 07/18/19 Kira Livingston, PGY-2 Pager [phone] 07/09/2019 Vicky Bob RN - 07/09/2019 4:45 PM José Miguel Myles is a 74 year old female here for follow up. documented in this encounter Plan of Treatment Date Type Specialty Care Team Description 07/18/2019 Office Visit Plastic Surgery Nabila Lewis MD [address] [place] [address] [address] [place] [phone] 07/06/2020 Office Visit Surgery Sydni Levy MD [address] [place] [phone] Health Maintenance Due Date Last Done Comments [...] of this encounter Implants Implanted Type Area Clinic Administrator Device Shelf Model / Identifier Expiration Serial / Date Lot Tissue School Childcare Attendant Breast, Artoura Ultra High Profile 700cc [place] #[id number] - [id number] BREAST Right: [place] [employer] TALENT DEVELOPMENT DIRECTOR 05/09/2022 [id number] / Implanted: Qty: 1 on 06/16/2019 by Nabila Lewis MD at [facility] [place] [facility] Breast [id number] / [id number] Alloderm Select Tissue Matrix Rtucontour Large Perforated 164cm [employer] Ref# [id number] - [id number] TISSUE Right: Life Cell 02/18/2021 [id number] / Implanted: Qty: 1 on 06/16/2019 by Nabila Lewis MD at [facility] Breast [id number] / 0 Alloderm Select Tissue Matrix Rtu, 8x16 Right: Life Cell 04/20/2021 [id number] / Implanted: Qty: 1 on 06/16/2019 by Nabila Lewis MD at [facility] Breast [id number] / 0 documented as of this encounter [...] BOX Medicare A & B t 2 [id number] FEDE [place]ONT [id number] EULA WATSON [id number] 2016-Pres Blakely ent documented as of this encounter
--- OUTSIDE RECORDS SUMMARY | 2019-12-13 16:47 | XMS REPORT | Summary of Care ---
:1945 Author Organization [facility] - [facility] Address [address] [place] [address] Care Team Providers Name Role Phone Olivia Box MD Primary Care Provider Reason for Visit Reason Comments BREAST CANCER Encounter Details Date Type Department Care Team Description 11/07/2019 Office Visit [facility] Surgery Nabila Lewis MD Malignant neoplasm of right female breast, unspecified estrogen receptor status, unspecified site of breast (Primary Dx); and Cancer [address] [place] [address] S/P breast reconstruction Center[facility] [id number], [phone] [address] [phone] [place] [address] Allergies Active Allergy Reactions Severity Noted Date Comments Zolpidem Other - See comments 05/30/2019 "caused me to do things throughout the night that I didn't know I was doing" Bacitracin Unknown - See comments 06/11/2019 Codeine Nausea and/or Vomiting Medium 05/07/2013 Iodinated Contrast Shortness of Breath High 08/27/2019 Previously tolerated Media IV contrast, but had severe shortness of breath/chest pain with CT PE on 08/14/19 Levofloxacin Anaphylaxis High 05/07/2013 Pregabalin Other - See comments 05/30/2019 "makes me crazy as a hoot owl" Uxlhxjfo-Rbksrphkzb-Hwp Swelling High 06/16/2019 ymyxin Penicillins Other - See comments 03/28/2018 Quinolones Other - See comments 03/28/2018 Attacks connective tissue Thiazides Other - See comments 03/28/2018 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 documented as of this encounter (statuses as of 11/07/2019) Medications Medication Sig Dispensed Refills Start Date End Date Status aspirin 81 mg EC Take 81 mg by 0 Active tablet mouth. Biotin 5 mg Cap Take 5 mg by 0 Active mouth. atorvastatin 40 mg Take 40 mg by 0 Active tablet mouth. cranberry fruit Take by mouth. 0 Active extract (THERACRAN ORAL) esomeprazole 40 mg Take 40 mg by 0 Active capsule mouth. promethazine/dextromet Take 25 mg by 0 Active horphan mouth. (PROMETHAZINE-DM ORAL) diphenoxylate-atropine Take 1 tablet by 56 tablet 0 06/11/2019 Active (LOMOTIL) 2.5-0.025 mg mouth every 6 per tabletIndications: (six) hours as Diarrhea, unspecified needed type (diarrhea). LORazepam 1 mg Take 1 mg by 0 Active tabletIndications: For mouth. insomnia per patient Indications: For insomnia per patient topiramate 100 mg Take 1 tablet by 180 tablet 3 08/01/2019 Active tabletIndications: mouth 2 (two) Migraine without aura times daily. and without status migrainosus, not intractable Additional information Patient taking differently: 75 mg Oral BID, Reported on 08/13/2019 10:03 PM lactobacillus Take 1 capsule 90 capsule 1 09/15/2019 Active combination no.4 by mouth (PROBIOTIC) 3 billion daily. cell CapIndications: Diarrhea, unspecified type Ergocalciferol, Take 1 tablet 30 tablet 0 10/09/2019 Active Vitamin D2, 400 unit by mouth TabIndications: daily. Lactose intolerance amLODIPine 10 mg Take 1 tablet 30 tablet 1 10/22/2019 Active tabletIndications: by mouth Neutropenia, daily. unspecified type mirtazapine 7.5 mg Take 1 tablet 30 tablet 2 10/22/2019 Active tabletIndications: by mouth at Neutropenia, bedtime. unspecified type letrozole 2.5 mg Take 2.5 mg by 0 11/05/2019 Active tablet mouth daily ferrous sulfate 325 mg Take 325 mg by 0 09/25/2019 Active (65 mg iron) tablet mouth daily. sulfamethoxazole-trime Take 1 tablet 4 tablet 0 10/22/2019 Discontinued thoprim 800-160 mg per by mouth 2 020 (Therapy tabletIndications: (two) times completed) Neutropenia, daily. unspecified type documented as of this encounter (statuses as of 11/07/2019) Active Problems Problem Noted Date Weakness 10/19/2019 Severe neutropenia 10/19/2019 Acute cystitis without hematuria 10/19/2019 Chemotherapy induced neutropenia 10/19/2019 H/O Clostridium difficile infection 10/19/2019 Insomnia due to medical condition 10/19/2019 Symptomatic anemia 10/19/2019 Acute kidney injury superimposed on chronic kidney disease 10/19/2019 Sinus tachycardia 09/24/2019 Gastroenteritis 09/23/2019 Essential hypertension 08/14/2019 Dyslipidemia 08/14/2019 Atypical chest pain 08/13/2019 Diarrhea, unspecified type 05/30/2019 Stomach cramps 05/30/2019 Lactose intolerance 05/30/2019 Encounter for long-term (current) use of antibiotics 05/30/2019 Malignant neoplasm of right female breast, unspecified estrogen receptor 05/29 status, unspecified site of breast Overview: Added automatically from request for surgery [id number] documented as of this encounter (statuses as of 11/07/2019) Immunizations Name Administration Dates Next Due Tetanus/Diptheria [...] more drinks on one Not asked occasion? Financial Resource Strain Answer Date Recorded How hard is it for you to pay for the very basics like Not hard at all 2018 food, housing, medical care, and heating? Food Insecurity Answer Date Recorded Within the past 12 months, you worried that your food would Never true 2018 run out before you got money to buy more. Within the past 12 months, the food you bought just didn't Never true 2018 last and you didn't have money to get more. Transportation Needs Answer Date Recorded In the past 12 months, has lack of transportation kept you from No 09/23/2019 medical appointments or from getting medications? In the past 12 months, has lack of transportation kept you from No 09/23/2019 meetings, work, or getting things needed for daily living? Sex Assigned at Date Recorded Not on file Job Start Date Occupation Industry Not on file Not on file Not on file Travel History Travel Start Travel End No recent travel history available. documented as of this encounter Last Filed Vital Signs Vital Sign Reading Time Taken Comments Blood Pressure 124/71 11/07/2019 10:42 AM [employer] Pulse 65 11/07/2019 10:42 AM [employer] Temperature 36.6 C (97.9 F) 11/07/2019 10:42 AM [employer] Respiratory Rate 18 11/07/2019 10:42 AM [employer] Oxygen Saturation 99% 11/07/2019 10:42 AM [employer] Inhaled Oxygen Concentration - - Weight 57.6 kg (127 lb) 11/07/2019 10:42 AM [employer] Height 162.6 cm (5' 4") 11/07/2019 10:42 AM [employer] Body Mass Index 21.8 11/07/2019 10:42 AM [employer] documented in this encounter Progress Notes Yaya Lawler MD - 11/07/2019 10:30 AM CST Plastic Surgery Clinic Note Date of Service: 11/07/2019 Chief Complaint: BREAST CANCER SUBJECTIVE: Kailey Myles is a 74 year old female with right breast TE placement with ADM and left breast mastopexy for symmetry on 08/01/2019 following up for TE expansion. Patient had episode of C.diff colitisin August requiring hospitalization. Patient has since recovered, but lost approximately 20 pounds. States she is eating and drinking regularly and has return of normal bowel function. Her last expansion was to 475/700cc. She has no interval changes in medical history and is here for repeat expansion. Medications Current Outpatient Medications Medication Sig Dispense Refill ferrous sulfate 325 mg (65 mg iron) tablet Take 325 mg by mouth daily. letrozole 2.5 mg tablet Take 2.5 mg by mouth daily amLODIPine 10 mg tablet Take 1 tablet by mouth daily. 30 tablet 1 mirtazapine 7.5 mg tablet Take 1 tablet by mouth at bedtime. 30 tablet 2 Ergocalciferol, Vitamin D2, 400 unit Tab Take 1 tablet by mouth daily. 30 tablet 0 lactobacillus combination no.4 (PROBIOTIC) 3 billion cell Cap Take 1 capsule by mouth daily. 90 capsule 1 topiramate 100 mg tablet Take 1 tablet by mouth 2 (two) times daily. ( Patient taking differently: Take 75 mg by mouth 2 (two) times daily.) 180 tablet 3 diphenoxylate-atropine (LOMOTIL) 2.5-0.025 mg per tablet Take 1 tablet by mouth every 6 (six) hours as needed (diarrhea). 56 tablet 0 LORazepam 1 mg tablet Take 1 mg by mouth. Indications: For insomnia per patient aspirin 81 mg EC tablet Take 81 mg by mouth. atorvastatin 40 mg tablet Take 40 mg by mouth. Biotin 5 mg Cap Take 5 mg by mouth. cranberry fruit extract (THERACRAN ORAL) Take by mouth. esomeprazole 40 mg capsule Take 40 mg by mouth. promethazine/dextromethorphan (PROMETHAZINE-DM ORAL) Take 25 mg by mouth. No current facility-administered medications for this visit. Past Medical History: Past Medical History: Diagnosis Date Breast cancer Elevated platelet count workup by Dr. Bradley, unsure of cause. also spleen abnormality, platelets made are immature. History of Holloway's palsy at 20, was . HTN (hypertension) Patient on antineoplastic chemotherapy regimen Recurrent UTI follows with Dr. Norman Past Surgical History: Past Surgical History: Procedure Laterality Date BREAST BIOPSY COLONOSCOPY with Dr. Wilson, 2017 last one, history of polyps and colonoscopy every 3 years. MASTOPEXY Left 06/16/2019 Surgeon: Nabila Lewis MD; [facility] PANNICULECTOMY RADICAL HYSTERECTOMY ovaries not removed, due to cervical precancer lesions SENTINEL LYMPH NODE MAPPING Right 06/16/2019 Surgeon: Sydni Levy MD; Location: [facility] SIMPLE MASTECTOMY Right 06/16/2019 Surgeon: Sydni Levy MD; Location[facility] SPINE SURGERY fusion, removal C4-T1, removal bone spur TISSUE EQUIPMENT MAINTENANCE TECH PLACEMENT BREAST (SHX) Right 06/16/2019 Surgeon: Nabila Lewis MD; Location[facility] Allergies: Allergies Allergen Reactions Iodinated Contrast Media Shortness of Breath Previously tolerated IV contrast, but had severe shortness of breath/chest pain with CT PE on 08/14/19 Levofloxacin Anaphylaxis Neosporin [Qzfwmqcw-Ngwmgdmvlg-Rxofkfcmy] Swelling Codeine Nausea and/or Vomiting Ambien [Zolpidem] Other - See comments "caused me to do things throughout the night that I didn't know I was doing" Bacitracin Unknown - See comments Lyrica [Pregabalin] Other - See comments "makes me crazy as a hoot owl" Penicillins Other - See comments Quinolones Other - See comments Attacks connective tissue Thiazides Other - See comments 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 Social History: Social History Socioeconomic History Marital status: Spouse name: Not on file Number of children: Not on file Years of education: Not on file Highest education level: Not on file Occupational History Not on file Social Needs Financial resource strain: Not hard at all Food insecurity: Worry: Never true Inability: Never true Transportation needs: Medical: No Non-medical: No Tobacco Use Smoking status: Former Smoker Smokeless tobacco: Never Used Substance and Sexual Activity Alcohol use: Yes Frequency: 2-4 times a month Comment: occasional Drug use: No Sexual activity: Not on file Lifestyle Physical activity: Days per week: Not on file Minutes per session: Not on file Stress: Not on file Relationships Social connections: Talks on phone: Not on file Gets together: Not on file Attends holiness service: Not on file Active member of club or organization: Not on file Attends meetings of clubs or organizations: Not on file Relationship status: Not on file Intimate partner violence: Fear of current or ex partner: Not on file Emotionally abused: Not on file Physically abused: Not on file Forced sexual activity: Not on file Other Topics Concern Not on file Social History Narrative Not on file REVIEW OF SYSTEMS: Constitutional: negative for fevers, chills, unintentional weight loss HEENT: negative for changes in vision, headaches, changes in hearing, congestion , sore throat Cardiovascular: negative for chest pain, palpitations Respiratory: negative for cough, shortness of breath Gastrointestinal: negative for nausea, vomiting, diarrhea Genitourinary: negative for dysuria, hematuria Musculoskeletal: negative for joint swelling or pain Skin: negative for rashes or lesions Psych: negative for depression, anxiety Endocrine: negative for polyuria, polydipsia, cold/heat intolerance Hem/Lymph: negative for bleeding disorder PHYSICAL EXAM BP 124/71 (BP Location: Left arm, Patient Position: Sitting, BP CUFF SIZE: Adult Medium) | Pulse 65 | Temp 36.6 C (97.9 F) (Oral) | Resp 18 | Ht 5' 4" (1.626 m) | Wt 127 lb (57.6 kg) | SpO2 99% | BMI 21.80 kg/m General: alert and oriented, no apparent distress Eyes: extraocular movements intact, no scleral icterus, moist mucous membranes. HENT: normocephalic, atraumatic, no rhinorrhea CV: extremities well perfused Resp: unlabored, no increased work of breathing, equal bilateral chest rise Extremities/Musculoskeletal: moves extremities well, no edema Neuro: no focal findings Psych: normal mood and affect, judgement intact Breasts: Left breast with periareolar and vertical mastopexy that is clean/dry/ intact without erythema or signs of infection. Right breast incisionwell healed. Procedure Note Verbal consent obtained. The patient was expanded with 50 CC of normal saline using sterile technique. Patient has a 700cc Lyles Artoura Ultra High Profile TE. 475 CC + 50 BP=486 CC total fill. ASSESSMENT/PLAN Kailey Myles is a 74 year old female with right breast TE placement with ADM and left breast mastopexy for symmetry on 08/01/2019 following up for TE expansion. Patient had 50cc expansion today and is at 525cc/700. Will give patient time to regain weight and strength prior to further expansion - Continue supportive bra - Counseled patient about high protein intake in diet - RTC 6 weeks Yaya Lawler MD Plastic Surgery documented in this encounter Plan of Treatment Date Type Specialty Care Team Description 12/19/2019 Office Visit Plastic Surgery Nabila Lewis MD [address] [place] [address] [place] [phone] 07/06/2020 Office Visit Surgery Sydni Levy MD [address] [place] [phone] Health Maintenance Due Date Last Done Comments HEPATITIS C (HCV) SCREEN 1945 DTaP,Tdap,and Td Vaccines (1 - 1957 Tdap) Zoster Recombinant Vaccine 01/12/1996 (SHINGRIX) (1 of 2) LUNG CANCER SCREEN: Recommended 2001 for age 55-80 with 30 + pack year history Osteoporosis Screening 2011 PNEUMOCOCCAL VACCINES 65+ (1 of 2 2011 - PCV13) INFLUENZA VACCINE (#1) 2019 Breast Cancer Screening 03/12/2020 03/12/2019 (MAMMOGRAM) Medicare Wellness Visit 06/19/2020 Postponed from 2011 (Patient Does Not Have Time) COLONOSCOPY 11/05/2027 11/05/2017 documented as of this encounter Implants Implanted Type Area Felt Hooker Device Shelf Model / Identifier Expiration Serial / Lot Date Tissue Gas Stove Servicer Helper Breast, Artoura Ultra High Profile 700cc Lyles #[id number] - [id number] BREAST Right: Lyles [employer] EQUIPMENT MAINTENANCE TECH 05/09/2022 [id number] / Implanted: Qty: 1 on 06/16/2019 by Nabila Lewsi MD at [facility] [id number] / [id number] Polysite Pressure Injectable Infusion Port-07/31/2019 Port Left: 2022 / Implanted: Qty: 1 on 07/31/2019 by Melanie rWight MD Chest [id number] / [id number] Alloderm Select Tissue Matrix Rtucontour Large Perforated 164cm Lifecell Ref# [id number] - [id number] TISSUE Right: Life Cell 02/18/2021 [id number] / Implanted: Qty: 1 on 06/16/2019 by Nabila Lewis MD at [facility] [id number] / 0 Alloderm Select Tissue Matrix Rtu, 8x16 Right: Life Cell 04/20/2021 [id number] / Implanted: Qty: 1 on 06/16/2019 by Nabila Lewis MD at [facility] [id number] / 0 documented as of this encounter Results Not on filedocumented in this encounter Visit Diagnoses Diagnosis Malignant neoplasm of right female breast, unspecified estrogen receptor status , unspecified site of breast - Primary S/P breast reconstruction Breast replaced by other means documented in this encounter Additional Health Concerns Infection Noted Time Resolved Time Contact - ESBL 10/21/2019 2:05 PM [employer]PUT[employer]IEF [employer] documented as of this encounter Insurance Payer Benefit Plan / Subscriber ID Effective Dates Phone Address Type Group MEDICARE MEDICARE PART xxxxxxxxxxx 2010-Areli [phone] Medicare A & B t 2 [id number] [place] [address] EULA WATSON [id number] 2016-Pres Eula ent documented as of this encounter
--- OUTSIDE RECORDS SUMMARY | 2019-12-13 16:47 | XMS REPORT | Summary of Care ---
:1945 Author Organization [facility] Address [address] [place] [address] Care Team Providers Name Role Phone Olivia Box MD Primary Care Provider Reason for Visit Reason Comments Follow-up Encounter Details Date Type Department Care Team Description 07/09/2019 Office Visit [facility] Surgery Nabila Lewis MD Malignant neoplasm of and Cancer [address] [place] [address] right female breast, Center-Plastic [id number] unspecified estrogen Surgery [place], [place] receptor status, [address] [facility], [phone] unspecified site of [address] breast (Primary Dx) [place] [address] Allergies Active Allergy Reactions Severity Noted Date Comments Zolpidem Other - See comments 05/30/2019 "caused me to do things throughout the night that I didn't know I was doing" Bacitracin Unknown - See comments 06/11/2019 Codeine Nausea and/or Vomiting Medium 05/07/2013 Levofloxacin Anaphylaxis High 05/07/2013 Pregabalin Other - See comments 05/30/2019 "makes me crazy as a hoot owl" Pusayurc-Zurzvyulaw-Uni Swelling High 06/16/2019 ymyxin Penicillins Other - [...] Overview: Added automatically from request for surgery [id number] documented as of this encounter (statuses as [...] was used to identify port of tissue field auditor in right breast. Location was marked and cleanedwith alcohol swab. 50cc of sterile saline was injected into tissue field auditor through the skin. No bleeding. No complications. Patient tolerated procedure well. Patient has a 700cc Montgomery Artoura Ultra High Profile TE. 06/16/19 200cc [...] bra RTC 07/18/19 Kira Livingston, PGY-2 Pager [phone] 07/09/2019 Attending Attestation: INabila MD, personally examined and performed the decision making of this patient on July 04, [address]. I agree with Dr. Livingston's note with any edits made directly in the note above. Vicky Bob RN - 07/09/2019 4:45 PM CDTLtho Myles is a 74 year old female here for follow up. documented in this encounter Plan of Treatment Date Type Specialty Care Team Description 07/18/2019 Office Visit Plastic Surgery Nabila Lewis MD [address] [place], [place] [id number] [place] [phone] 07/06/2020 Office Visit Surgery Sydni Levy MD [address] [place] [phone] Health Maintenance Due Date Last Done Comments [...] of this encounter Implants Implanted Type Area Wet Roaster Device Shelf Model / Identifier Expiration Serial / Date Lot Tissue Bit Setter Breast, Artoura Ultra High Profile 700cc Montgomery #[id number] - [id number] BREAST Right: Montgomery [employer] PLASTIC WORKER 05/09/2022 [id number] / Implanted: Qty: 1 on 06/16/2019 by Nabila Lewis MD at [facility] Breast [id number] / [id number] Alloderm Select Tissue Matrix Rtucontour Large Perforated 164cm Lifecell Ref# [id number] - [id number] TISSUE Right: Life Cell 02/18/2021 [id number] / Implanted: Qty: 1 on 06/16/2019 by Nabila Lewis MD at [facility] Breast [id number] / 0 Alloderm Select Tissue Matrix Rtu, 8x16 Right: Life Cell 04/20/2021 [id number] / Implanted: Qty: 1 on 06/16/2019 by Nabila Lewis MD at [facility] [place] [facility] Breast [id number] / 0 documented as of this encounter [...] BOX Medicare A & B t 2 [id number] [place] [phone] EULA WATSON [id number] 2016-Pres [place] ent documented as of this encounter
--- OUTSIDE RECORDS SUMMARY | 2019-12-13 16:47 | XMS REPORT | Summary of Care ---
:1945 Author Organization [facility] [place] - [facility] Address [address] [place] [id number] Care Team Providers Name Role Phone Olivia Box MD Primary Care Provider Reason for Visit Reason Comments BREAST CANCER Encounter Details Date Type Department Care Team Description 11/07/2019 Office Visit [facility] Surgery Nabila Lewis MD Malignant neoplasm of right female breast, unspecified estrogen receptor status, unspecified site of breast (Primary Dx); and Cancer [address] [place] [address] S/P breast reconstruction Center-Plastic [address], [phone] [address] [phone] [place] [address] Allergies Active Allergy Reactions Severity [...] "makes me crazy as a hoot owl" Nxxefwvx-Guusuuhzfk-Xrq Swelling High 06/16/2019 ymyxin Penicillins Other - [...] Overview: Added automatically from request for surgery [id number] documented as of this encounter (statuses as [...] Comments Blood Pressure 124/71 11/07/2019 10:42 AM ASSISTANT CHIEF NURSING OFFICER Pulse 65 11/07/2019 10:42 AM ASSISTANT CHIEF NURSING OFFICER Temperature 36.6 C (97.9 F) 11/07/2019 10:42 AM ASSISTANT CHIEF NURSING OFFICER Respiratory Rate 18 11/07/2019 10:42 AM ASSISTANT CHIEF NURSING OFFICER Oxygen Saturation 99% 11/07/2019 10:42 AM ASSISTANT CHIEF NURSING OFFICER Inhaled Oxygen Concentration - - Weight 57.6 kg (127 lb) 11/07/2019 10:42 AM ASSISTANT CHIEF NURSING OFFICER Height 162.6 cm (5' 4") 11/07/2019 10:42 AM ASSISTANT CHIEF NURSING OFFICER Body Mass Index 21.8 11/07/2019 10:42 AM ASSISTANT CHIEF NURSING OFFICER documented in this encounter Progress Notes Yaya Lawler MD - 11/07/2019 10:30 AM CST Plastic Surgery Clinic Note Date of Service: 11/07/2019 Chief Complaint: BREAST CANCER SUBJECTIVE: Kailey Myels is a 74 year old female with [...] Laterality Date BREAST BIOPSY COLONOSCOPY with Dr. 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 Patient has a 700cc [place] Artoura Ultra High Profile TE. 475 CC + 50 EK=[id number] CC total fill. ASSESSMENT/PLAN Kailey Myles is [...] in diet - RTC 6 weeks Yaya aLwler MD Plastic Surgery documented in this encounter Plan of Treatment Date Type Specialty Care Team Description 12/19/2019 Office Visit Plastic Surgery Nabila Lewis MD [address] [place] [address] [place] [phone] 07/06/2020 Office Visit Surgery Sydni Levy MD [address] [place] [phone] Health Maintenance Due Date Last Done Comments [...] of this encounter Implants Implanted Type Area Staff Genetic Counselor Device Shelf Model / Identifier Expiration Serial / Lot Date Tissue Tube Roller Breast, Artoura Ultra High Profile 700cc [place] #[id number] - [id number] BREAST Right: [place] [employer] CYBER OPERATOR 05/09/2022 [id number] / Implanted: Qty: 1 on 06/16/2019 by Nabila Lewis MD at [facility] AT [facility] [id number] / [id number] Polysite Pressure Injectable Infusion Port-07/31/2019 Port Left: 2022 / Implanted: Qty: 1 on 07/31/2019 by Melanie Wright MD Chest [id number] / [id number] Alloderm Select Tissue Matrix Rtucontour Large Perforated 164cm Lifecell Ref# [id number] - [id number] TISSUE Right: Life Cell 02/18/2021 [id number] / Implanted: Qty: 1 on 06/16/2019 by Nabila Lewis MD at [facility] [id number] / 0 Alloderm Select Tissue Matrix Rtu, 8x16 Right: Life Cell 04/20/2021 [id number] / Implanted: Qty: 1 on 06/16/2019 by Nabila Lewis MD at [facility] [id number] / 0 documented as of this encounter Results Not on filedocumented in this encounter Visit Diagnoses Diagnosis Malignant neoplasm of right female breast, unspecified estrogen receptor status , unspecified site of breast - Primary S/P breast reconstruction Breast replaced by other means documented in this encounter Additional Health Concerns Infection Noted Time Resolved Time Contact - ESBL 10/21/2019 2:05 PM ASSISTANT CHIEF NURSING OFFICER documented as of this encounter Insurance Payer Benefit Plan / Subscriber ID Effective Dates Phone Address Type Group MEDICARE MEDICARE PART xxxxxxxxxxx 2010-Areli [phone] Medicare A & B t [id number] [place] [id number] EULA WATSON [id number] 2016-Pres Eula ent documented as of this encounter
--- OUTSIDE RECORDS SUMMARY | 2019-12-13 16:48 | XMS REPORT | Summary of Care ---
:1945 Author Organization [facility] - [facility] Address [address] [place] [id number] Care Team Providers Name Role Phone Olivia Box MD Primary Care Provider Reason for Visit Reason Comments BREAST CANCER Encounter Details Date Type Department Care Team Description 11/07/[address] [facility] Surgery Nabila Lewis MD Malignant neoplasm of right female breast, unspecified estrogen receptor status, unspecified site of breast (Primary Dx); and Cancer [address] [place] [address] S/P breast reconstruction Center-Plastic [address], [phone] [address] [phone] [place] [address] Allergies Active Allergy Reactions [...] "makes me crazy as a hoot owl" Ggkkedea-Preqappdro-Mxv Swelling High 06/16/2019 ymyxin Penicillins Other - See comments 03/28/2018 Quinolones Other - See comments 03/28/2018 Attacks connective tissue Thiazides Other - See comments 03/28/2018 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 documented as of this encounter (statuses as of 11/11/2019) Medications Medication Sig Dispensed Refills Start Date [...] as of this encounter (statuses as of 11/11/2019) Active Problems Problem Noted Date Weakness 10/19/2019 [...] Overview: Added automatically from request for surgery [id number] documented as of this encounter (statuses as of 11/11/2019) Immunizations Name Administration Dates Next Due Tetanus/Diptheria [...] Comments Blood Pressure 124/71 11/07/2019 10:42 AM QUALITY MANAGER Pulse 65 11/07/2019 10:42 AM QUALITY MANAGER Temperature 36.6 C (97.9 F) 11/07/2019 10:42 AM QUALITY MANAGER Respiratory Rate 18 11/07/2019 10:42 AM QUALITY MANAGER Oxygen Saturation 99% 11/07/2019 10:42 AM QUALITY MANAGER Inhaled Oxygen Concentration - - Weight 57.6 kg (127 lb) 11/07/2019 10:42 AM QUALITY MANAGER Height 162.6 cm (5' 4") 11/07/2019 10:42 AM QUALITY MANAGER Body Mass Index 21.8 11/07/2019 10:42 AM QUALITY MANAGER documented in this encounter Progress Notes Yaya [...] Sydni Levy MD; Location: [facility] SIMPLE MASTECTOMY Right 06/16/2019 Surgeon: Sydni Levy MD; Location: [facility] SPINE SURGERY fusion, removal C4-T1, removal bone spur TISSUE ACCOUNT PLANNER PLACEMENT BREAST (SHX) Right 06/16/2019 Surgeon: Nabila Lewis MD; Location: [facility] Allergies: Allergies Allergen Reactions Iodinated Contrast Media Shortness of Breath Previously tolerated IV contrast, but had severe shortness of breath/chest pain with CT PE on 08/14/19 Levofloxacin Anaphylaxis Neosporin [Mbsqtqhn-Hjkiujqnqe-Jhzvppczx] Swelling Codeine Nausea and/or Vomiting Ambien [Zolpidem] [...] file Gets together: Not on file Attends tenriism service: Not on file Active member of [...] intact without erythema or signs of infection. Rippling in tissue de icer kit assembler causing creases of superior pole skin Right breast incisionwell healed. Procedure Note Verbal consent obtained. The patient was expanded with 50 CC of normal saline using sterile technique. Patient has a 700cc [place] Artoura Ultra High Profile TE. 475 CC + 50 GL=339 CC total fill. ASSESSMENT/PLAN Kailey Myles is [...] RTC 6 weeks Yaya Lawler MD Plastic Surgery. PGY 3 Attending Attestation: INabila MD, personally examined and performed the decision making of this patient on November 07, 2019. I agree with Dr. Lawler' note with any edits made directly in the note above. documented in this encounter Plan of Treatment Date Type Specialty Care Team Description 12/19/2019 Office Visit Plastic Surgery Nabila Lewis MD [address] [place] [address] RT724 [place] [phone] 07/06/2020 Office Visit Surgery Sydni Levy MD [address] [place] [phone] Health Maintenance Due Date Last Done Comments HEPATITIS C (HCV) SCREEN 1945 DTaP,Tdap,and Td Vaccines ( - 1957 Tdap) Zoster Recombinant Vaccine 01/12/1996 [...] of this encounter Implants Implanted Type Area Steam Trap Man Device Shelf Model / Identifier Expiration Serial / Lot Date Tissue Mosaic Worker Breast, Artoura Ultra High Profile 700cc [place] #[id number] - [id number] BREAST Right: [place] [employer] ACCOUNT PLANNER 05/09/2022 [id number] / Implanted: Qty: 1 on 06/16/2019 by Nabila Lewis MD at [facility] Breast [id number] / [id number] Polysite Pressure Injectable Infusion Port-07/31/2019 Port Left: 2022 / Implanted: Qty: 1 on 07/31/2019 by Melanie Wright MD Chest [id number] / [id number] Alloderm Select Tissue Matrix Rtucontour Large Perforated 164cm Lifecell Ref# [id number] - [id number] TISSUE Right: Life Cell 02/18/2021 [id number] / Implanted: Qty: 1 on 06/16/2019 by Nabila Lewis MD at [facility] Breast [id number] / 0 Alloderm Select Tissue Matrix Rtu, 8x16 Right: Life Cell 04/20/2021 [id number] / Implanted: Qty: 1 on 06/16/2019 by Nabila Lewis MD at [facility] [id number] / 0 documented as of this encounter Results Not on filedocumented in this encounter Visit Diagnoses Diagnosis Malignant neoplasm of right female breast, unspecified estrogen receptor status , unspecified site of breast - Primary S/P breast reconstruction Breast replaced by other means documented in this encounter Additional Health Concerns Infection Noted Time Resolved Time Contact - ESBL 10/21/2019 2:05 PM QUALITY MANAGER documented as of this encounter Insurance Payer Benefit Plan / Subscriber ID Effective Dates Phone Address Type Group MEDICARE MEDICARE PART xxxxxxxxxxx 2010-Areli [phone] [address] Medicare A & B t 2 [id number] [place] [address] EULA WATSON [id number] 2016-Pres [place] ent documented as of this encounter
[2019-12-13] MEDS ORDERED: MEPERIDINE HCL 25 MG/ML SYR ONE ×4 (17:16→21:58)
[2019-12-13] MEDS ORDERED: ONDANSETRON 4 MG/2 ML VIAL ONE (17:16)
--- NOTE | 2019-12-13 19:02 | RAD REPORT ---
EXAM DESCRIPTION: CT - Pelvis Wo Cont - 12/13/2019 6:30 pm CLINICAL HISTORY: Evaluate Pelvic FX, fall, pelvic and hip pain COMPARISON: Hip Right 2 View dated 12/13/2019; Pelvis dated 12/13/2019 TECHNIQUE: Axial noncontrast 2 millimeter images of the pelvis and proximal femurs obtained. Sagitta l and coronal reconstruction images were generated and reviewed. FINDINGS: No fracture of either proximal femur. There is no dislocation of either femoral head. Subc ortical degenerative cystic changes are present. No AVN findings. No periarticular mass or hematoma i dentified. Right sacral ala fracture is present without distraction. SI joint degenerative changes are present. An oblique fracture is present through the superior pubic ramus at the pubic symphysis. There is an o blique fracture through the right ischium. No pathologic component. There is mild edema in the adjace nt tissues. No large hematoma at the fracture sites. Advanced degenerative disc and facet changes at L5-S1. Advanced degenerative facet changes at L4-5. No acute bowel finding. No urinary bladder abnormality. IMPRESSION: Right-sided pelvic fractures involving the superior pubic ramus at the pubic symphysis, ischium and sacral ala. No significant distraction or angulation. No pathologic component. Degenerative bilateral hip joint changes with no acute finding.
--- NOTE | 2019-12-13 19:04 | RAD REPORT ---
EXAM DESCRIPTION: RAD - Pelvis - 12/13/2019 6:02 pm CLINICAL HISTORY: pain, fall with pelvic pain COMPARISON: No comparisonsno remote imaging TECHNIQUE: AP imaging of the pelvis was obtained. FINDINGS: Prominent lower lumbar degenerative change present only partially imaged. SI joint degener ative changes are present. No gross deformity of the sacral ala. Prominent overlying bowel content li mits assessment. Comminuted fractures seen in the right superior pubic ramus at the pubic symphysis. Right ischium fracture is suspected but not definitive. No fracture or acute hip joint finding. IMPRESSION: Comminuted right superior pubic ramus fracture with suspected right ischium fracture. Sacral ala is too obscured by bowel gas for assessment.
--- NOTE | 2019-12-13 19:05 | RAD REPORT ---
EXAM DESCRIPTION: RAD - Hip Right 2 View - 12/13/2019 6:06 pm CLINICAL HISTORY: pain, fall with pelvic and hip pain COMPARISON: No comparisonsno remote imaging FINDINGS: AP and frog-leg views of the right hip were obtained. Comminuted fractures present involving the superior pubic ramus at the pubic symphysis. Right ischium fracture is also likely present but not optimally visualized. Sacral ala is partially obscured by hattie wel. Proximal right femur shows no dislocation or acute finding. Hip joint degenerative changes are m ild for age. No AVN or focal head abnormality. No pathologic bone process. IMPRESSION: Right pelvic fracture as detailed. No proximal femur fracture.
--- NOTE | 2019-12-13 19:27 | ER ---
Nurse's Notes [facility] Name: Kailey Myles Age: 74 yrs Sex: Female : 1945 Arrival Date: 12/13/2019 Time: 16:35 Bed 6 Private MD: Diagnosis: Fracture of other parts of pelvis-Multiple right sided pelvic fractures Presentation: 12/13 16:36 Presenting complaint: EMS states: MECHANICAL FALL AT HOME. Care prior to arrival: None. bp Mechanism of Injury: Fall from standing position. Trauma event details: Injury occurred in the [facility], Injury occurred: at home. Injury occurred: December 13, 2019 Injury occurred at: 16:00. 16:36 Acuity: ARTHUR 3 bp 16:36 Method Of Arrival: EMS: [facility] bp 16:39 Transition of care: patient was not received from another setting of care. Onset of bp symptoms is unknown. Risk Assessment: Do you want to hurt yourself or someone else? Patient reports no desire to harm self or others. Initial Sepsis Screen: Does the patient meet any 2 criteria? No. Patient's initial sepsis screen is negative. Does the patient have a suspected source of infection? No. Patient's initial sepsis screen is negative. Trauma Activation: Not Applicable Physician: ED Physician; Name: ; Notified At: ; Arrived At: Physician: General Surgeon; Name: ; Notified At: ; Arrived At: Physician: Radiology; Name: ; Notified At: ; Arrived At: Physician: Respiratory; Name: ; Notified At: ; Arrived At: Physician: Lab; Name: ; Notified At: ; Arrived At: Historical: - Allergies: 16:46 QUINOLONES; bp 16:46 THIAZIDES; bp 16:46 benzalkonium chloride; bp 16:46 Codeine; bp 16:46 PENICILLINS; bp 16:46 Lyrica; bp 16:46 BACITRACIN; bp 16:46 Bacitracin Zinc; bp 16:46 Levofloxacin; bp 16:46 Neomycin Sulfate; bp 16:46 polymyxin B; bp 16:46 pramoxine HCl; bp - Home Meds: 16:46 metoprolol tartrate 100 mg Oral tab 1 tab 2 times per day [Active]; topiramate 25 mg bp Oral tab 1 tabs 2 times per day [Active]; amlodipine-benazepril 10-40 mg Oral cap [Active]; atorvastatin 40 mg oral tab 1 tab once daily [Active]; nitrofurantoin macrocrystal 100 mg Oral cap 1 cap once daily [Active]; esomeprazole magnesium 40 mg Oral cpDR 1 cap once daily [Active]; lorazepam 1 mg Oral tab [Active]; - PMHx: 16:46 Anxiety; bells palsy; GERD; Hypertension; Hyperlipidemia; bp - Immunization history:: Adult Immunizations up to date. - Coronavirus screen:: The patient has NOT traveled to [place] in the past 14 days. The patient has NOT had contact with known/suspected case of Coronavirus?. - Social history:: Smoking status: Patient denies any tobacco usage or history of. - Family history:: not pertinent. - Ebola Screening: : No symptoms or risks identified at this time. - Hospitalizations: : No recent hospitalization is reported. Screenin:37 Abuse screen: Denies threats or abuse. Denies injuries from another. Tuberculosis bp screening: No symptoms or risk factors identified. 19:00 Nutritional screening: No deficits noted. Fall Risk None identified. jb4 Primary Survey: 16:37 NO uncontrolled hemorrhage observed. A: The patient is alert. Airway: patent, No bp supplemental oxygen in use on arrival. Breathing/Chest: Respiratory pattern: regular, Respiratory effort: spontaneous, unlabored. Circulation: Skin color: pink, Skin temperature: warm, dry. Disability Alert. Exposure/Environment: All clothing and personal items were removed. Forensic evidence collection is not deemed to be indicated at this time. Items placed in patient belonging bag. Obvious injury(ies) are noted at this time: R HIP PAIN. 19:00 Reassessment Airway Airway Patent Oxygen No O2 Breathing/Chest Respiratory pattern jb4 Regular Respiratory effort Spontaneous Unlabored Chest inspection Symmetrical Circulation Pulses Palpable Color Bowers Temperature Warm Dry. Secondary Survey: 16:37 Musculoskeletal: Range of motion: limited in right hip. bp Assessment: 16:45 General: SEE TRIAGE NOTE. 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 bp 18:39 Reassessment: ALL CURRENT STUDIES COMPLETED, RESULTS PENDING. VS STABLE ON MONITOR. bp 19:00 General: Appears in no apparent distress. uncomfortable, Behavior is calm, cooperative, jb4 appropriate for age. Pain: Complains of pain in right hip Pain does not radiate. Pain currently is 8 out of 10 on a pain scale. Neuro: Level of Consciousness is awake, alert, obeys commands, Oriented to person, place, time, situation. Cardiovascular: Capillary refill < 3 seconds in right toes Patient's skin is warm and dry. Pulses are 3+ in right dorsalis pedis artery. Respiratory: Airway is patent Respiratory effort is even, unlabored, Respiratory pattern is regular, symmetrical. GI: No signs and/or symptoms were reported involving the gastrointestinal system. : No signs and/or symptoms were reported regarding the genitourinary system. EENT: No signs and/or symptoms were reported regarding the EENT system. Derm: Skin is intact, Skin is pink, warm \T\ dry. Musculoskeletal: Circulation, motion, and sensation intact. 19:15 Reassessment: Patient appears in no apparent distress at this time. Patient and/or jb4 family updated on plan of care and expected duration. Pain level reassessed. Patient is alert, oriented x 3, equal unlabored respirations, skin warm/dry/pink. PT reports an increase in pain to 7/10, provider notified, see MAR for orders. Cardiovascular: Pulses are 3+ in right dorsalis pedis artery. 19:34 Reassessment: Pt reports decrease in pain from 7/10 to 4/10. jb4 20:31 Reassessment: Patient appears in no apparent distress at this time. Patient and/or jb4 family updated on plan of care and expected duration. Pain level reassessed. Patient is alert, oriented x 3, equal unlabored respirations, skin warm/dry/pink. Patient states feeling better. Vital Signs: 16:37 BP 124 / 58; Pulse 77; Resp 18; Temp 98; Pulse Ox 98% ; Weight 61.69 kg; Height 5 ft. 4 bp in. (162.56 cm); 17:52 BP 122 / 60; Pulse 77; Resp 16; Pulse Ox 100% ; bp 19:15 BP 126 / 61; Pulse 76; Resp 16; Pulse Ox 99% on R/A; jb4 19:45 Pain 4/10; jb4 20:00 BP 128 / 65; Pulse 77; Resp 18; Pulse Ox 99% on R/A; jb4 16:37 Body Mass Index 23.34 (61.69 kg, 162.56 cm) bp Chaim Coma Score: 16:37 Eye Response: spontaneous(4). Verbal Response: oriented(5). Motor Response: obeys bp commands(6). Total: 15. Trauma Score (Adult): 16:37 Eye Response: spontaneous(1); Verbal Response: oriented(1); Motor Response: obeys bp commands(2); Systolic BP: > 89 mm Hg(4); Respiratory Rate: 10 to 29 per min(4); [place] Score: 15; Trauma Score: 12 ED Course: 16:35 Patient arrived in ED. bp 16:36 Triage completed. bp 16:37 Patient has correct armband on for positive identification. Bed in low position. Call bp light in reach. Side rails up X2. Adult w/ patient. 16:37 Patient maintains SpO2 saturation greater than 95% on room air. Thermoregulation: warm bp blanket given to patient. 16:48 Cedric Burns MD is Attending Physician. rn 17:06 Satinder Farr, RN is Primary Nurse. bp 17:49 Inserted saline lock: 22 gauge in left antecubital area, using aseptic technique. bp 18:31 CT completed. Patient tolerated procedure well. Patient moved back from CT. bq 18:56 Tho Driver NP is PHCP. pm1 19:32 Primary Nurse role handed off by Satinder Farr, ROSA MARIA jb4 19:32 Fransico Ryan, RN is Primary Nurse. jb4 22:15 No provider procedures requiring assistance completed. Patient transferred, IV remains jb4 in place. Administered Medications: 17:49 Drug: Demerol 25 mg Route: IVP; Site: left antecubital; bp 17:49 Drug: Zofran 4 mg Route: IVP; Site: left antecubital; bp 19:33 Drug: Demerol 25 mg {Note: Rass score 0.} Route: IVP; Site: left antecubital; jb4 19:45 Follow up: Pain 4/10 Adult; Response: No adverse reaction; Pain is decreased; RASS: jb4 Alert and Calm (0) 21:25 Drug: Demerol 25 mg {Note: RASS SCORE 0.} Route: IVP; Site: left antecubital; jb4 21:45 Follow up: Response: No adverse reaction; Pain is decreased; RASS: Alert and Calm (0) jb Intake: 16:37 PO: 0ml; Total: 0ml. bp Output: 16:37 Urine: 0ml; Total: 0ml. bp Outcome: 19:25 ER care complete, transfer ordered by . pm1 22:15 Transferred by ground EMS to [facility], Transfer form jb4 completed. X-rays sent w/ patient. 22:15 Condition: stable 22:15 Discharge instructions given to patient, family, Instructed on the need for transfer, Demonstrated understanding of instructions. 22:15 Patient's length of stay in the Emergency Department was greater than 2 hours. Pt transferred.Patient's length of stay extended due to 22:16 Patient left the ED. jd3 Signatures: Venecia Peter Roman, MD MD rn Tho Driver NP SLOT TECHNICIAN pm1 Fransico Ryan, RN RN jb4 Alireza Sellers RN RN jd3 Satinder Farr RN RN bp
--- NOTE | 2019-12-13 19:28 | EDPHYS ---
Physician Documentation [facility] Name: Kailey Myles Age: 74 yrs Sex: Female : 1945 Arrival Date: 12/13/2019 Time: 16:35 Bed 6 Private MD: ED Physician Cedric Burns HPI: 12/13 18:19 This 74 yrs old Female presents to ER via EMS with complaints of Fall Injury. rn 18:19 Details of fall: The patient fell from an upright position, while standing. Onset: The rn symptoms/episode began/occurred today. Associated injuries: The patient sustained right hip. Severity of symptoms: At their worst the symptoms were moderate, in the emergency department the symptoms are unchanged. The patient has not experienced similar symptoms in the past. Reports fall from standing, hit right hip, + hurts and externally rotated. 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 Historical: - Allergies: 16:46 QUINOLONES; bp 16:46 THIAZIDES; bp 16:46 benzalkonium chloride; bp 16:46 Codeine; bp 16:46 PENICILLINS; bp 16:46 Lyrica; bp 16:46 BACITRACIN; bp 16:46 Bacitracin Zinc; bp 16:46 Levofloxacin; bp 16:46 Neomycin Sulfate; bp 16:46 polymyxin B; bp 16:46 pramoxine HCl; bp - Home Meds: 16:46 metoprolol tartrate 100 mg Oral tab 1 tab 2 times per day [Active]; topiramate 25 mg bp Oral tab 1 tabs 2 times per day [Active]; amlodipine-benazepril 10-40 mg Oral cap [Active]; atorvastatin 40 mg oral tab 1 tab once daily [Active]; nitrofurantoin macrocrystal 100 mg Oral cap 1 cap once daily [Active]; esomeprazole magnesium 40 mg Oral cpDR 1 cap once daily [Active]; lorazepam 1 mg Oral tab [Active]; - PMHx: 16:46 Anxiety; bells palsy; GERD; Hypertension; Hyperlipidemia; bp - Immunization history:: Adult Immunizations up to date. - Coronavirus screen:: The patient has NOT traveled to [place] in the past 14 days. The patient has NOT had contact with known/suspected case of Coronavirus?. - Social history:: Smoking status: Patient denies any tobacco usage or history of. - Family history:: not pertinent. - Ebola Screening: : No symptoms or risks identified at this time. - Hospitalizations: : No recent hospitalization is reported. ROS: 18:19 Constitutional: Negative for fever, chills, and weight loss, Eyes: Negative for injury, rn pain, redness, and discharge, Neck: Negative for injury, pain, and swelling, Cardiovascular: Negative for chest pain, palpitations, and edema, Respiratory: Negative for shortness of breath, cough, wheezing, and pleuritic chest pain, Abdomen/GI: Negative for abdominal pain, nausea, vomiting, diarrhea, and constipation, Back: Negative for injury and pain, MS/Extremity: + right hip pain Skin: Negative for injury, rash, and discoloration, Neuro: Negative for headache, weakness, numbness, tingling, and seizure. Exam: 18:19 Constitutional: This is a well developed, well nourished patient who is awake, alert, rn appears uncomfortable Head/Face: Normocephalic, atraumatic. Neck: No midline tenderness Chest/axilla: Normal chest wall appearance and motion. Nontender with no deformity. No lesions are appreciated. Cardiovascular: Regular rate and rhythm. No pulse deficits. Respiratory: No increased work of breathing, no retractions or nasal flaring. Abdomen/GI: soft, non-tender MS/ Extremity: Pulses equal, no cyanosis. + right hip and right groin tenderness, RLE externally rotated Neuro: Awake and alert, GCS 15, oriented to person, place, time, and situation. Vital Signs: 16:37 BP 124 / 58; Pulse 77; Resp 18; Temp 98; Pulse Ox 98% ; Weight 61.69 kg; Height 5 ft. 4 bp in. (162.56 cm); 17:52 BP 122 / 60; Pulse 77; Resp 16; Pulse Ox 100% ; bp 19:15 BP 126 / 61; Pulse 76; Resp 16; Pulse Ox 99% on R/A; jb4 19:45 Pain 4/10; jb4 20:00 BP 128 / 65; Pulse 77; Resp 18; Pulse Ox 99% on R/A; jb4 16:37 Body Mass Index 23.34 (61.69 kg, 162.56 cm) bp Chaim Coma Score: 16:37 Eye Response: spontaneous(4). Verbal Response: oriented(5). Motor Response: obeys bp commands(6). Total: 15. Trauma Score (Adult): 16:37 Eye Response: spontaneous(1); Verbal Response: oriented(1); Motor Response: obeys bp commands(2); Systolic BP: > 89 mm Hg(4); Respiratory Rate: 10 to 29 per min(4); Chaim Score: 15; Trauma Score: 12 MDM: 16:48 Patient medically screened. rn 19:21 Data reviewed: vital signs. Data interpreted: Pulse oximetry: on room air is 100 %. pm1 Interpretation: normal. Counseling: I had a detailed discussion with the patient and/or guardian regarding: the historical points, exam findings, and any diagnostic results supporting the discharge/admit diagnosis, radiology results, the need to transfer to another facility, [facility] does not immediately have the required specialist. 20:29 ED course: Patient accepted to [facility] without report by Dr Barcenas. pm1 12/13 16:59 Order name: XRAY Pelvis rn 12/13 16:59 Order name: XRAY Hip RIGHT 2 view rn 12/13 18:07 Order name: CT Pelvis wo Cont rn 12/13 21:12 Order name: CT; Complete Time: 21:17 EDMS 12/13 21:12 Order name: RAD; Complete Time: 21:17 EDMS 12/13 21:12 Order name: RAD; Complete Time: 21:17 EDDC 12/13 16:59 Order name: IV Start; Complete Time: 17:48 rn Administered Medications: 17:49 Drug: Demerol 25 mg Route: IVP; Site: left antecubital; bp 17:49 Drug: Zofran 4 mg Route: IVP; Site: left antecubital; bp 19:33 Drug: Demerol 25 mg {Note: Rass score 0.} Route: IVP; Site: left antecubital; jb4 19:45 Follow up: Pain 4/10 Adult; Response: No adverse reaction; Pain is decreased; RASS: jb4 Alert and Calm (0) 21:25 Drug: Demerol 25 mg {Note: RASS SCORE 0.} Route: IVP; Site: left antecubital; jb4 21:45 Follow up: Response: No adverse reaction; Pain is decreased; RASS: Alert and Calm (0) jb4 Disposition: 12/14 07:06 Co-signature as Attending Physician, Cedric Burns MD. rn Disposition: 12/13/19 19:25 [facility] Diagnosis is Fracture of other parts of pelvis - Multiple right sided pelvic fractures. - Reason for transfer: Specialty. - Accepting physician is [facility]. - Condition is Stable. - Problem is new. - Symptoms have improved. Signatures: Dispatcher [employer] EDMS Cedric Burns MD MD rn Tho Driver, RONIT [employer]SE INSPECTOR pm1 Fransico Ryan RN RN jb4 Alireza Sellers RN RN jSatinder Burnett RN RN bp Corrections: (The following items were deleted from the chart) 12/13 18:20 18:19 Constitutional: Negative for fever, chills, and weight loss, Eyes: Negative for rn injury, pain, redness, and discharge, Neck: Negative for injury, pain, and swelling, Cardiovascular: Negative for chest pain, palpitations, and edema, Respiratory: Negative for shortness of breath, cough, wheezing, and pleuritic chest pain, Abdomen/GI: Negative for abdominal pain, nausea, vomiting, diarrhea, and constipation, MS/Extremity: + right hip pain Skin: Negative for injury, rash, and discoloration, Neuro: Negative for headache, weakness, numbness, tingling, and seizure, rn 19:46 19:25 12/13/2019 19:25 Transfer ordered to [facility]. Diagnosis is Fracture of other pm1 parts of pelvis. Reason for transfer: Specialty. Accepting physician is [facility]. Condition is Stable. Problem is new. Symptoms have improved. pm1 22:16 19:46 12/13/2019 19:25 [facility]. Diagnosis is Fracture of other jd3 parts of pelvis - Multiple right sided pelvic fractures. Reason for transfer: Specialty. Accepting physician is [facility]. Condition is Stable. Problem is new. Symptoms have improved. pm1
[2019-12-13 22:57] VITALS: TEMP 98
[2019-12-13 22:58] VITALS: O2SAT 99
[2019-12-13 23:01] VITALS: BP 128/65
== END 2019-12-13 22:16 | disposition short-term general hospital (02) ==
LOC: ER 16:32
DX: S32.82XA Multiple fractures of pelvis without disruption of pelvic ring, initial encounter for closed fracture (principal); W18.30XA Fall on same level, unspecified, initial encounter; Y93.9 Activity, unspecified; Y92.019 Unspecified place in single-family (private) house as the place of occurrence of the external cause; K21.9 Gastro-esophageal reflux disease without esophagitis; I10 Essential (primary) hypertension; E78.5 Hyperlipidemia, unspecified
CPT/HCPCS: 72192; 72170; 73502; 96375; 96374; 99285; J2175 ×4; J2405

== ENCOUNTER 2021-01-19 13:23 | Emergency (ER) | payer OTHER ==
--- OUTSIDE RECORDS SUMMARY | 2021-01-19 13:31 | XMS REPORT | Continuity of Care Document ---
:1945 Author Organization [facility] t Address [address] [place] [address] [address] [place] [address] Care Team Providers Name Role Phone HILLARY MELGAR Primary Care Physician Unavailable Johnie POLLARD Attending Clinician Unavailable SYSTEM, NOT IN Attending Clinician Unavailable SHARMIN LUQUE Attending Clinician Unavailable JT Attending Clinician Unavailable Jt NOVA Attending Clinician Hillary Melgar MD Attending Clinician HILLARY MELGAR Attending Clinician Unavailable Kayla Finley Attending Clinician Lulu Dan Attending Clinician LULU FONSECA Attending Clinician Unavailable ALBERTO DAWSON Attending Clinician Unavailable Alberto Dawson MD Attending Clinician Ambrosio NOVA Attending Clinician Birdie CRANE L. Attending Clinician Unavailable PEDRITO Attending Clinician Unavailable Pedrito COTTRELL Attending Clinician SARA Attending Clinician Unavailable Sara NOVA Attending Clinician Dimitrios NOVA Attending Clinician Kayla GUY Attending Clinician Unavailable Gabriel NOVA Attending Clinician Mathieu CLIFFORD Attending Clinician Ines CRANE, R Attending Clinician Unavailable Myles NOVA Attending Clinician Yosi Marcial MA Attending Clinician Unavailable MYLES Attending Clinician Unavailable Jcarlos CRANE Attending Clinician Bradford PT, N Attending Clinician Unavailable Sridhar CRANE, A Attending Clinician Unavailable Christina COLIN-IRRIGATION TAX ASSESSOR COLLECTOR, M Attending Clinician Unavailable Sharmin Wong Attending Clinician Unavailable David CRANE, M Attending Clinician Unavailable ALBERTO DAWSON Admitting Clinician Unavailable Payers Payer Name Policy Type Policy Number Effective Date Expiration Date Jacinto pino MEDICARE PART A [id number] 2010 AND B 00:00:00 WALTER [id number] 2016 00:00:00 Problems Condition Condition Condition Status Onset Resolution Last Treating Co mments Source Name Details Category Date Date Treatment Clinician Date Neck pain Neck pain Disease Active MD 3-05 Anderso 00:00: n 00 Chronic Chronic Disease Active MD pain pain 3-05 Anderso 00:00: n 00 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 3-05 Anderso pain pain 00:00: n (acute) (acute) 00 (chronic) (chronic) Postoperat Postoperat Disease Active 2020-0 M D lisa lisa 07-13 Anderso hypothyroi hypothyroi 00:00: n dism dism 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 Overview: 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 current 07-08 Aspirin Anderso use of use of 00:00: 81 mg n anticoagul anticoagul 00 daily- ant ant last dose the 1st week of Jun 2020 H/O: hip H/O: hip Disease Active 0 Overview: fracture fracture 04-12 Right - Federico so 00:00: managed n 00 nonoperat ively Hypertensi Hypertensi Disease Active 2020-0 M D on on 04-12 Anderso 00:00: n 00 H/O Spinal H/O Spinal Disease Active 2019-0 Overview : surgery surgery 4-10 C4- C7 Anderso 00:00: n 00 Multiple Multiple Disease Active 2020-0 joint pain joint pain 4-10 An derso 00:00: n 00 History of History of Disease Active 2020-0 M D right right 4-10 Anderso mastectomy mastectomy 00:00: n 00 Ex-smoker Ex-smoker Disease Active 2020-0 MD 4-10 Anderso 00:00: n 00 H/O: H/O: Disease Active hysterecto hysterecto 4-10 An derso my my 00:00: n 00 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 00:00: automatic n 00 ally from request for surgery [id number] 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 00:00: n of of 00 overlappin overlappin g sites of g sites of right right female female breast breast Allergies, Adverse Reactions, Alerts Allergy Allergy Status Severity Reaction(s) Onset Inactive Treating Comm ents Source Name Type Date Date Clinician IODINATE Drug Active High Sob 2018-10 MD Porras Class 1-06 Anderso CONTRAST 00:00: n MEDIA 00 IODINATE Drug Active High Sob 2018-10 MD [place] Class 1-06 Anderso CONTRAST 00:00: n MEDIA 00 IODINATE Drug Active High Sob 2018-10 MD [place]ras Class 1-06 Anderso CONTRAST 00:00: n MEDIA 00 IODINATE Drug Active High Sob 2018-10 MD Porras Class 1-06 Anderso CONTRAST 00:00: n MEDIA 00 Family History Family Member Diagnosis Comments Start Date Stop Date Source Maternal uncle -Genitourinary (Bladder, MD Lopez Kidney, Prostate, Testicle) Maternal uncle -Thoracic or Lung MD Lopez Natural mother -Thoracic or Lung MD Lopez Social History Social Habit Start Date Stop Date Quantity Comments Source History of tobacco Current smoker MD Lopez use Sex Assigned At F MD Ayala on Cigarettes smoked 2020-08-25 2020-08-25 MD Arreola rselly current (pack per 00:00:00 00:00:00 day) - Reported Cigarette pack-years 2020-08-25 2020-08-25 MD Jett nderselly 00:00:00 00:00:00 Tobacco use and 2020-08-25 2020-08-25 Never used MD Ayala on exposure 00:00:00 00:00:00 Alcohol intake 2020-08-25 2020-08-25 Ex-drinker MD Buffy neumann 00:00:00 00:00:00 (finding) Smoking Status Start Date Stop Date Source Former smoker 2020-08-25 00:00:00 2020-08-25 00:00:00 Federico son Medications Ordered Filled Start Stop Current Ordering Indication Dosage Frequency Signature Comments Components Source Medication Medication Date Date Medication? Clinician (SIG) Name Name metoprolol Yes 100mg Take 100 MD tartrate 3-05 mg by Anderso (LOPRESSOR) 15:47: mouth n 100 mg 13 twice tablet daily. esomeprazol Yes 40mg Take 40 mg MD e (NexIUM) 3-05 by mouth Federico so 40 MG 15:47: daily. n capsule 13 atorvastati Yes 40mg Take 40 mg MD n (LIPITOR) 3-05 by mouth Maxwell rso 40 mg 15:47: daily. n tablet 13 topiramate Yes 100mg Take 100 MD (TOPAMAX) 3-05 mg by Anderso 100 mg 15:47: mouth n tablet 13 twice daily. anastrozole Yes 1mg Take 1 mg M D (ARIMIDEX) 3-05 by mouth Federico so 1 mg tablet 15:47: daily. n 13 DULoxetine Yes Neoplasm 1 in am MD (CYMBALTA) 2-05 related and and 2 A nderso 30 mg 00:00: pain in pm n capsule 00 (acute) (chronic) traMADol Yes Neoplasm 50mg Take 1 MD (ULTRAM) 50 2-05 related tablet (50 Anderso mg tablet 00:00: pain mg) by n 00 (acute) mouth (chronic) daily as needed for severe pain. DULoxetine 2019-10 No Neoplasm 30mg Take 1 MD (CYMBALTA) 2-04 02-05 related capsule An derso 30 mg 00:00: 00:00 pain (30 mg) by n capsule 00 :00 (acute) mouth (chronic) twice daily. levothyroxi 2019-10 Yes Postoperati 125ug Take 1 MD ne 0-19 ve tablet Anderso (SYNTHROID, 00:00: hypothyroid (125 mcg) n LEVOTHROID) 00 ism by mouth 125 mcg daily. tablet anastrozole 2019-10 Infiltratin 1mg Take 1 MD (ARIMIDEX) 0-13 01-12 g duct tablet (1 A nderso 1 mg tablet 00:00: 05:59 carcinoma mg) by n 00 :00 of mouth overlapping daily for sites of 90 days. right female breast levothyroxi 2019- No Papillary 125ug Take 1 MD ne 07-15 11 thyroid tablet Anderso (SYNTHROID, 00:00: 00:00 carcinoma (125 mcg) n LEVOTHROID) 00 :00 by mouth 125 mcg daily. tablet anastrozole 2019- No Infiltratin 1mg Take 1 MD (ARIMIDEX) 07-15 10-13 g duct tablet (1 A nderso 1 mg tablet 00:00: 00:00 carcinoma mg) by n 00 :00 of mouth overlapping daily for sites of 90 days. right female breast LORazepam 2019-2019- No 2mg Take 2 mg MD (ATIVAN) 1 07-14 by mouth Maxwell rso mg tablet 20:28: 00:00 nightly as n 11 :00 needed. aspirin 81 2019-2019- No 81mg Take 81 mg MD mg EC 07-14 by mouth Anderso tablet 20:28: 00:00 daily. n 11 :00 cranberry 2019-2019- No 1{tbl} Take 1 MD fruit 07-14 tablet by Anderso extract 20:28: 00:00 mouth n (THERACRAN 11 :00 daily. ORAL) biotin 2019- No 5000ug Take 5,000 MD 2,500 mcg 07-14 mcg by Anderso cap 20:28: 00:00 mouth n 11 :00 daily. cholecalcif 2019- No 4000U Take 4,000 MD stefan, 07-14 Units by Anderso vitamin D3, 20:28: 00:00 mouth n (VITAMIN 11 :00 daily. D3) 4,000 units tab tablet diphenhydrA 2019- No 25mg Take 25 mg MD MINE 07-14 by mouth Anderso (BenadryL) 20:28: 00:00 twice n 25 mg 11 :00 daily. capsule acetaminoph 2019- Yes Papillary 1000mg Take 2 MD en 07-14 thyroid tablets Anderso (TYLENOL) 00:00: carcinoma (1,000 mg) n 500 mg 00 by mouth tablet every 6 (six) hours as needed for mild pain. traMADol 2019-2019- No Papillary 50mg Take 1 M D (ULTRAM) 50 07-14 thyroid tablet (50 Anderso mg tablet 00:00: 00:00 carcinoma mg) by n 00 :00 mouth every 6 (six) hours as needed for moderate pain. benzocaine- 2019-2019- No Papillary 1{lozen Apply 1 MD menthol 07-14 thyroid ge} lozenge to An derso (CEPACOL) 00:00: 00:00 carcinoma the mouth n 15 mg-3.6 00 :00 or throat mg lozenge 3 (three) times a day as needed (sore Throat). docusate 2019-2019- No Papillary 100mg Take 1 MD sodium 07-14 thyroid capsule Jamie o (COLACE) 00:00: 00:00 carcinoma (100 mg) n 100 mg 00 :00 by mouth 2 capsule (two) times a day as needed for constipati on. phenol 2019-2019- No Papillary 3{spray Apply 3 MD (CHLORASEPT 07-14 thyroid } sprays to Anderso IC) 1.4% 00:00: 00:00 carcinoma the mouth n mucosal 00 :00 or throat spray every 2 (two) hours as needed for sore throat. diclofenac 2019-2019- No 100mg Take 100 M D sodium 100 07-09 09-18 mg by Anderso mg 24 hr 13:54: 00:00 mouth 3 n tablet 50 :00 (three) times a day. DULoxetine 2019- No Neoplasm 20mg Take 1 MD (CYMBALTA) 06-25 related capsule An derso 20 mg 00:00: 00:00 pain (20 mg) by n capsule 00 :00 (acute) mouth (chronic) twice daily. tretinoin 2019- No USE QD MD (ALTRALIN) 06-23 PRN. Anderso 0.05 % gel 00:00: 00:00 n 00 :00 diclofenac 2019-0 2019- No 50mg Take 50 mg MD sodium 8- 07-16 by mouth 3 Jamie o (VOLTAREN) 08:49: 00:00 (three) n 50 MG EC 16 :00 times a tablet day as needed. Saccharomyc 2019-0 2020- No 250mg Take 250 MD es 8-29 07-16 mg by Anderso boulardii 08:49: 00:00 mouth n (FLORASTOR) 16 :00 twice 250 mg daily. capsule torsemide 2019- No 20mg Take 20 mg M D (DEMADEX) 06-19 by mouth Federico so 20 mg 08:49: 00:00 daily. n tablet 16 :00 nitrofurant 2019-2019- No 100mg Take 100 MD oin 06-19 06-24 mg by Andjeff (MACRODANTI 08:49: 00:00 mouth at n N) 100 mg 16 :00 bedtime. capsule fexofenadin 2019- No 180mg Take 180 MD e (WILVER 06-19-24 mg by Anderso ALLERGY) 08:49: 00:00 mouth n 180 mg 16 :00 daily. tablet metoclopram 2019- No TK 3 T PO MD aakash 06-14 Anderso (REGLAN) 10 00:00: 00:00 DIRECTED n mg tablet 00 :00 anastrozole No Encounter 1mg Take 1 MD (ARIMIDEX) 05-06 for tablet (1 And erso 1 mg tablet 00:00: 00:00 follow-up mg) by n 00 :00 examination mouth after daily. completed treatment for malignant neoplasm DULoxetine 2019- No Neoplasm 20mg Take 1 MD (CYMBALTA) 04-28 related capsule An derso 20 mg 00:00: 00:00 pain (20 mg) by n capsule 00 :00 (acute) mouth (chronic) twice daily. Daily at bedtime for 2 weeks and then twice a day HYDROcodone No Infiltratin .5{tbl} Take 0.5-1 MD -acetaminop 03-22 g duct tablets by Buffy hen (NORCO) 00:00: 00:00 carcinoma mouth n 5 mg-325 mg 00 :00 of every 6 per tablet overlapping (six) sites of hours as right needed for female moderate breast pain or severe pain. Monitor for fever before taking. DULoxetine 2019- No Neoplasm 20mg Take 1 MD (CYMBALTA) 03-15 related capsule An derso 20 mg 00:00: 00:00 pain (20 mg) by n capsule 00 :00 (acute) mouth (chronic) twice daily. Daily at bedtime for 2 weeks and then twice a day methylPREDN Infiltratin Take as MD ISolone 5-22 09-04 g duct directed Federico so (MEDROL 00:00: 00:00 carcinoma (Direction n DOSEPACK) 4 00 :00 of s on mg tablet overlapping blister sites of pack) right female breast hydroxyzine Itching 25mg Take 1 MD HCl 3-30 09-18 tablet (25 Anderso (ATARAX) 25 00:00: 00:00 mg) by n mg tablet 00 :00 mouth every 8 (eight) hours as needed for itching. senna No Constipatio 1{tbl} Take 1 MD (SENOKOT) 3-26 09-04 n, not tablet by An derso 8.6 mg 00:00: 00:00 otherwise mouth 2 n tablet 00 :00 specified (two) times a day as needed for constipati on. polyethylen 17g Take 17 g MD e glycol 3-13 07-16 by mouth Jamie o (MIRALAX) 00:00: 00:00 as needed. n 17 g packet 00 :00 exemestane Infiltratin 25mg Take 1 MD (AROMASIN) 3-09 06-08 g duct tablet (25 Anderso 25 mg 00:00: 04:59 carcinoma mg) by n tablet 00 :00 of mouth overlapping daily for sites of 90 days. right female breast traMADol Infiltratin TAKE 1 MD (ULTRAM) 50 2-10 05-25 g duct TABLET BY Anderso mg tablet 00:00: 00:00 carcinoma MOUTH n 00 :00 of EVERY 6 overlapping HOURS sites of NEEDED FOR right MODERATE female PAIN breast HYDROcodone 2018-10 Infiltratin 1{tbl} Take 1 MD -acetaminop 2-31 06-01 g duct tablet by Anderso hen (NORCO) 00:00: 00:00 carcinoma mouth n 5 mg-325 mg 00 :00 of every 6 per tablet overlapping (six) sites of hours as right needed for female moderate breast pain or severe pain. Monitor for fever before taking. ferrous 2018-10- TK 1 T PO MD sulfate 325 2-05 05-18 WITH Anderso mg (65 mg 00:00: 00:00 BREAKFAST n elemental 00 :00 iron per tablet) tablet amLODIPine- 2018-10 Yes Infiltratin 1{capsu Take 1 MD benazepril 0-14 g duct le} capsule by A leroy (LOTREL) 10 00:00: carcinoma mouth n mg-40 mg 00 of daily. per capsule overlapping sites of right female breast topiramate 2018-10 2020- No Infiltratin 75mg Take 3 (TOPAMAX) 0-14 09-04 g duct capsules And erso 25 MG 00:00: 00:00 carcinoma (75 mg) by n capsule 00 :00 of mouth overlapping twice sites of daily. right female breast Immunizations Ordered Immunization Filled Immunization Date Status Commen ts Source Name Name Influenza, 2020-08-10 Completed MD Lopez Unspecified 00:00:00 Influenza, 2019-08-27 Completed MD Lopez Quadrivalent 00:00:00 Td 2019-03-05 Completed MD Lopez 00:00:00 Pneumococcal 2018-08-13 Completed MD Lopez Conjugate 13-Valent 00:00:00 Vital Signs Vital Name Observation Time Observation Value Comments Source WEIGHT 2020-11-25 08:34:00 57.8 kg WEIGHT 2020-11-25 08:34:00 57.8 kg WEIGHT 2020-09-22 11:48:34 60.1 kg WEIGHT 2020-09-22 11:48:34 60.1 kg WEIGHT 2020-09-21 08:28:16 60.3 kg WEIGHT 2020-09-21 08:28:16 60.3 kg WEIGHT 2020-09-20 09:07:00 60.4 kg WEIGHT 2020-09-20 09:07:00 60.4 kg WEIGHT 2020-08-25 11:39:50 60.1 kg WEIGHT 2020-08-25 11:39:50 60.1 kg WEIGHT 2020-08-02 08:40:00 58.5 kg WEIGHT 2020-08-02 08:40:00 58.5 kg HEIGHT 2020-07-13 20:40:17 161.5 cm WEIGHT 2020-07-13 20:40:17 57.8 kg HEIGHT 2020-07-13 20:40:17 161.5 cm WEIGHT 2020-07-13 20:40:17 57.8 kg WEIGHT 2020-07-09 08:04:51 57.8 kg WEIGHT 2020-07-09 08:04:51 57.8 kg WEIGHT 2020-07-08 10:31:34 57.6 kg WEIGHT 2020-07-08 10:31:34 57.6 kg WEIGHT 2020-05-06 09:42:00 54.8 kg WEIGHT 2020-05-06 09:42:00 54.8 kg WEIGHT 2020-04-14 00:00:00 54.1 kg WEIGHT 2020-04-14 00:00:00 54.1 kg Body weight 2020-11-25 14:34:00 57.8 kg MD Federico agee BMI 2020-11-25 14:34:00 22.16 kg/m2 MD Federico agee Systolic blood pressure 2020-11-25 14:32:56 134 mm[Hg] MD Lopez Diastolic blood pressure 2020-11-25 14:32:56 62 mm[Hg] MD Lopez Heart rate 2020-11-25 14:32:56 69 /min MD Federico agee Body temperature 2020-11-25 14:32:56 36.72 Pari MD Johnie garay Respiratory rate 2020-11-25 14:32:56 20 /min MD Johnie garay Oxygen saturation in 2020-11-25 14:32:56 96 /min MD Lopez Arterial blood by Pulse oximetry Body height 2020-07-14 01:40:17 161.5 cm MD Federico agee Procedures Procedure Date / Time Performing Clinician Source Performed URINE CULTURE 2020-11-25 18:25:00 Georgina Fonseca MD URINALYSIS WITH MICROSCOPIC IF 2020-11-25 18:25:00 Nette Fonseca MD INDICATED XR CHEST 2 VW 2020-11-25 17:21:58 Georgina Fonseca MD Maxwell rson US HEAD NECK SOFT TISSUE 2020-11-25 16:31:48 Chelly Dawson MD FREE THYROXINE 2020-11-25 14:24:00 Chelly Dawson MD Maxwell rselly THYROID STIMULATING HORMONE 2020-11-25 14:24:00 Chelly Dawson Ba, MD THYROGLOBULIN ANTIBODY 2020-11-25 14:24:00 Keon Llanos MD COMPLETE BLOOD COUNT W/ 2020-11-25 14:24:00 Georgina Fonseca MD DIFFERENTIAL COMPREHENSIVE METABOLIC PANEL 2020-11-25 14:24:00 Georgina Fonseca MD LACTATE DEHYDROGENASE 2020-11-25 14:24:00 Georgina Fonseca MAGNESIUM LEVEL 2020-11-25 14:24:00 Georgina Fonseca MD Maxwell rson PHOSPHORUS LEVEL 2020-11-25 14:24:00 Georgina Fonseca MD And erson URIC ACID 2020-11-25 14:24:00 Georgina Fonseca MD Maxwell rson VITAMIN D 25 HYDROXY LEVEL 2020-11-25 14:24:00 Georgina Fonseca MD PTH INTACT 2020-11-25 14:24:00 Jessie Guy MD Maxwell rson Results CBC 2020-11-25 14:24:00 Georgina Fonseca MD Maxwell rson MANUAL DIFFERENTIAL 2020-11-25 14:24:00 Georgina Fonseca MD GLUCOSE LEVEL 2020-11-25 14:24:00 Georgina Fonseca MD Maxwell rson BLOOD UREA NITROGEN 2020-11-25 14:24:00 Georgina Fonseca MD ELECTROLYTE PANEL 2020-11-25 14:24:00 Georgina Fonseca MD SERUM CREATININE 2020-11-25 14:24:00 Georgina Fonseca MD And erson .GLOMERULAR FILTRATION RATE 2020-11-25 14:24:00 Georgina Fonseca MD CALCIUM LEVEL TOTAL 2020-11-25 14:24:00 Georgina Fonseca MD ALBUMIN LEVEL 2020-11-25 14:24:00 Georgina Fonseca MD Maxwell rson ALKALINE PHOSPHATASE 2020-11-25 14:24:00 Georgina Fonseca MD ALANINE AMINOTRANSFERASE 2020-11-25 14:24:00 Georgina Fonseca MD ASPARTATE AMINOTRANSFERASE 2020-11-25 14:24:00 Georgina Fonseca MD TOTAL PROTEIN 2020-11-25 14:24:00 Georgina Fonseca MD Maxwell rson FRACTIONATED BILIRUBIN 2020-11-25 14:24:00 Georgina Fonseca MD NM POST I131 ABLATION SCAN 2020-09-28 18:55:18 Karl Llanos MD NM THYROID CA ABLATION [place] 2020-09-22 23:58:56 Keon Llanos MD NM THYROID WB DIAGNOSTIC 2020-09-22 16:43:56 Mimi Aguilar MD THYROID STIMULATING HORMONE 2020-09-22 15:24:00 Mimi Aguilar MD THYROGLOBULIN ANTIBODY 2020-09-22 15:24:00 Mimi Aguilar MD derson THYROID STIMULATING HORMONE 2020-09-20 14:28:00 Mimi Aguilar MD FREE THYROXINE 2020-09-20 14:28:00 Mimi Aguilar MD THYROGLOBULIN ANTIBODY 2020-09-20 14:28:00 Mimi Aguilar MD derson THYROID STIMULATING HORMONE 2020-08-25 16:19:00 Daniel Llanos MD THYROGLOBULIN ANTIBODY 2020-08-25 16:19:00 Keon Llanos MD FREE THYROXINE 2020-08-25 16:19:00 Keon Llanos MD on CALCIUM LEVEL TOTAL 2020-08-25 16:19:00 Jessie Guy MD PTH INTACT 2020-08-25 16:19:00 Jessie Guy MD rselly COMPLETE BLOOD COUNT W/ 2020-08-02 13:13:00 Brittni Aranda DIFFERENTIAL COMPREHENSIVE METABOLIC PANEL 2020-08-02 13:13:00 Lyndsey Aranda MD MAGNESIUM LEVEL 2020-08-02 13:13:00 Brittni Aranda MD on PHOSPHORUS LEVEL 2020-08-02 13:13:00 Brittni Aranda MD son LACTATE DEHYDROGENASE 2020-08-02 13:13:00 Brittni Aranda MD VITAMIN D 25 HYDROXY LEVEL 2020-08-02 13:13:00 Kyra Aranda Results CBC 2020-08-02 13:13:00 Brittni Aranda MD on MANUAL DIFFERENTIAL 2020-08-02 13:13:00 Brittni Aranda MDson GLUCOSE LEVEL 2020-08-02 13:13:00 Brittni Aranda MD on BLOOD UREA NITROGEN 2020-08-02 13:13:00 Brittni Aranda MD ELECTROLYTE PANEL 2020-08-02 13:13:00 Brittni Aranda MD Maxwell rson SERUM CREATININE 2020-08-02 13:13:00 Brittni Aranda MD Federico son .GLOMERULAR FILTRATION RATE 2020-08-02 13:13:00 Aida Aranda MD CALCIUM LEVEL TOTAL 2020-08-02 13:13:00 Brittni Aranda MD ALBUMIN LEVEL 2020-08-02 13:13:00 Brittni Aranda MD Jamie on ALKALINE PHOSPHATASE 2020-08-02 13:13:00 Brittni Aranda MD nderselly ALANINE AMINOTRANSFERASE 2020-08-02 13:13:00 Brittni Aranda MD ASPARTATE AMINOTRANSFERASE 2020-08-02 13:13:00 Kyra Aranda TOTAL PROTEIN 2020-08-02 13:13:00 Brittni Aranda MD Jamie on FRACTIONATED BILIRUBIN 2020-08-02 13:13:00 Brittni Aranda MD AP IHC BRAF [id number] 2020-07-14 17:38:39 Keon Llanos MD Maxwell rson PHOSPHORUS LEVEL 2020-07-14 15:48:00 Olivia Garcia MD And erson MAGNESIUM LEVEL 2020-07-14 15:48:00 Olivia Garcia MD Maxwell rson CALCIUM LEVEL TOTAL 2020-07-14 12:50:00 Chelly Dawson MD PTH INTACT 2020-07-14 12:50:00 Chelly Dawson MD Maxwell rson PTH INTACT 2020-07-13 23:06:00 Chelly Dawson MD Maxwell rson CALCIUM LEVEL TOTAL 2020-07-13 23:06:00 Chelly Dawson MD PTH INTACT 2020-07-13 21:23:00 Chelly Dawson MD Maxwell rson CALCIUM LEVEL TOTAL 2020-07-13 21:23:00 Chelly Dawson MD PATHOLOGY SURGICAL 2020-07-13 18:54:18 Chelly Dawson MD nderson INTERPRETATION TOTAL OR COMPLETE 2020-07-13 15:56:00 Chelly Dawson MD THYROIDECTOMY AUTOTRANSPLANTATION OF 2020-07-13 15:56:00 Chelly Dawson MD PARATHYROID TYPE AND SCREEN 2020-07-13 15:28:00 Marysol Bustillo MD ABORH 2020-07-13 15:28:00 Marysol Bustillo MD ANTIBODY SCREEN 2020-07-13 15:28:00 Marysol Bustillo MD CLOT EXPIRATION DATE 2020-07-13 15:28:00 Marysol Bustillo MD And erson TMP INTERPRETATION ANTIBODY 2020-07-13 15:28:00 Marysol Bustillo MD SCREEN NEGATIVE HC 2018-NCOV COVID-19 2020-07-09 15:13:00 Chelly Dawson TYPE AND SCREEN 2020-07-09 14:27:00 Lashell Bueno MD Anderso n ABORH 2020-07-09 14:27:00 Lashell Bueno MD Anderso n ANTIBODY SCREEN 2020-07-09 14:27:00 Lashell Bueno MD Anderso n CLOT EXPIRATION DATE 2020-07-09 14:27:00 Lashell Bueno MD EKG, 12-LEAD (SCHEDULED) 2020-07-09 00:00:00 Jessie Guy MD COMPLETE BLOOD COUNT W/ 2020-07-07 15:46:00 Chelly Dawson MD INDICES COMPREHENSIVE METABOLIC PANEL 2020-07-07 15:46:00 Chelly Dawson MD PROTHROMBIN TIME 2020-07-07 15:46:00 Chelly Dawson MD And erson THYROID STIMULATING HORMONE 2020-07-07 15:46:00 Chelly Dawson Ba, MD FREE THYROXINE 2020-07-07 15:46:00 Chelly Dawson MD Maxwell rselly GLUCOSE LEVEL 2020-07-07 15:46:00 Chelly Dawson MD Maxwell rselly ELECTROLYTE PANEL 2020-07-07 15:46:00 Chelly Dawson MD SERUM CREATININE 2020-07-07 15:46:00 Chelly Dawson MD And erson .GLOMERULAR FILTRATION RATE 2020-07-07 15:46:00 Chelly Dawson Ba, MD CALCIUM LEVEL TOTAL 2020-07-07 15:46:00 Chelly Dawson MD ALBUMIN LEVEL 2020-07-07 15:46:00 Chelly Dawson MD Maxwell rson ALKALINE PHOSPHATASE 2020-07-07 15:46:00 Chelly Dawson MD ALANINE AMINOTRANSFERASE 2020-07-07 15:46:00 Chelly Dawson MD ASPARTATE AMINOTRANSFERASE 2020-07-07 15:46:00 Chelly Dawson MD TOTAL PROTEIN 2020-07-07 15:46:00 Chelly Dawson MD Maxwell rson FRACTIONATED BILIRUBIN 2020-07-07 15:46:00 Chelly Dawson MD BLOOD UREA NITROGEN 2020-07-07 15:46:00 Chelly Dawson MD COMPLETE BLOOD COUNT W/ 2020-05-06 14:30:00 Georgina Fonseca MD DIFFERENTIAL COMPREHENSIVE METABOLIC PANEL 2020-05-06 14:30:00 Georgina Fonseca MD LACTATE DEHYDROGENASE 2020-05-06 14:30:00 Georgina Fonseca MAGNESIUM LEVEL 2020-05-06 14:30:00 Georgina Fonseca MD Maxwell rson PHOSPHORUS LEVEL 2020-05-06 14:30:00 Georgina Fonseca MD And erson URIC ACID 2020-05-06 14:30:00 Georgina Fonseca MD Maxwell rson VITAMIN D 25 HYDROXY LEVEL 2020-05-06 14:30:00 Georgina Fonseca MD Results CBC 2020-05-06 14:30:00 Georgina Fonseca MD Maxwell rson MANUAL DIFFERENTIAL 2020-05-06 14:30:00 Georgina Fonseca MD GLUCOSE LEVEL 2020-05-06 14:30:00 Georgina Fonseca MD Maxwell rson ELECTROLYTE PANEL 2020-05-06 14:30:00 Georgina Fonseca MD SERUM CREATININE 2020-05-06 14:30:00 Georgina Fonseca MD And erson .GLOMERULAR FILTRATION RATE 2020-05-06 14:30:00 Georgina Fonseca MD CALCIUM LEVEL TOTAL 2020-05-06 14:30:00 Georgina Fonseca MD ALBUMIN LEVEL 2020-05-06 14:30:00 Georgina Fonseca MD Maxwell rson ALKALINE PHOSPHATASE 2020-05-06 14:30:00 Georgina Fonseca MD ALANINE AMINOTRANSFERASE 2020-05-06 14:30:00 Georgina Fonseca MD ASPARTATE AMINOTRANSFERASE 2020-05-06 14:30:00 Georgina Fonseca MD TOTAL PROTEIN 2020-05-06 14:30:00 Georgina Fonseca MD Maxwell rson FRACTIONATED BILIRUBIN 2020-05-06 14:30:00 Georgina Fonseca MD BLOOD UREA NITROGEN 2020-05-06 14:30:00 Georgina Fonseca MD OSI BONE DENSITY STUDY 2020-05-05 21:11:45 Brittni Aranda MD OSI BONE DENSITY STUDY 2020-05-05 21:11:25 Brittni Aranda MD BASIC METABOLIC PANEL, CALCIUM 2020-04-14 14:15:00 Allan Guy MD TOTAL COMPLETE BLOOD COUNT W/ 2020-04-14 14:15:00 Jessie Guy MD INDICES HEMOGLOBIN A1C 2020-04-14 14:15:00 Jessie Guy MD Maxwell rson PROTHROMBIN TIME 2020-04-14 14:15:00 Jessie Guy MD And erson GLUCOSE LEVEL 2020-04-14 14:15:00 Jessie Guy MD Maxwell rson BLOOD UREA NITROGEN 2020-04-14 14:15:00 Jessie Guy MD ELECTROLYTE PANEL 2020-04-14 14:15:00 Jessie Guy MDson SERUM CREATININE 2020-04-14 14:15:00 Jessie Guy MD And erson .GLOMERULAR FILTRATION RATE 2020-04-14 14:15:00 Andrzej Guy MD CALCIUM LEVEL TOTAL 2020-04-14 14:15:00 Jessie Guy MD FLEXIBLE NASOPHARYNGEAL 2020-04-14 14:00:00 Radha Vasquez MD nderson LARYNGOSCOPY EKG, 12-LEAD (SCHEDULED) 2020-04-14 00:00:00 Jessie Guy MD COVID-19 (SARS-COV-2) 2020-04-12 15:21:00 Stephani Hernandez MD nderselly PCR-ASYMPTOMATIC MC XR CHEST 2 VW 2020-04-08 19:08:40 Jessie Guy MD Maxwell rson US HEAD NECK SOFT TISSUE 2020-04-07 18:50:59 Chelly Dawson MD CONTROLLED SUBSTANCE 2020-03-15 17:54:00 MD Maxwell Waters rselly MONITORING PANEL, [facility] UR[facility] DRUG SCREEN PANEL, 2020-03-15 17:54:00 MD John Waters [facility] for special care VITAMIN D 25 HYDROXY LEVEL 2020-03-08 18:16:00 Kyra Aranda COMPLETE BLOOD COUNT W/ 2020-03-08 18:16:00 Brittni Aranda DIFFERENTIAL COMPREHENSIVE METABOLIC PANEL 2020-03-08 18:16:00 Lyndsey Aranda MD MAGNESIUM LEVEL 2020-03-08 18:16:00 Brittni Arandaers on PHOSPHORUS LEVEL 2020-03-08 18:16:00 Brittni Aranda MD Federico son LACTATE DEHYDROGENASE 2020-03-08 18:16:00 Brittni Aranda MD FOLATE LEVEL 2020-03-08 18:16:00 Brittni Aranda MD on VITAMIN B12 LEVEL 2020-03-08 18:16:00 Brittni Aranda MD rson TRANSFERRIN 2020-03-08 18:16:00 Brittni Aranda MD Jamie on FERRITIN LVL 2020-03-08 18:16:00 Brittni Aranda MD Jamie on IRON LEVEL 2020-03-08 18:16:00 Brittni Aranda MD Jamie on CARDIAC PANEL 2020-03-08 18:16:00 Brittni Aranda MD Jamie on ALDOLASE 2020-03-08 18:16:00 Brittni Aranda MD Jamie on Results CBC 2020-03-08 18:16:00 Brittni Aranda MD Jamie on MANUAL DIFFERENTIAL 2020-03-08 18:16:00 Brittni Aranda MDson GLUCOSE LEVEL 2020-03-08 18:16:00 Brittni Aranda MD on BLOOD UREA NITROGEN 2020-03-08 18:16:00 Brittni Aranda MD ELECTROLYTE PANEL 2020-03-08 18:16:00 Brittni Aranda MD rson SERUM CREATININE 2020-03-08 18:16:00 Brittni Aranda MD Federico son .GLOMERULAR FILTRATION RATE 2020-03-08 18:16:00 Aida Aranda MD CALCIUM LEVEL TOTAL 2020-03-08 18:16:00 Brittni Aranda MD ALBUMIN LEVEL 2020-03-08 18:16:00 Brittni Aranda MD on ALKALINE PHOSPHATASE 2020-03-08 18:16:00 Brittni Aranda MD nderselly ALANINE AMINOTRANSFERASE 2020-03-08 18:16:00 Brittni Aranda MD ASPARTATE AMINOTRANSFERASE 2020-03-08 18:16:00 Kyra Aranda TOTAL PROTEIN 2020-03-08 18:16:00 Brittni Aranda MD on FRACTIONATED BILIRUBIN 2020-03-08 18:16:00 Brittni Aranda MD .DR. HURTADO PROT ELEC PATH 2020-03-08 18:16:00 Pari Aranda MD REVIEW Encounters Start End Encounter Admission Attending Care Care Encounter Source Date/Time Date/Time Type Type Clinicians Facility Department ID 2020-04-28 Outpatient TIM POLLARD MDA [id number] 12:56:35 JAEL neumann 2020-04-21 Outpatient KAY MDA MDA [id number] 13:03:31 PROVIDER Jamie neumann 2020-04-14 Outpatient ENE MDA MDA [id number] 11:42:52 MALLORIE neumann 2020-12-24 2020-12-24 Outpatient YAN CLARK MDA MDA [id number] 09:56:28 11:50:10 Jamie Jett I 2020-12-07 2020-12-07 Outpatient HILLARY MELGAR MDA MDA [id number] 15:17:58 15:17:58 BRITTNI neumann 2020-12-07 2020-12-07 Outpatient THORNTON TALIA, MDA MDA [id number] 15:17:57 15:17:57 BRITTNI neumann 2020-11-26 2020-11-26 Outpatient EL HELENUNT MDA MDA [id number] 14:54:45 14:54:45 Jamie Jett n I 2020-11-25 2020-11-25 Outpatient YAN FONSECA, MDA MDA [id number] 12:13:10 12:15:09 GEORGINA neumann 2020-11-25 2020-11-25 Outpatient YAN DAWSON, MDA MDA [id number] 11:02:34 11:59:45 CHELLY neumann 2020-11-25 2020-11-25 Outpatient YAN FONSECA, MDA MDA [id number] MD 10:38:27 10:38:27 GEORGINA neumann 2020-11-25 2020-11-25 Outpatient EL HILLARY MELGAR, MDA MDA [id number] 08:28:59 10:03:22 BRITTNI neumann 2020-11-25 2020-11-25 Outpatient YAN DAWSON, MDA MDA [id number] 09:52:42 09:52:42 CHELLY neumann 2020-11-25 2020-11-25 Outpatient YAN FONSECA, MDA MDA [id number] 08:11:41 08:15:38 GEORGINA neumann 2020-09-28 2020-09-28 Outpatient EL MDA MDA [id number] 11:11:08 11:11:08 Jamie neumann 2020-09-24 2020-09-24 Outpatient EL AMBER MDA MDA [id number] 13:36:02 13:36:02 AJamie I 2020-09-22 2020-09-22 Outpatient EL PEDRITO, MDA MDA [id number] 07:45:00 23:59:00 MIMI neumann 2020-09-22 2020-09-22 Outpatient EL MDA MDA [id number] 15:15:51 15:15:51 Jamie neumann 2020-09-22 2020-09-22 Outpatient EL SARA, MDA MDA [id number] 11:44:14 13:22:03 KEON neumann 2020-09-22 2020-09-22 Outpatient EL PEDRITO, MDA MDA [id number] 09:31:51 09:31:51 MIMI neumann 2020-09-21 2020-09-21 Outpatient EL PEDRITO, MDA MDA [id number] 12:08:23 12:08:23 MIMI neumann 2020-09-21 2020-09-21 Outpatient EL PEDRITO, MDA MDA [id number] 08:10:35 09:15:00 MIMI neumann 2020-09-20 2020-09-20 Outpatient EL PEDRITO, MDA MDA [id number] 08:29:58 09:39:03 MIMI neumann 2020-09-20 2020-09-20 Outpatient EL PEDRITO, MDA MDA [id number] 08:05:11 08:18:31 MIMI neumann 2020-08-25 2020-08-25 Outpatient EL CAMILLE, MDA MDA [id number] 09:53:54 23:59:00 JESSIE neumann 2020-08-25 2020-08-25 Outpatient EL SARA, MDA MDA [id number] 11:31:23 14:08:31 KEON neumann 2020-08-06 2020-08-06 Outpatient EL THORNTON TALIA, MDA MDA [id number] 00:00:00 00:00:00 BRITTNI neumann 2020-08-06 2020-08-06 Outpatient EL THORNTON TALIA, MDA MDA [id number] 00:00:00 00:00:00 BRITTNI neumann 2020-08-02 2020-08-02 Outpatient EL THORNTON TALIA, MDA MDA [id number] 08:15:48 09:50:09 BRITTNI neumann 2020-08-02 2020-08-02 Outpatient EL THORNTON TALIA, MDA MDA [id number] 08:01:45 08:06:04 BRITTNI neumann 2020-07-13 2020-07-14 Outpatient YAN DAWSON, MDA Oliver Endo [id number] 08:49:00 15:28:00 CHELLY neumann 2020-07-12 2020-07-12 Outpatient YAN DAWSON, MDA MDA [id number] MD 00:00:00 00:00:00 CHELLY Benitezers o nel 2020-07-10 2020-07-10 Outpatient YAN DAWSON, MDA MDA [id number] MD 00:00:00 00:00:00 CHELLYANIL Benitezers o nel 2020-07-09 2020-07-09 Outpatient EL [place], MDA MDA [id number] MD 09:02:05 23:59:00 JESSIE Federicodaxa neumann 2020-07-09 2020-07-09 Outpatient YAN DAWSON, MDA MDA [id number] MD 10:00:52 14:11:43 CHELLY Benitezrenny neumann 2020-07-09 2020-07-09 Outpatient YAN DAWSON, MDA MDA [id number] MD 08:00:49 09:15:48 CHELLY Jamierenny neumann 2020-07-09 2020-07-09 Outpatient YAN BUENO, MDA MDA [id number] 09:01:48 09:01:48 LASHELL neumann 2020-07-08 2020-07-08 Outpatient YAN DAWSON, MDA MDA [id number] MD 10:24:34 11:56:20 CHELLY Benitezrenny neumann 2020-07-08 2020-07-08 Outpatient YAN DAWSON, MDA MDA [id number] MD 00:00:00 00:00:00 CHELLY Jamierenny neumann 2020-07-07 2020-07-07 Outpatient YAN DAWSON, MDA MDA [id number] MD 10:13:57 10:24:39 CHELLY Ayala o nel 2020-06-25 2020-06-25 Outpatient EL KOYYALAGUNT MDA MDA [id number] 09:14:42 09:59:46 AJamie I 2020-05-26 2020-05-26 Outpatient EL CAMILLE, MDA MDA [id number] 00:00:00 00:00:00 JESSIE neumann 2020-05-20 2020-05-20 Outpatient KOYYALAGUNT MDA MDA [id number] 00:00:00 00:00:00 Jamie Jett I 2020-05-17 2020-05-17 Outpatient KOYYALAGUNT MDA MDA [id number] 00:00:00 00:00:00 Jamie Jett I 2020-05-13 2020-05-13 Outpatient KOYYALAGUNT MDA MDA [id number] 00:00:00 00:00:00 A, Jamie neumann I 2020-05-10 2020-05-10 Outpatient EL KOYYALAGUNT MDA MDA [id number] 10:34:48 10:34:48 A, Jamie neumann I 2020-05-06 2020-05-06 [facility] MDA [id number] MD 09:32:05 11:03:42 BRITTNI neumann 2020-05-06 2020-05-06 Outpatient EL FONSECA, MDA MDA [id number] MD 08:56:21 09:14:40 GEORGINA neumann 2020-04-28 2020-04-29 Outpatient EL KOYYALAGUNT MDA MDA [id number] 14:31:58 14:14:10 A, Jamie neumann I 2020-04-28 2020-04-28 Outpatient EL KOYYALAGUNT MDA MDA [id number] 00:00:00 00:00:00 A, Jamie neumann I 2020-04-19 2020-04-19 Outpatient [place], MDA MDA [id number] 00:00:00 00:00:00 JESSIE Caballero so nel 2020-04-18 2020-04-18 Outpatient [place], MDA MDA [id number] 00:00:00 00:00:00 JESSIE Caballero so nel 2020-04-14 2020-04-14 Outpatient EL [place], MDA MDA [id number] 09:00:00 23:59:00 JESSIE Benitezer so nel 2020-04-14 2020-04-14 Outpatient [place], MDA MDA [id number] 09:55:41 11:48:03 JESSIE Caballero so n 2020-04-14 2020-04-14 Outpatient [place], MDA MDA [id number] 08:45:00 08:59:00 JESSIE Caballero so nel 2020-04-14 2020-04-14 Outpatient [place], MDA MDA [id number] 08:18:55 08:44:00 JESSIE Federico so n Results Test Description Test Time Test Comments Results Result Sour e Comments OSI Bone Density 2020-11-[address] [facility] Study 6 another institution. 22:11:48 For comparison only. No MD Lopez originated interpretation requested or available. US Head Neck Status post MD Lopez Soft Tissue 4 thyroidectomy. No 18:09:05 suspicious nodularity in the surgical bed to suggest recurrence. No suspicious cervical lymph nodes. Interface, Radiology Results In - 11/25/2020 12:11 PM CSTFULL RESULT:EXAMINATION: US HEAD NECK SOFT TISSUE on 11/25/2020 10:31 AMCOMPARISON: 04/07/2020HISTORY: Thyroid noduleMultinodular goiterINDICATION: Palpable NodulesTECHNIQUE: Real-time sonography was performed through the neck. Grayscale and color Doppler technique were utilized.FINDINGS: Post-thyroidectomy changes are noted. No suspicious nodularity is noted in the thyroidectomy bed.Identified lymph nodes within the neck demonstrate normal reniform morphology and typical appearing fatty augusot. Individually identified lymph nodes are not enlarged. There is no increased Doppler flow.IMPRESSION:Status post thyroidectomy. No suspicious nodularity in the surgical bed to suggest recurrence. No suspicious cervical lymph nodes. X-ray Chest 2 No evidence of MD Arreola rson Views 4 metastatic disease. 17:27:29 Interface, Radiology Results In 11/25/2020 11:29 AM CSTFULL RESULT:Examination: Chest, 2 views, 11/25/2020 11:21 AMClinical History: 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Shortness of breathIndication: Shortness of BreathComparison: 04/08/2020Technique: Posteroanterior, lateral, and dual-energy radiographs of the chest.Findings:The lungs are clear. No mediastinal or hilar adenopathy. No pleural effusions. Spinal fixation is seen in the cervical spine.IMPRESSION:No evidence of metastatic disease. NM Thyroid Post Similar appearance of MD Lopez I-131 Ablation 8 radioactive iodine avid Scan 21:33:00 tissue in the neck with no new lesions. Interface, Radiology Results In - 09/28/2020 3:35 PM CSTFULL RESULT:Examination: I-131 Post-Therapy Scan, 09/28/2020 12:55 PMClinical History: 75-year-old female with papillary thyroid carcinoma status post total thyroidectomy in June 2020.Indication: Diagnostic thyroid scan dated 09/22/2020Comparison: Diagnostic thyroid scan dated 09/22/2020, ultrasound neck dated 04/07/2020.Technique: Anterior and posterior planar whole body images as well as spot views of the neck were obtained 6 days following the ingestion of a therapeutic dose of I-131 sodium iodide, 102 mCi. Findings: Redemonstrated is at least 2 sites of focal activity within the neck similar to the diagnostic thyroid study. There are no distant foci of abnormally increased activity identified. The overall distribution is similar compared to the pretherapy I-123 radioiodine scan. An area of photopenia is again identified in the right breast consistent with known implant.Physiologic activity is seen in the salivary glands, stomach, bowel, and bladder.IMPRESSION:Bozena lar appearance of radioactive iodine avid tissue in the neck with no new lesions. NM Thyroid Ca Thyroid remnant MD Mary roche Ablation Tx 3 ablation therapy with 14:13:36 102 mCi iodine-131 Interface, Radiology Results In - 09/23/2020 8:15 AM CSTFULL RESULT:Examination: NM THYROID CA ABLATION TX, 09/22/2020 5:58 PMClinical History: 75-year-old female with papillary thyroid cancer status post total thyroidectomy 07/13/2020.Indication: Remnant thyroid ablation.Comparison: NM THYROID WB DIAGNOSTIC, 09/22/2020 Technique: The rationale behind therapy with radioactive iodine for treatment of thyroid cancer following thyroidectomy was discussed with the patient. The potential side effects and appropriate post therapeutic safety precautions were outlined. The patient was given an opportunity ask questions, and the appropriate consent was signed.FINDINGS: A dose of 102 mCi iodine-131 was administered orally without acute complication. Initial reading at 1 m distance was 15 mR/hr.IMPRESSION:Thyroi d remnant ablation therapy with 102 mCi iodine-131 NM Thyroid Wb Iodine avid tissue is MD Lopez Diagnostic 2 present in the 16:53:29 bilateral neck consistent with residual thyroid cancer. Interface, Radiology Results In - 09/22/2020 10:55 AM CSTFULL RESULT:Examination: NM THYROID WB DIAGNOSTIC, 09/22/2020 10:43 AMClinical History: 75-year-old female with papillary thyroid cancer status post total thyroidectomy 07/13/2020.Indication: Evaluate for iodine avid disease.Comparison: Ultrasound of the neck 04/07/2020.Technique: Anterior and posterior whole-body planar images were obtained one day following the ingestion of 2.17 mCi of I-123 sodium iodide. Spot views of the neck were obtained. The percent uptake in the neck was calculated at 20:32 hours.Findings: Two foci of uptake are present in the bilateral lower neck consistent with residual iodine avid thyroid tissue. There is no evidence of distant metastatic disease.There is physiologic activity in the salivary glands, nasal mucosa, GI tract, and urinary bladder.Uptake in the neck at 20:32 is calculated to be 0.9%.IMPRESSION:Iodine avid tissue is present in the bilateral neck consistent with residual thyroid cancer. Pathology Surgical Interpretation 2020-07-26 21:48:00 Test Item Value Reference Range Interpretation Comme nts Addendum y7fxhNWiHCTwlZZ2TJImBSYge1xmc7BphQIgtUMiFVaobGUggwYopj68sKT7iQ72QE6wWOAzKzA5HDDq wsJ8Hgy8BABhFEOenICoN038b2ood8eqnzZnuLU1mAknVFVsAFFqGJcsJGXpNeNlCAqiohWvXMTlxoI3 lZZimlUbs5W6CCBgqR9leuSvv9X6MBqzrQOht3Snwt30oJYxn5Eag0F1HQilscMypaSuJDL4PYA 1 (test iCWTseaymVBEzP18hrSRvhJanjHNgACXmVvifoCCkc2VvSBT2rTL8YMrqFLDwmoMubd4nLLGgjECoqMr qfXGfvLRxBMD9KUT3LkdgIYPhRTteDTY3tA1mOUmkOICGV2vLPMTZGCGmwyVWMiMTWMP8OWDFWKxgiJ1 4zo4pUUNsuAhlQWScCNI5xWE1XR7fvEFxSSUkfm9= code = 37) Diagnosis j7uqrVVgSUKqmEC1KXImECJdi7eek2LfpIDhmLJeMJtyrISpvoUiym64cFP0mS85GB2wTINsVvQ7WRYy wgL7Tat3ROWaCYJkqJXkL114g2ihz4cznePxnHL8dKviKBAjREMiCOckURLjLsPjAM3yWptilLUmnZa4 fr7aIUUkj0VkAjesPGXjpXa1LnPztYcyLmBaULNnjOniiBWmgTEif1Z8aBJpIFUzkpECORQugIm (test 2lq8jEFY9bRAbqDNjaXOxv8IoeXosHCKnbxwmFCMmnWzkOPiovzBmPp2iNTQ4kV36p3lqYJUflFg8AwJ tkUznKmNqYMOUQZnQXYGCQVQXMXvWN3iOHYMZIuTMPb6UGSOHCtIJM27JSyGZQVePVWAPAWqLW3NASQI lXsCAURXEPQkuM2DPLCTJERHGAMyPKGVWWxEOKKCDOUYGRxroWM0LNyCHLYZPF5PPVGNZM4UFHA code = slANDfRNEKT1GzC7pzKMriOJ6lNLTHFKLzokn+RW9evQVtIThsRTfrpH1qTUUfTYNbcTCyoKKsL8syPX qhfZDmH6rtVW5qWW8TWYI6AbybSQMxmNf1RdBycBgaIzWlTUUgcfZbUCVsFhXkpMKmWIFhAnLuryYlN0 DxDEGnHOQkVVSnKWtga0BmNELmz4L8ZHkiFZRvoXAnKQYsiBq9fDNppHUxTNFymvS7aF3tqcLgc 34) bQmQF33VHPdqvo+QCArxqrinLSwsIjgJCLJNkSMfIwniBEkmKOrhtxytdNuRITgqTx4sh1tOAZkfH0pd 8kastY2lyUEtZ8zdDXhp1ZtYRLrxwwvoWmmTVehpW51GgAgTPvcFLNhQVbbbSflskDiCBBvlKp0rw4kU GLyHDXcmgXpsK4kZADvYIhzfNz0SXTyc6JfiXBcj5IhuLUlCN1ixJNxGHuiJGnyuX7mBSQgLIfq NrMqxFr6eo3bRQVla7RkONMxhso+EF3jmih+FH1nolj+MW2uyoz+BV3mVBWazBpoi2R5dBShCHbylMJk ahO4xNHdPPDlrFooZX70AXDcV4EiLQNhjFrgOoVau1G1aGOctGKzYR8ebaq+KG0cwuk+OK6skry+XH5c euOJLfRVJGUTIFVURJUJXOyTPEIRZEOETSyTP1wAEB4CQ5NML6DNQ0qRQ00IPGk5ZVLlAOSXHGq nK13KZlxTWFXnGB0gRUwNOr2FRCSPZTSEBfYNZT8RHVLvrno+TC2gyui+UQ8rtgi+HS8jgrw+GZ0uC87 aAIq4sYObPC1tGXLsNX6cU1W0pEGkXBXsgzF8oL8xbnPpKL7qWFhqQUHyfBLzxR== Synoptic THYROID GLAND (THYROID GLAN D: RESECTION - All Specimens) 8th Edition - Protocol posted: 06/18/2019 SPECIMEN Procedure: Total thyroidectomy TUMOR Tumor Focality: Multifocal Tumor Characteristics: Tumor Site: Checklist Left lobe Tumor Site: Isthmus Histologic Type: Papillary carcinoma, follicular variant, infiltrative Tumor Size (Centimeters): Greatest Dimension (Centimeters): 1.0 cm Angioinvasion (vascular invasion): (test Not identified Lymphati c Invasion: Not identified Perineural Invasion: Cannot be determined Margins: Uninvolved by carcinoma LYMPH NODES Number of Lymph Nodes Involved: 0 Number of Lymph Nodes Examined: code = 1 Man Levels Exami veronica: Level PATHOLOGIC STAGE CLASSIFICATION (pTNM, AJCC 8th Edition) TNM Descriptors: m (multiple primary tumors) Primary Tumor (pT): pT1 Regional Lymph Nodes (pN): pNX 9864) Gross u8apgRUnQUQmz2hpOPUeVmYoYGZNr5mpv232yGSxHJioVqIuVkY9wZIhCYNiuBHfd4F4YAnikDXfLmON wqyieVj3v3dyZ0vcfh5rSG2fFgNhTZOuRNMbCETkjsLoJPEgyJBhLO9axwMHy95navy3m2emKIadpM8u ZDSdMQCbnSPdj0H7RKdjtMXtEYBWe5OnsUEuQN7bdja2z1moVLwyl8cpy7IdPfWcJMXxFSEeAGK Descripti xwgNcKKNatRYkYZ4dhiLnqjk1z3hzFJGjHi2eEQSbcaeyE7zoptIelFShVbXylIMyH273xivgvwz5f5y aPPSsRx4jvRhuC7qsmtGzhWIvAeLsoJPpVOCpkLACpIJnagKeaGO5dEcbLkHiYCQzg49ivgdnQ4tylvY tqFSwWdMnuKKpS9moAm0oX596PSLgKJoyj4myc1IuOwViRJVsRNYwKJBldmDlSRHwW12tYWNND6 on (test 62DGTxRQQxNILre8nxr5kvL0jmapSsdYXwQtWlbZIqARSiVEk7wH0Ze6lcg9nshcTvbKA4UFUjJTKdR7 MmCM9zJQQykGOeS8zvVDBoSVjuasBvddQ6LKPgoGRzAGmgadYdXpVcL2UdKZ7iFYvznFLcPoC7BKVeIH W8OAdbOPXbCHuqTev3PJE4W0rfODM6D7eaqeWkggSvFYXhzAE5GnakcjArBpavS4ZkQJ50ULswt code = YMxSxm0IPPnBHh2SCsbPXEuWXWpHkg5TSk7J8knKIXbNSPuV2YwWY2fMHJaNbx1NQZbHHtadpBpZRB2V HgsLSQjEMF8EYOdjGAfZow9BUUuFQD9I8bxzcRhvwL7N3bryRVtVZVeF8mfTXFiUStgZ9ZaDO4hYFkjF ra0EAV7HTgnfaOsFPw9PSbpCOZhWOm6WTSniNNuOwM1GOSpVHO8LEspjxTrvjM7BTacoFWqBPsj 077172867 P9llTSGvCSiaM6WfCF5bCCqbXwr6UJJrFtedrxUeOjCyGHshTJWmQxUmNLXopDEtQfS2QHCoFHUbTCcq eyItlxDlZXmquPHxHtJ3J8auGXIxZKEpP8EaDD6fHDUqJje1LWG2LKudltPhWRvxkjKjriOoQqg5EDR3 EDf8Jvfys6V3fGRbuACouIrmdhMvnAXuQAjmXpBfL069GCXqGGjrSXHkeazvZdp6v6poZrBzUBZ 1) [file] UWfiYQsuLWmMDIoVSmjUVExZjDpvKWmsSrlAUN9Th2= Intraoper l3atpMHvZOTkw8gdEQZuUyFeZTXHv0hgd168rSIlEGllIxOtHlK8yYSgQPVqaDNzh3A5BOnthVSrJrTX mtkgiXi7z1ipS3gwye4zAP8uMcQsVNWrFJYpSZNlzdBgVELhlNXnSW3cywQOa27faxv8g3akYMmfxC5v NRZjVGAqiYJto5B2DGhmvRVjKSUVb0SunSJdUF7waoz3a9jpWXcml0uib4NoXcRlDWYkUDPoSPP ative cccByWEPghFWlHO8eiuQhxzj0g0tpAFVfGi9lETNrvkakH8rkstJgyKXcHxBnmKWsV691qzbcvzv2c0e tBHXoCi9lkEszB6frrmCmlXDlUjAlgKKgJBFxoCREaVYwpuXgrEJ4mMgjHtPlAUTpj68jvdhjR3zlzsF qtBTtIlVlrEGwM4kyTi1cC452NVLjFMvya7kzy9HcCdCmWROvMTZwABDdkfDgCQNeZ05dTKHCA3 Evaluatio 77ZQVxKFPaOGBlw5ysu2wzX1ylzsLpmEBnNbJtsCBqXKMiMHd0uO1El0rhf8ggbkUmzTT6IMFpWHDpR5 SeDQ2yEQWpfPBeD5lnNLEfDSinzkJxndI1XVMqdVTsWKydkuCqPoFaY8ThAP7sNPmcuCKwWhW5DRBfTK P1FZumHMEpGPadUhl4KKA7E2zxESG8X7wspqMuqgHpDWScoWH0AjzxrxTrMqaiL8EeZJ22EGhml n (test BTpUvf3CVCoOMe4PZbqCZEqEZNlLfb7SAq2Q5duWRHfEAWgS4ZdRO3fYFXcMsp3WLRgCOrlhfTmQRD0H CdiRGTxMZR8WHPwrNXxZhu6GFByLGR8H9qwgwVuvkL4Q1olnPDxVFBsY4tmOZYiGUbxI4FaOD3bFLkbE bs8TTB8WJfcriPvDJb5KJraCXNyKGp0DZYtvOBdRhA8BDKkSHB2SKstidGixyN5BUqnvXSsNPgy code = A0tvWJLsTIqlC4WsQT9bPHwgMbv7PPTiJupqxzFtVsFxECqpAPYiWvYfSJKpuJMbMbI8TQKeDEExYJam zlGlykFpHVyamQAzUjD5M8jeHRKuRVAvC6TaNO8lITGjJcp8RPD2FNogotFzGDenrdDresHvHey8XQZ7 AKj5Pipgr9X2mKTkdCBhgHwzdoBdkCBbUQshHmQuY068VSAzZWrbRHSccoliZtl1t8owYaNaHZR 483203397 upD8qAFO6wCfrgnAzvXBlTUnaDpU1S816BPX4EWcjSEBcuumzWPm8y1acBhHhTPMunU8nJBF3oW4EDnj vSZKexpmoQRc9EQxzVTWougwyQcF3JIaiMDMqaCj1IMidWMTszsY0AabkCAUtyTdeNLwcUNHdVoyjIXg pZOQeIAM4ShCrSHOei5Dxcpr6BqKzRkZtMMPOUjrjkUPiNEM2PQQ1AbEwTFHeItqhPFQkBI2gtM 5) ilgDp2qUcqXAZjemM7aWUyQUchw0ulCYN6v5kiowmeAZNbGIrgLr3suGMunZzkFjAyCMLdIBa8bY25MI CqlK3tjDVuGZbltjInSqWrH4RlWB3tLMvtpPNsNvE0hKyoVFUkAMXbGLkfJQTyOxPaG2JvTQQiLAOeJ7 f7CTU0qBOsmL6qWOSddrI9bJpkg0hsNRGcw7UleUYxtfNgLMnnoPqmce6nQWodwGYuMTvpLuUkL ArnbkVtVQPYlZLuvhBsoCu3yWPdPQHhpeD4mIyrj0ohIAjwrFecNntwre0awEDzWTTBFUPcltxwxFFbb TitPUclio97DOE8RYQab4MyX7YfSXiFYMCkl3IjU9OnHNcauDGemdnuxqKoTGIekEScxGjaICQ0Rl7= Disclaime r3vkhVZiPQEajQCpEaQxRWRtLBXij0veQDUndXMeUeLbCdAsSzFaCylurOFiTKZfXtLlo3xks043xOOc f1zpAVBsXmI7tSGqNUEwuHLgF713REBcLZqqq9bew0EuBKCpjRLjo9L8YUUGipejfLe4qUibL70th0R3 YbnhW1kzPWOfDTNjY6ZdTR8pJQQqYqp0UCT8TKI6EZPyBDQwU1OwQJ3nSSZnbGDzTKk3t6xiwXt r (test gCODsWBE0k0brNOnsomHyLO1wnw8wbYw8j1dsllLbRCTjLXDhcINHZTHrL3OzuPenQd1wqPg5tAanUjo gGIG0Umq4WI1gol06uas7eHlbXAWbxzqrTbL7ORufFZQhixyqMQi7ITutJAHlgKJ8NHUfcWCzS4YuDXZ kLU8tqac3PMB4XPcqIEXiJnD8GYJkyVZwUALgkBplMOhpg133ZZY0YeMbSG9qR8Opi1C4uP7buU code = GiQTEhzSJzMdXkFFByld2jqYSkQFipq4EhQED9nqS1sBYevXIfCPTyRX14Szwbx0BeHqwjXWS4IYOlhm Irc7Cpa1jxEfLsifUrF2ypN9ZaEOGvCWAqMJCfBdKwfzDof7Itj0AgzVPlpHe2k7ooGXKlINMemByuw1 gtDGB7XITeQ5E5fEPdm2eaBCcrXSCmcUN7idO6FYAuzYMjL4ZmlS9rBIUyAQ0obrc6m2zcOHX2U 9844) ZhbGFOwQpA3poH9TKVbkBKlMZOkrBqiEDprr712EDE3RdAaLIWtn2MmZ7UieDitF75nnQtbX78bTNXtq MyjuT5evXrtgS6oJsRlOnQtDNeniYikyCDqzbmdQTlbctN4GVveawxlBWPyAGbqI8gvBtUoMTTlyAozD Nadj3XuDDOeWROqVwncvaV6ZPGCv89sNOFbh5GaUIFutH6jfJBvWIemovNsfJH1ATxpsbCvYdMe mrVbRAWawR7vNGCxIN7lCYFhcaMdhh5ylkJyRPGoNQOeL4ZugadsyDofbpAeCJMndb3edaCwKZS0GSHZ JM6NGVJgQOAnf85hMYMemSnvkX1utWYrmsYlLDOoc8AovF3ojXRGWBMxR8orVF3kBUwsr8WptIJenETm kXV9EQQcr0KrPgMxpeTawHKsgBNnT3MmwCcjL5hyBAQwIRKkduMdxSNzc2GxCWPezHD0eDTbEV6 KJnRJu71aGMVtZTMBvaGmSTSnkGqiuCQ3pbV2tS0aLeHRYdUrmTDryHWiPetzZDOqp408wy6dbdE5HDI oEAGucaaqk5IuZNUnAGFrqX42HKFtMNRtso9zypotcFLvftDeD8Ptamo4rF3vZKWdOBhkPYXmIBEsXoY qdVFtGoGhQvEkrFkjdDttNNubGnWlEWCfFTpvE7umWoVtLnIbUdhyMIE4 MD LopezTMP Interpretation Antibody Screen [id number] 02:34:21 Test Item Value Reference Range Interpretation Comments TMP Auto Neg At the present ABSC Interp time, patient (test code = plasma shows no ANUJ 7535) evidence of RBC DESIR alloantibodies. HERMINIO,Dicta sheng by: ANUJ DURHAM,Dictated Date/Time: 07.13.2020 21:3 4 PM CDT Transcrib ed Date/Time: 07.13.2020 21:3 4 PM CDTElectronical ly Signed By: LELO IN THANG DURHAM, on 07.13.2020 21:3 4 PM MD LopezAntibody [id number] 16:38:26 Test Item Value Reference Range Interpretation Comments ABSC. (test code = 890-4) Negative ABSC MD [id number] 16:38:25 Test Item Value Reference Range Interpretation Comments ABORh. (test code = 882-1) O POS MD LopezClot Expiration [id number] 16:38:24 Test Item Value Reference Range Interpretation Comments T & S Expiration (test code = 07/16/2020 5318) MD Zacarias COVID-19 (TRAM-CoV-2) PCR [id number] 04:29:31 Test Item Value Reference Interpretation Comments Range COVID19 SARS Pre-OR Procedure Indication (test code = 11697) COVID19 SARS Result Not Detected Not Detected (test code = 44534-0) COVID19 SARS SARS-CoV-2 NOT Detected. Interpretation (test Reference Range: Not code = 61762) Detected Methodology: The [place] RealTime SARS-CoV-2 assay is a qualitative real-time reverse turntable engineer polymerase chain reaction (motor analyst-PCR) test to detect RNA from SARS-CoV-2 in nasal, nasopharyngeal and oropharyngeal swabs from patients with signs and symptoms of infection who are suspected of COVID-19 by their health care provider. The [place] RealTime SARS-CoV-2 performed on the [employer] Revolution000 System is a dual target assay with primers and probes for the RdRp and N genes. Results must be interpreted within the context of all relevant clinical and laboratory findings, and epidemiological risk factors. Positive results are indicative of the presence of SARS-CoV-2 RNA; clinical correlation with patient history and other diagnostic information is necessary to determine patient infection status. Positive results do not rule out bacterial infection or co-infection with other viruses. Negative results do not preclude SARS-CoV-2 infection and should not be used as the sole basis for patient management decisions. The [place] RealTime SARS-CoV-2 assay is for in vitro diagnostic use under FDA Emergency Use Authorization only. Testing is limited to laboratories certified under the Clinical Laboratory Improvement Amendments of 1988 (CLIA), 42U.S.C. 263a, to perform high complexity tests. The Test was performed by the CLIA-certified, high-complexity [facility] ([facility]) at [facility] under the Food and Drug Administration (FDA) s Emergency Use Authorization. Factsheet for patients: https://www.[facility].org/ AbbottFactSheetPatientsFact sheet for healthcare providers: https://www.[facility].org/ AbbottFactSheetHCP Test performed by:[facility] [id number] [place] [address] [facility] CenterHem[facility] [id number] 15:35:22 Test Item Value Reference Range Interpretation Comments A1C (test code = 5.0 % 4.3-5.6 HbA1c value s >=6.5% 4632) are diagnostic of diabetes mellitus.Diagno sis should be confi rmed by repeat testing.Therape utic Action suggeste d: >8.0% HbA1c; Go al oftherapy: <7.0 % HbA1c DUDLEY (test code = Needed before DUDLEY) 04/13/20 (date of surgery) MD LopzeFlexible nasopharyngeal [id number] 14:00:00NUNU Montgomery 04/14/2020 9:58 AMFlexible nasopharyngeal laryngoscopyDate/Time: 04/14/2020 9:53 AM Provider Information:Performed by: NUNU MontgomeryAuthorized by: FEDE Castilol Faculty: NUNU MontgmoeryAssistant present?: no Patient Diagnosis:Post-operative diagno sis: unchanged Indications:Indications: direct visualization of the upper aerodigestive tract and videostroboscopy Pre-Procedure Note:healthcare interpreter: noPre-procedure patient condition: alert Procedure Details:Instrument used: flexible fiberoptic laryngoscopeVideostroboscopy performed: yesPatient preparation: patient ready for procedure and patient positioned for procedureThe scope was introduced into the: anterior nares Specimen(s) Removed:Specimen(s) removed: no Estimated Blood Loss:Estimated blood loss: none Post-Procedure Complications:Immediate post-procedure complications: the pro cedure was terminated without complications Post-Procedure Patient Condition:Post-procedure patient condition: patient tolerated the procedure well with no immediate complications Post-Procedure Disposition:Disposition: discharge to home Comments:See videostroboscopy note for physical examination findings.MD LopezCOVID-19 (SARS-CoV-2) PCR-Asymptomatic [id number] 22:26:12 Test Item Value Reference Range Interpretation Comments COVID19 (SARS Not Detected Not Detected This test is a CoV-2) Result qualitative (test code = reverse-transcr iptase 06218) polymerase lakia n reaction (RT-PC R) developed for t he [employer]ze[employer] LAYA 680 0 system and inte nded for the detecti on of SARS CoV-2 RNA in human nasophary ngeal specimens from patients who me et COVID-19 clinic al and/or epidemiological criteria. This assay has been approv ed by the FDA for use only under Emergency Use Authorization ( EUA) in laboratories that have been CLIA-certified to perform moderate-comple xity and high-comple xity tests. The performance characteristics of this assay were verified by the Microbiology Laboratory at [facility]. Results must be interpreted within the context of all relevant clinic al and laboratory find ings and should not form the sole basis for a diagnosis or treatment decision.Security Management Specialist al controls are in cluded to assess for possible amplification inhibitors. If inhibition is detected, testi ng is repeated and if inhibition is confirmed the specimen is res ulted as "Invalid". "Inconclusive" results are due to partial amplifi cation of SARS-CoV-2 targets. When t his occurs, results are confirmed by re peat testing before issuing an "Inconclusive" result. When a n "Invalid" or "Inconclusive" results occur, it is recommended to wait a minimum of 3 da ys before submitti ng a new specimen fo r testing if clin ically indicated. COVID19 SARS TOPPIECE CHOPPER Swab Source (test code = 83072) COVID19 SARS Pre-OR Procedure Indication (test code = 75463) MD LopezControlled Substance Monitoring Panel, [id number] 20:55:16 Test Item Value Reference Interpretation Comments Range U Amphetamines-Hospers Negative Cutoff: 500 (test code = ng/mL 90733-4) U Barbiturates-Hospers Negative Cutoff: 200 (test code = ng/mL 18928-3) U Cocaine Lvl-Hospers Negative Cutoff: 150 (test code = ng/mL 05271-7) U Phency-Hospers (test Negative Cutoff: 25 code = 40694-5) ng/mL U THC-Hospers (test Negative Cutoff: 50 ---------ADDITION code = 08842-6) ng/mL AL INFORMATION---- --This report i s intended for use in clin ical monitoring orma nagement of patients. It i s not intended for us e inemployment-re lated testing. Codeine (test code Not Cutoff: 25 Tylenol 3 = 78474-7) Detected ng/mL Huirlpn-7-jofh-gluc Not Cutoff: 100 Metaboli te of codeine uronide (test code Detected ng/mL = 9565) Morphine (test code Not Cutoff: 25 Lyn Sheffield, MS Contin; = 44705-1) Detected ng/mL Also a minor me tabolite (10%) ofcodeine and can be seen in low con centrations (<2,000ng/mL) w ith poppy seed ingestion. Gyxtesvo-0-ddwj-glu Not Cutoff: 100 Metaboli te of morphine curonide (test code Detected ng/mL = 9567) 6-monoacetylmorphin Not Cutoff: 25 Metaboli te of heroin e (test code = Detected ng/mL 43885-5) Hydrocodone (test Present Cutoff: 25 A Lortab, No rco, Vicodin; Also code = 69245-9) ng/mL a very minor metabolite ofcodeine and i mpurity (<1%) of oxycodone. Norhydrocodone Present Cutoff: 25 A Metabolite of hydrocodone (test code = 9570) ng/mL Dihydrocodeine Present Cutoff: 25 A Metabolite of hydrocodone (test code = ng/mL 64345-4) Hydromorphone (test Not Cutoff: 25 Dilaudid , Exalgo; Also a code = 72164-4) Detected ng/mL metabolite o f hydrocodone and aminor (<5% ) metabolite of morphine. Jsqynlsjxurdu-7-iot Present Cutoff: 100 A Metaboli te of hydromorphone a-glucuronide (test ng/mL code = 9573) Oxycodone (test Not Cutoff: 25 Endocet, Per cocet, Oxycontin code = 64121-0) Detected ng/mL Noroxycodone (test Not Cutoff: 25 Metabolit e of oxycodone code = 9575) Detected ng/mL Oxymorphone (test Not Cutoff: 25 Numorphan, Opana; Also a code = 78305-1) Detected ng/mL metabolite o f oxycodone. Pimvbvhrzli-4-qjvo- Not Cutoff: 100 Metaboli te of oxymorphone glucuronide (test Detected ng/mL and/or nal oxone code = 9577) (nornaloxone) Noroxymorphone Not Cutoff: 25 Metabolite of oxymorphone (test code = 9578) Detected ng/mL and/or na loxone (nornaloxone) Fentanyl (test code Not Cutoff: 2 Actiq, D uragesic, Fentora = 86426-0) Detected ng/mL Norfentanyl (test Not Cutoff: 2 Metabolite of fentanyl code = 90619-8) Detected ng/mL Meperidine (test Not Cutoff: 25 Demerol code = 98215-8) Detected ng/mL Normeperidine (test Not Cutoff: 25 Metaboli te of meperidine code = 98598-8) Detected ng/mL Naloxone (test code Not Cutoff: 25 Narcan = 04473-8) Detected ng/mL Fvtcthrn-7-zovp-glu Not Cutoff: 100 Metaboli te of naloxone curonide (test code Detected ng/mL = 9584) Methadone (test Not Cutoff: 25 Dolophine code = 78354-8) Detected ng/mL EDDP (test code = Not Cutoff: 25 Metabolite of methadone 9586) Detected ng/mL Propoxyphene (test Not Cutoff: 25 Darvon, D arvocet code = 16424-5) Detected ng/mL Norpropoxyphene Not Cutoff: 25 Metabolite o f propoxyphene (test code = Detected ng/mL 88181-0) Tramadol (test code Not Cutoff: 25 Tradol, Ultram, Ultracet = 29824-9) Detected ng/mL O-desmethyltramadol Not Cutoff: 25 Metaboli te of tramadol (test code = 9590) Detected ng/mL Tapentadol (test Not Cutoff: 25 Nucynta code = 79309-1) Detected ng/mL Xbtauffcol-ljqf-tiy Not Cutoff: 100 Metaboli te of tapentadol curonide (test code Detected ng/mL = 9593) Buprenorphine (test Not Cutoff: 5 Buprenex , Suboxone code = 9594) Detected ng/mL Norbuprenorphine See Cutoff: 5 Unknown int erfering (test code = 9595) Footnote ng/mL substance present; unable to obtainresults. Metabolite of buprenorphine Norbuprenorphine Not Cutoff: 20 Metabolite of buprenorphine Glucuronide (test Detected ng/mL code = 9596) Benzodiazepine See Test detected the presence Interp Urine (test Footnote of loraze ankur code = 06811-7) glucuronide( metabolite of lorazepam) only . Suspect use of lorazepamwit hin the past five days. ----ADDITIONA L INFORMATION---- --This test was developed and its perform ance characteristics determined by [facility] in a manner consistent with CLIArequirement s. This test has not been cl eared or approved bythe U.S. Food and Drug Administra tion. Test Performed by:[facility] [address] [place] [address], [place], [place] [address]yb Direct or: Ehtan Marie M.D. Ph.D.; CLIA# [id number] Urine Creatinine 102.6 mg/dL (test code = 2161-8) Urine Specific 1.012 [place] (test code = 5810-7) Urine Ph (test code 5.7 = 2756-5) Urine Oxidants Negative Cutoff: 200 (test code = mg/L 90295-1) Urine Comment (test Normal code = 9616) Alprazolam Urine Not Cutoff: 10 Xanax (test code = 72615) Detected ng/mL Alpha-Hydroxyalpraz Not Cutoff: 10 Metaboli te of Alprazolam olam Urine (test Detected ng/mL code = 07629-9) Alpha-Hydroxyalpraz Not Cutoff: 50 Metaboli te of Alprazolam olam Glucuronide Detected ng/mL Urine (test code = 32383) Chlordiazepoxide Not Cutoff: 10 Librium Urine (test code = Detected ng/mL 13235-5) Colbazam Urine Not Cutoff: 10 Frisium, Onfi (test code = 69874) Detected ng/mL N-Desmethylclobazam Not Cutoff: 200 Metaboli te of Clobazam Urine (test code = Detected ng/mL 75628) Clonazepam Urine Not Cutoff: 10 Klonopin, R ivotril (test code = Detected ng/mL 56890-7) 7-Aminoclonazepam Not Cutoff: 10 Metabolite of Clonazepam Urine (test code = Detected ng/mL 18058) Diazepam Urine Not Cutoff: 10 Valium (test code = Detected ng/mL 48974-5) Nordiazepam Urine Not Cutoff: 10 Metabolite of (test code = Detected ng/mL Chlordiazepoxid e, Diazepam, 65619-2) or Prazepam. Flunitrazepam Urine Not Cutoff: 10 Rohypnol (test code = Detected ng/mL 78806-9) 7-Aminoflunitrazepa Not Cutoff: 10 Metaboli te of Flunitrazepam m Urine (test code Detected ng/mL = 89297) FlUrinerazepam Not Cutoff: 10 Dalmane Urine (test code = Detected ng/mL 26404-1) 2-Hydroxy Ethyl Not Cutoff: 10 Metabolite o f Flurazepam Flurazepam Urine Detected ng/mL (test code = 53680) Lorazepam Urine Not Cutoff: 10 Ativan (test code = Detected ng/mL 94131-2) Lorazepam Present Cutoff: 50 A Metabolite of L orazepam Glucuronide Urine ng/mL (test code = 38429) Midazolam Urine Not Cutoff: 10 Versed (test code = Detected ng/mL 20027-1) Alpha-Hydroxy Not Cutoff: 10 Metabolite of Midazolam Midazolam Urine Detected ng/mL (test code = 40324) Oxazepam Urine Not Cutoff: 10 Serax; Also a metabolite of (test code = Detected ng/mL Chlordiazepoxid e, Diazepam, ) orTemazepam. Oxazepam Not Cutoff: 50 Metabolite of O xazepam Glucuronide Urine Detected ng/mL (test code = 40587) Prazepam Urine Not Cutoff: 10 Centrax (test code = Detected ng/mL 15745-6) Temazepam Urine Not Cutoff: 10 Restoril; Al so a metabolite (test code = Detected ng/mL of Diazepam. 42943-8) Temazepam Not Cutoff: 50 Metabolite of T emazepam Glucuronide Urine Detected ng/mL (test code = 82933) Triazolam Urine Not Cutoff: 10 Halcion (test code = Detected ng/mL 87292-1) Alpha-Hydroxy Not Cutoff: 10 Metabolite of Triazolam Triazolam Urine Detected ng/mL (test code = 87698) Zolpidem Urine Not Cutoff: 10 Ambien (test code = 37030) Detected ng/mL Zolpidem Not Cutoff: 10 Metabolite of Z olpidem Xfemx-9-Hpwetmkoia Detected ng/mL Acid Urine (test code = 55951) Patients Current Not ---------ADDITION Medications (test Provided AL code = 54900) INFORMATION--- --Accuracy and completeness of declared med ications onreports solel y dependent on information submitted byclient. Lab Interpretation Abnormal (test code = 34697-5) [facility] [id number] 18:49:32 Test Item Value Reference Range Interpretation Comments POC U Amp (test code Negative Negative Drug Ab use Cutoff = 57831-3) Concentration: Cutoff: 1000 ng /mL POC U Barbit (test Negative Negative Drug Abus e Cutoff code = 31597-0) Concentratio n: 300 ng/mL POC U Benzo (test Positive Negative A Drug Abuse Cutoff code = 72928-2) Concentratio n: Cutoff: 300 ng/ mL POC U Cocaine (test Negative Negative Drug Abu se Cutoff code = 54910-2) Concentratio n: Cutoff: 300 ng/ mL POC U THC (test code Negative Negative Drug Ab use Cutoff = 44982-0) Concentration: Cutoff: 50 ng/m L POC U Methd (test Negative Negative Drug Abuse Cutoff code = 6701) Concentration: Cutoff: 300 ng/ mL POC U Mampht (test Negative Negative Drug Abus e Cutoff code = 65989-2) Concentratio n: Cutoff: 1000 ng /mL POC U Opiate (test Positive Negative A Drug Abus e Cutoff code = 12740-9) Concentratio n: Cutoff: 2000 ng /mL POC U Oxycod (test Negative Negative Drug Abus e Cutoff code = 48404-4) Concentratio n: Cutoff: 100 ng/ mL Due to the assa y cross reactivit y between Oxycodo ne and Opiates, an d lower sensitivi ty compared to GC- MS method, the rubi t results may be falsely positiv e or falsely negative. Confirmation wi th concurrent GC-M S results is recommended. POC U PCP (test code Negative Negative Drug Ab use Cutoff = 18635-6) Concentration: Cutoff: 25 ng/m L POC U TCA (test code Negative Negative Drug Ab use Cutoff = 11600-2) Concentration: Cutoff: 1000 ng /mL POC U PPX (test code Negative Negative Drug Ab use Cutoff = 99102-7) Concentration: Cutoff: 300 ng/ mL DUDLEY (test code = The POC Urine DUDLEY) Qualitative Drug Screen Panel report is intended for use in clinical monitoring or management of patients. Unconfirmed screening results must not be used for non-medical purposes such as legal or employment-relate d testing. The POC Urine Qualitative Drug Screen Panel report is intended for use in clinical monitoring or management of patients. Unconfirmed screening results must not be used for non-medical purposes such as legal or employment-relate d testing. Lab Interpretation Abnormal (test code = 67247-5) MD Lopez
[2021-01-19 13:59] LABS: Absolute Lymphocytes (CBC) 0.7 K/uL (0.7-4.9); Basophils % 0.2 % (0-1.3); Hematocrit 29.1 % (36.0-45.0); Lymphocytes % 5.2 % (15.3-44.8); MPV 7.8 fL (7.6-11.3); RBC Red Blood Cell Count 3.09 M/uL (3.86-4.86)
[2021-01-19 14:13] LABS: Protime INR 1.03
[2021-01-19 14:24] LABS: Blood Morphology Comment NOT SEEN (NOT SEEN); Platelet Estimate ADEQ; White Blood Cell Scan OK (OK)
[2021-01-19 14:34] LABS: ALT/SGPT 32 U/L (12-78); AST/SGOT 16 U/L (15-37); Albumin 3.4 g/dL (3.4-5.0); Alkaline Phosphatase 77 U/L (45-117); BUN Blood Urea Nitrogen 17 mg/dL (7-18); Bicarbonate 20 mmol/L (21-32); Bilirubin Direct < 0.1 mg/dL (0-0.2); Bilirubin Total 0.3 mg/dL (0.2-1.0); Creatine Phosphokinase 103 U/L (26-192); Glucose Level 127 mg/dL (74-106); Magnesium 2.2 mg/dL (1.8-2.4); NT PRO-BNP 491 pg/mL (<450); Potassium 3.7 mmol/L (3.5-5.1); Protein, Total 6.9 g/dL (6.4-8.2); Sodium Level 142 mmol/L (136-145); Troponin (Emerg Dept Use Only) 0.09 ng/mL (0.0-0.045)
--- NOTE | 2021-01-19 14:49 | RAD REPORT ---
EXAM DESCRIPTION: CT - CTHCSPWOC - 01/19/2021 2:06 pm CLINICAL HISTORY: syncope;Painheadache, neck pain, head trauma COMPARISON: CT HEAD CSPINE MPR WO CONTRAST dated 11/08/2014 TECHNIQUE: Axial 5 mm thick images of the head were obtained. Axial 2 mm thick images of the cervic al spine were obtained with sagittal and coronal reconstruction images generated and reviewed. All CT scans are performed using dose optimization technique as appropriate and may include automated exposure control or mA/KV adjustment according to patient size. FINDINGS: A right-sided tentorium subdural hematoma is present 2 mm in thickness. No other intracran ial hemorrhage findings present. No suspicion for acute infarction. Underlying atrophy and chronic is chemic changes are not substantially different from 2015 comparison. Ventricles are in proportion to volume loss. Mastoid air cells and paranasal sinuses are clear. No globe or orbit abnormality seen. S mall a moderate size right parietal scalp hematoma is present. Underlying bone is intact. Cervical bodies are normal in height. There is straightening of the usual lordosis. Since prior imagi ng there has been fusion surgery. Anterior plate and screw fixation spanning C4-C7. Endplate spurring changes are present. No disc space narrowing in the unfused levels. No fracture or acute bony abnorm ality. Prominent facet degenerative change and uncovertebral joint hypertrophy changes are present. T his causes left foraminal stenosis at C3-4 and bilaterally at C6-7. Central canal detail is inherentl y limited. No paraspinal mass or hematoma. IMPRESSION: A right-sided tentorium 2 millimeter thick acute subdural hematoma is present. There is no mass effect from this minimal hemorrhage. Patient has a small to moderate right parietal scalp hematoma with underlying skull intact. Degenerative and postsurgical changes to the cervical spine with no acute finding.
--- NOTE | 2021-01-19 15:26 | RAD REPORT ---
EXAM DESCRIPTION: RAD - Chest Single View - 01/19/2021 3:08 pm CLINICAL HISTORY: CHEST PAIN COMPARISON: Two view chest February 2018 TECHNIQUE: AP portable chest image was obtained 01/19/2021 3:08 pm . FINDINGS: Lungs are clear. Heart and vasculature are normal. No measurable pleural effusion and no p neumothorax. No acute bony abnormality seen. No acute aortic findings suspected. Right-sided breast i mplant or tissue pelt salter in place. IMPRESSION: No acute cardiopulmonary process.
--- NOTE | 2021-01-19 16:17 | ER ---
Nurse's Notes [facility] Name: Kailey Myles Age: 76 yrs Sex: Female : 1945 Arrival Date: 01/19/2021 Time: 13:24 Bed 3 Private MD: Diagnosis: Diffuse traumatic brain injury with loss of consciousness of unspecified duration;Traumatic subdural hemorrhage Presentation: 01/19 13:26 Chief complaint: EMS states: Woke in bed covered in blood, large amount of blood in bed hb and on floor, does not recall anything after 5pm yesterday. Upon arrival laceration noted to back of head, unknown size due to dried blood in hair, not bleeding at this time. Care prior to arrival: Injury dressed. Mechanism of Injury: Fall unknown. Trauma event details: Injury occurred in the [facility], Injury occurred: at home. Injury occurred: January 18, 2021. 13:26 Acuity: ARTHUR 2 hb 13:26 Method Of Arrival: EMS: [facility] 13:28 Initial Sepsis Screen: Does the patient meet any 2 criteria? HR > 90 bpm. No. Patient's sv initial sepsis screen is negative. Does the patient have a suspected source of infection? No. Patient's initial sepsis screen is negative. Risk Assessment: Do you want to hurt yourself or someone else? Patient reports no desire to harm self or others. Onset of symptoms was January 18, 2021. 13:29 Coronavirus screen: At this time, the client does not indicate any symptoms associated hb with coronavirus-19. Ebola Screen: No symptoms or risks identified at this time. Trauma Activation: Not Applicable Physician: ED Physician; Name: ; Notified At: ; Arrived At: Physician: General Surgeon; Name: ; Notified At: ; Arrived At: Physician: Radiology; Name: ; Notified At: ; Arrived At: Physician: Respiratory; Name: ; Notified At: ; Arrived At: Physician: Lab; Name: ; Notified At: ; Arrived At: Historical: - Allergies: 13:26 BACITRACIN; sv 13:26 Bacitracin Zinc; sv 13:26 benzalkonium chloride; sv 13:26 Codeine; sv 13:26 Levofloxacin; sv 13:26 Lyrica; sv 13:26 Neomycin Sulfate; sv 13:26 PENICILLINS; sv 13:26 polymyxin B; sv 13:26 pramoxine HCl; sv 13:26 QUINOLONES; sv 13:26 THIAZIDES; sv - Home Meds: 13:33 amlodipine-benazepril 10-40 mg Oral cap [Active]; aspirin 81 mg Oral chew 1 tab once hb daily [Active]; esomeprazole magnesium 40 mg Oral cpDR 1 cap once daily [Active]; lorazepam 1 mg Oral tab [Active]; metoprolol tartrate 100 mg Oral tab 1 tab 2 times per day [Active]; nitrofurantoin macrocrystal 100 mg Oral cap 1 cap once daily [Active]; topiramate 100 mg oral tab [Active]; torsemide 20 mg Oral tab 1 tab once daily [Active]; Dicloxacillin Oral [Active]; duloxetine 20 mg oral cpDR 1 cap 2 times per day [Active]; anastrozole 1 mg oral tab 1 tab once daily [Active]; Vitamin D Oral [Active]; atorvastatin 40 mg oral tab 1 tab once daily [Active]; - PMHx: 13:26 bells palsy; Anxiety; GERD; Hyperlipidemia; Hypertension; sv - Immunization history:: Adult Immunizations up to date. - Social history:: Smoking status: Patient denies any tobacco usage or history of. - Immunization history: Last tetanus immunization: unknown. Screenin:27 Abuse screen: Denies threats or abuse. Denies injuries from another. Nutritional sv screening: No deficits noted. Tuberculosis screening: No symptoms or risk factors identified. Fall Risk No fall in past 12 months (0 pts). No secondary diagnosis (0 pts). No IV (0 pts). Ambulatory Aid- None/Bed Rest/Nurse Assist (0 pts). Gait- Normal/Bed Rest/Wheelchair (0 pts) Mental Status- Oriented to own ability (0 pts). Total Grant Fall Scale indicates No Risk (0-24 pts). Primary Survey: 13:26 NO uncontrolled hemorrhage observed. A: The patient is alert. Airway: patent. hb Breathing/Chest: Respiratory pattern: regular, Respiratory effort: spontaneous, unlabored, Chest inspection: symmetrical rise and fall of the chest. Circulation: Skin color: pink, Skin temperature: warm, dry. Disability Alert. Exposure/Environment: There is no evidence of uncontrolled external bleeding. Obvious injury(ies) are noted at this time: head wrapped in gauze, no active bleeding noted A warming method has been applied: A warm blanket has been provided to the patient. 14:15 Reassessment Airway Airway Patent Breathing/Chest Respiratory pattern Regular hb Respiratory effort Spontaneous Unlabored Chest inspection Symmetrical Circulation Color [place] Temperature Warm Dry Disability Alert. 15:15 Reassessment Airway Airway Patent Breathing/Chest Respiratory pattern Regular hb Respiratory effort Spontaneous Unlabored Chest inspection Symmetrical Circulation Color [place] Temperature Warm Dry Disability Alert. 16:15 Reassessment Airway Airway Patent Breathing/Chest Respiratory pattern Regular hb Respiratory effort Spontaneous Unlabored Chest inspection Symmetrical Circulation Color [place] Temperature Warm Dry Disability Alert. 17:15 Reassessment Breathing/Chest Respiratory pattern Regular Respiratory effort Spontaneous hb Unlabored Chest inspection Symmetrical Circulation Color [place] Temperature Warm Dry Disability Alert. Secondary Survey: 13:30 HEENT: Head Other Laceration to back of head, not bleeding at this time. hb Gastrointestinal: No deficits noted. : No deficits noted. No signs and/or symptoms were reported regarding the genitourinary system. Musculoskeletal: Reports pain in head, neck, right arm, back. Injury Description: laceration to back of head, bruising to right elbow. Assessment: 13:32 General: Appears in no apparent distress. Behavior is calm, cooperative. Pain: Pain hb currently is 5 out of 10 on a pain scale. Neuro: Level of Consciousness is awake, alert, obeys commands, confused, Oriented to person, place, Reports dizziness, headache. EENT: No deficits noted. No signs and/or symptoms were reported regarding the EENT system. Cardiovascular: Capillary refill < 3 seconds Patient's skin is warm and dry. Rhythm is regular. Respiratory: Respiratory effort is even, unlabored, Respiratory pattern is regular, symmetrical. GI: No deficits noted. No signs and/or symptoms were reported involving the gastrointestinal system. : No deficits noted. No signs and/or symptoms were reported regarding the genitourinary system. Derm: Skin is pink, warm \T\ dry. Musculoskeletal: Reports pain in back, neck, head, and right arm. 14:01 Reassessment: Pt to CT via stretcher. hb 14:30 Reassessment: Patient appears in no apparent distress at this time. No changes from hb previously documented assessment. Patient and/or family updated on plan of care and expected duration. Pain level reassessed. 15:30 Reassessment: Patient appears in no apparent distress at this time. No changes from hb previously documented assessment. Patient and/or family updated on plan of care and expected duration. Pain level reassessed. Patient is alert, oriented x 3, equal unlabored respirations, skin warm/dry/pink. 16:30 Reassessment: Patient appears in no apparent distress at this time. No changes from hb previously documented assessment. Patient and/or family updated on plan of care and expected duration. Pain level reassessed. 17:15 Reassessment: Patient appears in no apparent distress at this time. No changes from hb previously documented assessment. Patient and/or family updated on plan of care and expected duration. Pain level reassessed. Vital Signs: 13:27 BP 156 / 73; Pulse 110; Resp 15; Temp 98; Pulse Ox 100% on R/A; sv 14:00 BP 148 / 76; Pulse 109; Resp 15; Pulse Ox 99% on R/A; hb 14:32 BP 130 / 76; Pulse 105; Resp 14; Temp 98.2; Pulse Ox 100% ; sv 15:15 BP 156 / 64; Pulse 105; Resp 14; Pulse Ox 99% on R/A; Pain 5/10; hb 16:15 BP 147 / 68; Pulse 112; Resp 15; Pulse Ox 99% on R/A; Pain 5/10; hb 17:15 BP 150 / 72; Pulse 110; Resp 17; Pulse Ox 99% on R/A; Pain 8/10; hb [place] Coma Score: 13:27 Eye Response: spontaneous(4). Verbal Response: oriented(5). Motor Response: obeys sv commands(6). Total: 15. 13:54 Eye Response: spontaneous(4). Verbal Response: oriented(5). Motor Response: obeys jr8 commands(6). Total: 15. Trauma Score (Adult): 13:27 Eye Response: spontaneous(1); Verbal Response: confused(1); Motor Response: obeys hb commands(2); Systolic BP: > 89 mm Hg(4); Respiratory Rate: 10 to 29 per min(4); Chaim Score: 14; Trauma Score: 12 13:54 Eye Response: spontaneous(1); Verbal Response: oriented(1); Motor Response: obeys jr8 commands(2); Systolic BP: > 89 mm Hg(4); Respiratory Rate: 10 to 29 per min(4); [place] Score: 15; Trauma Score: 12 14:00 Eye Response: spontaneous(1); Verbal Response: confused(1); Motor Response: obeys hb commands(2); Systolic BP: > 89 mm Hg(4); Respiratory Rate: 10 to 29 per min(4); Chaim Score: 14; Trauma Score: 12 14:32 Eye Response: spontaneous(1); Verbal Response: oriented(1); Motor Response: obeys sv commands(2); Systolic BP: > 89 mm Hg(4); Respiratory Rate: 10 to 29 per min(4); [place] Score: 15; Trauma Score: 12 15:15 Eye Response: spontaneous(1); Verbal Response: oriented(1); Motor Response: obeys hb commands(2); Systolic BP: > 89 mm Hg(4); Respiratory Rate: 10 to 29 per min(4); Chaim Score: 15; Trauma Score: 12 16:15 Eye Response: spontaneous(1); Verbal Response: oriented(1); Motor Response: obeys hb commands(2); Systolic BP: > 89 mm Hg(4); Respiratory Rate: 10 to 29 per min(4); [place] Score: 15; Trauma Score: 12 17:15 Eye Response: spontaneous(1); Verbal Response: oriented(1); Motor Response: obeys hb commands(2); Systolic BP: > 89 mm Hg(4); Respiratory Rate: 10 to 29 per min(4); Chaim Score: 15; Trauma Score: 12 NIH Stroke Scale Scores: 13:54 NIHSS Score: 0 [facility] ED Course: 13:24 Patient arrived in ED. sv 13:27 Ethan Orozco PA is PHCP. jr8 13:27 Sam Lopez MD is Attending Physician. jr8 13:27 Patient has correct armband on for positive identification. Placed in gown. Bed in low sv position. Call light in reach. Side rails up X2. bus monitor on. Pulse ox on. NIBP on. Door closed. Head of bed elevated. 13:28 Triage completed. hb 13:29 Nurse Practitioner and/or Physician Configuration Management Administrator to see patient. sv 13:29 Arm band placed on. sv 13:29 Patient maintains SpO2 saturation greater than 95% on room air. sv 13:29 Thermoregulation: warm blanket given to patient. sv 13:35 Lizett Dominguez, RN is Primary Nurse. hb 13:51 Initial lab(s) drawn, by me, sent to lab. Inserted saline lock: 22 gauge in left jb1 antecubital area, using aseptic technique. Blood collected. 14:06 CT Head C Spine In Process Unspecified. EDMS 14:31 Basic Metabolic Panel Sent. sv 14:40 X-ray(s) taken. sv 14:41 XRAY Chest (1 view) Sent. sv 15:08 XRAY Chest (1 view) In Process Unspecified. EDMS 16:30 Assist provider with laceration repair on scalp that was between 7.6 to 12.5 cm using sandhya. Performed by Ethan MISTRY Patient tolerated well. 17:02 initiated transfer to [facility], pt accepted in transfer by Dr Nava, admin bd approval given by Oscar Lucio. 17:20 Patient transferred, IV remains in place. hb Administered Medications: 17:13 Drug: fentaNYL (PF) 25 mcg Route: IVP; Site: left antecubital; hb 17:55 Follow up: Response: Medication administered at discharge. hb Intake: 13:27 PO: 0ml; Total: 0ml. sv 14:32 PO: 0ml; Total: 0ml. sv Output: 13:27 Urine: 0ml; Total: 0ml. sv 14:32 Urine: 0ml; Total: 0ml. sv Outcome: 16:16 ER care complete, transfer ordered by MD. reese 17:20 Patient's length of stay in the Emergency Department was greater than 2 hours. awaiting hb acceptance and transportation to higher level of carePatient's length of stay extended due to 17:25 Transferred by ground EMS to [facility]. hb 17:25 Condition: stable 17:25 Instructed on the need for transfer, Demonstrated understanding of instructions. 17:27 Patient left the ED. hb NIH Stroke Scale - NIH Stroke Score Date: 01/19/2021 Time: 13:54 Total Score = 0 1a. Level of Consciousness (LOC) - 0(Alert) 1b. Level of Consciousness (LOC) (Year \T\ Age) - 0(Both) 1c. LOC Commands (Open \T\ Closes Eyes/Mig Tig Welder) - 0(Both) 2. Best Gaze (Lateral Gaze Paresis) - 0(Normal) 3. Visual Field Loss - 0(No visual loss) 4. Facial Palsy - 0(Normal) 5a. Left Arm: Motor (10-second hold) - 0(No drift) 5b. Right Arm: Motor (10-second hold) - 0(No drift) 6a. Left Leg: Motor (5-second hold - always test supine) - 0(No drift) 6b. Right Leg: Motor (5-second hold - always test supine) - 0(No drift) 7. Limb Ataxia (finger/nose \T\ heel/soliz - test with eyes open) - 0(Absent) 8. Sensory Loss (pinprick arms/legs/face) - 0(Normal) 9. Best Language: Aphasia (description/naming/reading) - 0(No aphasia) 10. Dysarthria (speech clarity - read or repeat words) - 0(Normal) 11. Extinction and Inattention (visual/tactile/auditory/spatial/personal) - 0(No abnormality) Initials: jr8 Signatures: Dispatcher [employer] EDMS Preet Hurt jb1 Arleen Taveras Stephanie, ROSA MARIA RN Ethan Orozco PA PA jr8 Lizett Dominguez RN RN hb Corrections: (The following items were deleted from the chart) 13:29 13:26 Chief complaint: EMS states: Woke in bed covered in blood, large amount hb of blood in bed and on floor, does not recall anything after 5pm yesterday. Upon arrival laceration noted to back of head, unknown size due to dried blood in hair, not bleeding at this time. hb 14:05 13:27 Chaim Score=15, Trauma Score=12, sv hb 14:05 13:27 GCS: 15, sv hb
--- NOTE | 2021-01-19 16:17 | EDPHYS ---
Physician Documentation [facility] Name: Kailey Myles Age: 76 yrs Sex: Female : 1945 Arrival Date: 01/19/2021 Time: 13:24 Bed 3 Private MD: ED Physician Sam Lopez HPI: 01/19 13:50 This 76 yrs old Female presents to ER via EMS with complaints of Fall Injury, jr8 Head Injury-Adult. 13:50 Onset: The symptoms/episode began/occurred last night, at an unknown time. Associated jr8 injuries: The patient sustained injury to the head. Patient presents with head trauma from unwitnessed fall. Pt is unable to recall event or surrounding events herself. She remembers patches of evening but did not discover her bleeding injury until this morning. She denies hx of IA, stroke, or syncope in past. . Historical: - Allergies: 13:26 BACITRACIN; sv 13:26 Bacitracin Zinc; sv 13:26 benzalkonium chloride; sv 13:26 Codeine; sv 13:26 Levofloxacin; sv 13:26 Lyrica; sv 13:26 Neomycin Sulfate; sv 13:26 PENICILLINS; sv 13:26 polymyxin B; sv 13:26 pramoxine HCl; sv 13:26 QUINOLONES; sv 13:26 THIAZIDES; sv - Home Meds: 13:33 amlodipine-benazepril 10-40 mg Oral cap [Active]; aspirin 81 mg Oral chew 1 tab once hb daily [Active]; esomeprazole magnesium 40 mg Oral cpDR 1 cap once daily [Active]; lorazepam 1 mg Oral tab [Active]; metoprolol tartrate 100 mg Oral tab 1 tab 2 times per day [Active]; nitrofurantoin macrocrystal 100 mg Oral cap 1 cap once daily [Active]; topiramate 100 mg oral tab [Active]; torsemide 20 mg Oral tab 1 tab once daily [Active]; Dicloxacillin Oral [Active]; duloxetine 20 mg oral cpDR 1 cap 2 times per day [Active]; anastrozole 1 mg oral tab 1 tab once daily [Active]; Vitamin D Oral [Active]; atorvastatin 40 mg oral tab 1 tab once daily [Active]; - PMHx: 13:26 bells palsy; Anxiety; GERD; Hyperlipidemia; Hypertension; sv - Immunization history:: Adult Immunizations up to date. - Social history:: Smoking status: Patient denies any tobacco usage or history of. - Immunization history: Last tetanus immunization: unknown. ROS: 13:52 Eyes: Negative for injury, pain, redness, and discharge, ENT: Negative for injury, jr8 pain, and discharge, Cardiovascular: Negative for chest pain, palpitations, and edema, Respiratory: Negative for shortness of breath, cough, wheezing, and pleuritic chest pain, Abdomen/GI: Negative for abdominal pain, nausea, vomiting, diarrhea, and constipation, Back: Negative for injury and pain. 13:52 MS/extremity: Positive for abrasion, laceration, of the scalp. 13:52 Skin: Positive for laceration(s), of the scalp. 13:52 Neuro: Positive for dizziness, Amnesia. 13:52 All other systems are negative. Exam: 13:54 Eyes: Pupils equal round and reactive to light, extra-ocular motions intact. Lids and jr8 lashes normal. Conjunctiva and sclera are non-icteric and not injected. Cornea within normal limits. Periorbital areas with no swelling, redness, or edema. Chest/axilla: Normal chest wall appearance and motion. Nontender with no deformity. No lesions are appreciated. Cardiovascular: Regular rate and rhythm with a normal S1 and S2. No gallops, murmurs, or rubs. Normal PMI, no JVD. No pulse deficits. Respiratory: Lungs have equal breath sounds bilaterally, clear to auscultation and percussion. No rales, rhonchi or wheezes noted. No increased work of breathing, no retractions or nasal flaring. Abdomen/GI: Soft, non-tender, with normal bowel sounds. No distension or tympany. No guarding or rebound. No evidence of tenderness throughout. Back: No spinal tenderness. No costovertebral tenderness. Full range of motion. 13:54 Head/face: Noted is a laceration(s), of the Posterior head. 13:54 Neuro: Orientation: to person, place, Did not know it was mid afternoon. Mentation: responsive to voice able to follow commands, Memory: immediate memory is intact, remote memory is recent memory is impaired, the patient can't recall what they had for dinner last night, Cranial nerves: CN II- XII are normal as tested, Sensation: is normal. 13:54 Skin: Warm, dry with normal turgor. Normal color with no rashes, no lesions, and no jr8 evidence of cellulitis. 13:54 Musculoskeletal/extremity: Extremities: grossly normal except: noted in the bruising noted to right elbow and back of upper arm: ROM: intact in all extremities, full active range of motion, full passive range of motion, Circulation is intact in all extremities. Sensation intact. Vital Signs: 13:27 BP 156 / 73; Pulse 110; Resp 15; Temp 98; Pulse Ox 100% on R/A; sv 14:00 BP 148 / 76; Pulse 109; Resp 15; Pulse Ox 99% on R/A; hb 14:32 BP 130 / 76; Pulse 105; Resp 14; Temp 98.2; Pulse Ox 100% ; sv 15:15 BP 156 / 64; Pulse 105; Resp 14; Pulse Ox 99% on R/A; Pain 5/10; hb 16:15 BP 147 / 68; Pulse 112; Resp 15; Pulse Ox 99% on R/A; Pain 5/10; hb 17:15 BP 150 / 72; Pulse 110; Resp 17; Pulse Ox 99% on R/A; Pain 8/10; hb NIH Stroke Scale Scores: 13:54 NIHSS Score: 0 jr8 Corolla Coma Score: 13:27 Eye Response: spontaneous(4). Verbal Response: oriented(5). Motor Response: obeys sv commands(6). Total: 15. 13:54 Eye Response: spontaneous(4). Verbal Response: oriented(5). Motor Response: obeys jr8 commands(6). Total: 15. Trauma Score (Adult): 13:27 Eye Response: spontaneous(1); Verbal Response: confused(1); Motor Response: obeys hb commands(2); Systolic BP: > 89 mm Hg(4); Respiratory Rate: 10 to 29 per min(4); Chaim Score: 14; Trauma Score: 12 13:54 Eye Response: spontaneous(1); Verbal Response: oriented(1); Motor Response: obeys jr8 commands(2); Systolic BP: > 89 mm Hg(4); Respiratory Rate: 10 to 29 per min(4); Corolla Score: 15; Trauma Score: 12 14:00 Eye Response: spontaneous(1); Verbal Response: confused(1); Motor Response: obeys hb commands(2); Systolic BP: > 89 mm Hg(4); Respiratory Rate: 10 to 29 per min(4); Chaim Score: 14; Trauma Score: 12 14:32 Eye Response: spontaneous(1); Verbal Response: oriented(1); Motor Response: obeys sv commands(2); Systolic BP: > 89 mm Hg(4); Respiratory Rate: 10 to 29 per min(4); [place]olla Score: 15; Trauma Score: 12 15:15 Eye Response: spontaneous(1); Verbal Response: oriented(1); Motor Response: obeys hb commands(2); Systolic BP: > 89 mm Hg(4); Respiratory Rate: 10 to 29 per min(4); [place]olla Score: 15; Trauma Score: 12 16:15 Eye Response: spontaneous(1); Verbal Response: oriented(1); Motor Response: obeys hb commands(2); Systolic BP: > 89 mm Hg(4); Respiratory Rate: 10 to 29 per min(4); Corolla Score: 15; Trauma Score: 12 17:15 Eye Response: spontaneous(1); Verbal Response: oriented(1); Motor Response: obeys hb commands(2); Systolic BP: > 89 mm Hg(4); Respiratory Rate: 10 to 29 per min(4); Corolla Score: 15; Trauma Score: 12 MDM: 13:27 Patient medically screened. [facility] 13:54 Data reviewed: vital signs, nurses notes, lab test result(s), EKG, radiologic studies, [facility] CT scan, plain films. Data interpreted: Pulse oximetry: on room air is 100 %. Interpretation: normal. Counseling: I had a detailed discussion with the patient and/or guardian regarding: the historical points, exam findings, and any diagnostic results supporting the discharge/admit diagnosis, lab results, radiology results, the need to transfer to another facility, [facility] does not immediately have the required specialist. 15:19 ED course: Patient on CT has acute subdural hemorrhage. Will transfer to trauma [facility] institution for further evaluation. 16:12 ED course: [facility] accepted patient for neurosurgery and hospital medicine. Discussed [facility] with family as well . 01/19 13:44 Order name: Basic Metabolic Panel [facility] 01/19 13:44 Order name: CBC with Diff; Complete Time: 14:24 8 01/19 13:44 Order name: LFT's; Complete Time: 15:04 01/19 13:44 Order name: Magnesium; Complete Time: 15:04 01/19 13:44 Order name: NT PRO-BNP; Complete Time: 15:04 01/19 13:44 Order name: PT-INR; Complete Time: 14:22 01/19 13:44 Order name: Troponin (emerg Dept Use Only); Complete Time: 15:04 01/19 13:44 Order name: CK; Complete Time: 15:04 01/19 13:44 Order name: TSH; Complete Time: 15:04 01/19 13:44 Order name: T4 Free; Complete Time: 15:04 01/19 13:45 Order name: Basic Metabolic Panel; Complete Time: 15:04 [facility] 01/19 14:24 Order name: CBC Smear Scan; Complete Time: 14:24 [facility] 01/19 17:15 Order name: SARS-COV-2 RT PCR; Complete Time: 17:19 [facility] 01/19 13:44 Order name: XRAY Chest (1 view); Complete Time: 15:45 01/19 13:44 Order name: EKG; Complete Time: 13:45 01/19 13:44 Order name: Cardiac monitoring; Complete Time: 13:50 01/19 13:44 Order name: EKG - Nurse/Tech; Complete Time: 13:51 01/19 13:44 Order name: IV Saline Lock; Complete Time: 13:51 01/19 13:44 Order name: Labs collected and sent; Complete Time: 13:51 01/19 13:44 Order name: O2 Per Protocol; Complete Time: 13:51 01/19 13:44 Order name: O2 Sat Monitoring; Complete Time: 13:51 01/19 13:44 Order name: CT Head C Spine; Complete Time: 15:04 Administered Medications: 17:13 Drug: fentaNYL (PF) 25 mcg Route: IVP; Site: left antecubital; hb 17:55 Follow up: Response: Medication administered at discharge. hb Disposition: 01/20 07:17 Co-signature as Attending Physician, Lizett Dominguez RN I agree with the assessment and mary plan of care. Disposition: 01/19/21 16:16 Transfer ordered to [facility]. Diagnosis are Diffuse traumatic brain injury with loss of consciousness of unspecified duration, Traumatic subdural hemorrhage. - Reason for transfer: Higher level of care. - Accepting physician is Dr. Nava. - Condition is Stable. - Problem is new. - Symptoms are unchanged. NIH Stroke Scale - NIH Stroke Score Date: 01/19/2021 Time: 13:54 Total Score = 0 1a. Level of Consciousness (LOC) - 0(Alert) 1b. Level of Consciousness (LOC) (Year \T\ Age) - 0(Both) 1c. LOC Commands (Open \T\ Closes Eyes/Director Of Technology) - 0(Both) 2. Best Gaze (Lateral Gaze Paresis) - 0(Normal) 3. Visual Field Loss - 0(No visual loss) 4. Facial Palsy - 0(Normal) 5a. Left Arm: Motor (10-second hold) - 0(No drift) 5b. Right Arm: Motor (10-second hold) - 0(No drift) 6a. Left Leg: Motor (5-second hold - always test supine) - 0(No drift) 6b. Right Leg: Motor (5-second hold - always test supine) - 0(No drift) 7. Limb Ataxia (finger/nose \T\ heel/soliz - test with eyes open) - 0(Absent) 8. Sensory Loss (pinprick arms/legs/face) - 0(Normal) 9. Best Language: Aphasia (description/naming/reading) - 0(No aphasia) 10. Dysarthria (speech clarity - read or repeat words) - 0(Normal) 11. Extinction and Inattention (visual/tactile/auditory/spatial/personal) - 0(No abnormality) Initials: hugh Signatures: Dispatcher [employer] Ela Nieto RN RN sv Anderson, Corey, MD MD cha Roszak, Josh, PA PA jr8 Baxter, Heather, RN RN Corrections: (The following items were deleted from the chart) 01/19 16:15 15:12 CORONAVIRUS+MR.LAB.BRZ ordered. [facility] EDMS 17:27 16:16 01/19/2021 16:16 Transfer ordered to [facility]. Diagnosis is Diffuse traumatic brain injury with loss of consciousness of unspecified duration; Traumatic subdural hemorrhage. Reason for transfer: Higher level of care. Accepting physician is Dr. Nava. Condition is Stable. Problem is new. Symptoms are unchanged. jr8
[2021-01-19] MEDS ORDERED: LIDOCAINE 1% W/EPI 1:100,000 MDV 20 ML VIAL ONE (17:06)
[2021-01-19] MEDS ORDERED: FENTANYL CITR 100 MCG/2 ML ONE (17:25)
[2021-01-19 20:29] VITALS: TEMP 98.2
[2021-01-19 20:30] VITALS: BP 156/64; O2SAT 99
--- NOTE | 2021-01-20 06:53 | EKG ---
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
== END 2021-01-19 17:27 | disposition short-term general hospital (02) ==
LOC: ER 13:23
DX: S06.5X9A Traumatic subdural hemorrhage with loss of consciousness of unspecified duration, initial encounter (principal); S06.2X9A Diffuse traumatic brain injury with loss of consciousness of unspecified duration, initial encounter; R29.700 NIHSS score 0; W19.XXXA Unspecified fall, initial encounter; Y93.9 Activity, unspecified; Y92.9 Unspecified place or not applicable; Z20.822 Contact with and (suspected) exposure to COVID-19; Z79.82 Long term (current) use of aspirin; Z88.0 Allergy status to penicillin; Z88.1 Allergy status to other antibiotic agents; Z88.3 Allergy status to other anti-infective agents; Z88.5 Allergy status to narcotic agent; Z88.8 Allergy status to other drugs, medicaments and biological substances; I10 Essential (primary) hypertension; F41.9 Anxiety disorder, unspecified; E78.5 Hyperlipidemia, unspecified
CPT/HCPCS: 85025; 80048; 36415; 83735; 82550; 85610; 80076; 84443; 84484; 84439; 83880; 70450; 72125; 71045; U0003; J3010; 93005; 96374; 99285

== ENCOUNTER 2025-02-09 06:40 | Day surgery (SDC) | payer OTHER ==
--- NOTE | 2025-02-09 07:04 | RAD REPORT ---
EXAM: Chest Single View HISTORY: 80 years Female PRE-OP COMPARISON: 01/19/21 FINDINGS: LUNGS/PLEURA: The lungs are clear. No pleural effusions or pneumothorax. No pulmonary edema. CARDIAC/MEDIASTINUM: The cardiac silhouette is within normal limits. UPPER ABDOMEN: No significant abnormality. BONES: No acute abnormality. ACDF LINES/TUBES/OTHER: N/A IMPRESSION: No evidence of acute cardiopulmonary disease.
[2025-02-09] MEDS ORDERED: Ringers Lactate 1,000 ML IV ONE (07:26)
[2025-02-09] MEDS: CEFAZOLIN SODIUM 2 GM/VIAL ONE (07:29)
[2025-02-09] MEDS ORDERED: LIDOCAINE 2% MPF 5 ML VIAL ONE (08:01)
[2025-02-09] MEDS ORDERED: propofoL 200 MG/20 ML VIAL IV ONE (08:02)
[2025-02-09] MEDS ORDERED: FENTANYL CITR 100 MCG/2 ML ONE (08:02)
[2025-02-09] MEDS: LIDOCAINE 1% 20 ML MDV ONE (08:34)
[2025-02-09] MEDS ORDERED: ONDANSETRON 4 MG/2 ML VIAL ONE (08:53)
[2025-02-09] MEDS ORDERED: TRAMADOL 37.5mg/APAP 325mg PER TAB PO PRN (09:21)
--- NOTE | 2025-02-09 09:21 | P.OP ---
Date of Service: 02/09/25 Preop diagnosis: Right-sided headache, rule out temporal arteritis Postop diagnosis: Same Procedure performed: Right temporal artery biopsy with utilization of Doppler Surgeon: Ming Melendez MD Rehabilitation Psychologist: None Estimated blood loss: Minimal Specimen: Right temporal artery Findings: Normal anatomy, small branch of the temporal artery Anesthesia: MAC Complications: None Drains: None Fluids and blood products: Nonapplicable Disposition: Recovery room Operative note: Patient brought to the OR and placed in supine position. MAC anesthesia began. Patient prepped and draped in the usual sterile fashion. Lidocaine 1% infiltrated locally. 15 blade used to make a 4 cm incision anterior and superior to the right ear. Doppler device used to isolate a branch of the temporal artery. Subcutaneous tissue divided and bleeding controlled with cautery. A small branch of the temporal artery identified. Proximal and distal control obtained. Approximately a 2.5 cm segment of the artery excised and sent to pathology as specimen. Both ends tied off with 4-0 silk ties. Wound irrigated and bleeding controlled cautery. 4-0 chromic used to approximate subcutaneous tissue and close skin. Sterile dressing applied. Patient awakened and taken to recovery room in good general condition. CC: Dr. Duncan's office
[2025-02-09 10:27] VITALS: BP 145/62; TEMP 97.3; O2SAT 97
--- NOTE | 2025-02-11 12:44 | EKG ---
Test Date: 2025-02-09 Test Time: 07:15:35 Cupola Melter: MEASUREMENT RESULTS: Intervals: Rate: 63 NH: 178 QRSD: 88 QT: 410 QTc: 419 [place]: P: 54 NH: 178 QRS: 10 T: 55 INTERPRETIVE STATEMENTS: Normal sinus rhythm Septal infarct, age undetermined Abnormal ECG Compared to ECG 01/19/2021 13:46:34 Sinus tachycardia no longer present Myocardial infarct finding still present Electronically Signed On 02-11-25 12:38:10 CDT by Sunny Leigh
== END 2025-02-09 10:20 | disposition home or self-care (01) ==
LOC: OR 06:40
PROVIDERS: ATTEND Surgery
PROC: 03BS0ZX Excision of Right Temporal Artery, Open Approach, Diagnostic (ICD-10-PCS; principal; 2025-02-09 08:30)
DX: I70.8 Atherosclerosis of other arteries (principal); R51.9 Headache, unspecified
CPT/HCPCS: 37609; 93005; 88305; 71045; J2704; J2003 ×2; J3010; J2405; J7120

== ENCOUNTER 2025-08-11 10:32 | Emergency (ER) | payer OTHER ==
--- OUTSIDE RECORDS SUMMARY | 2025-08-11 10:37 | XMS REPORT | Clinical Summary ---
Author Name Unknown Organization [facility] Address [address] [place] [address] Care Team Providers Care Accounts Payable Payroll Coordinator Name Role Phone Sydni Levy MD Unavailable [phone] Nabila Lewis MD Unavailable Brittni Aranda MD Primary Care Provider [phone] Everardo Valerio MD Unavailable [phone] Ethan Wilson MD Unavailable [phone] Quang Dolan MD Unavailable [phone] Nette Covarrubias MD Unavailable [phone] Chelly Dawson MD Unavailable [phone] Goyo Waters MD Unavailable [phone] Nancy Ring PA-C Unavailable [phone] Rod Nelson APRN Unavailable [phone] Allergies Active Allergy Reactions Criticality Noted Date Comments Codeine GI Intolerance,Nause a And Vomiting,Nausea Only Medium 05/07/2013 Iodinated Contrast Media Shortness Of Breath High 08/27/2019 Previously tolerated IV contrast, but had severe shortness of breath/chest pain with CT PE on 08/14/19. 11/28/2019, Premedicated with methylprednisolone 32 mg po x2 doses and benadryl 25 mg po prior to scan. Post CT scan, no sign and symptom of contrast reaction noted. 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 metoprolol tartrate (LOPRESSOR) 100 mg tablet Take 1 tablet (100 mg) by mouth twice daily. Active esomeprazole (NexIUM) 40 MG capsule Take 1 capsule (40 mg) by mouth daily. Active atorvastatin (LIPITOR) 40 mg tablet Take 1 tablet (40 mg) by mouth daily. 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 0 08/04/20 19 Active topiramate (TOPAMAX) 100 mg tablet Take 1 tablet (100 mg) by mouth twice daily. Active acetaminophen (TYLENOL) 500 mg tabletIndications: Papillary thyroid carcinoma Take 2 tablets (1,000 mg) by mouth every 6 (six) hours as needed for mild pain. 60 tablet 0 3:34 PM CDT 07/14/20 20 Active tretinoin (ALTRALIN) 0.05 % gel Apply 1 application topically to affected area(s) as directed. 06/08/20 21 Active cranberry extract (Theracran) 650 mg cap Take 1 capsule by mouth daily. Active sertraline (ZOLOFT) 50 mg tablet Take 2 tablets (100 mg) by mouth at bedtime. 06/04/20 24 Active anastrozole (ARIMIDEX) 1 mg tabletIndications: Infiltrating duct carcinoma, NOS of overlapping lesion of breast <Female; Right> Take 1 tablet (1 mg) by mouth daily. 90 tablet 2 05/08/20 25 Active doxepin (SINEquan) 10 mg capsule Take 1 capsule (10 mg) by mouth at bedtime. 03/20/20 25 Active rivastigmine (EXELON) 4.6 mg/[address] on the skin. 9.5 mg 02/11/20 25 Active spironolactone (ALDACTONE) 25 mg tablet Take 1 tablet (25 mg) by mouth daily. Active UNABLE TO FIND Med Name: July Womens 50+ Active levothyroxine (Synthroid) 150 mcg tabletIndications: History of papillary adenocarcinoma of thyroid,Postoperat lisa hypothyroidism,[place]enton g-term current use of thyroid hormone replacement therapy Take 1 tablet (150 mcg) by mouth daily. 90 tablet 4 06/09/20 25 Active anastrozole (ARIMIDEX) 1 mg tabletIndications: Infiltrating duct carcinoma, NOS of overlapping lesion of breast <Female; Right> TAKE ONE TABLET BY MOUTH EVERY DAY 90 tablet 3 07/26/20 22 025 Discontin ued(Reord er) levothyroxine (Synthroid) 150 mcg tabletIndications: History of papillary adenocarcinoma of thyroid,Postoperat lisa hypothyroidism,[place]enton g-term current use of thyroid hormone replacement therapy Take 1 tablet (150 mcg) by mouth daily. 90 tablet 3 05/07/20 24 025 Discontin ued(Reord er) Active Problems Problem Noted Date Diagnosed Date Estrogen receptor positive status (ER+) 02/27/20 25 Atrophic gastritis 11/06/2024 History of papillary adenocarcinoma of thyroid 0 05/07/2024 Personal history of benign carcinoid tumor 10/26 Severe protein-calorie malnutrition 06/28/2023 Neuroendocrine carcinoma, NOS of body of stomach 06/22/2023 Depression NOS 03/11/2022 Overview (07/22/2022): 07/22 CMS regulatory import Memory impairment 12/23/2021 Impairment of balance 12/23/2021 Breast asymmetry between maria c lisa breast and reconstructed breast 11/23/2021 Overview (03/11/2022): Added automatically from request for surgery [id number] Lumbosacral spondylosis without myelopathy 08/03 retirement current use of opiate analgesic 2020 Cervical spondylosis 02/08/2021 Neck pain 12/24/2020 Chronic pain 12/24/2020 Neoplasm related pain (acute) (chronic) 12/25/19 21 Postoperative hypothyroidism 07/13/2020 retirement current use of anticoagulant 0 Overview (07/09/2020): Aspirin 81 mg daily- last dose the 1st week of Jun 2020 H/O: hip fracture 04/12/2020 Overview (04/12/2020): Right - managed nonoperatively Hypertension 04/12/2020 H/O Spinal surgery 01/30/2020 Overview (07/09/2020): C4- C7 Multiple joint pain 01/30/2020 Overview (07/22/2025): CMS Dx 07/22 regulatory import History of right mastectomy 01/30/2020 Ex-smoker 01/30/2020 H/O: hysterectomy 01/30/2020 Papillary thyroid carcinoma 12/04/2019 Cancer Staging:Pathologic stage from 10/12/2020:Stage I(pT1a, pN0a, cM0, Age at diagnosis: >= 55 years) - Signed by Yvon Llanos MD on 08/31/2021 Overview (12/04/2019): Added automatically from request for surgery [id number] 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 07/22/2019 Cancer Staging:Pathologic stage from 06/16/2019:Stage IA(pT1b(m), pN0, cM0, G3, ER+, WV+, HER2-, Oncotype DX score: 30) - Signed by Brittni Aranda MD on 07/24/2019 Encounters Date Type Department Care Team Description 07/09/2025 2:00 PM CDT Office Visit [facility] [address] [place] [address] Rod Nelson, EXCELSIOR MACHINE OPERATOR 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 (Primary Dx); Papillary thyroid carcinoma; Estrogen receptor positive status (ER+) 07/09/2025 9:45 AM CDT Ancillary Procedure MD John Da Silva [address] [place] [address] Rod Nelson, EXCELSIOR MACHINE OPERATOR 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 07/09/2025 8:45 AM CDT Ancillary Procedure MD John Bowser [address] [address] Rod Nelson, EXCELSIOR MACHINE OPERATOR 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 07/09/2025 8:00 AM CDT Ancillary Procedure MD John Da Silva [address] [place] [address] Rod Nelson, EXCELSIOR MACHINE OPERATOR 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 07/09/2025 Travel 06/09/2025 3:00 PM CDT Office Visit [facility], Thyroid [address] [place] [address], [address] [place] [address] Nancy Ring PA-C History of papillary adenocarcinoma of thyroid; Postoperative hypothyroidism; Long-term current use of thyroid hormone replacement therapy 06/09/2025 12:45 PM CDT Ancillary Procedure Neuro-Interventio nal Ultrasound [address] [place] [address], 6th [place] [address] Nancy Ring PA-C History of papillary adenocarcinoma of thyroid 06/09/2025 11:55 AM CDT - 06/09/2025 11:59 PM CDT Hospital Encounter [facility] [address] [place] [phone] Nancy Ring PA-C History of papillary adenocarcinoma of thyroid; Postoperative hypothyroidism; Long-term current use of thyroid hormone replacement therapy Discharge Disposition: Home 06/09/2025 Travel 02/26/2025 1:40 PM CDT Office Visit MD [facility] - Survivorship [address] [place] [phone] Georgina Fonseca, Rod White, FLAVIO 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 (Primary Dx); Neoplasm related pain (acute) (chronic); Estrogen receptor positive status (ER+) 02/26/2025 Travel 11/06/2024 Prep for Procedure [facility] Hepatology & Nutrition [address] [place] [address] [facility], 7th [place] [address] Ramsey Betancourt MD Personal history of benign carcinoid tumor (Primary Dx); Atrophic gastritis 11/02/2024 Telephone [facility] [address] [place] [phone] Angie Da Silva, jump roll operator Call 11/01/2024 Telephone [facility] [address] [place] [phone] Angie Da Silva, jump roll operator Call 10/31/2024 8:35 AM OPHTHALMIC ASSISTANT - 10/31/2024 9:20 AM [facility] Surgery Endoscopy Center [address] [place] [address] Main [facility], 5th [place] [address] Ramsey Betancourt MD UPPER GASTROINTESTINAL ENDOSCOPY OF ESOPHAGUS, STOMACH, AND DUODENUM WITH BIOPSY 10/31/2024 8:22 AM [facility] Anesthesia Event [facility] [address] [place] [address] Main [facility], 5th [place] [address] Chevy Hartmann MD 10/31/2024 6:35 AM OPHTHALMIC ASSISTANT - 10/31/2024 10:11 AM [facility] Hospital Encounter [facility] [address] [place] [address] [facility], 5th [place] [address] Ramsey Betancourt MD Personal history of benign carcinoid tumor Discharge Disposition: Home 10/31/2024 Travel 10/30/2024 4:30 PM OPHTHALMIC ASSISTANT POEM Appointments [facility] [address] [place] [address] [facility], 6th [place] [address] Brittni Aranda MD 10/30/2024 Telephone [facility] Hepatology & [facility] [address] [place] [address] [facility], 7th [place] [address] Souleymane Macias PA-C 10/30/2024 Telephone [facility] [address] [facility] Main [facility], 5th [place] [address] Moses Zamorano RN 10/30/2024 Documentation [facility]ology[facility] Hepatology & Nutrition [address] [place] [address], 7th [place] [address] Souleymane Macias PA-C 10/29/2024 11:59 PM OPHTHALMIC ASSISTANT Anesthesia Event [facility] [address] [place] [address], 6th [place] [address] Stephanie Harris RN after 08/11/2024 Immunizations Immunization Administration Dates Next Due Arexvy Pf 10/04/2023 Influenza, Unspecified 08/10/2020 Influenza, injectable, quadr ivalent, preservative free 08/27/2019 Moderna SARS-CoV-2 Vaccination ,08/18/2021,2021,2020 Pneumococcal Conjugate 13-Valent 08/13/2018 Pneumococcal Conjugate 20-valent 06/29/2023 Td 03/05/2019 Surgical History Surgery Date Site/Laterality Comments MASTECTOMY 06/16/2019 HYSTERECTOMY 10/22/1971 - 10/21/1972 ABDOMINOPLASTY FACIAL COSMETIC SURGERY FUSION SPINE 10/22/2015 - 10/21/2016 WV THYROIDECTOMY TOTAL/COMPLETE 07/13/2020 Neck/Bila teral Procedure: TOTAL OR COMPLETE THYROIDECTOMY; Surgeon: Chelly Dawson MD; Location: MAIN OR; Service: SURG ONC - ENDOCRINE [place] PARATHYROID AUTOTRANSPLANTATION ADD-ON 07/13/2020 Neck/N/A Procedure: AUTOTRANSPLANTATION OF PARATHYROID; Surgeon: Chelly Dawson MD; Location: MAIN OR; Service: SURG ONC - ENDOCRINE WV ESOPHAGOGASTRODUODENOSCOP Y US SCOPE W/ADJ STRXRS 10/12/2023 Esophagus/N/A Procedure: UPPER GASTROINTESTINAL ENDOSCOPY OF ESOPHAGUS, STOMACH, OR DUODENUM ANDJ ADJACENT STRUCTURES, WITH ENDOSCOPIC ULTRASOUND EXAMINATION; Surgeon: Ramsey Betancourt MD; Location: MAIN ENDOSCOPY; Service: GASTROENTEROLOGY FINE NEEDLE ASPIRATION 11/27/2019 BREAST CYST EXCISION 05/22/2019 - 06/21/2019 L breast; benign WV EGD TRANSORAL BIOPSY SINGLE/MULTIPLE 10/31/2024 Esophagus/N/A Procedure: UPPER GASTROINTESTINAL ENDOSCOPY OF ESOPHAGUS, STOMACH, AND DUODENUM WITH BIOPSY; Surgeon: Ramsey Betancourt MD; Location: MAIN ENDOSCOPY; Service: GASTROENTEROLOGY WV EDG US EXAM SURGICAL ALTE R STOM DUODENUM/JEJUNUM 10/31/2024 N/A Procedure: UPPER GASTROINTESTINAL ENDOSCOPY WITH ENDOSCOPIC ULTRASOUND EXAMINATION; Surgeon: Ramsey Betancourt MD; Location: MAIN ENDOSCOPY; Service: GASTROENTEROLOGY BIOPSY TEMPORAL ARTERY 02/19/2025 - 03/21/2025 Right COLONOSCOPY 10/22/2022 - 10/21/2023 Medical History Medical History Date Comments Hypertension 1998 Hyperlipidemia 1998 Migraine 1998 Functional visual loss 2009 Gastric reflux 2009 Menopause 2007 Breast cancer 06/22/2019 Atypical endocervical cells of cervix Multinodular goiter 11/27/2019 H/O: hip fracture 04/12/2020 History of surgical procedur e on cervical spine 04/12/2020 Papillary thyroid carcinoma 12/04/2019 Adde d automatically from request for surgery [id number] Postoperative hypothyroidism 07/13/2020 Subdural hematoma 12/2020 after a fall Depression NOS 03/11/2022 H/O Spinal surgery 01/30/2020 Personal history of chemotherapy 07/2019 ended 10/2019, hormonal tx 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 Infiltrating duct carcinoma of breast 04/2019 R breast Estrogen receptor positive s tatus (ER+) 02/26/2025 Family History Medical History Relation Name Comments Prostate cancer Father -Genitourinary (Bladder, Kid rajat, Prostate, Testicle) Maternal Uncle 1 Edward -Thoracic or Lung Maternal Uncle 2 Yosi Lung -Thoracic or Lung Mother Fadumo mets to br ain Relation Name Status Comments Father Maternal Uncle 1 Edward Maternal Uncle 2 Yosi Mother Fadumo Social History Tobacco Use Types Packs/Day Years Used Date Smoking Tobacco: Former Cigarettes 1 20 1 965 - 1985 Passive Smoke Exposure: Never Smokeless Tobacco: Never Alcohol Use Standard Drinks/Week Comments Not Currently 0 (1 standard drink = 0.6 oz pur e alcohol) Comments No Sex and Gender Information Value Date Recorded Sex Assigned at Female 11/25/2019 5:43 PM OPHTHALMIC ASSISTANT Legal Sex Female 1:06 PM CDT Gender Identity Female 11/25/2019 5:43 PM OPHTHALMIC ASSISTANT Sexual Orientation Straight 11/25/2019 5: 43 PM OPHTHALMIC ASSISTANT Obstetrics History Para Term AB IAB SAB Ectopic Multiple Livin g Live Births 2 2 2 Date Outcome GA Total Labor Labor/2nd/3rd Weight Sex Type Anes PTL Adeline A1 A5 Name Clin Term Term Last Filed Vital Signs Vital Sign Reading Time Taken Comments Blood Pressure 113/70 07/09/2025 11:38 AM CDT Pulse 72 07/09/2025 11:38 AM CDT Temperature 36.5 °C (97.7 °F) 07/09/2025 11:38 AM C DT Respiratory Rate 18 07/09/2025 11:38 AM CDT Oxygen Saturation 95% 07/09/2025 11:38 AM CDT Inhaled Oxygen Concentration - - Weight 64 kg (141 lb 1.5 oz) 07/09/2025 11:38 AM CDT Height 161 cm (5' 3.39") 06/09/2025 2:44 PM CDT Body Mass Index 24.69 06/09/2025 2:44 PM CDT Plan of Treatment Upcoming Encounters Date Type Department Care Team (Latest Contact Info) Description 08/25/2025 10:40 AM OPHTHALMIC ASSISTANT Telemedicine [facility] [address] [place] [address] Rod Nelson, EXCELSIOR MACHINE OPERATOR [address] [place] [address] [email or web address] 11/20/2025 10:20 AM [facility] Hospital Encounter [facility]oscopy Center [address] [place] [address] Main [facility], 5th [place] [address] Ramsey Betancourt MD [address] [place] [phone] [email or web address] 11/20/2025 10:20 AM OPHTHALMIC ASSISTANT - 11/20/2025 11:35 AM [facility] Surgery Endoscopy Center [address] [place] [address] [facility], 5th [place] [address] Ramsey Betancourt MD [address] [place] [address] [email or web address] UPPER GASTROINTESTINAL ENDOSCOPY WITH ENDOSCOPIC ULTRASOUND EXAMINATION Scheduled Procedures Name Priority Associated Diagnoses Date/Ti me UPPER GASTROINTESTINAL ENDOSCOPY WITH ENDOSCOPIC ULTRASOUND EXAMINATION Personal history of benign carcinoid tumor Atrophic gastritis 11/20/2025 10:20 AM OPHTHALMIC ASSISTANT Health Maintenance Due Date Last Done Comments COVID-19 Vaccine (2024- 6 season) 2025 10/03/2022, 08/19/2021, 08/18/2021, Additional history exists Influenza Vaccine (#1) 2025 4, 08/10/2020, 08/27/2019 Pneumococcal Vaccine: 50+ Years Completed 3, 08/13/2018 Medical Devices Implanted Type Area Uke Operator Device Identifier Shelf Expiration Date Model / Serial / Lot Tissue Exapnder-06/16/20 19 Implanted:2018 (Quantity not on file) Description:Tissue exapnder placed by [facility] in right breast on 06/16/19. 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 VITAMIN D 25 HYDROXY LEVEL Routine 07/09/2025 7:24 AM CDT 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 COMPREHENSIVE METABOLIC PANEL Routine 07/09/2025 7:24 AM CDT 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 COMPLETE BLOOD COUNT W/ DIFFERENTIAL Routine 07/09/2025 7:24 AM CDT 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 US HEAD NECK SOFT TISSUE Routine 06/09/2025 1:41 PM CDT History of papillary adenocarcinoma of thyroid PTH INTACT Routine 06/09/2025 12:12 PM CDT History of papillary adenocarcinoma of thyroid Postoperative hypothyroidism Long-term current use of thyroid hormone replacement therapy VITAMIN D 25 HYDROXY LEVEL Routine 06/09/2025 12:12 PM CDT History of papillary adenocarcinoma of thyroid Postoperative hypothyroidism Long-term current use of thyroid hormone replacement therapy THYROGLOBULIN Routine 06/09/2025 12:12 PM CDT History of papillary adenocarcinoma of thyroid FREE THYROXINE Routine 06/09/2025 12:12 PM CDT History of papillary adenocarcinoma of thyroid Postoperative hypothyroidism Long-term current use of thyroid hormone replacement therapy THYROID STIMULATING HORMONE Routine 06/09/2025 12:12 PM CDT History of papillary adenocarcinoma of thyroid Postoperative hypothyroidism Long-term current use of thyroid hormone replacement therapy PHOSPHORUS LEVEL Routine 06/09/2025 12:12 PM CDT History of papillary adenocarcinoma of thyroid Postoperative hypothyroidism Long-term current use of thyroid hormone replacement therapy MAGNESIUM LEVEL Routine 06/09/2025 12:12 PM CDT History of papillary adenocarcinoma of thyroid Postoperative hypothyroidism Long-term current use of thyroid hormone replacement therapy CALCIUM LEVEL Routine 06/09/2025 12:12 PM CDT History of papillary adenocarcinoma of thyroid Postoperative hypothyroidism Long-term current use of thyroid hormone replacement therapy ALBUMIN LEVEL Routine 06/09/2025 12:12 PM CDT History of papillary adenocarcinoma of thyroid Postoperative hypothyroidism Long-term current use of thyroid hormone replacement therapy .CBC Routine 02/26/2025 12:20 PM CDT 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 MAGNESIUM LEVEL Routine 02/26/2025 12:20 PM CDT 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 COMPREHENSIVE METABOLIC PANEL Routine 02/26/2025 12:20 PM CDT 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 COMPLETE BLOOD COUNT W/ DIFFERENTIAL Routine 02/26/2025 12:20 PM CDT 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 PATHOLOGY BIOPSY INTERPRETATION Routine 10/31/2024 8:44 AM OPHTHALMIC ASSISTANT Personal history of benign carcinoid tumor WV EDG US EXAM SURGICAL ALTER STOM DUODENUM/JEJUNUM 10/31/2024 8:12 AM OPHTHALMIC ASSISTANT Personal history of benign carcinoid tumor Special Needs cane weigherROSA MARIA Hope, 2nd call, LVM WV EGD TRANSORAL BIOPSY SINGLE/MULTIPLE 10/31/2024 8:12 AM OPHTHALMIC ASSISTANT Personal history of benign carcinoid tumor Special Needs cane weigherROSA MARIA Hope, 2nd call, LVM after 08/11/2024 Results * US Breast Complete Left (07/09/2025 10:12 AM CDT) Anatomical Region Laterality Modality Breast Left Ultrasound Impressions 07/09/2025 10:21 AM CDT No suspicious sonographic findings identified. Overall BI-RADS Category: 2 - Benign Recommend return to annual screening mammography, due on 06/2026. Narrative 07/09/2025 10:21 AM CDT CLINICAL INDICATION: Patient is a 80 y.o. female and is seen for breast cancer. US Breast Complete Left COMPARISON: The present examination has been compared to prior imaging studies performed : 03/25/2021 US Breast Left incl [facility] at [facility], 03/25/2021 Mammography Digital Diagnostic Left with Shilo at [facility], 07/02/2024 US Breast Left incl [facility]ins at [facility], 07/09/2025 Mammography Digital Diagnostic Left with Shilo at [facility] TECHNIQUE: Real-time sonographic imaging was performed on the following regions: left, breast (including all 4 quadrants and retroareolar region), left, axilla. Images were obtained in multiple scanning planes. FINDINGS: There has been no significant interval change from previous studies dating back to 04-04-2021. Stable appearing subcentimeter benign mass again noted at left breast 12:00 3 cm from the nipple and a benign intramammary node at 3:00 8 cm from the nipple. No suspicious sonographic findings identified. Rod Nelson APRN [facility] US ORDERABLES Final Resul t * Mammography Digital Diagnostic Left with Shilo (07/09/2025 9:39 AM CDT) Anatomical Region Laterality Modality Breast Left Mammography Impressions 07/09/2025 9:43 AM CDT There is no mammographic evidence of malignancy in the left breast. Overall BI-RADS Category: 2 - Benign Recommend return to annual screening mammography, due on 06/2026. Narrative 07/09/2025 9:43 AM CDT CLINICAL INDICATION: Patient is a 80 y.o. female and is seen for breast cancer. Mammography Digital Diagnostic Left with Shilo Computer-aided detection was utilized by the radiologist in the interpretation of this examination. Tomosynthesis was performed in CC and MLO projections. COMPARISON: The present examination has been compared to prior imaging studies performed : 03/25/2021 Mammography Digital Diagnostic Left with Shilo at [facility], 07/02/2024 Mammography Digital Diagnostic Left with Shilo at [facility] FINDINGS: There are scattered areas of fibroglandular density. Left 1) Calcifications: There are stable scattered benign-appearing calcifications seen in the left breast. There is no evidence of suspicious masses, calcifications, or other abnormal findings in the left breast. Rod Nelson APRN [facility] MAMMOGRAPHY ORDERABLES Fi nal Result * NM Bone Mineral Density Both Hips and Spine (07/09/2025 8:33 AM CDT) Anatomical Region Laterality Modality Spine Nuclear Medicine 07/09/2025 8:32 AM CDT Impressions 07/09/2025 9:20 AM CDT 1. Osteopenia based on measurements of the left femoral neck and left total hip. 2. Statistically significant interval decrease in bone mineral density seen in the lumbar spine compared to prior study dated 07/17/2024. 3. Statistically significant interval increase in bone mineral density seen in left distal forearm compared to prior study dated 07/17/2024. I personally reviewed these image(s) along with the resident's/fellow's interpretations, certify that if a procedure was performed I was physically present, and agree with the final report. Narrative 07/09/2025 9:20 AM CDT FULL RESULT: Examination: Bone Mineral Density (DXA), 07/09/2025 Clinical History: 80-year-old postmenopausal female treated for breast cancer on hormonal therapy. Indication: Assessment of bone mineral density.. Comparison: Bone mineral density study 07/17/2024. Technique: Bone mineral density was obtained using Hologic dual-energy X-ray absorptiometry. L1 and L2 vertebral bodies were excluded from analysis due outlier T-scores. The right hip was excluded from analysis per prior. The left forearm was again included in the analysis. Findings: The findings are provided in the below table(s). Bone Density: Region Exam Date BMD T- Z- g/cm2 Score Score AP Spine (L3, L4) 07/09/2025 1.259 1.4 4.2 Femoral Neck (Left) 07/09/2025 0.613 -2.1 0.2 Total Hip (Left) 07/09/2025 0.738 -1.7 0.4 1/3 Forearm (Left) 07/09/2025 0.640 -0.8 2.4 For postmenopausal women and men age 50 and over, the World Health Organization criteria for BMD interpretation classify patients as: Normal (T-score at or above -1.0), Osteopenia (T-score between -1.0 and -2.5), or Osteoporosis (T-score at or below -2.5). Previous Exams: Region Exam Age BMD T-score BMD Change vs Date g/cm2 Baseline Previous AP Spine (L3-L4) 07/09/2025 80 1.259 1.4 6.5%* -2.9%* 07/17/2024 79 1.297 1.8 9.7%* 9.7%* 06/12/2022 77 1.182 0.7 Total Hip(Left) 07/09/2025 80 0.738 -1.7 -3.2% 0.5% 07/17/2024 79 0.734 -1.7 -3.7% -3.7% 06/12/2022 77 0.762 -1.5 Femoral Neck(Left) 07/09/2025 80 0.613 -2.1 -4.5% -1.0% 07/17/2024 79 0.619 -2.1 -3.6% -3.6% 06/12/2022 77 0.642 -1.9 1/3 Forearm(Left) 07/09/2025 80 0.640 -0.8 1.1% 5.1%* 07/17/2024 79 0.609 -1.3 -3.9%* -3.9%* 06/12/2022 77 0.633 -0.9 *Denotes significance at 95% confidence level, site specific LSC for AP Spine = 0.029 g/cm2, site specific LSC for Total Hip = 0.033 g/cm2, site specific LSC for Femoral Neck = 0.045 g/cm2, LSC for 1/3 Forearm = 0.023 g/cm2 Procedure Note Danette Barney MD - 07/09/2025 FULL RESULT: Examination: Bone Mineral Density (DXA), 07/09/2025 Clinical History: 80-year-old postmenopausal female treated for breastcancer on hormonal therapy. Indication: Assessment of bone mineral density.. Comparison: Bone mineral density study 07/17/2024. Technique: Bone mineral density was obtained using Hologic [id number]-[id number] absorptiometry. L1 and L2 vertebral bodies were excluded fromanalysis due outlier T-scores. The right hip was excluded from analysisper prior. The left forearm was again included in the analysis. Findings: The findings are provided in the below table(s). Bone Density: Region Exam Date BMD T- Z- g/cm2 Score Score AP Spine (L3, L4) 07/09/2025 1.259 1.4 4.2 Femoral Neck (Left) 07/09/2025 0.613 -2.1 0.2 Total Hip (Left) 07/09/2025 0.738 -1.7 0.4 1/3 Forearm (Left) 07/09/2025 0.640 -0.8 2.4 For postmenopausal women and men age 50 and over, the World Health Organization criteria for BMD interpretation classify patients as: Normal (T-score at or above -1.0), Osteopenia (T-score between -1.0 and -2.5), or Osteoporosis (T-score at or below -2.5). Previous Exams: Region Exam Age BMD T-score BMD Change vs Date g/cm2 Baseline Previous AP Spine (L3-L4) 07/09/2025 80 1.259 1.4 6.5%* -2.9%* 07/17/2024 79 1.297 1.8 9.7%* 9.7%* 06/12/2022 77 1.182 0.7 Total Hip(Left) 07/09/2025 80 0.738 -1.7 -3.2% 0.5% 07/17/2024 79 0.734 -1.7 -3.7% -3.7% 06/12/2022 77 0.762 -1.5 Femoral Neck(Left) 07/09/2025 80 0.613 -2.1 -4.5% -1.0% 07/17/2024 79 0.619 -2.1 -3.6% -3.6% 06/12/2022 77 0.642 -1.9 1/3 Forearm(Left) 07/09/2025 80 0.640 -0.8 1.1% 5.1%* 07/17/2024 79 0.609 -1.3 -3.9%* -3.9%* 06/12/2022 77 0.633 -0.9 *Denotes significance at 95% confidence level, site specific LSC for APSpine = 0.029 g/cm2, site specific LSC for Total Hip = 0.033 g/cm2, sitespecific LSC for Femoral Neck = 0.045 g/cm2, LSC for 1/3 Forearm = 0.023 g/cm2 IMPRESSION: 1. Osteopenia based on measurements of the left femoral neck and lefttotal hip. 2. Statistically significant interval decrease in bone mineral densityseen in the lumbar spine compared to prior study dated 07/17/2024. 3. Statistically significant interval increase in bone mineral densityseen in left distal forearm compared to prior study dated 07/17/2024. I personally reviewed these image(s) along with the resident's/fellow'sinterpretations, certify that if a procedure was performed I wasphysically present, and agree with the final report. us Rod Nelson APRN IMG DXA ORDERABLES Final Resu lt * (ABNORMAL) .CBC (07/09/2025 7:24 AM CDT) Only the most recent of2 resultswithin the time period is included. White Blood Cell 9.9 4.1 - 10.5 K/uL 07/09/2025 7:32 AM [facility] Red Blood Cell 3.81(L) 3.99 - 5.46 M/uL 07/09/2025 7:32 AM [facility] Hemoglobin 11.1(L) 12.2 - 15.3 g/dL 07/09/2025 7:32 AM [facility] Hematocrit 35.5(L) 36.4 - 46.8 % 07/09/2025 7:32 AM [facility] Mean Cell Volume 93 82 - 99 fL 07/09/2025 7:32 AM [facility] Mean Cell Hemoglobin 29.1 26.6 - 33.2 pg 07/09/2025 7:32 AM [facility] Mean Cell Hemoglobin Concentration 31.3 31.1 - 35.2 g/dL 07/09/2025 7:32 AM [facility] RDW-SD 45.6 37.5 - 49.7 fL 07/09/2025 7:32 AM [facility] Red Cell Diameter Width 13.2 11.6 - 15.5 % 07/09/2025 7:32 AM [facility] Platelet 240 160 - 397 K/uL 07/09/2025 7:32 AM [facility] Mean Platelet Volume 9.4 9.1 - 12.6 fL 07/09/2025 7:32 AM [facility] Neutrophil % 69.7 43.2 - 72.7 % 07/09/2025 7:32 AM [facility] Lymphocyte % 20.2 16.8 - 46.2 % 07/09/2025 7:32 AM [facility] Monocyte % 7.6 5.1 - 12.5 % 07/09/2025 7:32 AM [facility] Eosinophil % 1.3 0.4 - 6.3 % 07/09/2025 7:32 AM [facility] Basophil % 0.3 0.2 - 1.4 % 07/09/2025 7:32 AM [facility] IGRE % 0.9 0.1 - 1.5 % 07/09/2025 7:32 AM [facility] Comment:The IGRE% includes M etamyelocytes, Myelocytes and Promyelocytes. Neutrophil Abs 6.86 1.95 - 7.25 K/uL 07/09/2025 7:32 AM [facility] Lymphocyte Abs 1.99 1.01 - 3.24 K/uL 07/09/2025 7:32 AM [facility] Monocyte Abs 0.75 0.24 - 0.85 K/uL 07/09/2025 7:32 AM [facility] Eosinophil Abs 0.13 0.02 - 0.50 K/uL 07/09/2025 7:32 AM [facility] Basophil Abs 0.03 0.02 - 0.09 K/uL 07/09/2025 7:32 AM [facility] IG Abs 0.09 0.01 - 0.12 K/uL 07/09/2025 7:32 AM [facility] Blood Peripheral blood specimen / Unknown Venipuncture / Unknown 07/09/2025 7:24 AM CDT 07/09/2025 7:24 AM CDT us Rod Nelson APRN LAB BLOOD ORDERABLES Final Re sult [facility] [address] [facility], [facility] [address] [place] [address] * (ABNORMAL) Comprehensive Metabolic Panel (07/09/2025 7:24 AM CDT) Only the most recent of2 resultswithin the time period is included. Bilirubin Total <0.3 0.0 - 1.2 mg/dL 07/09/2025 7:50 AM [facility] Comment:Indocyanine Green (I CG) may cause falsely elevated bilirubin results. Total and direct bilirubin must not be measured from samples containing indocyanine green. False elevation of total bilirubin can be seen in patients with IgG concentrations above 28 g/L. eGFR 52(L) >=60 mL/min/1. 73 sq. m 07/09/2025 7:50 AM [facility] Comment: The eGFRcr is calculated with the 2021 CKD-EPI creatinine equation using creatinine, patient's age, and sex for adults 18 years of age and older. Other factors, especially muscle mass, may affect accuracy and need to be considered. According to the Kidney Disease: Improving Global Outcomes (KDIGO) CKD Work Group 2012 Clinical Practice Guideline, chronic kidney disease (CKD) is defined as the abnormalities of kidney structure or function, present for more than 3 months, with implications for health. CKD should be classified by cause, GFR category, and albuminuria category. KDIGO guidelines provide the following GFR categories. Stage / Description / GFR mL/min/1.73 m2: G1* / Normal or high / >= 90 G2* / Mildly decreased / 60-89 G3a / Mildly to moderately decreased / 45-59 G3b / Moderately to severely decreased / 30-44 G4 / Severely decreased / 15-29 G5 / Kidney failure / <15 *In the absence of evidence of kidney damage, neither G1 nor G2 fulfill criteria for CKD. Tot Protein 7.0 6.4 - 8.3 gm/dL 07/09/2025 7:50 AM [facility] Calcium Level Total 10.5(H) 8.2 - 10.2 mg/dL 07/09/2025 7:50 AM [facility] Alkaline Phosphatase 88 35 - 104 U/L 07/09/2025 7:50 AM [facility] Albumin Level 4.2 3.5 - 5.2 gm/dL 07/09/2025 7:50 AM [facility] AST 23 <=32 U/L 07/09/2025 7:50 AM [facility] ALT 21 <=33 U/L 07/09/2025 7:50 AM [facility] Sodium Level 141 136 - 145 mmol/L 07/09/2025 7:50 AM [facility] Potassium Level 5.8(H) 3.4 - 4.5 mmol/L 07/09/2025 7:50 AM [facility] Chloride 111(H) 98 - 107 mmol/L 07/09/2025 7:50 AM [facility] CO2 21(L) 22 - 29 mmol/L 07/09/2025 7:50 AM [facility] Anion Gap 9 4 - 14 mmol/L 07/09/2025 7:50 AM [facility] Creatinine 1.09(H) 0.51 - 0.95 mg/dL 07/09/2025 7:50 AM [facility] BUN 31(H) 6 - 23 mg/dL 07/09/2025 7:50 AM [facility] Glucose Level 110(H) 70 - 99 mg/dL 07/09/2025 7:50 AM [facility] Comment: Effective 05/17/16, the glucose reference intervals have been updated based on [place] Diabetes [employer] guidelines (Standards of Medical Care in Diabetes 2016. Diabetes Care 2016; 39: S13-S22). Fasting blood glucose: Normal: 70-99 mg/dL Impaired fasting glucose (increased risk for diabetes or pre-diabetes): 100-125 mg/dL Diabetes mellitus: >/=126 mg/dL Random blood glucose: Normal: 70-199 mg/dL Note: Random glucose >100 mg/dL is associated with increased risk for diabetes. Blood Peripheral blood specimen / Unknown Venipuncture / Unknown 07/09/2025 7:24 AM CDT 07/09/2025 7:24 AM CDT us Rod Nelson APRN LAB BLOOD ORDERABLES Final Re sult [facility] [address] [facility], [facility] [address] [place] [address] * Vitamin D 25OH (07/09/2025 7:24 AM CDT) Only the most recent of2 resultswithin the time period is included. Vitamin D 25 OH 39 30 - 100 ng/mL 07/09/2025 10:10 AM CDT [facility] Blood Peripheral blood specimen / Unknown Venipuncture / Unknown 07/09/2025 7:24 AM CDT 07/09/2025 7:24 AM CDT Narrative [facility] - 07/09/2025 10:10 AM CDT Reference Range: Deficiency: <=20 ng/mL Insufficiency: 21-29 ng/mL Sufficiency: 30-100 ng/mL Potential toxicity: >100 ng/mL us Rod Nelson APRN LAB BLOOD ORDERABLES Final Re sult [facility] [place] [address], [facility] [address] [place] [address] * US Head Neck Soft Tissue (06/09/2025 1:41 PM CDT) Anatomical Region Laterality Modality Head, Neck Ultrasound 06/09/2025 1:39 PM CDT Impressions 06/09/2025 2:17 PM CDT 1. No central neck recurrence. 2. No lateral neck adenopathy. ACTIONABLE ITEMS/RECOMMENDATIONS*: None. *An Actionable Finding is a finding that may be unrelated to the original reason for imaging but potentially actionable, meaning further investigation may be necessary. The Actionable Findings Vigilance Unit (AFVU) assists medical providers with responding to additional radiologic findings that are unexpected and potentially actionable. Narrative 06/09/2025 2:17 PM CDT FULL RESULT: Examination: US HEAD NECK SOFT TISSUE on 06/09/2025 12:59 PM. CLINICAL HISTORY: 80 years old Female with history of papillary thyroid carcinoma. INDICATION: As above. COMPARISON: Ultrasound 03/07/2025, 04/11/2023. PROCEDURE COMMENTS: Real-time ultrasound examination of the neck soft tissues was performed. FINDINGS: Right Thyroid Lobe/Bed: No recurrence. Left Thyroid Lobe/Bed: No recurrence. Suprasternal and Superior Mediastinal: No recurrence. Right Lateral Neck: No adenopathy. Left Lateral Neck: No adenopathy. Submental to Cricoid: No adenopathy. Procedure Note Dario Jenkins MD - 06/09/2025 FULL RESULT: Examination: US HEAD NECK SOFT TISSUE on 06/09/2025 12:59 PM. CLINICAL HISTORY: 80 years old Female with history of papillary thyroidcarcinoma. INDICATION: As above. COMPARISON: Ultrasound 03/07/2025, 04/11/2023. PROCEDURE COMMENTS: Real-time ultrasound examination of the neck softtissues was performed. FINDINGS: Right Thyroid Lobe/Bed: No recurrence. Left Thyroid Lobe/Bed: No recurrence. Suprasternal and Superior Mediastinal: No recurrence. Right Lateral Neck: No adenopathy. Left Lateral Neck: No adenopathy. Submental to Cricoid: No adenopathy. IMPRESSION: 1. No central neck recurrence. 2. No lateral neck adenopathy. ACTIONABLE ITEMS/RECOMMENDATIONS*: None. *An Actionable Finding is a finding that may be unrelated to the originalreason for imaging but potentially actionable, meaning furtherinvestigation may be necessary. The Actionable Findings Vigilance Unit(AFVU) assists medical providers with responding to additional radiologicfindings that are unexpected and potentially actionable. Nancy Ring PA-C IMG US ORDERABLES Final Re sult * PTH Intact (06/09/2025 12:12 PM CDT) Parathyroid Hormone Intact 45.6 17.9 - 58.6 pg/mL 06/09/2025 12:58 PM CDT [facility] Comment:Reference range esta blished based on adult population. Blood Peripheral blood specimen / Unknown Venipuncture / Unknown 06/09/2025 12:12 PM CDT 06/09/2025 12:15 PM CDT Nancy Ring PA-C LAB BLOOD ORDERABLES Final Result [facility] [address] [facility] [place] [address], [place] * (ABNORMAL) Thyroglobulin (06/09/2025 12:12 PM CDT) Thyroglobulin <0.10(L) 1.59 - 50.03 ng/mL 06/09/2025 2:26 PM CDT [facility] Comment: Caution is required for result interpretation in the following conditions: For athyreotic patients, please note that the reference range is <0.1 ng/mL. When thyroglobulin results exceed 4500.00 ng/mL, some thyroglobulin samples may not dilute linearly due to varying antigen specificity, affinity, and avidity of capture and conjugate antibodies in their epitope reactions. If Thyroglobulin Antibody >4 IU/mL on [place], thyroglobulin results can be falsely low due to the presence of thyroglobulin antibodies. Testing on an alternative platform is available. Please contact pathologists or the core lab at [phone] for assistance. Results obtained with different assay methods cannot be used interchangeably. Thyroglobulin Antibody <0.9 <=3.9 IU/ml 06/09/2025 2:26 PM CDT [facility] Comment:Due to varying antig en specificity, affinity and avidity of capture and conjugate antibodies in their epitope reactions, some thyroglobulin antibody samples may not dilute linearly when results exceed 1650 IU/mL. Blood Peripheral blood specimen / Unknown Venipuncture / Unknown 06/09/2025 12:12 PM CDT 06/09/2025 12:16 PM CDT us Nancy Ring PA-C LAB BLOOD ORDERABLES Final Result [facility] [address] [place] [address] * TSH (06/09/2025 12:12 PM CDT) Thyroid Stimulating Hormone 0.66 0.27 - 4.20 mcIU/mL 06/09/2025 1:05 PM CDT [facility] Blood Peripheral blood specimen / Unknown Venipuncture / Unknown 06/09/2025 12:12 PM CDT 06/09/2025 12:15 PM CDT us Nancy Ring PA-C LAB BLOOD ORDERABLES Final Result [facility] [address] [facility] [place] [address], * Free T4 (06/09/2025 12:12 PM CDT) T4 (Thyroxine) Free 1.46 0.92 - 1.68 ng/dL 06/09/2025 1:05 PM CDT [facility] Blood Peripheral blood specimen / Unknown Venipuncture / Unknown 06/09/2025 12:12 PM CDT 06/09/2025 12:15 PM CDT us Nancy Ring PA-C LAB BLOOD ORDERABLES Final Result Performing Organization Address City/[facility]/ZIP Co de Phone Number [address] [place] [address], [place] * Phosphorus Level (06/09/2025 12:12 PM CDT) Phosphorus Level 3.5 2.5 - 4.5 mg/dL 06/09/2025 12:51 PM CDT [facility] Blood Peripheral blood specimen / Unknown Venipuncture / Unknown 06/09/2025 12:12 PM CDT 06/09/2025 12:15 PM CDT us Nancy MISTRY-C LAB BLOOD ORDERABLES Final Result Performing Organization Address [facility] Co de Phone Number [address] [place] [address], [place] * Magnesium Level (06/09/2025 12:12 PM CDT) Only the most recent of2 resultswithin the time period is included. Magnesium Level 2.1 1.6 - 2.6 mg/dL 06/09/2025 12:51 PM CDT [facility] Blood Peripheral blood specimen / Unknown Venipuncture / Unknown 06/09/2025 12:12 PM CDT 06/09/2025 12:15 PM CDT us Nancy Francokofi MISTRY-C LAB BLOOD ORDERABLES Final Result Performing Organization Address City/[facility]/ZIP Co de Phone Number [address] [place] [address], [place] * Calcium Level (06/09/2025 12:12 PM CDT) Calcium Level Total 9.6 8.2 - 10.2 mg/dL 06/09/2025 12:51 PM CDT [facility] Blood Peripheral blood specimen / Unknown Venipuncture / Unknown 06/09/2025 12:12 PM CDT 06/09/2025 12:15 PM CDT Nancy Ring PA-C LAB BLOOD ORDERABLES Final Result [facility] [address] [place] [address]. [address] [place] [address], [place] * Albumin Level (06/09/2025 12:12 PM CDT) Albumin Level 4.2 3.5 - 5.2 gm/dL 06/09/2025 12:51 PM CDT [facility] Blood Peripheral blood specimen / Unknown Venipuncture / Unknown 06/09/2025 12:12 PM CDT 06/09/2025 12:15 PM CDT Nancy Ring PA-C LAB BLOOD ORDERABLES Final Result Performing Organization Address [facility] de Phone Number 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 No Helicobacter organisms or intestinal metaplasia identified. B: Stomach, gastric body lesser curve: Transition zone-type mucosa with mild inactive chronic gastritis. No Helicobacter organisms or intestinal metaplasia identified. 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 Slight inactive chronic gastritis. No Helicobacter organisms or intestinal metaplasia identified. 11/04/2024 7:07 PM OPHTHALMIC ASSISTANT [facility] at 1907 OPHTHALMIC ASSISTANT Comment The presence of neuroendocrine hyperplasia and dysplasia typically is associated with increased serum gastrin levels. There is no evidence of autoimmune gastritis in these biopsies. 11/04/2024 7:07 PM OPHTHALMIC ASSISTANT [facility] Gross Description A: Stomach, antrum: Multiple soft bedolla tissue fragments, 0.6 x 0.4 x 0.2 cm in aggregate, entirely submitted in A1. ET B: Stomach, gastric body lesser curve: Multiple soft bedolla tissue fragments, 0.7 x 0.4 x 0.25 cm in aggregate, entirely submitted in B1. ET C: Stomach, gastric body greater curve: Multiple soft bedolla tissue fragments, 0.6 x 0.6 x 0.3 cm in aggregate, entirely submitted in . C1. ET 11/04/2024 7:07 PM OPHTHALMIC ASSISTANT [facility] Biomarker Block(s) N/A 11/04/2024 7:[address] [facility] Disclaimer "Some tests reported here may have been developed and performance characteristics determined by [facility] Pathology and Laboratory Medicine. These tests have not been specifically cleared or approved by the U.S. Food and Drug Administration. If applicable, controls were reviewed and showed appropriate reactivity." 11/04/2024 7:07 PM OPHTHALMIC ASSISTANT [facility] Tissue (Stomach) 10/31/2024 8:44 AM OPHTHALMIC ASSISTANT 10/31/2024 9:52 AM OPHTHALMIC ASSISTANT Tissue specimen (specimen) (Stomach) 10/31/2024 8:44 AM OPHTHALMIC ASSISTANT 10/31/2024 9:52 AM OPHTHALMIC ASSISTANT Tissue specimen (specimen) (Stomach) 10/31/2024 8:45 AM OPHTHALMIC ASSISTANT 10/31/2024 9:52 AM OPHTHALMIC ASSISTANT Ramsey Betancourt MD LAB PATHOLOGY ORDERABLES Final R esult Performing Organization Address City/State/[facility] Co de Phone Number [facility] [place] [address], after 08/11/2024 Insurance MEDICARE PART A AND B [facility] MEDICARE PART A AND B MEDICARE PART A AND B [facility] Advance Directives * Full Code (Latest Code Status on File) Date Activated Date Inactivated Comments 04/17/2025 10:02 AM Update based on Advanced Directive Documentation * Full Code Date Activated Date Inactivated Comments 07/13/2020 3:10 PM 07/14/2020 5:33 PM Care Teams Accounts Payable Payroll Coordinator Relationship Specialty Start Date End Date Sydni Levy MD [email or web address] PCP - External Referring Surgical Oncology 07/14/19 [place] [address] [place] [address] [place] [address] PCP - External Follow Up A Plastic and Reconstructive Surgery 07/14/19 Brittni Aranda MD [address] [place] [phone] [email or web address] PCP - General Medical Oncology 07/14/19 Everardo Valerio MD [address] [place] [phone] [email or web address] PCP - External Primary Care Provider Family Practice 07/14/19 Ethan Wilson MD [address] [place] [address] [place] [address] PCP - External Follow Up B Gastroenterology 07/24/19 Quang Dolan MD [address] [place] [address] PCP - External Follow Up D Cardiology 08/04/19 Nette Covarrubias MD [address] [place] [address] [email or web address] PCP - External Follow Up E Obstetrics/Gynecology 08/04/19 Chelly Dawson MD [facility] [place] [address] [email or web address] Consulting Physician Surgical Oncology 11/27/19 Goyo Waters MD [address] [place] [phone] [email or web address] Consulting Physician Pain Management 03/15/20 Nancy Ring, [employer] [address] [place] [phone] [email or web address] Physician Cyber Defense Forensics Analyst Endocrine Neoplasia 05/07/24 Rod Nelson APRN [address] [place] [address] [email or web address] Nurse Practitioner Oncology 02/26/25
--- NOTE | 2025-08-11 11:21 | RAD REPORT ---
EXAMINATION: CT HEAD WITHOUT CONTRAST CT CERVICAL SPINE WITHOUT CONTRAST CLINICAL INDICATION: Head and neck injury status post fall. Head and neck pain TECHNIQUE: Axial CT images from the skull base to the vertex without intravenous contrast. Axial CT i mages through the cervical spine were obtained without intravenous contrast. Sagittal and coronal reformatted images were created from the data set. Coronal and sagittal reformatted images were creat ed from the data set. One or more of the following dose reduction techniques were used: Automated exposure control, adjustment of the mA and/or kV according to patient size, and/or iterative reconstr uction. Unless otherwise specified, incidental findings do not require dedicated imaging follow-up. [id number]. Comparison: 2020 FINDINGS: An intracranial bleed is not seen. Ventricles are normal in caliber. No significant hypodensity within the brain No extra-axial fluid collection. No fluid within the sinuses/mastoids No fracture or dislocation is seen involving the cervical spine. Anterior fusion C4-C7. Mild anterior subluxation C7 on T1 minimally progressed from prior exam. IMPRESSION: No acute intracranial abnormality noted A cervical fracture is not seen. If the patient continues to have symptoms to suggest acute [employer]IM[employer]ARE TAKER/spinal pathology then MRI would be rec ommended
--- NOTE | 2025-08-11 11:33 | RAD REPORT ---
EXAM: CT CHEST, ABDOMEN AND PELVIS WITHOUT CONTRAST CLINICAL INDICATION: Chest and abdominal pain status post fall TECHNIQUE: CT chest, abdomen and pelvis was performed, without IV contrast, as per department protoco l. Axial, sagittal and coronal reconstructions were obtained. One or more of the following dose reduction techniques were used: Automated exposure control, adjustment of the mA and/or kV according to the patient size, and/or iterative reconstruction. Unless otherwise specified, incidental findings do not require dedicated imaging follow-up. The lack of IV and oral contrast limits evaluation of the mediastinum, augusto, vessels, organs and radha l. COMPARISON: None FINDINGS: Mildly displaced acute fractures involving the seventh and eighth right anterolateral ribs. Additional old rib fractures. No pneumothorax. Tiny lung nodules unchanged likely benign. Areas of subsegmental atelectasis within the right lung. C hronic appearing interstitial lung opacities. Bilateral breast implants, right larger than the left. A pulmonary contusion not seen. No mediastinal hematoma. No pleural effusion. No pericardial effusion. Liver, spleen, pancreas, adrenals kidneys and bladder do not demonstrate a traumatic injury. Splenic mass stable. Chronic pancreatic calcifications Old pelvic fractures. There is no evidence of diverticulitis Moderate chronic compression deformity L2 vertebral body. Mild posterior subluxation L2 on L3. Mild a nterior subluxation L4 on L5. IMPRESSION: Acute mildly displaced fractures seventh and eighth right anterior lateral ribs
--- NOTE | 2025-08-11 11:38 | ER ---
Nurse's Notes [facility] Name: Kailey Myles Age: 80 yrs Sex: Female : 1945 Arrival Date: 08/11/2025 Time: 10:32 Bed 16 Private MD: Diagnosis: Multiple fractures of ribs, right side-7th and 8th anterior lateral Presentation: 08/11 10:46 Chief complaint: Patient states: Fell while picking up a pumpkin yesterday at [facility]. ll1 R sided trunk trunk and rib pain. + his head but denies LOC. NO blood thinners. Coronavirus screen: Client denies travel out of the [place] in the last 14 days. At this time, the client does not indicate any symptoms associated with coronavirus-19. Ebola Screen: Patient denies travel to an Ebola-affected area in the 21 days before illness onset. Initial Sepsis Screen: Does the patient meet any 2 criteria? No. Patient's initial sepsis screen is negative. Does the patient have a suspected source of infection? No. Patient's initial sepsis screen is negative. Risk Assessment: Do you want to hurt yourself or someone else? Patient reports no desire to harm self or others. Onset of symptoms was August 10, 2025. 10:46 Method Of Arrival: Ambulatory ll1 10:46 Acuity: ARTHUR 3 ll1 Historical: - Allergies: 10:45 BACITRACIN; ll1 10:45 Bacitracin Zinc; ll1 10:45 benzalkonium chloride; ll1 10:45 Codeine; ll1 10:45 Levofloxacin; ll1 10:45 Lyrica; ll1 10:45 PENICILLINS; ll1 10:45 polymyxin B; ll1 10:45 pramoxine HCl; ll1 10:45 QUINOLONES; ll1 10:45 THIAZIDES; ll1 10:45 Neomycin Sulfate; ll1 - PMHx: 10:45 bells palsy; GERD; Hyperlipidemia; Anxiety; Hypertension; ll1 - PSHx: 10:45 R mastectomy (Hypertension); ll1 - Immunization history:: Adult Immunizations up to date. - Infectious Disease History:: Denies. - Social history:: Smoking status: Patient denies any tobacco usage or history of. Screenin:35 [facility] ED Fall Risk Assessment (Adult) History of falling in the last 3 months, km10 including since admission Yes- single mechanical fall (1 pt) Confusion or Disorientation No (0 pts) Intoxicated or Sedated No (0 pts) Impaired Gait No (0 pts) Mobility Assist Device Used No (0 pt) Altered Elimination No (0 pt) Score/Fall Risk Level 0 - 2 = Low Risk Oriented to surroundings, Maintained a safe environment, Educated pt \T\ family on fall prevention, incl call for assistance when getting out of bed. 11:35 Abuse screen: Denies threats or abuse. Denies injuries from another. Nutritional km10 screening: No deficits noted. Tuberculosis screening: No symptoms or risk factors identified. Assessment: 11:30 Reassessment: assuming care as primary RN at this time. km10 11:35 Pain: Complains of pain in right ribs. km10 11:35 Neuro: Level of Consciousness is awake, alert, obeys commands, Oriented to person, km10 place, time, situation, Appropriate for age Salt Grinder are equal bilaterally Gait is steady. Respiratory: Airway is patent Respiratory effort is even, unlabored. 12:00 Reassessment: incentive spirometer and education provided, with return demonstration. km10 Vital Signs: 10:46 BP 114 / 89; Pulse 72; Resp 17; Temp 98; Pulse Ox 93% on R/A; Pain 8/10; ll1 12:00 BP 110 / 66; Pulse 66; Resp 16; Pulse Ox 94% on R/A; km10 10:46 Pain Scale: Adult ll1 [place] Coma Score: 12:00 Eye Response: spontaneous(4). Motor Response: obeys commands(6). Verbal Response: km10 oriented(5). Total: 15. Trauma Score (Adult): 12:00 Eye Response: spontaneous(1); Verbal Response: oriented(1); Motor Response: obeys km10 commands(2); Systolic BP: > 89 mm Hg(4); Respiratory Rate: 10 to 29 per min(4); [place] Score: 15; Trauma Score: 12 ED Course: 10:38 Patient arrived in ED. im 10:39 Maria Ines Gay PA-C is PHCP. sb4 10:39 Syed Mckeon DO is Attending Physician. sb4 10:44 Arm band placed on Patient placed in an exam room, on a stretcher. ll1 10:47 Triage completed. ll1 11:04 Head C Spine MPR Wo Con CT In Process Unspecified. EDMS 11:04 Chest Abdomen Pelvis Wo Con CT In Process Unspecified. EDMS 11:29 Yvonne Ramirez, RN is Primary Nurse. km10 11:35 Patient has correct armband on for positive identification. Call light in reach. Side km10 rails up X2. 11:35 Provided Education on: plan of care. km10 12:00 INCENTIVE SPIROMETRY Sent. km10 Administered Medications: 11:30 Drug: Acetaminophen PO 1000 mg PO once Route: PO; km10 12:01 Follow up: Response: No adverse reaction km10 11:30 Drug: Methocarbamol PO 750 mg PO once Route: PO; km10 12:01 Follow up: Response: No adverse reaction km10 Outcome: 11:38 Discharge ordered by MD. sb4 11:59 Discharged to home ambulatory, km10 11:59 Condition: stable 11:59 Discharge instructions given to patient, Instructed on discharge instructions, follow up and referral plans. medication usage, Demonstrated understanding of instructions, follow-up care, medications, Prescriptions given X 2, 12:00 Patient left the ED. km10 Signatures: Dispatcher [employer] EDMS Travis Hermosillo, RN RN ll1 Maria Ines Gay, PA-C PA-C sb4 Amparo Damian Kirsten, RN RN km10 Corrections: (The following items were deleted from the chart) 10:49 10:46 Pulse 72bpm; Resp 17bpm; Temp 98F; Pain 8/10, Adult; ll1 ll1
--- NOTE | 2025-08-11 11:38 | EDPHYS ---
Physician Documentation [facility] Name: Kailey Myles Age: 80 yrs Sex: Female : 1945 Arrival Date: 08/11/2025 Time: 10:32 Bed 16 Private MD: ED Physician Syed Mckeon HPI: 08/11 12:31 This 80 yrs old Female presents to ER via Ambulatory with complaints of Fall Injury, sb4 Head Injury-Adult. 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 sb4 States she landed on her right side and did hit her head. Denies any loss of consciousness. Is mainly complaining of pain in her right rib cage. Denies any other injuries. No chest pain or shortness of breath. Historical: - Allergies: 10:45 BACITRACIN; ll1 10:45 Bacitracin Zinc; ll1 10:45 benzalkonium chloride; ll1 10:45 Codeine; ll1 10:45 Levofloxacin; ll1 10:45 Lyrica; ll1 10:45 PENICILLINS; ll1 10:45 polymyxin B; ll1 10:45 pramoxine HCl; ll1 10:45 QUINOLONES; ll1 10:45 THIAZIDES; ll1 10:45 Neomycin Sulfate; ll1 - PMHx: 10:45 bells palsy; GERD; Hyperlipidemia; Anxiety; Hypertension; ll1 - PSHx: 10:45 R mastectomy (Hypertension); ll1 - Immunization history:: Adult Immunizations up to date. - Infectious Disease History:: Denies. - Social history:: Smoking status: Patient denies any tobacco usage or history of. ROS: 12:31 Constitutional: Negative for fever, chills, and weight loss, sb4 12:31 MS/extremity: Positive for per HPI, 12:31 All other systems are negative, Exam: 12:31 Constitutional: This is a well developed, well nourished patient who is awake, alert, sb4 and in no acute distress. Head/Face: Normocephalic, atraumatic. Eyes: Extra-ocular motions intact. Periorbital areas with no swelling, redness, or edema. ENT: Mucous membranes moist. Respiratory: No increased work of breathing, no retractions or nasal flaring. Abdomen/GI: Soft, non-tender, no distension. Skin: Warm, dry with normal turgor. Normal color with no rashes, no lesions, and no evidence of cellulitis. 12:31 Chest/axilla: Inspection: normal, Palpation: tenderness, that is moderate, of the right seventh rib and right eighth rib, that totally reproduces the patient's complaints, 12:31 Respiratory: Breath sounds: are clear throughout, Vital Signs: 10:46 BP 114 / 89; Pulse 72; Resp 17; Temp 98; Pulse Ox 93% on R/A; Pain 8/10; ll1 12:00 BP 110 / 66; Pulse 66; Resp 16; Pulse Ox 94% on R/A; km10 10:46 Pain Scale: Adult ll1 [place] Coma Score: 12:00 Eye Response: spontaneous(4). Motor Response: obeys commands(6). Verbal Response: km10 oriented(5). Total: 15. Trauma Score (Adult): 12:00 Eye Response: spontaneous(1); Verbal Response: oriented(1); Motor Response: obeys km10 commands(2); Systolic BP: > 89 mm Hg(4); Respiratory Rate: 10 to 29 per min(4); Chaim Score: 15; Trauma Score: 12 MDM: 10:39 Medical Screening Exam initiated sb4 12:31 Differential diagnosis: abrasion, closed head injury, contusion, fracture, sprain, sb4 strain. Data reviewed: vital signs, nurses notes, radiologic studies, and as a result, I will discharge patient. Care significantly affected by the following chronic conditions: Hypertension. Counseling: I had a detailed discussion with the patient and/or guardian regarding the historical points, exam findings, and any diagnostic results supporting the discharge/admit diagnosis, radiology results, the need for outpatient follow up, for definitive care, to return to the emergency department if symptoms worsen or persist or if there are any questions or concerns that arise at home. 14:16 External Records Reviewed: [place] [employer] aware, no active scheduled prescriptions. sb4 08/11 10:46 Order name: Head C Spine MPR Wo Con CT; Complete Time: 11:23 sb4 08/11 10:46 Order name: Chest Abdomen Pelvis Wo Con CT; Complete Time: 11:34 sb4 08/11 11:38 Order name: INCENTIVE SPIROMETRY sb4 Administered Medications: 11:30 Drug: Acetaminophen PO 1000 mg PO once Route: PO; km10 12:01 Follow up: Response: No adverse reaction 10 11:30 Drug: Methocarbamol PO 750 mg PO once Route: PO; 10 12:01 Follow up: Response: No adverse reaction Disposition: 15:14 I was immediately available on-site in the Emergency Department for consultation in the ms3 care of the patient. Disposition Summary: 08/11/25 11:38 Discharge Ordered Notes: Location: Home sb4 Problem: new sb4 Symptoms: have improved sb4 Condition: Stable sb4 Diagnosis - Multiple fractures of ribs, right side - 7th and 8th anterior lateral sb4 Followup: sb4 - With: Emergency Department - When: As needed - Reason: Trouble breathing, Worsening of condition Discharge Instructions: - Discharge Summary Sheet sb4 - How to Use an Incentive Spirometer sb4 - Rib Fracture, [id number] sb4 Forms: - Prescription Opioid Use sb4 - Patient Portal Instructions sb4 - Leadership Thank You Letter sb4 Prescriptions: - ondansetron 8 mg Oral Tablet,disintegrating - take 1 tablet ORAL route every 8 hours; 12 tablet; Refills: 0, Product sb4 Selection Permitted - Tylenol-Codeine #3 300mg-30mg Oral tablet - take 2 tablets ORAL route every 6 hours As needed; 20 tablet; Refills: 0, sb4 Product Selection Permitted Signatures: Dispatcher [employer] Travis Cabrera, RN RN ll1 Syed Mckeon DO DO ms3 Maria Ines Gay PA-C PABella sb4 Yvonne Ramirez RN RN km10
[2025-08-11 17:48] VITALS: BP 114/89; TEMP 98; O2SAT 93
== END 2025-08-11 12:00 | disposition home or self-care (01) ==
LOC: ER 10:32
DX: S22.41XA Multiple fractures of ribs, right side, initial encounter for closed fracture (principal); W18.30XA Fall on same level, unspecified, initial encounter; Z90.11 Acquired absence of right breast and nipple
CPT/HCPCS: 70450; 71250; 72125; 74176; 99283